=== PATIENT | female | born 1955 | race Caucasian/White ===

== ENCOUNTER 2017-11-17 06:43 | Inpatient (IN) | payer MEDICARE, MEDICAID, SELFPAY ==
[2017-11-02 09:45] VITALS: BMI 26.5
[2017-11-17] VITALS (16 sets, daily range): BP systolic 123–180; BP diastolic 74–101; PULSE 95–110; RESP 12–98; TEMP 36.1–37; O2SAT 91–98; BMI 26.5
[2017-11-17] MEDS: LACTATED RINGERS 1,000 ML 42 ML IV (07:30)
--- NOTE | 2017-11-17 08:00 | DI.RAD.S_ITS ---
PROCEDURE: XR LUMBAR SPINE 2-3V INDICATIONS: L3-4,L4-5 TLIF TECHNIQUE: 2 views of the lumbar spine were acquired. COMPARISON: [facility] Outside Film, CR, XR LUMBAR SPINE 2 OR 3 VIEWS, 06/20/2017, 15:49. FINDINGS: Bones: AP and lateral intraoperative images were obtained showing placement of disc spacers at L3-4 and L4-5, posterior fusion with transpedicular screws and vertical connecting rods bilaterally L3, L4 and L5. Anterolisthesis at L3-4 has been corrected. Soft tissues: Overlying bowel gas pattern is normal. No suspicious soft tissue calcifications. IMPRESSION: Intraoperative images of lumbar discectomy and fusion L3-4 and L4-5. Dictated by: Baldo Hernandez M.D. on 11/17/2017 at 11:58 Approved by: Baldo Hernandez M.D. on 11/17/2017 at 11:59
[2017-11-17] MEDS: CEFAZOLIN 2 GM/100 ML FROZ.PIGGY IV ×3 (08:07→23:44)
--- NOTE | 2017-11-17 09:00 | SUR.OPER ---
Prone on spine table, head in foam head support, padded chest and pelvic supports, gel pad at knees, lower legs supported by pillows; nipples, genitalia and toes free of pressure, arms secured on foam padded arm boards at <90 degrees abduction. Tape over blanket at thigh secured to table.
[2017-11-17] MEDS: BUPIVACAINE 0.25% W/ EPI 50 ML VIAL INJ (09:09)
[2017-11-17] MEDS: BUPIVACAINE LIPOSOME 266 MG/20 ML VIAL INJ (09:10)
--- NOTE | 2017-11-17 11:30 | PM.PREOP ---
Pre-operative Note Interval Note Pre-op Check: History & Physical Reviewed by Physician, Exam Performed and History & Physical exam performed today
--- NOTE | 2017-11-17 11:35 | P.OP_ITS ---
Operative Date/Time/Diagnoses - Date of procedure: 11/17/17 Time of procedure: 08:31 Pre-op diagnosis: 1. L3-4, L4-5 spondylolisthesis 2. L3-4, L4-5 spinal stenosis 3. L3-4, L4-5 spondylosis with radiculopathy Post-op diagnosis: same Procedure & Clinicians Procedure: 1. L3-4, L4-5 Postero-lateral and posterior interbody fusion 2. L3-4, L4-5 interbody cage placement. 3. L3-4, L4-5 decompressive laminectomy with bilateral facetecomies 4. L3-4, L4-5 Posterior segmental instrumentation 5. [place] of bone marrow from iliac crest 6. Utilization of microsurgical technique and operating microscope Same procedure as scheduled: Yes Indications: Patient has been having chronic back pain and worsening lumbar radiculopathy. Patient failed multiple conservative management with worsening pain weakness and numbness in her lower extremity. Patient has been having difficulty performing activity of daily living. After discussing risks benefits of treatment options, patient elected proceed with surgery. Surgeon: Almas Muller Scientific Research Manager: Tawana Riley Click Yes if Unassisted: No Anesthesia Type: General Operative Notes Closure Type: primary Specimen(s): none sent Implants & Drains: Globus revolve screws and Caliber cages Applied: catheter Estimated Blood Loss (mL): 150 Blood products transfused: none Procedure in detail: Patient was seen in the preoperative area. Risks and benefits of the surgery was discussed with the patient. Informed consent was obtained from the patient and placed in the chart. Surgical site was marked. Patient was taken to the operative room. General anesthesia was administered. Prophylactic antibiotic was given to the patient less than 30 min before the incision was made. Patient was placed into a prone position on the Govind table. Patient's back was then prepped and draped in the sterile fashion. Time- out was performed at this time. Using AP and lateral C-arm imaging the interval between L3-4, L4-5 was identified and marked on patient's back. A 2 inch incision 2 in from midline was made on the left side first. The fascia was incised in line with skin incision. Globus MARS retractors was placed inside the incision and docked onto the L4 and L5 lamina. Using microsurgical technique and operating microscope, a L3, L4 laminectomy and L3-4, L4-5 facetectomy was performed using a Kerrison rongeur. The disc space at L3-4, L4-5 was identified. And a total diskectomy was performed at L3-4, L4-5 level. The endplates were decorticated using a rasp and shaver. The total diskectomy and decortication was performed at L3-4, L4-5 level in order to to accomplish a L3-4, L4-5 fusion. The local bone from the laminectomy and facetectomy was saved for local bone grafting. After the total diskectomy and decortication was completed, Globus viacell bone graft material was combined with local bone that was harvested earlier. At this time, a separate skin is incision was made over the iliac crest. A Jamshidi needle was inserted into the iliac crest through a separate skin incision. 5 cc of bone marrow aspiration was obtained through the separate skin incision using a Jamshidi needle from the iliac crest. The bone marrow aspiration was combined with local bone and the via cell bone grafting material. The bone grafting material was placed into the L3-4, L4-5 interbody space along with two cages, one expandable cage at each level. The cages were expanded to their maximum height using the torque limiting screwdriver. At this time a mirror image incision was made on the right side. The fascia was incised in line with the skin incision. Globus MARS retractor was inserted and docked onto the L3-4, L4-5 posterolateral gutter. Using the power drill, posterior-lateral decortication was performed at L3-4, L4-5 level until bleeding cortical bone was identified. The remaining bone grafting material was placed into the L3-4, L4-5 posterior lateral gutter he order to accomplish posterolateral fusion at the L3-4, L4-5 levels. Using the double C-arm technique, pedicle screws were placed into the L3, L4, L5 pedicles bilaterally. This was done by placing the Jamshidi needle into the pedicles, then placing the guidewires over the Jamshidi needle, and finally placing the cannulated screws over the guidewires bilaterally. After the pedicle screws were placed, 2 titanium rods was locked into the heads of the pedicle screws using locking caps and torque limiting screwdriver. Total 6 pedicles screws were placed. After all the hardware was placed, and confirmed with AP and lateral C-arm imaging, the wound was then irrigated with sterile normal saline and packed with Ray-Magalis gauze for 3 min to accomplish hemostasis. After the gauze was removed the deep fascia was closed with #1 Vicryl suture. The subcutaneous layer was closed with 2-0 Vicryl. The skin was closed with skin lenora. Patient tolerated the procedure well. There were no complications. Complications: none Condition: stable Disposition: PACU Plan for aftercare: Admit to inpatient hospital
[2017-11-17] MEDS: fentaNYL 100 MCG/2 ML INJ 50 MCG IV ×2 (12:20→12:25)
[2017-11-17] MEDS: SODIUM CHLORIDE 0.9% 1,000 ML 100 ML IV (13:55)
[2017-11-17] MEDS: diphenhydrAMINE 50 MG/ML VIAL 25 MG IV (14:02)
--- NOTE | 2017-11-17 14:15 | PC.NURSE ---
Pt to room from PACU via bed. Pt awake alert and oriented but forgetful at times. Pt oriented to room, call light, phone use, tv/call light controls, and reminded not to bend, lift, or twist and to logroll in/out of bed. Pt also advised to call for assistance as needed and to not get out of bed without assistance.
--- NOTE | 2017-11-17 14:22 | PM.CHAP ---
Pre-op referral. Shared prayer and encouragement. Pt's support people are in [facility] and expects a SNF stop in her recovery. Will continue to follow. Hima Madden, [facility] [phone]
[2017-11-17] MEDS: HYDROMORPHONE 1 MG INJ 0.5 MG IV ×2 (15:31→17:37)
--- NOTE | 2017-11-17 16:00 | PT.IIE ---
Current Diagnoses Spondylolisthesis, lumbar region (11/17/17) Other spondylosis with radiculopathy, lumbar region (11/17/17) Spinal stenosis, lumbar region without neurogenic claudication (11/17/17) Surgery Performed Operation Date: 11/17/17 07:45 Actual Procedures p L3-4, L4-5 Translaminar Laminectomy Interbody Fusion w/post instru - Almas Muller MD Surgical History (Last Updated 11/02/17 @ 10:25 by Kymberly Webber RN) H/O cosmetic surgery (Acute) History of cataract extraction with lens replacement (Acute) History of mandibular surgery (Acute) History of surgery (Acute) Hx of appendectomy (Acute) Hx of removal of cyst (Acute) Hx of tonsillectomy (Acute) Status post surgical manipulation of ankle joint (Acute) Medical History (Last Updated 11/02/17 @ 10:52 by Kymberly Webber RN) Anxiety (Acute) Arthritis (Acute) Asthma (Acute) COPD (chronic obstructive pulmonary disease) (Acute) Chronic low back pain (Acute) Dental abscess (Acute) Depression (Acute) Diabetes (Acute) ETOH abuse (Acute) Easy bruisability (Acute) Emphysema lung (Acute) Frequent UTI (Acute) HTN (hypertension) (Acute) Hepatitis C (Acute) Hyperlipidemia (Acute) Hyponatremia (Acute) Hypoxia (Acute) Marijuana smoker (Acute) Pneumonia (Acute) Substance abuse (Acute) TBI (traumatic brain injury) (Acute) Urinary retention (Acute) Physical Therapy Inpatient Evaluation/Re-Eval M1 PT/OT-IP Prior Functional Status Start: 11/17/17 17:00 Freq: NEEDED Status: Active Protocol: Document 11/17/17 16:00 AB (Rec: 11/17/17 17:15 AB [id number]) Medical Review Prior Functional Status Medical History Reviewed Yes Mobility and Gait pt staed that she is independent with all mobilities and ambulation without AD Social History Household Members significant other family other Living Arrangements House Number of Floors (Floors) Two Floors Number of Stairs To Enter/Railing? has 13 steps with bilateral wide rails and can only hold on to one rail at a time. pt lives on the main level of the house Home Environment Standard Height Toilet Walk in Shower Home Equipment Front Wheel Walker Four Wheel Walker Straight Cane Employment Status Retired Additional Social History Comment stated that her mom lives with her but will not be able to assist her; spouse works and will not be able to assist her . M2 PT-IP Current Condition Start: 11/17/17 17:00 Freq: NEEDED Status: Active Protocol: Document 11/17/17 16:00 AB (Rec: 11/17/17 17:15 AB [id number]) Physical Therapy Current Condition Current Condition Evaluation Date 11/17/17 Treatment Diagnosis s/p lumbar fusion and laminectomy Onset Date 11/17/17 Precautions Lumbar Precautions Log Roll No Twisting Limit Bending Lifting Restriction of 10 lbs Gait Belt above Incisional Area M3 PT-IP Subjective Start: 11/17/17 17:00 Freq: NEEDED Status: Active Protocol: Document 11/17/17 16:00 AB (Rec: 11/17/17 17:15 AB [id number]) Subjective Physical Therapy Visit Type Type Initial Evaluation Visit Start Time 14:00 Visit Stop Time 14:45 Total Visit Minutes 45 Notes NAC and nurse stated that pt wants to get up. checked on pt and pt refused and stated that she needs to get her pain meds/tablet first that they ordered from the pharmacy. talked to pt's nurse and stated that she just gave her IV pain meds. after a few minutes, nurse informed PT that pt wants to get up now afte pain meds was given. Number of DIVISIONAL MERCHANDISING MANAGER Visits 0 Physical Therapy Visit Comments Patient Comments stated that she cannot go home due to her house is under construction Therapy Pain Assessment Pain When Pain Assessed At Rest Pain Present Pain Present Pain Reported Location Lower Back Intensity 9 Scale Used Numeric (1 - 10) Pain Behaviors Restlessness M4 PT-IP Mobility and Gait Start: 11/17/17 17:00 Freq: NEEDED Status: Active Protocol: Document 11/17/17 16:00 AB (Rec: 11/17/17 17:15 AB [id number]) PT-Bed Mobility Assessment Rolling Level of Assist Maximal Assistance Supine to Sit Supine to Sit Minimal Assistance PT-Transfer Assessment Sit to and From Stand Sit to and from Stand Maximum Assistance Equipment Transfer Assistive Device Gait Belt Front Wheeled Walker Transfers Transfer Destination Chair Transfer Technique Stand Step Pivot Transfer Ability Level of Assist Maximum Assistance Comments Mobility Comments pt seems drowsy and can be impulsive affecting safety and direction following. needed max cues for all tasks. pt sat on EOB and wanted PT to leave her sitting on EOB. educated pt regarding safety and that PT cannot leave her by herself as pt is also drowsy and not safe. Pt then agreed to transfer to the chair. attempted sit to stand but was not able to complete on first try. completed sit to stand again requiring max A and max cues. pt very unsteady with transfer requiring max A and max cues using FWW. positioned pt on chair. informed NAC that pt needs 2 person assist for safety. Gait Assessment Comments Gait Comments able to take steps during transfer but unable to ambulate much. PT-Balance Assessment Sitting Balance and Reactions Static Sitting Balance Ability Good Dynamic Sitting Balance Ability Good Standing Balance and Reactions Static Standing Balance Ability Fair Dynamic Standing Balance Ability Fair Device Used FWW M5 PT-IP Objective Assessments Start: 11/17/17 17:00 Freq: NEEDED Status: Active Protocol: Document 11/17/17 16:00 AB (Rec: 11/17/17 17:15 AB [id number]) Orientation Orientation/Cognition Level of Alertness Confusional State Orientation Name Age Birthday Place Situation Safety Awareness Decreased Safety Awareness Memory Description Short Term Impaired Senior Paralegal Impaired Gross Range of Motion Lower Extremity ROM Assessment Within Functional Limits Strength Lower Extremity Strength Assessment Bilaterally Impaired M6 PT-IP Treatment Start: 11/17/17 17:00 Freq: NEEDED Status: Active Protocol: Document 11/17/17 16:00 AB (Rec: 11/17/17 17:15 AB [id number]) Physical Therapy Treatment Education Education Provided Precautions Weight Bearing Status Post-Op Packet Safety M7 PT-IP Assessment and Plan Start: 11/17/17 17:00 Freq: NEEDED Status: Active Protocol: Document 11/17/17 16:00 AB (Rec: 11/17/17 17:15 AB [id number]) PT Summary Assessment and Plan Potential Rehabilitation Potential Fair Status of Condition at Evaluation Evolving Summary Impairments Pain ROM Strength Balance Coordination Sensation Cognition Bed Mobility Transfers Gait Activity Tolerance Assessment Summary pt requires mod to max A with max cues for all tasks. pt is impulsive and gets agitated easily when given instructions for safety. pt will require SNF rehab to improve strenght and mobility. Goals Bed Mobility Goal Standby Assistance Transfer Goal Contact Guard Assistance Gait Goal Contact Guard Assistance Gait Distance 100 Other Goals up/down 13 steps with 1 rail CGA Days to Meet Goals 3 Frequency of Treatment Frequency Of Treatment Twice a Day Treatment Plan Physical Therapy Treatment Plan Bed Mobility Training Transfer Training Gait Training Therapeutic Exercise Balance Retraining Post Op Education Discharge Planning Hot or Cold Pack Neuromuscular Re-ed Coordination Retraining Manual Therapy Other Recommendations and Next Treatment ambulation Focus Recommendations To Nursing Amount of Assist Needed 2 Person Assist Discharge Recommendations PT Discharge Recommendations SNF Rehab Provider Visit Care Team Role Provider Type Almas Muller MD Admit Provider Physician Attending Provider Specialty: Orthopedic Surgery
[2017-11-17] MEDS: OXYCODONE IR 5 MG TABLET 10 MG PO (16:04)
[2017-11-17] MEDS: GABAPENTIN 300 MG CAPSULE PO ×2 (16:08→22:36)
[2017-11-17] MEDS: ONDANSETRON 4 MG/2 ML INJ IV ×2 (17:28→22:38)
[2017-11-17] MEDS: hydrOXYzine pamoate 25 MG CAPSULE PO ×2 (18:58→22:35)
[2017-11-17] MEDS: ALBUTEROL HFA 60 PUFF/8 GM INH INH (20:29)
[2017-11-17] MEDS: HYDROMORPHONE 0.5 MG INJ IV ×2 (20:38→22:15)
[2017-11-17] MEDS: FLUTICASONE/SALMETEROL 500/50 14 PUFF DISKUS INH (22:35)
[2017-11-17] MEDS: BUSPIRONE 15 MG TABLET PO (22:35)
[2017-11-17] MEDS: DOCUSATE 100 MG CAPSULE PO (22:35)
[2017-11-17] MEDS: TRAZODONE 50 MG TABLET 100 MG PO (22:36)
[2017-11-17] MEDS: SENNOSIDES 8.6 MG TABLET 17.2 MG PO (22:36)
--- NOTE | 2017-11-17 22:39 | PC.NURSE ---
Evenign Shift Note Pt A&Ox3, VSS, HTN d/t pain, 95% on 2L NC. Pain managed w/ PO Dilaudid and IV for breakthrough. Pt experiencing severe nausea after oxycodone administration x2. Zofran given x2, nausea resolved after vomiting and tolerating PO intake. paged and orders to stop PO oxycodone and initiate PO Dilaudid. Nausea resolved and intaking fluids and bedtime meds w/o emesis. Up w/ 1p SBA, using call light appropriately. Will continue to monitor. CMS intact. Snowden patent. NS at 100ml/hr via R hand PIV.
[2017-11-17] MEDS: HYDROMORPHONE 2 MG TABLET PO (23:43)
[2017-11-18] VITALS (10 sets, daily range): BP systolic 112–154; BP diastolic 64–98; PULSE 93–119; RESP 16–20; TEMP 36.1–37.2; O2SAT 90–96
[2017-11-18] MEDS: SODIUM CHLORIDE 0.9% 1,000 ML 100 ML IV (00:48)
[2017-11-18] MEDS: HYDROMORPHONE 0.5 MG INJ IV ×3 (01:01→08:19)
[2017-11-18] MEDS: diazePAM 5 MG TABLET PO ×2 (01:59→19:23)
[2017-11-18] MEDS: ALBUTEROL HFA 60 PUFF/8 GM INH INH ×3 (03:03→14:47)
[2017-11-18] MEDS: hydrOXYzine pamoate 25 MG CAPSULE PO ×2 (04:28→15:55)
--- NOTE | 2017-11-18 05:11 | PC.NURSE ---
patient was c/o pain 8/10 even after medicating her with dilaudid IV and Dilaudid PO. notified Dr. Coronado, VTO : valium and additional dilaudid if valium is ineffective. Pt reported pain relief after Valium and dilaudid, her pain has gone down to 6/10.
[2017-11-18] MEDS: MAGNESIUM HYDROXIDE 30 ML UDC PO (05:28)
[2017-11-18 06:21] LABS: Hematocrit 37.7 % (36-46); Hemoglobin 12.3 g/dL (12.0-16.0)
[2017-11-18] MEDS: HYDROMORPHONE 2 MG TABLET PO (06:28)
--- NOTE | 2017-11-18 08:54 | P.PN_ITS ---
Subjective Date Patient Seen: 11/18/17 Time Patient Seen: 08:49 Interval history: Patient is postop day 1 status post lami/fusion by Dr. Muller. Patient having lot of pain. Currently on Dilaudid 2 mg dose not controlling her pain. She has had to have additional IV Dilaudid. Patient states that she is high pain tolerance. Has not been up with physical therapy yet. She also like to have a nicotine patch. Exam Vital Signs (past 8 hours): Vital Signs - 8 hr 3 11/18/17 04:00 Temperature 98.8 F Pulse Rate 115 H Respiratory Rate 18 Blood Pressure 112/88 H Pulse Oximetry 94 Pulse Oximetry 94 Oxygen Delivery Method Nasal Cannula Oxygen Flow Rate 3 Narrative Exam Narrative: Patient in bed. Alert and orient x3. Back dressing is clean dry intact. 5/5 BLE. NV status intact. Floey in. O2 nasal. Objective Labs Result Diagrams: 11/18/17 05:56 Labs: Laboratory Results - last 24 hr 11/18/17 05:56 Hgb 12.3 Hct 37.7 Assessment & Plan Post-op Postoperative Procedures Operation Date: 11/17/17 07:45 Actual Procedures Side Surgeon p L3-4, L4-5 Translaminar Laminectomy Interbody Fusion w/post instru Almas Muller MD status post L3-L4, L5 4-5 Lami/fusion by Dr. Muller. PD1. Will increase on Dilaudid 2-4 mg every 4 hr as needed for pain. Also start her on a steroid burst. Order nicotine patch. Patient will ambulate with physical therapy. HERBER Snowden when more mobile. Probably home in next couple of days. Time Spent With Patient less than 15 minutes
[2017-11-18] MEDS: ALBUTEROL/IPRATROPIUM MDI 1 PUFF INH ×2 (09:02→20:17)
[2017-11-18] MEDS: FLUTICASONE/SALMETEROL 500/50 14 PUFF DISKUS INH ×2 (09:05→20:17)
[2017-11-18] MEDS: DEXAMETHASONE 4 MG TABLET 10 MG PO (09:17)
[2017-11-18] MEDS: BUSPIRONE 15 MG TABLET PO ×2 (09:18→22:26)
[2017-11-18] MEDS: DOCUSATE 100 MG CAPSULE PO ×2 (09:19→22:27)
[2017-11-18] MEDS: CITALOPRAM 20 MG TABLET 40 MG PO (09:19)
[2017-11-18] MEDS: MEMANTINE HCL 5 MG TABLET 15 MG PO (09:20)
[2017-11-18] MEDS: LISINOPRIL 5 MG TABLET PO (09:20)
[2017-11-18] MEDS: METFORMIN HCL 500 MG TABLET 1000 MG PO ×2 (09:21→22:27)
[2017-11-18] MEDS: MONTELUKAST 10 MG TABLET PO (09:21)
[2017-11-18] MEDS: NICOTINE 21 MG PATCH TOP (09:21)
[2017-11-18] MEDS: PRAVASTATIN 20 MG TABLET 40 MG PO (09:22)
[2017-11-18] MEDS: GABAPENTIN 300 MG CAPSULE PO ×3 (09:32→22:26)
[2017-11-18] MEDS: LORazepam 1 MG TABLET PO (10:31)
[2017-11-18] MEDS: HYDROMORPHONE 2 MG TABLET 4 MG PO ×4 (10:48→22:25)
--- NOTE | 2017-11-18 11:00 | PT.IPTN ---
Current Diagnoses Spondylolisthesis, lumbar region (11/17/17) Other spondylosis with radiculopathy, lumbar region (11/17/17) Spinal stenosis, lumbar region without neurogenic claudication (11/17/17) Surgery Performed Operation Date: 11/17/17 07:45 Actual Procedures p L3-4, L4-5 Translaminar Laminectomy Interbody Fusion w/post jensen Muller MD Physical Therapy Treatment Note M2 PT-IP Current Condition Start: 11/17/17 17:00 Freq: NEEDED Status: Active Protocol: Document 11/17/17 16:00 AB (Rec: 11/17/17 17:15 AB [id number]) Physical Therapy Current Condition Current Condition Evaluation Date 11/17/17 Treatment Diagnosis s/p lumbar fusion and laminectomy Onset Date 11/17/17 Precautions Lumbar Precautions Log Roll No Twisting Limit Bending Lifting Restriction of 10 lbs Gait Belt above Incisional Area M3 PT-IP Subjective Start: 11/17/17 17:00 Freq: NEEDED Status: Active Protocol: Document 11/18/17 11:00 AB (Rec: 11/18/17 12:40 AB [email or web address]) Subjective Physical Therapy Visit Type Type Treatment Note Visit Start Time 11:00 Visit Stop Time 11:33 Total Visit Minutes 33 Number of AEROSPACE CONTROL AND WARNING SYSTEMS Visits 0 Physical Therapy Visit Comments Patient Comments initially refusing stating that she is waiting for her oral meds. nurse stated that she just gave her IV dilaudid. Therapy Pain Assessment Pain When Pain Assessed During Mobility Pain Present Pain Present Pain Reported Location Lower Back Intensity 9 Scale Used Numeric (1 - 10) Pain Management Techniques Apply Cold Re-positioning Timing of Activity with Medications M4 PT-IP Mobility and Gait Start: 11/17/17 17:00 Freq: NEEDED Status: Active Protocol: Document 11/18/17 12:31 AB (Rec: 11/18/17 12:40 AB [id number]) PT-Bed Mobility Assessment Supine to Sit Supine to Sit Maximum Assistance 1 Person Assistance Scooting Scooting to Edge of Bed Maximum Assistance PT-Transfer Assessment Sit to and From Stand Sit to and from Stand Maximum Assistance 2 Person Assistance Use of Upper Extremities Equipment Transfer Assistive Device Gait Belt Front Wheeled Walker Orthotic/Prosthetic Devices or Brace: No Transfers Transfer Destination Chair Transfer Technique Stand Pivot Transfer Ability Level of Assist Maximum Assistance 2 Person Assistance Use of Upper Extremities Comments Mobility Comments pt very anxious and required max cues for all tasks but also gets agitated when instructed. pt also is impulsive but also gets agitated when instructed for safety. Gait Assessment Comments Gait Comments unable to ambulate at this time M5 PT-IP Objective Assessments Start: 11/17/17 17:00 Freq: NEEDED Status: Active Protocol: Document 11/17/17 16:00 AB (Rec: 11/17/17 17:15 AB [id number]) Orientation Orientation/Cognition Level of Alertness Confusional State Orientation Name Age Birthday Place Situation Safety Awareness Decreased Safety Awareness Memory Description Short Term Impaired Fdc Impaired Gross Range of Motion Lower Extremity ROM Assessment Within Functional Limits Strength Lower Extremity Strength Assessment Bilaterally Impaired M6 PT-IP Treatment Start: 11/17/17 17:00 Freq: NEEDED Status: Active Protocol: Document 11/18/17 12:40 AB (Rec: 11/18/17 12:40 AB [id number]) Physical Therapy Treatment Education Education Provided Precautions Safety M7 PT-IP Assessment and Plan Start: 11/17/17 17:00 Freq: NEEDED Status: Active Protocol: Document 11/18/17 12:31 AB (Rec: 11/18/17 12:40 AB [id number]) PT Summary Assessment and Plan Potential Rehabilitation Potential Fair Summary Impairments Pain ROM Strength Balance Coordination Cognition Bed Mobility Transfers Gait Activity Tolerance Progress Towards Goals Slow Progress due to Pain Slow Progress due to Medical Issues Slow Progress due to Activity Tolerance Assessment Summary pt continues to require 2 -3 person assist with mobility. pt is impulsive but also gets agitated easily when instructed. pt will require SNF rehab to improve mobility. Goals Bed Mobility Goal Standby Assistance Transfer Goal Contact Guard Assistance Front Wheeled Walker Gait Goal Contact Guard Assistance Front Wheel Walker Gait Distance 100 Other Goals up/down 13 steps with 1 rail CGA Days to Meet Goals 3 Frequency of Treatment Frequency Of Treatment Twice a Day Treatment Plan Physical Therapy Treatment Plan Bed Mobility Training Transfer Training Gait Training Therapeutic Exercise Balance Retraining Post Op Education Discharge Planning Hot or Cold Pack Neuromuscular Re-ed Coordination Retraining Manual Therapy Other Recommendations and Next Treatment ambulation Focus Recommendations To Nursing Amount of Assist Needed 3 or More Person Assist Discharge Recommendations PT Discharge Recommendations SNF Rehab
[2017-11-18] MEDS: MULTIVIT,CALC,MINS/IRON/FOLIC 1 TABLET 1 TAB PO (12:05)
--- NOTE | 2017-11-18 12:22 | CM.DANOTE ---
Addendum entered by VESTA Moreno 11/18/17 12:33: In addition; Susan requests information on pt's DCP from SNF when will her house construction be completed? Original Note: DCP Assessment: Pt is a 62 yo female, resident of [place]. Pt admitted for scheduled spinal surgery w/Dr Muller. Pt's PCP is [facility]. Reviewed chart and met w/pt, explained SW role. Pt very appreciative of the visit and explains she has been and currently is in a lot of pain. This TECHNICAL OPERATOR reviewed [facility] contracted facilities; pt requests [facility] Contacted Susan at [facility] she researched pt's coverage and started authorization process w/[facility]. Susan appreciates any updated PT notes when they become available. PASSR still needs to be completed. VESTA Moreno
--- NOTE | 2017-11-18 13:15 | PT.IPTN ---
Current Diagnoses Spondylolisthesis, lumbar region (11/17/17) Other spondylosis with radiculopathy, lumbar region (11/17/17) Spinal stenosis, lumbar region without neurogenic claudication (11/17/17) Surgery Performed Operation Date: 11/17/17 07:45 Actual Procedures p L3-4, L4-5 Translaminar Laminectomy Interbody Fusion w/post jensen Muller MD Physical Therapy Treatment Note M3 PT-IP Subjective Start: 11/17/17 17:00 Freq: NEEDED Status: Active Protocol: Document 11/18/17 13:30 AB (Rec: 11/18/17 14:51 AB [email or web address]) Subjective Physical Therapy Visit Type Type Treatment Note Visit Start Time 13:15 Visit Stop Time 13:30 Total Visit Minutes 15 Number of FIRE BOSS Visits 0 Physical Therapy Visit Comments Patient Comments pt requesting to go back to bed Therapy Pain Assessment Pain When Pain Assessed At Rest Pain Present Pain Present Pain Reported Location Lower Back Intensity 8 Scale Used Numeric (1 - 10) Pain Behaviors Guarding Restlessness Pain Management Techniques Re-positioning M4 PT-IP Mobility and Gait Start: 11/17/17 17:00 Freq: NEEDED Status: Active Protocol: Document 11/18/17 13:30 AB (Rec: 11/18/17 14:51 AB [email or web address]) PT-Bed Mobility Assessment Sit to Supine Sit to Supine Maximum Assistance PT-Transfer Assessment Sit to and From Stand Sit to and from Stand Maximum Assistance 2 Person Assistance Use of Upper Extremities Equipment Transfer Assistive Device Gait Belt Front Wheeled Walker Transfers Transfer Destination Bed Transfer Technique Stand Step Pivot Transfer Ability Level of Assist Maximum Assistance 2 Person Assistance Use of Upper Extremities Comments Mobility Comments pt required max cues with all tasks and required 2 attempts to complete sit to stand. pt continues to have confusion and impulsiveness. M5 PT-IP Objective Assessments Start: 11/17/17 17:00 Freq: NEEDED Status: Active Protocol: Document 11/17/17 16:00 AB (Rec: 11/17/17 17:15 AB [id number]) Orientation Orientation/Cognition Level of Alertness Confusional State Orientation Name Age Birthday Place Situation Safety Awareness Decreased Safety Awareness Memory Description Short Term Impaired Nursing Home Impaired Gross Range of Motion Lower Extremity ROM Assessment Within Functional Limits Strength Lower Extremity Strength Assessment Bilaterally Impaired M6 PT-IP Treatment Start: 11/17/17 17:00 Freq: NEEDED Status: Active Protocol: Document 11/18/17 13:30 AB (Rec: 11/18/17 14:51 AB [email or web address]) Physical Therapy Treatment Education Education Provided Precautions Weight Bearing Status Post-Op Packet Safety M7 PT-IP Assessment and Plan Start: 11/17/17 17:00 Freq: NEEDED Status: Active Protocol: Document 11/18/17 13:30 AB (Rec: 11/18/17 14:51 AB [email or web address]) PT Summary Assessment and Plan Potential Rehabilitation Potential Fair Summary Impairments Pain ROM Strength Balance Coordination Sensation Tone Cognition Bed Mobility Transfers Gait Activity Tolerance Progress Towards Goals Slow Progress due to Pain Slow Progress due to Medical Issues Assessment Summary pt continues to require 2 person assist with mobility and will require SNF rehab to improve strength and mobility. Goals Bed Mobility Goal Standby Assistance Transfer Goal Contact Guard Assistance Front Wheeled Walker Gait Goal Contact Guard Assistance Front Wheel Walker Gait Distance 100 Other Goals up/down 13 steps with 1 rail CGA Days to Meet Goals 3 Frequency of Treatment Frequency Of Treatment Twice a Day Treatment Plan Physical Therapy Treatment Plan Bed Mobility Training Transfer Training Gait Training Therapeutic Exercise Balance Retraining Post Op Education Discharge Planning Hot or Cold Pack Neuromuscular Re-ed Coordination Retraining Manual Therapy Other Recommendations and Next Treatment ambulation Focus Recommendations To Nursing Amount of Assist Needed 3 or More Person Assist Discharge Recommendations PT Discharge Recommendations SNF Rehab
[2017-11-18] MEDS: DEXAMETHASONE 4 MG TABLET PO ×2 (14:45→22:27)
--- NOTE | 2017-11-18 16:18 | OT.IP.EVAL ---
Current Diagnoses Spondylolisthesis, lumbar region (11/17/17) Other spondylosis with radiculopathy, lumbar region (11/17/17) Spinal stenosis, lumbar region without neurogenic claudication (11/17/17) Surgery Performed Operation Date: 11/17/17 07:45 Actual Procedures p L3-4, L4-5 Translaminar Laminectomy Interbody Fusion w/post instru - Almas Muller MD Past Medical History (Last Updated 11/02/17 @ 10:52 by Kymberly Webber RN) Anxiety (Acute) Arthritis (Acute) Asthma (Acute) COPD (chronic obstructive pulmonary disease) (Acute) Chronic low back pain (Acute) Dental abscess (Acute) Depression (Acute) Diabetes (Acute) ETOH abuse (Acute) Easy bruisability (Acute) Emphysema lung (Acute) Frequent UTI (Acute) HTN (hypertension) (Acute) Hepatitis C (Acute) Hyperlipidemia (Acute) Hyponatremia (Acute) Hypoxia (Acute) Marijuana smoker (Acute) Pneumonia (Acute) Substance abuse (Acute) TBI (traumatic brain injury) (Acute) Urinary retention (Acute) Surgical History (Last Updated 11/02/17 @ 10:25 by Kymberly Webber RN) H/O cosmetic surgery (Acute) History of cataract extraction with lens replacement (Acute) History of mandibular surgery (Acute) History of surgery (Acute) Hx of appendectomy (Acute) Hx of removal of cyst (Acute) Hx of tonsillectomy (Acute) Status post surgical manipulation of ankle joint (Acute) Occupational Therapy Inpatient Evaluation/Re-Eval M1 PT/OT-IP Prior Functional Status Start: 11/17/17 17:00 Freq: NEEDED Status: Active Protocol: Document 11/18/17 15:58 ALONDRA (Rec: 11/18/17 16:18 ALONDRA [email or web address]) Medical Review Prior Functional Status Medical History Reviewed Yes Diet/Fluid Consistency Regular Communication WFL, pt hyperverbal and distracts self with conversation Mobility and Gait pt stated that she is independent with all mobilities and ambulation without AD Activities of Daily Living and IADL's Pt states she was indep with all self care and provides some assist to her elderly mother. Prior Functional Level (Other details) Pt lives in mother's home. Her mother has paid caregiver 3x week. works long hours and cannot provide much assist. 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 M2 OT-IP Current Condition Start: 11/18/17 15:57 Freq: Status: Active Protocol: Document 11/18/17 15:58 PJM (Rec: 11/18/17 16:18 PJM [email or web address]) Occupational Therapy Current Condition Current Condition Evaluation Date 11/18/17 Treatment Diagnosis decreased self care/function mobility s/p lumbar fusion Post Operative Precautions Lumbar Precautions Log Roll No Twisting Limit Bending Lifting Restriction of 10 lbs Gait Belt above Incisional Area M3 OT- IP Subjective and Pain Start: 11/18/17 15:57 Freq: Status: Active Protocol: Document 11/18/17 15:58 PJM (Rec: 11/18/17 16:18 PJM [email or web address]) OT- Subjective Occupational Therapy Visit Type Type Initial Evaluation Visit Start Time 13:10 Visit Stop Time 13:40 Total Visit Minutes 30 Occupational Therapy Visit Comments Patient Comments I need to get back to bed now . I have had plenty of therapy today. Patient/Caregiver Goals to have less pain OT Pain Assessment Pain When Pain Assessed During Mobility Pain Present Pain Present Pain Reported Location Lower Back Scale Used pt does not rate on scale Description Aching Cramping Pain Behaviors Facial Grimacing Guarding Management Techniques Re-positioning Timing of Activity with Medications M4 OT- IP ADL's Start: 11/18/17 15:57 Freq: Status: Active Protocol: Document 11/18/17 15:58 PJM (Rec: 11/18/17 16:18 PJM [email or web address]) OT ADL-Grooming General Evaluation Grooming Ability Standby Assistance Areas Needing Assistance Retrieving/Set-up of Grooming Items Face Washing Comments OT Grooming Comments in bed or chair OT ADL-Oral Care Comments Oral Care Comments pt declined this session OT ADL-Dressing General Eval Upper Body Dressing Ability Minimal Assistance Lower Body Dressing Ability Total Assistance Areas Needing Assistance Socks Assistive Devices Dressing Assistive Devices Long Handled Shoe Horn Manufacturing Quality Engineer Sock Aid Comments OT Dressing Comments provided warehouse delivery driver, sock aid and long shoe horn at pr request, began education re: use of equipt with emphasis on lumbar spine precautions OT ADL-Toileting General Evaluation Toileting Ability Total Assistance Comments OT Toileting Comments marroquin still in place OT ADL-Bathing Bathing Type Bathing Type Sponge Bath General Evaluation Bathing Ability Maximal Assistance M5 OT- IP IADL's Start: 11/18/17 15:57 Freq: Status: Active Protocol: Document 11/18/17 15:58 PJM (Rec: 11/18/17 16:18 PJM [email or web address]) OT-Instrumental Activities of Daily Living Deficits IADL Deficits Identified Deficits Home Safety Awareness Home Safety Comments pt states her house is under construction at present Money Management Money Management No Deficits Identified Molder Feeder Molder Feeder Comments Pt will need assist during recovery period Driving Driving Comments Pt will need assist during recovery period M6 OT- IP Functional Cognition Start: 11/18/17 15:57 Freq: Status: Active Protocol: Document 11/18/17 15:58 PJM (Rec: 11/18/17 16:18 PJ [email or web address]) Cognitive Factors Limiting Selfcare Function Cognitive Ability Level of Alertness Alert Attention Span Ability Unable to Focus Unable to Sustain Attention Ability to Follow Commands Able to Follow One Step Commands with Repetition Memory Description Short Term Impaired Safety Awareness Decreased Ability to Apply Precautions Problem Solving Ability Unable to Identify Errors Needs Assist to Identify Solutions Executive Function Ability Unable to Hold Focus Unable to Filter Distractions Unable to Curb Inappropriate Speech Cognitive Comments Cognitive Assessment Comments Pt hyperverbal this session and distracts self with constant conversation; significantly decreased attention /concentration with low frustration tolerance and decreased coping skills noted. Note pt has hx of TBI. OT- Vision and Hearing OT- Hearing Assessment OT- Hearing Assessment WFL OT- Vision Assessment Visual Acuity WFL Vision Assessment Comments s/p B cataract surgery; pt denies any recent changes M7 OT- IP Mobility and Balance Start: 11/18/17 15:57 Freq: Status: Active Protocol: Document 11/18/17 15:58 PJM (Rec: 11/18/17 16:18 PJ [email or web address]) OT- Bed Mobility Assessment Sit to Supine Sit to Supine Assist Maximum Assistance 2 Person Assistance Scooting Scooting to Edge of Bed Total Assistance 2 Person Assistance Scooting Up and Down in Bed Total Assistance 2 Person Assistance OT-Transfer Assessment Sit to and From Stand Sit to and from Stand Maximum Assistance 2 Person Assistance Transfers Transfer Ability Maximum Assistance 2 Person Assistance Technique Transfer Destination Bed Transfer Technique Stand Step Pivot Devices Transfer Assistive Devices Gait Belt Front Wheeled Walker Comments Mobility Comments decreased attention to task due to anxiety, constant conversation OT- Gait Assessment Comments Gait Ability Comments did not occur OT- Balance Assessment Sitting Balance and Reactions Static Sitting Balance Ability Fair Dynamic Sitting Balance Ability Poor Standing Balance and Reactions Static Standing Balance Ability Fair Dynamic Standing Balance Ability Poor M8 OT- IP Objective Assessments Start: 11/18/17 15:57 Freq: Status: Active Protocol: Document 11/18/17 15:58 PJM (Rec: 11/18/17 16:18 PJM [email or web address]) OT Gross Range of Motion Upper Extremity Range of Motion Assessment Within Functional Limits OT Strength Upper Extremity Strength Assessment Within Functional Limits OT- Coordination Assessment Comments Coordination Comments WFL BUE OT-Muscle Tone Assessment Muscle Tone WNL Yes OT Sensation Assessment Comments Summary Comments Pt denies deficits in BUE's Edema Edema Absent M9 OT- IP Assessment and Plan Start: 11/18/17 15:57 Freq: Status: Active Protocol: Document 11/18/17 15:58 PJM (Rec: 11/18/17 16:18 PJM [id number]) OT Summary Assessment and Plan Potential Rehabilitation Potential Good Analytic Complexity at Evaluation Moderate Summary OT Impairments Pain Balance Functional Cognition Functional Mobility Grooming Dressing Toileting Bathing Toilet Transfers Shower Transfers Progress Towards Goals Slow Progress due to Activity Tolerance Assessment Summary Moderate complexity OT assessment due to pt's high anxiety level and decreased functional cognition requiring strategies to calm pt and focus her attention on task. Pt is far below her baseline level of function and currently has significant performance deficits in all functional mobility/transfers; requiring 2 person assist. Pt has not yet been able to ambulate with P.T. Pt also has performance deficits in standing grooming, dressing, bathing and toileting. Pt is not safe to return home with her elderly mother who requires caregiver assist. Recommend SNF for further rehab when pt medically stable . Goals Grooming Goal Standby Assistance Dressing Goal Minimal Assistance Toileting Goal Moderate Assistance Bathing Goal Minimal Assistance Toilet Transfer Goal Minimal Assistance Shower Transfer Goal Minimal Assistance Patient/Caregiver Education Goal Demonstrate Post-Op Precautions Days to Meet Goals 7 Frequency of Treatment Frequency Of Treatment Once a Day Treatment Plan OT Treatment Plan ADL Training Functional Mobility Patient/Family Education Discharge Planning Discharge Recommendations OT Discharge Recommendations SNF Rehab Home Equipment Needs provided warehouse delivery driver, sock aid, long shoe horn and bath sponge
[2017-11-18] MEDS: SENNOSIDES 8.6 MG TABLET 17.2 MG PO (22:27)
[2017-11-18] MEDS: TRAZODONE 50 MG TABLET 100 MG PO (22:28)
[2017-11-19] VITALS (8 sets, daily range): BP systolic 124–166; BP diastolic 77–84; PULSE 90–103; RESP 16–18; TEMP 36.6–36.8; O2SAT 93–98
[2017-11-19] MEDS: hydrOXYzine pamoate 25 MG CAPSULE PO ×2 (00:34→09:12)
[2017-11-19] MEDS: LORazepam 1 MG TABLET PO (02:07)
[2017-11-19] MEDS: DEXAMETHASONE 4 MG TABLET PO (02:32)
[2017-11-19] MEDS: HYDROMORPHONE 2 MG TABLET 4 MG PO ×5 (02:32→21:23)
[2017-11-19] MEDS: MAGNESIUM HYDROXIDE 30 ML UDC PO (03:26)
[2017-11-19] MEDS: diphenhydrAMINE 50 MG/ML VIAL 25 MG IV ×2 (03:40→12:54)
--- NOTE | 2017-11-19 07:56 | PM.PNPO.1 ---
Subjective Date Patient Seen: 11/19/17 Time Patient Seen: 07:56 Interval history: Patient's pain is moderate. Denies fever or chills. No nausea vomiting. Patient states she has no caregiver to her sister at home. Exam Vital Signs (past 8 hours): Vital Signs - 8 hr 11/19/17 03:18 Temperature 98.1 F Pulse Rate 96 H Respiratory Rate 16 Blood Pressure 124/79 H Pulse Oximetry 96 Pulse Oximetry 96 Oxygen Delivery Method Nasal Cannula Oxygen Flow Rate 2 Narrative Exam Narrative: Lumbar dressing is clean, dry and intact. Neurovascular status is intact to the distal bilateral lower extremities. Objective Labs Result Diagrams: 11/18/17 05:56 Assessment & Plan Post-op Postoperative Procedures Operation Date: 11/17/17 07:45 Actual Procedures Side Surgeon p L3-4, L4-5 Translaminar Laminectomy Interbody Fusion w/post instru Almas Muller MD Postop day 2 status post L3 L4, L4-L5 posterior lateral and posterior interbody fusion, L3-L4, L4-L5 interbody cage placement, L3-L4, L4-L5 decompressive laminectomy with bilateral facetectomies, L3-L4, L4-L5 posterior segmental instrumentation. Utilization of microsurgical technique and operating microscope. Patient progressing slower than expected. Mobilized with physical therapy. Patient is max assist in physical therapy has recommended [facility] facility placement. Likely discharge to [facility] facility tomorrow. Time Spent With Patient less than 15 minutes
--- NOTE | 2017-11-19 08:01 | P.PN_ITS ---
Subjective Date Patient Seen: 11/19/17 Time Patient Seen: 07:56 Interval history: Patient's pain is moderate. Denies fever or chills. No nausea vomiting. Patient states she has no caregiver to her sister at home. Exam Vital Signs (past 8 hours): Vital Signs - 8 hr 3 11/19/17 03:18 Temperature 98.1 F Pulse Rate 96 H Respiratory Rate 16 Blood Pressure 124/79 H Pulse Oximetry 96 Pulse Oximetry 96 Oxygen Delivery Method Nasal Cannula Oxygen Flow Rate 2 Narrative Exam Narrative: Lumbar dressing is clean, dry and intact. Neurovascular status is intact to the distal bilateral lower extremities. Objective Labs Result Diagrams: 11/18/17 05:56 Assessment & Plan Post-op Postoperative Procedures Operation Date: 11/17/17 07:45 Actual Procedures Side Surgeon p L3-4, L4-5 Translaminar Laminectomy Interbody Fusion w/post instru Almas Muller MD Postop day 2 status post L3 L4, L4-L5 posterior lateral and posterior interbody fusion, L3-L4, L4-L5 interbody cage placement, L3-L4, L4-L5 decompressive laminectomy with bilateral facetectomies, L3-L4, L4-L5 posterior segmental instrumentation. Utilization of microsurgical technique and operating microscope. Patient progressing slower than expected. Mobilized with physical therapy. Patient is max assist in physical therapy has recommended shelter facility placement. Likely discharge to shelter facility tomorrow. Time Spent With Patient less than 15 minutes
[2017-11-19] MEDS: FLUTICASONE/SALMETEROL 500/50 14 PUFF DISKUS INH ×2 (08:22→20:54)
[2017-11-19] MEDS: ALBUTEROL HFA 60 PUFF/8 GM INH INH (08:22)
[2017-11-19] MEDS: NICOTINE 21 MG PATCH TOP ×2 (09:00→09:12)
[2017-11-19] MEDS: GABAPENTIN 300 MG CAPSULE PO ×3 (09:12→21:24)
[2017-11-19] MEDS: MONTELUKAST 10 MG TABLET PO (09:13)
[2017-11-19] MEDS: MULTIVIT,CALC,MINS/IRON/FOLIC 1 TABLET 1 TAB PO (09:13)
[2017-11-19] MEDS: PRAVASTATIN 20 MG TABLET 40 MG PO (09:13)
[2017-11-19] MEDS: BUSPIRONE 15 MG TABLET PO ×2 (09:13→21:24)
[2017-11-19] MEDS: METFORMIN HCL 500 MG TABLET 1000 MG PO ×2 (09:13→16:54)
[2017-11-19] MEDS: CITALOPRAM 20 MG TABLET 40 MG PO (09:13)
[2017-11-19] MEDS: DOCUSATE 100 MG CAPSULE PO ×2 (09:14→21:23)
[2017-11-19] MEDS: LISINOPRIL 5 MG TABLET PO (09:14)
[2017-11-19] MEDS: MEMANTINE HCL 5 MG TABLET 15 MG PO (09:14)
--- NOTE | 2017-11-19 10:10 | PT.IPTN ---
Current Diagnoses Spondylolisthesis, lumbar region (11/17/17) Other spondylosis with radiculopathy, lumbar region (11/17/17) Spinal stenosis, lumbar region without neurogenic claudication (11/17/17) Surgery Performed Operation Date: 11/17/17 07:45 Actual Procedures p L3-4, L4-5 Translaminar Laminectomy Interbody Fusion w/post jensen Muller MD Physical Therapy Treatment Note M2 PT-IP Current Condition Start: 11/17/17 17:00 Freq: NEEDED Status: Active Protocol: Document 11/17/17 16:00 AB (Rec: 11/17/17 17:15 AB [id number]) Physical Therapy Current Condition Current Condition Evaluation Date 11/17/17 Treatment Diagnosis s/p lumbar fusion and laminectomy Onset Date 11/17/17 Precautions Lumbar Precautions Log Roll No Twisting Limit Bending Lifting Restriction of 10 lbs Gait Belt above Incisional Area M3 PT-IP Subjective Start: 11/17/17 17:00 Freq: NEEDED Status: Active Protocol: Document 11/19/17 10:10 AB (Rec: 11/19/17 11:41 AB [email or web address]) Subjective Physical Therapy Visit Type Type Treatment Note Visit Start Time 10:10 Visit Stop Time 10:45 Total Visit Minutes 35 Number of DONOR CENTER TECHNICIAN Visits 0 Therapy Pain Assessment Pain When Pain Assessed At Rest Pain Present Pain Present Pain Reported Location Lower Back Scale Used pain scale not stated M4 PT-IP Mobility and Gait Start: 11/17/17 17:00 Freq: NEEDED Status: Active Protocol: Document 11/19/17 10:10 AB (Rec: 11/19/17 11:41 AB [email or web address]) PT-Transfer Assessment Sit to and From Stand Sit to and from Stand Minimal Assistance Moderate Assistance Equipment Transfer Assistive Device Gait Belt Front Wheeled Walker Comments Mobility Comments pt ambulated from bed towards the sink using FWW min A to mod A ~ 10 ft. pt was able to maintain standing min A leaning against the counter while completing grooming. Gait Assessment Gait Gait Assistance Required: Minimum Assistance Distance (Feet) (feet) 200 Able to Maintain Weight Bearing Status Yes During Gait Assistive Devices Assistive Device Gait Belt Front Wheeled Walker Gait Deviations General Gait Pattern Decreased Stride Length Decreased Feet Clearance Factors Limiting Gait Function Factors Limiting Gait Function Decreased Activity Tolerance Decreased Sensation Decreased Strength Difficulty Following Directions Pain Poor Balance Poor Safety Awareness Comments Gait Comments pt completed 200 ft x 2 using FWW min A and cues. pt can be impulsive. M5 PT-IP Objective Assessments Start: 11/17/17 17:00 Freq: NEEDED Status: Active Protocol: Document 11/17/17 16:00 AB (Rec: 11/17/17 17:15 AB [id number]) Orientation Orientation/Cognition Level of Alertness Confusional State Orientation Name Age Birthday Place Situation Safety Awareness Decreased Safety Awareness Memory Description Short Term Impaired Custodial Impaired Gross Range of Motion Lower Extremity ROM Assessment Within Functional Limits Strength Lower Extremity Strength Assessment Bilaterally Impaired M6 PT-IP Treatment Start: 11/17/17 17:00 Freq: NEEDED Status: Active Protocol: Document 11/18/17 13:30 AB (Rec: 11/18/17 14:51 AB [email or web address]) Physical Therapy Treatment Education Education Provided Precautions Weight Bearing Status Post-Op Packet Safety M7 PT-IP Assessment and Plan Start: 11/17/17 17:00 Freq: NEEDED Status: Active Protocol: Document 11/19/17 10:10 AB (Rec: 11/19/17 11:41 AB [email or web address]) PT Summary Assessment and Plan Potential Rehabilitation Potential Fair Summary Impairments Pain ROM Strength Balance Tone Cognition Bed Mobility Transfers Gait Activity Tolerance Progress Towards Goals Slow Progress due to Pain Assessment Summary pt slowly progressing but continues to require assist with mobility. Pt will benefit from SNF rehab to improve function prior to d/c home. Goals Bed Mobility Goal Standby Assistance Transfer Goal Standby Assistance Gait Goal Standby Assistance Front Wheel Walker Gait Distance 250 Days to Meet Goals 3 Frequency of Treatment Frequency Of Treatment Twice a Day Treatment Plan Physical Therapy Treatment Plan Bed Mobility Training Transfer Training Gait Training Therapeutic Exercise Balance Retraining Post Op Education Discharge Planning Hot or Cold Pack Neuromuscular Re-ed Coordination Retraining Manual Therapy Other Recommendations and Next Treatment ambulation, transfers, bed Focus mobility Recommendations To Nursing Amount of Assist Needed 2 Person Assist Discharge Recommendations PT Discharge Recommendations SNF Rehab
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
[2017-11-19] MEDS: BISACODYL 10 MG SUPP PR (11:27)
--- NOTE | 2017-11-19 11:51 | CM.DPC ---
DCP Cont: MADDISON faxed updated PT/OT notes to [facility] from yesterday and today to review towards securing [facility] auth. MADDISON spoke to Susan, admissions at [facility], who stated that she spoke with the [facility] CM yesterday late afternoon and they were planning to review clinicals towards auth yesterday in anticipation of a weekend admit but Susan has not heard a determination from [facility] yet and [facility] is usually closed on the weekends. Susan to keep MADDISON updated on auth process. Plan: MADDISON to continue following for update from [facility] once Giovany reviews clinicals to determine if pt meets criteria for SNF auth, unsure if this can now happen on the weekend. VESTA Leonard
[2017-11-19] MEDS: CYCLOBENZAPRINE 10 MG TABLET PO ×2 (13:11→21:23)
--- NOTE | 2017-11-19 13:53 | PT.IPTN ---
Current Diagnoses Spondylolisthesis, lumbar region (11/17/17) Other spondylosis with radiculopathy, lumbar region (11/17/17) Spinal stenosis, lumbar region without neurogenic claudication (11/17/17) Surgery Performed Operation Date: 11/17/17 07:45 Actual Procedures p L3-4, L4-5 Translaminar Laminectomy Interbody Fusion w/post jensen Muller MD Physical Therapy Treatment Note M2 PT-IP Current Condition Start: 11/17/17 17:00 Freq: NEEDED Status: Active Protocol: Document 11/17/17 16:00 AB (Rec: 11/17/17 17:15 AB [id number]) Physical Therapy Current Condition Current Condition Evaluation Date 11/17/17 Treatment Diagnosis s/p lumbar fusion and laminectomy Onset Date 11/17/17 Precautions Lumbar Precautions Log Roll No Twisting Limit Bending Lifting Restriction of 10 lbs Gait Belt above Incisional Area M3 PT-IP Subjective Start: 11/17/17 17:00 Freq: NEEDED Status: Active Protocol: Document 11/19/17 13:40 AB (Rec: 11/19/17 13:52 AB [email or web address]) Subjective Physical Therapy Visit Type Type Treatment Note Visit Start Time 13:20 Visit Stop Time 13:39 Total Visit Minutes 19 Number of CANE FLUME WATCHMAN Visits 0 Therapy Pain Assessment Pain When Pain Assessed At Rest Pain Present Pain Present Pain Reported Location Lower Back Scale Used pain scale not stated Pain Management Techniques Timing of Activity with Medications M4 PT-IP Mobility and Gait Start: 11/17/17 17:00 Freq: NEEDED Status: Active Protocol: Document 11/19/17 13:40 AB (Rec: 11/19/17 13:52 AB [email or web address]) PT-Transfer Assessment Sit to and From Stand Sit to and from Stand Maximum Assistance 2 Person Assistance Use of Upper Extremities Equipment Transfer Assistive Device Gait Belt Front Wheeled Walker Gait Assessment Gait Gait Assistance Required: Minimum Assistance Moderate Assistance Distance (Feet) (feet) 400 Able to Maintain Weight Bearing Status Yes During Gait Assistive Devices Assistive Device Gait Belt Front Wheeled Walker Orthotic/Prosthetic Devices or Brace: No Factors Limiting Gait Function Factors Limiting Gait Function Decreased Activity Tolerance Decreased Strength Pain Poor Balance Poor Safety Awareness Comments Gait Comments pt completed sit to stand with 2 attempts needed to complete task. pt stated that she needs 2 people to do it. provided max A x 2 and max cues. pt is impulsive and have cognitive issues affecting instruction following. pt able to ambulate using FWW min A but with one incidence of knee buckling requiring mod A to recover. Pt ambulated with a 2nd person with w/c follow. pt requested to use the toilet after ambulation and ambulated towards the toilet using FWW min A and cues. required max A for controlled descent to the toilet. Pt wants to sit on toilet for awhile. call light provided and placed next to pt. informed nurse that pt is using the toilet. M5 PT-IP Objective Assessments Start: 11/17/17 17:00 Freq: NEEDED Status: Active Protocol: Document 11/17/17 16:00 AB (Rec: 11/17/17 17:15 AB [id number]) Orientation Orientation/Cognition Level of Alertness Confusional State Orientation Name Age Birthday Place Situation Safety Awareness Decreased Safety Awareness Memory Description Short Term Impaired Videogame Designer Impaired Gross Range of Motion Lower Extremity ROM Assessment Within Functional Limits Strength Lower Extremity Strength Assessment Bilaterally Impaired M6 PT-IP Treatment Start: 11/17/17 17:00 Freq: NEEDED Status: Active Protocol: Document 11/18/17 13:30 AB (Rec: 11/18/17 14:51 AB [email or web address]) Physical Therapy Treatment Education Education Provided Precautions Weight Bearing Status Post-Op Packet Safety M7 PT-IP Assessment and Plan Start: 11/17/17 17:00 Freq: NEEDED Status: Active Protocol: Document 11/19/17 13:40 AB (Rec: 11/19/17 13:52 AB [email or web address]) PT Summary Assessment and Plan Potential Rehabilitation Potential Fair Summary Impairments Pain Strength Balance Cognition Bed Mobility Transfers Gait Activity Tolerance Progress Towards Goals Slow Progress - Other Assessment Summary pt requires one person assist with mobility. pt impulsive and with incidence of knee buckling. pt is not safe to go home and will need SNF rehab to improve mobility and independence. Goals Bed Mobility Goal Standby Assistance Transfer Goal Standby Assistance Gait Goal Standby Assistance Front Wheel Walker Gait Distance 250 Days to Meet Goals 3 Frequency of Treatment Frequency Of Treatment Twice a Day Treatment Plan Physical Therapy Treatment Plan Bed Mobility Training Transfer Training Gait Training Therapeutic Exercise Balance Retraining Post Op Education Discharge Planning Hot or Cold Pack Neuromuscular Re-ed Coordination Retraining Manual Therapy Other Recommendations and Next Treatment ambulation, transfers, bed Focus mobility Recommendations To Nursing Amount of Assist Needed 2 Person Assist Discharge Recommendations PT Discharge Recommendations SNF Rehab
--- NOTE | 2017-11-19 16:15 | PC.NURSE ---
Ortho: Pt labile - tears to smiles. SIts the tbi which makes me do this. I get so over whelmed so quickly, then I start crying. Pt reassured, extra time given when explaining pain med routine and procedures. Pt reports she is constipated, requesting supp and ducolox tabs tonight if needed. Supp given and did have sm results. Pt reports the ducolox tabs should help when she gets them tonight and she may need to have supp given again tomorrow. Will do as pt requests. Had shower and dressing changed to back. Bilat incisions are stapled, intact, no drainage seen. Pt feels much better after shower. Pt was able to get up and walk today twice with PT, PT reports pt is moving much better today. She has also been up in the room with staff. Has a hx of falls and pt is very nervous about falling again. Reports the lt leg is weak and will give out from under her and she does have a sl limp on this side and it is more painful when she gets up. Is following her lami precautions, does need some ques for log rolling. Pt reported concerns about her medications and there timing. Times were changed per her request. Given information on her surgery which helped her to feel better. Hopefully will feel over all improved tomorrow. Cont w/poc.
[2017-11-19] MEDS: ALBUTEROL/IPRATROPIUM MDI 1 PUFF INH (20:54)
[2017-11-19] MEDS: SENNOSIDES 8.6 MG TABLET 17.2 MG PO (21:23)
[2017-11-19] MEDS: TRAZODONE 100 MG TABLET PO (21:24)
[2017-11-19] MEDS: BISACODYL 5 MG TABLET 10 MG PO (21:24)
[2017-11-20] VITALS (12 sets, daily range): BP systolic 119–158; BP diastolic 57–92; PULSE 81–100; RESP 10–22; TEMP 36.3–37.3; O2SAT 91–97
[2017-11-20] MEDS: HYDROMORPHONE 2 MG TABLET 4 MG PO ×3 (03:31→14:49)
[2017-11-20] MEDS: FLUTICASONE/SALMETEROL 500/50 14 PUFF DISKUS INH ×2 (08:32→22:44)
[2017-11-20] MEDS: ALBUTEROL/IPRATROPIUM MDI 1 PUFF INH ×3 (08:33→22:44)
--- NOTE | 2017-11-20 08:48 | PM.PNPO.1 ---
Subjective Date Patient Seen: 11/20/17 Time Patient Seen: 08:48 Interval history: Postop day 3 status post L3 L4, L4-L5 posterior lateral and posterior interbody fusion, L3-L4, L4-L5 interbody cage placement, L3-L4, L4-L5 decompressive laminectomy with bilateral facetectomies, L3-L4, L4-L5 posterior segmental instrumentation. Utilization of microsurgical technique and operating microscope. Patient progressing slower than expected. Mobilized with physical therapy. Patient is max assist in physical therapy has recommended intermediate facility placement. No bowel movement for days. Complains of constipation. Complains of pain and difficulty moving/Rolling. Denies fevers or chills. Snowden still in place. Exam Vital Signs (past 8 hours): - 11/20/17 03:56 11/20/17 06:26 11/20/17 07:15 Temperature 98.4 F Pulse Rate 89 Respiratory Rate 20 Blood Pressure 157/88 H Pulse Oximetry 91 95 95 11/20/17 07:16 Temperature Pulse Rate Respiratory Rate Blood Pressure Pulse Oximetry 94 Oxygen Delivery Method Nasal Cannula Oxygen Flow Rate 2 Narrative Exam Narrative: Alert and oriented no acute distress. ncat. Breathing nonlabored on room air. During the visit Respiratory therapy comes in to work with patient. Patient complains of abdominal pain and constipation. Abdomen obese, soft. Wiggles fingers and toes bilaterally. Dressing on lumbar spine clean dry and intact. Objective Labs Result Diagrams: 11/18/17 05:56 Assessment & Plan Post-op Postoperative Procedures Operation Date: 11/17/17 07:45 Actual Procedures Side Surgeon p L3-4, L4-5 Translaminar Laminectomy Interbody Fusion w/post instru Almas Muller MD Postop day 3 status post L3 L4, L4-L5 posterior lateral and posterior interbody fusion, L3-L4, L4-L5 interbody cage placement, L3-L4, L4-L5 decompressive laminectomy with bilateral facetectomies, L3-L4, L4-L5 posterior segmental instrumentation. Utilization of microsurgical technique and operating microscope. Patient progressing slower than expected. Mobilized with physical therapy. Patient is max assist in physical therapy has recommended intermediate facility placement. Likely discharge to intermediate facility when approved. Will write for [facility] today-maintain bowel regimen. Remove Snowden when able. Time Spent With Patient less than 15 minutes Quality VTE Deep Vein Thrombosis/Pulmonary Embolism Present on Admission: No
[2017-11-20] MEDS: CYCLOBENZAPRINE 10 MG TABLET PO ×3 (09:22→20:19)
[2017-11-20] MEDS: MULTIVIT,CALC,MINS/IRON/FOLIC 1 TABLET 1 TAB PO (09:22)
[2017-11-20] MEDS: POLYETHYLENE GLYCOL 3350 17 GM POWD.PACK PO (09:22)
[2017-11-20] MEDS: DOCUSATE 100 MG CAPSULE PO ×2 (09:22→20:19)
[2017-11-20] MEDS: NICOTINE 21 MG PATCH TOP (09:22)
[2017-11-20] MEDS: METFORMIN HCL 500 MG TABLET 1000 MG PO ×2 (09:22→17:04)
[2017-11-20] MEDS: BUSPIRONE 15 MG TABLET PO ×2 (09:22→20:19)
[2017-11-20] MEDS: LISINOPRIL 5 MG TABLET PO (09:23)
[2017-11-20] MEDS: CITALOPRAM 20 MG TABLET 40 MG PO (09:23)
[2017-11-20] MEDS: MEMANTINE HCL 5 MG TABLET 15 MG PO (09:23)
[2017-11-20] MEDS: MONTELUKAST 10 MG TABLET PO (09:24)
[2017-11-20] MEDS: hydrOXYzine pamoate 25 MG CAPSULE PO ×2 (09:24→20:20)
[2017-11-20] MEDS: GABAPENTIN 300 MG CAPSULE PO ×3 (09:24→20:19)
[2017-11-20] MEDS: ALBUTEROL HFA 60 PUFF/8 GM INH INH (09:32)
--- NOTE | 2017-11-20 10:15 | CM.DPC ---
DCP/continued: Reviewed chart. Spoke briefly with Ortho/ and she reports that patient is not medically stable for discharge today. PASRR signed by MD for hospital exempt. In addition, placed call to Zak at [facility] with admit. He reports that they have not yet received authorization from [employer]. [facility] hopes to have it by tomorrow 11-21-17. P: Anticipate d/c to [facility] when medically stable and authorization obtained from [employer]. VESTA Ortiz
--- NOTE | 2017-11-20 11:57 | PT.IPTN ---
Current Diagnoses Spondylolisthesis, lumbar region (11/17/17) Other spondylosis with radiculopathy, lumbar region (11/17/17) Spinal stenosis, lumbar region without neurogenic claudication (11/17/17) Surgery Performed Operation Date: 11/17/17 07:45 Actual Procedures p L3-4, L4-5 Translaminar Laminectomy Interbody Fusion w/post jensen Muller MD Physical Therapy Treatment Note M2 PT-IP Current Condition Start: 11/17/17 17:00 Freq: NEEDED Status: Active Protocol: Document 11/17/17 16:00 AB (Rec: 11/17/17 17:15 AB [id number]) Physical Therapy Current Condition Current Condition Evaluation Date 11/17/17 Treatment Diagnosis s/p lumbar fusion and laminectomy Onset Date 11/17/17 Precautions Lumbar Precautions Log Roll No Twisting Limit Bending Lifting Restriction of 10 lbs Gait Belt above Incisional Area M3 PT-IP Subjective Start: 11/17/17 17:00 Freq: NEEDED Status: Active Protocol: Document 11/20/17 10:25 CLB (Rec: 11/20/17 11:56 CLB [id number]) Subjective Physical Therapy Visit Type Type Treatment Note Visit Start Time 10:25 Visit Stop Time 11:03 Total Visit Minutes 28 Number of DITCHER Visits 1 Physical Therapy Visit Comments Patient Comments Pt wanting to ambulate so she can have a BM. Pt stated she was going to [facility] because her house was under construction and she needs someone to take care of her. Therapy Pain Assessment Pain When Pain Assessed At Rest Pain Present Pain Present Pain Reported Location Lower Back Intensity 7 Scale Used Numeric (1 - 10) Pain Behaviors Guarding Restlessness Pain Management Techniques Timing of Activity with Medications M4 PT-IP Mobility and Gait Start: 11/17/17 17:00 Freq: NEEDED Status: Active Protocol: Document 11/20/17 10:25 CLB (Rec: 11/20/17 11:56 CLB [id number]) PT-Bed Mobility Assessment Rolling Type of Rolling Roll to Left Level of Assist Minimal Assistance Supine to Sit Supine to Sit Minimal Assistance 1 Person Assistance Bedrails Scooting Scooting to Edge of Bed Standby Assistance PT-Transfer Assessment Sit to and From Stand Sit to and from Stand Contact Guard Assistance Equipment Transfer Assistive Device Gait Belt Front Wheeled Walker Transfers Transfer Destination Toilet Transfer Technique walked to toilet after gait Transfer Ability Level of Assist Contact Guard Assistance Minimal Assistance Comments Mobility Comments Pt improving with bed mobility but needs cues for safety with log roll and supine-sit. Pt also needed cues for toilet approach and stand-sit for controlled descent and cues to use wall rail. Gait Assessment Gait Gait Assistance Required: Contact Guard Assist Distance (Feet) (feet) 400 Able to Maintain Weight Bearing Status Yes During Gait Assistive Devices Assistive Device Gait Belt Front Wheeled Walker Orthotic/Prosthetic Devices or Brace: No Gait Deviations General Gait Pattern Decreased Stride Length Factors Limiting Gait Function Factors Limiting Gait Function Pain Poor Safety Awareness Comments Gait Comments Pt improving with gait, pt uses step-through gait pattern and upright posture. Pt able to ambulate w/o need of rest break or c/o fatigue. M5 PT-IP Objective Assessments Start: 11/17/17 17:00 Freq: NEEDED Status: Active Protocol: Document 11/17/17 16:00 AB (Rec: 11/17/17 17:15 AB [id number]) Orientation Orientation/Cognition Level of Alertness Confusional State Orientation Name Age Birthday Place Situation Safety Awareness Decreased Safety Awareness Memory Description Short Term Impaired Guest Relations Coordinator Impaired Gross Range of Motion Lower Extremity ROM Assessment Within Functional Limits Strength Lower Extremity Strength Assessment Bilaterally Impaired M6 PT-IP Treatment Start: 11/17/17 17:00 Freq: NEEDED Status: Active Protocol: Document 11/18/17 13:30 AB (Rec: 11/18/17 14:51 AB [id number]) Physical Therapy Treatment Education Education Provided Precautions Weight Bearing Status Post-Op Packet Safety M7 PT-IP Assessment and Plan Start: 11/17/17 17:00 Freq: NEEDED Status: Active Protocol: Document 11/20/17 10:25 CLB (Rec: 11/20/17 11:56 CLB [id number]) PT Summary Assessment and Plan Potential Rehabilitation Potential Fair Summary Impairments Pain Strength Balance Cognition Bed Mobility Transfers Gait Activity Tolerance Progress Towards Goals Slow Progress due to Pain Assessment Summary Pt improving with bed mobility and gait. Pt is impulsive and needs cues for safety during ambulation. Pt had no incidence of knee buckling today with gait. Pt will benefit from SNF rehab to improve mobility and safety. Goals Bed Mobility Goal Standby Assistance Transfer Goal Standby Assistance Gait Goal Standby Assistance Front Wheel Walker Days to Meet Goals 3 Frequency of Treatment Frequency Of Treatment Twice a Day Treatment Plan Physical Therapy Treatment Plan Bed Mobility Training Transfer Training Gait Training Therapeutic Exercise Balance Retraining Post Op Education Discharge Planning Hot or Cold Pack Neuromuscular Re-ed Coordination Retraining Manual Therapy Recommendations To Nursing Amount of Assist Needed 1 Person Assist Discharge Recommendations PT Discharge Recommendations SNF Rehab
[2017-11-20] MEDS: FLEETS ENEMA 1 EACH PR (12:15)
--- NOTE | 2017-11-20 14:30 | PC.NURSE ---
day shift pt anxious and fixated today on the fact that she has not had a BM in 4 days. She had a BM yesterday that was charted and confirmed by QUARTER BACKER. Pt took multiple bowel meds last night and again this AM. She was insistent that she needed to have BM. Refused to eat anything even though explained that would not make a difference for her. She was drinking large amounts of fluids. She keeps saying im so uncomfortable, i need to poop. Im having a poop baby. Pt was working with PT and stated staff never answers call light. Call light was answered in a timely fashion, within a few minutes all day by myself and QUARTER BACKER. Pt requested enema as well to help with constipation. Enema was provided and pt in bed holding for abt 10 min. Per QUARTER BACKER, stool was mucoid/loose and brown. Second BM was just loose. Order to remove marroquin on POD#2, she refused yesterday, she is 1 person assist to get out of bed and SBA while up walking. She agreed with marroquin removal today. Removed without issue. medicated with PO dilaudid for 10/10 pain, down to 8/10 with medication. hourly rounding provided, call light within reach.
--- NOTE | 2017-11-20 14:45 | PT.IPTN ---
Current Diagnoses Spondylolisthesis, lumbar region (11/17/17) Other spondylosis with radiculopathy, lumbar region (11/17/17) Spinal stenosis, lumbar region without neurogenic claudication (11/17/17) Surgery Performed Operation Date: 11/17/17 07:45 Actual Procedures p L3-4, L4-5 Translaminar Laminectomy Interbody Fusion w/post jensen Muller MD Physical Therapy Treatment Note M2 PT-IP Current Condition Start: 11/17/17 17:00 Freq: NEEDED Status: Active Protocol: Document 11/17/17 16:00 AB (Rec: 11/17/17 17:15 AB [id number]) Physical Therapy Current Condition Current Condition Evaluation Date 11/17/17 Treatment Diagnosis s/p lumbar fusion and laminectomy Onset Date 11/17/17 Precautions Lumbar Precautions Log Roll No Twisting Limit Bending Lifting Restriction of 10 lbs Gait Belt above Incisional Area M3 PT-IP Subjective Start: 11/17/17 17:00 Freq: NEEDED Status: Active Protocol: Document 11/20/17 13:38 CLB (Rec: 11/20/17 14:44 CLB [id number]) Subjective Physical Therapy Visit Type Type Treatment Note Visit Start Time 13:38 Visit Stop Time 13:53 Total Visit Minutes 15 Number of DATA ANALYSIS ASSISTANT Visits 2 Physical Therapy Visit Comments Patient Comments Pt stating she needs to walk so she can poop more. Therapy Pain Assessment Pain When Pain Assessed At Rest Pain Present Pain Present Pain Reported Location Lower Back Intensity 8 Scale Used Numeric (1 - 10) Pain Behaviors Guarding Restlessness Pain Management Techniques Timing of Activity with Medications M4 PT-IP Mobility and Gait Start: 11/17/17 17:00 Freq: NEEDED Status: Active Protocol: Document 11/20/17 13:38 CLB (Rec: 11/20/17 14:44 CLB [id number]) PT-Transfer Assessment Sit to and From Stand Sit to and from Stand Minimal Assistance 1 Person Assistance Use of Upper Extremities Equipment Transfer Assistive Device Gait Belt Front Wheeled Walker Transfers Transfer Destination Chair Toilet Transfer Technique walked to toilet after gait Transfer Ability Level of Assist Contact Guard Assistance Minimal Assistance Comments Mobility Comments Pt needed increased assist to full stand from chair. Gait Assessment Gait Gait Assistance Required: Contact Guard Assist Distance (Feet) (feet) 250 Able to Maintain Weight Bearing Status Yes During Gait Assistive Devices Assistive Device Gait Belt Front Wheeled Walker Orthotic/Prosthetic Devices or Brace: No Factors Limiting Gait Function Factors Limiting Gait Function Pain Poor Safety Awareness Comments Gait Comments Pt ambulating with good step- through gait pattern and kamari. Pt unable to ambulate as far due to urge to have BM . M5 PT-IP Objective Assessments Start: 11/17/17 17:00 Freq: NEEDED Status: Active Protocol: Document 11/17/17 16:00 AB (Rec: 11/17/17 17:15 AB [id number]) Orientation Orientation/Cognition Level of Alertness Confusional State Orientation Name Age Birthday Place Situation Safety Awareness Decreased Safety Awareness Memory Description Short Term Impaired Custodial Impaired Gross Range of Motion Lower Extremity ROM Assessment Within Functional Limits Strength Lower Extremity Strength Assessment Bilaterally Impaired M6 PT-IP Treatment Start: 11/17/17 17:00 Freq: NEEDED Status: Active Protocol: Document 11/18/17 13:30 AB (Rec: 11/18/17 14:51 AB [id number]) Physical Therapy Treatment Education Education Provided Precautions Weight Bearing Status Post-Op Packet Safety M7 PT-IP Assessment and Plan Start: 11/17/17 17:00 Freq: NEEDED Status: Active Protocol: Document 11/20/17 13:38 CLB (Rec: 11/20/17 14:44 CLB [id number]) PT Summary Assessment and Plan Potential Rehabilitation Potential Fair Summary Impairments Pain Strength Balance Cognition Bed Mobility Transfers Gait Activity Tolerance Progress Towards Goals Slow Progress due to Pain Assessment Summary Pt cries easily stating she has never felt pain like this before. Pt is impulsive and continues to need cues for safety with chair approach, keeping walker near and positioning self properly in front of toilet/chair before sitting. Pt needs cues for hand placement. Pt is unsafe to go home at this time and would benefit from SNF rehab before returning home. Goals Bed Mobility Goal Standby Assistance Transfer Goal Standby Assistance Gait Goal Standby Assistance Front Wheel Walker Gait Distance 250 Days to Meet Goals 3 Frequency of Treatment Frequency Of Treatment Twice a Day Treatment Plan Physical Therapy Treatment Plan Bed Mobility Training Transfer Training Gait Training Therapeutic Exercise Balance Retraining Post Op Education Discharge Planning Hot or Cold Pack Neuromuscular Re-ed Coordination Retraining Manual Therapy Recommendations To Nursing Amount of Assist Needed 1 Person Assist Discharge Recommendations PT Discharge Recommendations SNF Rehab
--- NOTE | 2017-11-20 18:00 | PM.CHAP ---
Staff referral. Pt confused about d/c plans and concerned about care. Was able to share prayer and encouragement. Pt requested that discharge plans be written so that she does not forget. Hima Madden [phone]
[2017-11-20] MEDS: HYDROMORPHONE 2 MG TABLET PO (18:57)
[2017-11-20] MEDS: PRAVASTATIN 20 MG TABLET 40 MG PO (20:20)
[2017-11-20] MEDS: TRAZODONE 100 MG TABLET PO (20:20)
[2017-11-20] MEDS: HYDROMORPHONE 0.5 MG INJ IV (20:20)
[2017-11-20] MEDS: SENNOSIDES 8.6 MG TABLET 17.2 MG PO (20:20)
[2017-11-21] MEDS: LORazepam 1 MG TABLET PO (00:08)
[2017-11-21] MEDS: HYDROMORPHONE 2 MG TABLET PO ×3 (00:08→10:47)
--- NOTE | 2017-11-21 01:30 | PC.NURSE ---
Addendum entered by Eri Cueva R.N. 11/21/17 07:01: Once back to bed sat rechecked and was 87% so O2 started at 2L/min per NC. Patient states she is a smoker (no smoking x 7days) as well as having COPD and emphysema. States she normally uses 3L O2 at home. Original Note: Addendum entered by Eri Cueva R.N. 11/21/17 06:44: Slept almost entire night. Incontinent of urine this morning. Assisted to bathroom, skin cleansed and pad/linens changed. Upon first waking, O2 sat at 76% but while waking up increased to 89% and now at 96% with activity of being up to bathroom. Complains of 6/10 back pain so medicated with Dilaudid and ice pack provided for back once back to bed. Original Note: Patient very tearful at shift change wanting to have catheter replaced because she states she can't urinate (although has had voids of 600 and 300cc) and has to get up to bathroom frequently. Did PVR with result of 181cc in bladder so had lengthy discussion with patient about risks of catheter and currently no need for catheter. Did state she is having pain when asked so medicated with Dilaudid and given Ativan for anxiety. Is alert and oriented but emotionally labile. Breath sounds were CTA with RA sat of 92% at rest and 96% with activity. HRR but tachy at 115 bpm and BP elevated at 158/80. Denies nausea. BT present and abdomen is soft. Dressing to back is CDI. Able to turn self in bed and walks to bathroom with walker and SBA. Fall risk score is high and bed alarm is activated.
[2017-11-21 04:21] VITALS: BMI 26.5
[2017-11-21 06:55] VITALS: BP 145/82; PULSE 105; RESP 18; TEMP 37.1; O2SAT 86
[2017-11-21 07:50] VITALS: O2SAT 91
[2017-11-21 07:53] VITALS: BP 138/68; PULSE 100; RESP 16; TEMP 37.1; O2SAT 91
[2017-11-21] MEDS: ALBUTEROL HFA 60 PUFF/8 GM INH INH ×2 (08:43→15:39)
[2017-11-21] MEDS: FLUTICASONE/SALMETEROL 500/50 14 PUFF DISKUS INH (08:43)
[2017-11-21 08:46] VITALS: PULSE 72; RESP 14; O2SAT 97
[2017-11-21] MEDS: CITALOPRAM 20 MG TABLET 40 MG PO (08:57)
[2017-11-21] MEDS: BUSPIRONE 15 MG TABLET PO (08:57)
[2017-11-21] MEDS: LISINOPRIL 5 MG TABLET PO (08:57)
[2017-11-21] MEDS: GABAPENTIN 300 MG CAPSULE PO ×2 (08:57→15:33)
[2017-11-21] MEDS: DOCUSATE 100 MG CAPSULE PO (08:57)
[2017-11-21] MEDS: MEMANTINE HCL 5 MG TABLET 15 MG PO (08:58)
[2017-11-21] MEDS: NICOTINE 21 MG PATCH TOP ×2 (08:58→10:47)
[2017-11-21] MEDS: hydrOXYzine pamoate 25 MG CAPSULE PO (08:58)
[2017-11-21] MEDS: POLYETHYLENE GLYCOL 3350 17 GM POWD.PACK PO (08:58)
[2017-11-21] MEDS: METFORMIN HCL 500 MG TABLET 1000 MG PO (08:58)
[2017-11-21] MEDS: MONTELUKAST 10 MG TABLET PO (08:58)
[2017-11-21] MEDS: CYCLOBENZAPRINE 10 MG TABLET PO ×2 (08:58→15:33)
[2017-11-21] MEDS: SODIUM CHLORIDE 0.9% FLUSH 10 ML IV (08:59)
[2017-11-21 09:20] VITALS: O2SAT 96
--- NOTE | 2017-11-21 09:51 | PM.DS.1 ---
History of Present Illness Date Patient Seen: 11/21/17 Time Patient Seen: 09:51 Chief complaint: [id number] Narrative: Patient's pain is moderate. Denies fever chills. No nausea vomiting. Patient states she does not want to go home she has no a care to assist her. She is very concerned about going home so early after surgery. Discharge Providers Date of admission: 11/17/17 06:43 Consults: 11/17/17 13:21 Consult to Occupational Therapy Evaluate & Treat Comment: Physician Instructions: Evaluate and treat Consult to Physical Therapy Evaluate & Treat Comment: Physician Instructions: Evaluate and Treat Consult to Respiratory Therapy Evaluate & Treat Comment: Physician Instructions: Evaluate and treat 11/17/17 13:46 Consult to Pastoral Services Routine Comment: Pt would like a visit 11/20/17 08:48 Consult to Discharge Planning Routine Comment: snf Discharge provider: Hong Hoang PA-C Summary Discharge Diagnosis: Procedure: 1. L3-4, L4-5 Postero-lateral and posterior interbody fusion 2. L3-4, L4-5 interbody cage placement. 3. L3-4, L4-5 decompressive laminectomy with bilateral facetecomies 4. L3-4, L4-5 Posterior segmental instrumentation 5. [place] of bone marrow from iliac crest 6. Utilization of microsurgical technique and operating microscope Hospital Course: Patient has been having chronic back pain and worsening lumbar radiculopathy. Patient failed multiple conservative management with worsening pain weakness and numbness in her lower extremity. Patient has been having difficulty performing activity of daily living. After discussing risks benefits of treatment options, patient elected proceed with surgery. Surgeon: Almas Muller Brush Trimming Machine Setter: Tawana Riley Click Yes if Unassisted: No Anesthesia Type: General Patient has been slow to mobilize with physical therapy. Physical therapy has recommended longterm facility for further rehab. Status at Discharge Overall status at discharge: patient is progressing back to baseline Time Spent with Patient Less than 30 minutes Exam Vital Signs (past 8 hours): - 11/21/17 06:55 11/21/17 07:50 11/21/17 07:53 Temperature 98.8 F 98.8 F Pulse Rate 105 H 100 H Respiratory Rate 18 16 Blood Pressure 145/82 H 138/68 H Pulse Oximetry 86 L 91 91 11/21/17 08:46 06/25/18 09:20 Temperature Pulse Rate 72 Respiratory Rate 14 Blood Pressure Pulse Oximetry 97 96 Oxygen Delivery Method Nasal Cannula Oxygen Flow Rate 2 Narrative Exam Narrative: 62-year-old female resting comfortably in bed. Patient is in no apparent distress. Lumbar dressing is clean, dry and intact. Neurovascular status is intact to the bilateral lower extremities. Objective Labs Result Diagrams: 11/18/17 05:56 Discharge Plan Discharge Plan Patient Disposition: SNF Transfer to: [facility] Under care of provider: Dr. Muller Transportation: Cabulance Consult as needed: Dental, Hearing, Mental health, Podiatry and Vision I certify the postop hospital longterm care is medically necessary on a continuing basis for any conditions for which he/ she received care during this hospitalization.: Yes The receiving facility has agreed to accept transfer and provide medical treatment.: Yes Discharge Med Rec/Prescriptions Prescriptions: New acetaminophen 325 mg Tablet 650 mg PO Q6HR PRN (Reason: Pain, Mild) Qty: 60 RF: 0 hydromorphone 2 mg Tablet 2 mg PO Q4HR PRN (Reason: Pain, Moderate) Qty: 60 RF: 0 hydroxyzine pamoate 25 mg Capsule 25 mg PO Q4HR PRN (Reason: Nausea And Vomiting) Qty: 30 RF: 0 bisacodyl 10 mg Suppository 10 mg SD PRN PRN (Reason: Constipation) Qty: 10 RF: 0 Continue cyclobenzaprine 10 mg Tablet 10 mg PO TID PRN (Reason: Muscle Spasm) RF: 0 trazodone 50 mg Tablet 100 mg PO BEDTIME RF: 0 pravastatin 40 mg Tablet 40 mg PO QAM RF: 0 metformin 1,000 mg Tablet 1,000 mg PO BID RF: 0 fluticasone-salmeterol [Advair Diskus] 500-50 mcg/dose Blister With Device 1 inh INHALATION BID RF: 0 gabapentin 300 mg Capsule 300 mg PO TID RF: 0 montelukast 10 mg Tablet 10 mg PO QAM RF: 0 lisinopril 5 mg Tablet 5 mg PO QAM RF: 0 albuterol sulfate 90 mcg/actuation Hfa Aerosol Inhaler 2 puff INHALATION Q4-6H PRN (Reason: Asthma) RF: 0 buspirone 15 mg Tablet 15 mg PO BID RF: 0 memantine 10 mg Tablet 15 mg PO QAM RF: 0 ipratropium-albuterol [Combivent Respimat] 20-100 mcg/actuation Mist 1 puff INHALATION Q6H PRN (Reason: asthma) RF: 0 nicotine 21 mg/24 hr Patch 24 Hour 1 patch TRANSDERMAL DAILY RF: 0 citalopram 40 mg tablet 40 mg PO DAILY RF: 0 metformin 1,000 mg tablet 1,000 mg PO BID RF: 0 Discharge Health Status Brief summary of current health status: Stable status post lumbar fusion. Patient has been slow to mobilize after surgery. Physical therapy is recommended longterm facility secondary to mobility issues no care or assistance at home pain and bilateral lower extremity weakness. Multidrug resistant organism: No MDRO MDRO Verified by culture: No Provider Discharge Instructions Diet: Carb-consistent/Diabetic Liquid consistency: Normal/Thin Food texture: Regular Activity: Weightbearing as tolerated. Limit bending, lifting, twisting Cold/Heat Therapy: Apply ice as needed Oxygen: As needed Wound Care Report to your healthcare provider any signs of infection, such as:: chills, fever, increased pain and unusual drainage Dressing: Keep dressing clean and dry Special Rehabilitation Services Reason for rehabilitation: Post-operative therapy Rehab type: Physical therapy and Occupational therapy Restrictions to mobility: Limit bending, lifting, twisting Visit Report/Discharge Packet Instructions: DI for Transforaminal Lumbar Interbody Fusion Discharge Data Attending Provider: Almas Muller Admit Date/Time: 11/17/17 06:43 Quality VTE Deep Vein Thrombosis/Pulmonary Embolism Present on Admission: No
--- NOTE | 2017-11-21 09:55 | P.DS_ITS ---
History of Present Illness Date Patient Seen: 11/21/17 Time Patient Seen: 09:51 Chief complaint: [id number] Narrative: Patient's pain is moderate. Denies fever chills. No nausea vomiting. Patient states she does not want to go home she has no a care to assist her. She is very concerned about going home so early after surgery. Discharge Providers Date of admission: 11/17/17 06:43 Consults: 11/17/17 13:21 Consult to Occupational Therapy Evaluate & Treat Comment: Physician Instructions: Evaluate and treat Consult to Physical Therapy Evaluate & Treat Comment: Physician Instructions: Evaluate and Treat Consult to Respiratory Therapy Evaluate & Treat Comment: Physician Instructions: Evaluate and treat 11/17/17 13:46 Consult to Pastoral Services Routine Comment: Pt would like a visit 11/20/17 08:48 Consult to Discharge Planning Routine Comment: snf Discharge provider: Hong Hoang PA-C Summary Discharge Diagnosis: Procedure: 1. L3-4, L4-5 Postero-lateral and posterior interbody fusion 2. L3-4, L4-5 interbody cage placement. 3. L3-4, L4-5 decompressive laminectomy with bilateral facetecomies 4. L3-4, L4-5 Posterior segmental instrumentation 5. [place] of bone marrow from iliac crest 6. Utilization of microsurgical technique and operating microscope Hospital Course: Patient has been having chronic back pain and worsening lumbar radiculopathy. Patient failed multiple conservative management with worsening pain weakness and numbness in her lower extremity. Patient has been having difficulty performing activity of daily living. After discussing risks benefits of treatment options, patient elected proceed with surgery. Surgeon: Almas Muller Cherry Picker Operator: Tawana Riley Click Yes if Unassisted: No Anesthesia Type: General Patient has been slow to mobilize with physical therapy. Physical therapy has recommended shelter facility for further rehab. Status at Discharge Overall status at discharge: patient is progressing back to baseline Time Spent with Patient Less than 30 minutes Exam Vital Signs (past 8 hours): - 11/21/17 06:55 11/21/17 07:50 11/21/17 07:53 Temperature 98.8 F 98.8 F Pulse Rate 105 H 100 H Respiratory Rate 18 16 Blood Pressure 145/82 H 138/68 H Pulse Oximetry 86 L 91 91 11/21/17 08:46 06/25/18 09:20 Temperature Pulse Rate 72 Respiratory Rate 14 Blood Pressure Pulse Oximetry 97 96 Oxygen Delivery Method Nasal Cannula Oxygen Flow Rate 2 Narrative Exam Narrative: 62-year-old female resting comfortably in bed. Patient is in no apparent distress. Lumbar dressing is clean, dry and intact. Neurovascular status is intact to the bilateral lower extremities. Objective Labs Result Diagrams: 11/18/17 05:56 Discharge Plan Discharge Plan Patient Disposition: SNF Transfer to: [facility] Under care of provider: Dr. Muller Transportation: Cabulance Consult as needed: Dental, Hearing, Mental health, Podiatry and Vision I certify the postop hospital shelter care is medically necessary on a continuing basis for any conditions for which he/ she received care during this hospitalization.: Yes The receiving facility has agreed to accept transfer and provide medical treatment.: Yes Discharge Med Rec/Prescriptions Prescriptions: New acetaminophen 325 mg Tablet 650 mg PO Q6HR PRN (Reason: Pain, Mild) Qty: 60 RF: 0 hydromorphone 2 mg Tablet 2 mg PO Q4HR PRN (Reason: Pain, Moderate) Qty: 60 RF: 0 hydroxyzine pamoate 25 mg Capsule 25 mg PO Q4HR PRN (Reason: Nausea And Vomiting) Qty: 30 RF: 0 bisacodyl 10 mg Suppository 10 mg RI PRN PRN (Reason: Constipation) Qty: 10 RF: 0 Continue cyclobenzaprine 10 mg Tablet 10 mg PO TID PRN (Reason: Muscle Spasm) RF: 0 trazodone 50 mg Tablet 100 mg PO BEDTIME RF: 0 pravastatin 40 mg Tablet 40 mg PO QAM RF: 0 metformin 1,000 mg Tablet 1,000 mg PO BID RF: 0 fluticasone-salmeterol [Advair Diskus] 500-50 mcg/dose Blister With Device 1 inh INHALATION BID RF: 0 gabapentin 300 mg Capsule 300 mg PO TID RF: 0 montelukast 10 mg Tablet 10 mg PO QAM RF: 0 lisinopril 5 mg Tablet 5 mg PO QAM RF: 0 albuterol sulfate 90 mcg/actuation Hfa Aerosol Inhaler 2 puff INHALATION Q4-6H PRN (Reason: Asthma) RF: 0 buspirone 15 mg Tablet 15 mg PO BID RF: 0 memantine 10 mg Tablet 15 mg PO QAM RF: 0 ipratropium-albuterol [Combivent Respimat] 20-100 mcg/actuation Mist 1 puff INHALATION Q6H PRN (Reason: asthma) RF: 0 nicotine 21 mg/24 hr Patch 24 Hour 1 patch TRANSDERMAL DAILY RF: 0 citalopram 40 mg tablet 40 mg PO DAILY RF: 0 metformin 1,000 mg tablet 1,000 mg PO BID RF: 0 Discharge Health Status Brief summary of current health status: Stable status post lumbar fusion. Patient has been slow to mobilize after surgery. Physical therapy is recommended shelter facility secondary to mobility issues no care or assistance at home pain and bilateral lower extremity weakness. Multidrug resistant organism: No MDRO MDRO Verified by culture: No Provider Discharge Instructions Diet: Carb-consistent/Diabetic Liquid consistency: Normal/Thin Food texture: Regular Activity: Weightbearing as tolerated. Limit bending, lifting, twisting Cold/Heat Therapy: Apply ice as needed Oxygen: As needed Wound Care Report to your healthcare provider any signs of infection, such as:: chills, fever, increased pain and unusual drainage Dressing: Keep dressing clean and dry Special Rehabilitation Services Reason for rehabilitation: Post-operative therapy Rehab type: Physical therapy and Occupational therapy Restrictions to mobility: Limit bending, lifting, twisting Visit Report/Discharge Packet Instructions: DI for Transforaminal Lumbar Interbody Fusion Discharge Data Attending Provider: Almas Muller Admit Date/Time: 11/17/17 06:43 Quality VTE Deep Vein Thrombosis/Pulmonary Embolism Present on Admission: No
--- NOTE | 2017-11-21 10:15 | PT.IPTN ---
Current Diagnoses Spondylolisthesis, lumbar region (11/17/17) Other spondylosis with radiculopathy, lumbar region (11/17/17) Spinal stenosis, lumbar region without neurogenic claudication (11/17/17) Surgery Performed Operation Date: 11/17/17 07:45 Actual Procedures p L3-4, L4-5 Translaminar Laminectomy Interbody Fusion w/post jensen Muller MD Physical Therapy Treatment Note M2 PT-IP Current Condition Start: 11/17/17 17:00 Freq: NEEDED Status: Active Protocol: Document 11/17/17 16:00 AB (Rec: 11/17/17 17:15 AB [id number]) Physical Therapy Current Condition Current Condition Evaluation Date 11/17/17 Treatment Diagnosis s/p lumbar fusion and laminectomy Onset Date 11/17/17 Precautions Lumbar Precautions Log Roll No Twisting Limit Bending Lifting Restriction of 10 lbs Gait Belt above Incisional Area M3 PT-IP Subjective Start: 11/17/17 17:00 Freq: NEEDED Status: Active Protocol: Document 11/21/17 15:26 DLM (Rec: 11/21/17 15:31 DL [id number]) Subjective Physical Therapy Visit Type Type Treatment Note Visit Start Time 10:00 Visit Stop Time 10:15 Total Visit Minutes 15 Notes pt just got done with shower with nursing Physical Therapy Visit Comments Patient Comments she is really sore, worrried about discharge plan, can not walk now due to her pain Therapy Pain Assessment Pain When Pain Assessed At Rest Pain Present Pain Present Pain Reported Location Lower Back Intensity 8 Scale Used Numeric (1 - 10) Description Aching Pain Behaviors Crying Pain Management Techniques Re-positioning M4 PT-IP Mobility and Gait Start: 11/17/17 17:00 Freq: NEEDED Status: Active Protocol: Document 11/21/17 15:26 DLM (Rec: 11/21/17 15:31 DLM [id number]) PT-Bed Mobility Assessment Rolling Type of Rolling Log Rolling Level of Assist Contact Guard Assistance Minimal Assistance Sit to Supine Sit to Supine Standby Assistance PT-Transfer Assessment Comments Mobility Comments pt sitting edge of bed, needs verbal cuing to avoid twisting to get to personal items, back precaution education provided, pt declined transfers and gait due to pain , she becomes anxious and tearful when talking about discharge plan PT-Balance Assessment Sitting Balance and Reactions Static Sitting Balance Ability Normal Dynamic Sitting Balance Ability Normal M5 PT-IP Objective Assessments Start: 11/17/17 17:00 Freq: NEEDED Status: Active Protocol: Document 11/17/17 16:00 AB (Rec: 11/17/17 17:15 AB [id number]) Orientation Orientation/Cognition Level of Alertness Confusional State Orientation Name Age Birthday Place Situation Safety Awareness Decreased Safety Awareness Memory Description Short Term Impaired Correction Impaired Gross Range of Motion Lower Extremity ROM Assessment Within Functional Limits Strength Lower Extremity Strength Assessment Bilaterally Impaired M6 PT-IP Treatment Start: 11/17/17 17:00 Freq: NEEDED Status: Active Protocol: Document 11/21/17 15:26 DLM (Rec: 11/21/17 15:31 DLM [id number]) Physical Therapy Treatment Education Education Provided Precautions Safety M7 PT-IP Assessment and Plan Start: 11/17/17 17:00 Freq: NEEDED Status: Active Protocol: Document 11/21/17 15:26 DLM (Rec: 11/21/17 15:31 DLM [id number]) PT Summary Assessment and Plan Summary Impairments Pain ROM Strength Balance Transfers Gait Activity Tolerance Progress Towards Goals Slow Progress due to Pain Slow Progress due to Activity Tolerance Assessment Summary Pt very emotional this visit with concerns about discharge plan. She declined gait due to her pain. Spine precaution education needs to be continued. Frequency of Treatment Frequency Of Treatment Twice a Day Treatment Plan Physical Therapy Treatment Plan Bed Mobility Training Transfer Training Gait Training Therapeutic Exercise Balance Retraining Post Op Education Discharge Planning Hot or Cold Pack Other Recommendations and Next Treatment gait as tolerated Focus Recommendations To Nursing Amount of Assist Needed 1 Person Assist Discharge Recommendations PT Discharge Recommendations SNF Rehab
--- NOTE | 2017-11-21 10:34 | CM.DPC ---
DCP/continued: Reviewed chart. Received message from Yohannes/YOLANDA Calzada re: discharge. Orders obtained today for d/c to SNF. PUSH CONNECTOR ASSEMBLER left vm with admit at [facility] requesting update. As of yesterday no authorization had been obtained from [employer]. Met briefly with patient explained role. Patient very emotional at time of visit and reports I can't go home. Updated patient on current status and that [facility] is currently attempting authorization. Patient made aware if [employer] denies that she will need Plan B. Patient becomes very anxious at the mention of another plan. P: Pending. PUSH CONNECTOR ASSEMBLER following closely. VESTA Ortiz
[2017-11-21] MEDS: MULTIVIT,CALC,MINS/IRON/FOLIC 1 TABLET 1 TAB PO (10:47)
[2017-11-21 11:10] VITALS: BP 124/67; PULSE 104; RESP 17; TEMP 36.9; O2SAT 94
--- NOTE | 2017-11-21 12:46 | OT.IP.TRT ---
Current Diagnoses Spondylolisthesis, lumbar region (11/17/17) Other spondylosis with radiculopathy, lumbar region (11/17/17) Spinal stenosis, lumbar region without neurogenic claudication (11/17/17) Surgery Performed Operation Date: 11/17/17 07:45 Actual Procedures p L3-4, L4-5 Translaminar Laminectomy Interbody Fusion w/post jensen - Almas Muller MD Occupational Therapy Treatment Note M2 OT-IP Current Condition Start: 11/18/17 15:57 Freq: Status: Active Protocol: Document 11/19/17 11:00 [facility] (Rec: 11/19/17 11:24 [facility] [id number]) Occupational Therapy Current Condition Current Condition Evaluation Date 11/18/17 Treatment Diagnosis decreased self care/function mobility s/p lumbar fusion Post Operative Precautions Lumbar Precautions Log Roll No Twisting Limit Bending Lifting Restriction of 10 lbs Gait Belt above Incisional Area M3 OT- IP Subjective and Pain Start: 11/18/17 15:57 Freq: Status: Active Protocol: Document 11/21/17 11:45 [facility] (Rec: 11/21/17 12:46 [facility] [id number]) OT- Subjective Occupational Therapy Visit Type Type Treatment Note Visit Start Time 11:45 Visit Stop Time 12:15 Total Visit Minutes 30 Notes Pt very labile, tearful, and agreeable after encouragement from nursing to get up to use the bathroom. Occupational Therapy Visit Comments Patient Comments I just can not go home, I have to go to rehab. Patient/Caregiver Goals Discharge to SNF. OT Pain Assessment Pain When Pain Assessed During Mobility Pain Present Pain Present Pain Reported M4 OT- IP ADL's Start: 11/18/17 15:57 Freq: Status: Active Protocol: Document 11/21/17 11:45 [facility] (Rec: 11/21/17 12:46 [facility] [id number]) OT ADL-Dressing General Eval Upper Body Dressing Ability Standby Assistance Lower Body Dressing Ability Minimal Assistance Assistive Devices Dressing Assistive Devices Fleecer Sock Aid Comments OT Dressing Comments Pt able to use sock aid with MIN vc to leyla socks and able to use tax map technician to doff socks with increased time. Educated pt to use tax map technician to leyla brief,pants etc... and helpful to have tax map technician attached to her FWW. Pt stated good understanding. OT ADL-Toileting General Evaluation Toileting Ability Standby Assistance Devices Toileting Assistive Devices Commode Grab Bars Comments OT Toileting Comments Pt needing heavy use of grab bars to stand and vc to stand for pericare needs. M5 OT- IP IADL's Start: 11/18/17 15:57 Freq: Status: Active Protocol: Document 11/18/17 15:58 [facility] (Rec: 11/18/17 16:18 [facility] [id number]) OT-Instrumental Activities of Daily Living Deficits IADL Deficits Identified Deficits Home Safety Awareness Home Safety Comments pt states her house is under construction at present Money Management Money Management No Deficits Identified Box Gluer Box Gluer Comments Pt will need assist during recovery period Driving Driving Comments Pt will need assist during recovery period M6 OT- IP Functional Cognition Start: 11/18/17 15:57 Freq: Status: Active Protocol: Document 11/21/17 11:45 [facility] (Rec: 11/21/17 12:46 [facility] [id number]) Cognitive Factors Limiting Selfcare Function Cognitive Ability Level of Alertness Alert Attention Span Ability Unable to Sustain Attention Ability to Follow Commands Able to Follow One Step Commands Safety Awareness Decreased Ability to Apply Precautions Problem Solving Ability Needs Assist to Identify Solutions Executive Function Ability Unable to Hold Focus Unable to Filter Distractions Abstract Thinking Ability Unable to Be Adaptable in Thinking Cognitive Comments Cognitive Assessment Comments Pt very labile and interferes with her safety and independence. Therefore pt wouold benefit from someone to assist pt at home for completeness and safety of ADl and functional mobility needs . M7 OT- IP Mobility and Balance Start: 11/18/17 15:57 Freq: Status: Active Protocol: Document 11/21/17 11:45 [facility] (Rec: 11/21/17 12:46 [facility] [id number]) OT- Bed Mobility Assessment Sit to Supine Sit to Supine Assist Standby Assistance Scooting Scooting to Edge of Bed Standby Assistance Scooting Up and Down in Bed Standby Assistance OT-Transfer Assessment Sit to and From Stand Sit to and from Stand Standby Assistance Contact Guard Assistance Transfers Transfer Ability Standby Assistance Technique Transfer Destination Bed Bedside Commode Chair Devices Transfer Assistive Devices Gait Belt Front Wheeled Walker Comments Mobility Comments Pt needing vc for safety to push up from the bed instead of grabbibg the FWW to come to stand. OT- Gait Assessment Gait Gait Assistance Required: Contact Guard Assist Assistive Devices Assistive Device Gait Belt Front Wheeled Walker OT- Balance Assessment Sitting Balance and Reactions Static Sitting Balance Ability Good Dynamic Sitting Balance Ability Fair Standing Balance and Reactions Static Standing Balance Ability Fair M8 OT- IP Objective Assessments Start: 11/18/17 15:57 Freq: Status: Active Protocol: Document 11/18/17 15:58 [facility] (Rec: 11/18/17 16:18 [facility] [id number]) OT Gross Range of Motion Upper Extremity Range of Motion Assessment Within Functional Limits OT Strength Upper Extremity Strength Assessment Within Functional Limits OT- Coordination Assessment Comments Coordination Comments WFL BUE OT-Muscle Tone Assessment Muscle Tone WNL Yes OT Sensation Assessment Comments Summary Comments Pt denies deficits in BUE's Edema Edema Absent M9 OT- IP Assessment and Plan Start: 11/18/17 15:57 Freq: Status: Active Protocol: Document 11/21/17 11:45 [facility] (Rec: 11/21/17 12:46 [facility] [id number]) OT Summary Assessment and Plan Potential Rehabilitation Potential Good Analytic Complexity at Evaluation Low Summary OT Impairments Pain Strength Functional Cognition Functional Mobility Progress Towards Goals Slow Progress due to Cognition Assessment Summary Pt with slow progression of functional mobility, but continues to be limited by socio/emotional or cognitive factors. Pt would benefit from assist at home for safety and completeness of tasks as pt is forgetful of back pracautions. Goals Grooming Goal Independent Dressing Goal Standby Assistance Toileting Goal Standby Assistance Bathing Goal Minimal Assistance Toilet Transfer Goal Standby Assistance Shower Transfer Goal Standby Assistance Patient/Caregiver Education Goal Demonstrate Post-Op Precautions Caregiver Independent Assisting Patient Frequency of Treatment Frequency Of Treatment Once a Day Treatment Plan OT Treatment Plan ADL Training Functional Mobility Patient/Family Education Discharge Planning Other Treatment Recommendations and Next Caregiver training with family Treatment Focus . Discharge Recommendations OT Discharge Recommendations Home with Assistance Home Health SNF Rehab Other Discharge Recommendations Pt would benefit from skilled rehab to continue to work on incorporating back precautions for needs for ADL' and functional mobility.
--- NOTE | 2017-11-21 14:38 | CM.DPC ---
DCP/continued: Received call from Esther at [facility] and authorization has been received from Giovany. Met with patient and she is aware and agreeable to plan. Notified [facility] that patient will need w/c and 02 for transfer. Per Zak patient scheduled to be picked up at approximately 4:00pm. RN and field cane scaler helper updated. Patient requesting that her Mother be notified. RN in agreement to call her. Orders and PASRR faxed to [facility] by JEAN MARIE/Rosa Isela. P: [facility] today. VESTA Ortiz
--- NOTE | 2017-11-21 15:28 | PC.NURSE ---
day shift pt to d/c to [facility] today around 1615. Report called to Lazara at [phone]. She requested orders be faxed to her, will ask personal secretary to fax orders.
[2017-11-21] MEDS: HYDROMORPHONE 2 MG TABLET 4 MG PO (15:33)
[2017-11-21] MEDS: ALBUTEROL/IPRATROPIUM MDI 1 PUFF INH (15:39)
--- NOTE | 2017-11-21 17:26 | PC.NURSE ---
Discarge Note A&O, VSS, 94% on 2L NC. Discharged to SNF via transporter w/o questions or concerns. All belongings and discharge packet sent with pt.
--- NOTE | 2017-11-21 17:29 | PC.NURSE ---
Patient DC'd, attendant from [facility] here, pt assisted into wheelchair and sent with all belongings & DC instructions.
== END 2017-11-21 16:15 | DRG 304 ==
PROVIDERS: Admitting Provider Orthopaedic Surgery Orthopaedic Surgery of the Spine; Visit Provider Orthopaedic Surgery Orthopaedic Surgery of the Spine
PROC: 0SG10AJ Fusion of 2 or more Lumbar Vertebral Joints with Interbody Fusion Device, Posterior Approach, Anterior Column, Open Approach (ICD-10-PCS; principal; 2017-11-17 07:45)
DX: M48.061 Spinal stenosis, lumbar region without neurogenic claudication (principal); M43.16 Spondylolisthesis, lumbar region; M47.26 Other spondylosis with radiculopathy, lumbar region; I10 Essential (primary) hypertension; E78.5 Hyperlipidemia, unspecified; E11.9 Type 2 diabetes mellitus without complications; F32.9 Major depressive disorder, single episode, unspecified; J44.9 Chronic obstructive pulmonary disease, unspecified; Z79.84 Long term (current) use of oral hypoglycemic drugs
CPT/HCPCS: 36415; 36592; 72100; 76001; 82962; 85014; 85018; 94640; 94760; 97116; 97162; 97166; 97530; 97535; 99406; C1776; C9290; J0131; J0330; J0690; J1170; J1200; J2250; J2405; J2704; J3010

== ENCOUNTER 2019-02-14 10:22 | Inpatient (IN) | payer MEDICARE, MEDICAID, SELFPAY ==
[2019-02-13 08:08] VITALS: BMI 27.2
[2019-02-14] VITALS (14 sets, daily range): BP systolic 117–157; BP diastolic 60–91; PULSE 74–95; RESP 14–20; TEMP 36.3–36.7; O2SAT 89–98; BMI 27.2
--- NOTE | 2019-02-14 | DI.RAD.S_ITS ---
PROCEDURE: XR CERVICAL SPINE 2V OR 3V INDICATIONS: ACDF TECHNIQUE: 3 operative view(s) of the cervical spine were acquired. COMPARISON: None. FINDINGS: AP and lateral operative films demonstrate ACDF at C5-C7 with anterior plate and screw fixation and placement of interbody bone graft material. No radiographic evidence of complications. IMPRESSION: Operative imaging utilized for ACDF C5-C7. Dictated by: Shyam Kohli M.D. on 02/14/2019 at 15:56 Approved by: Shyam Kohli M.D. on 02/14/2019 at 15:57
[2019-02-14] MEDS: ALBUTEROL 2.5 MG/3 ML NEB (ADULT) INH ×2 (11:52→16:22)
--- NOTE | 2019-02-14 12:43 | PM.PREOP ---
Pre-operative Note Interval Note History & Physical reviewed/Exam performed by Physician: Yes Changes to H&P: No
[2019-02-14] MEDS: CEFAZOLIN 2 GM/100 ML FROZ.PIGGY IV ×2 (13:29→22:38)
--- NOTE | 2019-02-14 14:02 | SUR.OPER ---
Supine, head on gel donut. Arms padded with gel pads, tucked at sides, towel roll under shoulders. Safety belt at thigh. Legs uncrossed.
--- NOTE | 2019-02-14 15:59 | PM.OP.1 ---
Operative Date/Time/Diagnoses Date of procedure: 02/14/19 Time of procedure: 12:59 Pre-op diagnosis: 1. C5-6, C6-7 spinal stenosis 2. C5-6, C6-7 spondylosis with radiculopathy Post-op diagnosis: same Procedure & Clinicians Procedure: 1. C5-6 C6-7 anterior cervical diskectomy and fusion 2. C5-6 C6-7 anterior interbody cage placement 3. C5-6 C6-7 anterior instrumentation with plate and screw placement in C5-C6 and C7 vertebrae 4. Utilization of microsurgical technique and operating microscope Same procedure as scheduled: Yes Indications: Patient has been having chronic neck pain and worsening cervical radiculopathy. Patient failed multiple conservative management with worsening pain weakness and numbness in her upper extremity. Patient has been having difficulty performing activity of daily living. After discussing risks benefits of treatment options, patient elected proceed with surgery. Surgeon: Almas Muller Brineyard Supervisor: Tawana Riley Click Yes if Unassisted: No Anesthesia Type: General Operative Notes Closure Type: primary Specimen(s): none sent Prosthetic devices, grafts, tissues, transplants, or devices: Globus extend plate, PEEK cages Applied: catheter Estimated Blood Loss (mL): 20 Blood products transfused: none Procedure in detail: Patient was seen in the preoperative area. Risks and benefits of the surgery was discussed with the patient. Operative consent was obtained and placed in the chart. Patient was then taken to the operative room. Prophylactic antibiotic was given less than 0.5 hr prior to skin incision. General anesthesia was administered. Patient was placed into a supine position on her radiolucent table. Bilateral shoulders were taped down to allow proper C-arm imaging. Anterior cervical area was prepped and draped in a sterile fashion. Time-out was performed at this time. Using lateral C-arm imaging, the level between C5 and C7 was identified and marked on patient's neck. A oblique incision from midline towards medial border of sternocleidomastoid muscle was made. The platysma muscle was incised in line with skin incision. Metzenbaum scissor was used to develop the plane between the medial border of sternocleidomastoid d and the strap muscles medially. The carotid sheath and its contents were identified and protected behind the hand-held retractor during the entire case. The plane between the carotid sheath and strap muscles was developed with Metzenbaum scissors. Dissection was made down to the level of the anterior cervical fascia. Longus colli muscle was incised on the anterior aspect of vertebral bodies bilaterally from C5-C7. Spinal needle was placed into the C5-6 disc space and confirmed with lateral C-arm imaging. Using microsurgical technique and operative microscope, anterior cervical diskectomy was performed at C5-6 and C6-7 level. This was done by removing the disc material, removing the anterior and posterior osteophytes posterior longitudinal ligaments along with performing bilateral foraminotomies at both levels. Patient was found to have severe central and foraminal stenosis at both levels. Patient's stenosis was fully decompressed after decompression was completed. After the diskectomy was completed, 2 anterior interbody cages were obtained. The cages were packed with DBM bone grafting material. One cage each along with the bone grafting material was then packed into the interbody spaces from C5-C7 with one cage into each interbody level. After the cages were placed, the anterior cervical plate was stabilized to the C5-C7 vertebrae using 2 screws at each each level. Total 6 screws were placed. After confirming placement of the hardware with AP and lateral C-arm imaging, the screws were locked into the plate using the locking mechanism and torque limiting screwdriver. After the hardware was placed and confirmed with AP and lateral C-arm imaging, the wound was irrigated with sterile normal saline. The platysma muscle and the subcutaneous tissue was closed with 2-0 Vicryl. The skin was closed with 4-0Monocryl and Steri-Strips. Patient tolerated the procedure well. Patient was transferred recovery room in stable condition. There were no complications. Complications: none Post-operative Condition: stable Disposition: PACU Plan for aftercare: Admit to inpatient hospital
[2019-02-14] MEDS: fentaNYL 100 MCG/2 ML INJ 50 MCG IV ×2 (16:19→16:38)
[2019-02-14] MEDS: LORazepam 2 MG/ML INJ 0.25 MG IV (16:23)
[2019-02-14] MEDS: hydrOXYzine 50 MG/ML INJ IM (16:27)
[2019-02-14] MEDS: SODIUM CHLORIDE 0.9% 1,000 ML 100 ML IV (17:26)
[2019-02-14] MEDS: HYDROMORPHONE 1 MG INJ 0.5 MG IV (17:39)
--- NOTE | 2019-02-14 17:48 | PC.NURSE ---
Sammi shift note: Received patient from PACU by Ann RN, awake, alert, and tearful. Received on O2 at 4L via NC, O2 sat 91-93%. RT aware of patient and to do IS teaching. While this RN stepped out of the room, Marleen MEJIA noted patient to take pills out of purse. Patient took Metformin 1GM and Gabapentin. I took the pills from her and put them away, including her purse, boyfriend to visit this sammi and take belongings home. Discussed with patient hospital policy regarding medication administration only by RNs provided by in house pharmacy for patient safety. Patient verbalized understanding. Will continue to monitor closely and check BG. Medications taken by her are scheduled night meds from home and will not be administered this shift. Dressing to left anterior neck with 2 x 2 gauze dressing secured with Tegaderm, CDI, SOft collar in place. [place]. UE strenght equal to hand cylinder press operator, sensation and movement. Oriented to room environment, and plan of care. Call light within reach.
--- NOTE | 2019-02-14 18:14 | SUR.PHASEI ---
Late entry: PACU phase 1 post op note--Patient arrived to PACU from OR via patient bed, oral airway in place. BS with bilateral upper expiratory wheezing, RT called and neb given with good effect. O2 WATERSHED COORDINATOR 6L/WATERSHED COORDINATOR. Patient non compliant intermittently removing nasal canula. Educated patient on the importance of keeping O2 on and not removing soft neck collar. Respirations regular and unlabored. Prior to transfer to IP room 219, patient sitting up tolerating PO liquids and snacks without any nausea. Medicated for pain with good effect. Pain level 6-7/10 at time of transfer. Telephone report called to Jossue Mcbride RN. Nora Garcia RN
[2019-02-14] MEDS: hydrOXYzine pamoate 25 MG CAPSULE PO (18:43)
[2019-02-14] MEDS: OXYCODONE IR 5 MG TABLET 10 MG PO (18:44)
[2019-02-14] MEDS: NICOTINE 21 MG PATCH TOP (19:14)
[2019-02-14] MEDS: ATORVASTATIN 20 MG TABLET 40 MG PO (22:35)
[2019-02-14] MEDS: DOCUSATE 100 MG CAPSULE PO (22:36)
[2019-02-14] MEDS: TRAZODONE 50 MG TABLET 100 MG PO (22:37)
[2019-02-14] MEDS: METOPROLOL IR 50 MG TABLET PO (22:37)
[2019-02-14] MEDS: SENNOSIDES 8.6 MG TABLET 17.2 MG PO (22:38)
[2019-02-14] MEDS: HYDROCORTISONE 10 MG TABLET PO (22:39)
[2019-02-14] MEDS: BUSPIRONE 15 MG TABLET 30 MG PO (22:39)
[2019-02-14] MEDS: FLUTICASONE/SALMETEROL 500/50 60 PUFF DISKUS INH (23:01)
[2019-02-15] MEDS: OXYCODONE IR 5 MG TABLET 10 MG PO ×6 (00:35→23:08)
[2019-02-15] MEDS: hydrOXYzine pamoate 25 MG CAPSULE PO ×3 (00:36→23:11)
--- NOTE | 2019-02-15 00:59 | PC.NURSE ---
Edger Tailer Note: 0015: Awake, resting in bed. Assisted up to bathroom with sba. Steady on her feet. Soft collar on. IV in place in rt hand with NS infusing at 100cc/hr. 0035: Medicated for pain with Oxycodone 10mg.
[2019-02-15] MEDS: SODIUM CHLORIDE 0.9% 1,000 ML 100 ML IV (04:10)
[2019-02-15] MEDS: CEFAZOLIN 2 GM/100 ML FROZ.PIGGY IV (05:09)
[2019-02-15 08:00] VITALS: BP 147/79; PULSE 102; RESP 20; O2SAT 90
[2019-02-15] MEDS: HYDROCORTISONE 10 MG TABLET PO ×2 (08:20→20:15)
[2019-02-15] MEDS: METFORMIN HCL 500 MG TABLET 1000 MG PO ×2 (08:20→18:36)
[2019-02-15] MEDS: ACETAMINOPHEN 325 MG TABLET 650 MG PO ×2 (08:20→18:41)
[2019-02-15] MEDS: BUSPIRONE 15 MG TABLET 30 MG PO ×2 (08:20→23:09)
[2019-02-15] MEDS: GABAPENTIN 300 MG CAPSULE PO ×3 (08:20→20:16)
[2019-02-15] MEDS: DOCUSATE 100 MG CAPSULE PO ×2 (08:21→20:15)
[2019-02-15] MEDS: METOPROLOL IR 50 MG TABLET PO ×2 (08:21→18:36)
[2019-02-15] MEDS: LOSARTAN 50 MG TABLET 100 MG PO (08:21)
[2019-02-15] MEDS: MONTELUKAST 10 MG TABLET PO (08:21)
--- NOTE | 2019-02-15 08:26 | RT ---
PT HAS BEEN ADVISED THAT SHE CANNOT USE HOME MED WITHOUT US PROVIDING IT. SHE STATES THAT SHE WILL WAIT FOR RT TO ADMINISTER MED TOMORROW. PT STATES SHE TOOK HOME ADVAIR AND HOME COMBIVENT THIS AM. O2 SAT ON RA NOTED AT 94%.
[2019-02-15 09:12] LABS: Hematocrit 43.4 % (36-46); Hemoglobin 14.4 g/dL (12.0-16.0)
--- NOTE | 2019-02-15 10:57 | PT.IIE ---
Current Diagnoses Other spondylosis with radiculopathy, cervical region (02/14/19) Spinal stenosis, cervical region (02/14/19) Surgery Performed Operation Date: 02/14/19 08:45 Actual Procedures p C5-6,C6-7 ACDF with Anterior instrumentation - Almas Muller MD Surgical History (Last Updated 08/24/18 @ 11:43 by Kymberly Webber RN) H/O cosmetic surgery (Acute ~2013) History of cataract extraction with lens replacement (Acute) History of mandibular surgery (Acute) History of surgery (Acute) Hx of appendectomy (Acute) Hx of removal of cyst (Acute) Hx of tonsillectomy (Acute) Status post surgical manipulation of ankle joint (Acute) Medical History (Last Updated 08/24/18 @ 11:43 by Kymberly Webber RN) Anxiety (Acute) Arthritis (Acute) Asthma (Acute) Chronic low back pain (Acute) COPD (chronic obstructive pulmonary disease) (Acute) Dental abscess (Acute) Depression (Acute) Diabetes (Acute) Easy bruisability (Acute) Emphysema lung (Acute) ETOH abuse (Acute) Frequent UTI (Acute) Hepatitis C (Acute) HTN (hypertension) (Acute) Hyperlipidemia (Acute) Hyponatremia (Acute) Hypoxia (Acute) Marijuana smoker (Acute) Pneumonia (Acute ~07/2017) Substance abuse (Acute) TBI (traumatic brain injury) (Acute ~2004) Urinary retention (Acute) Physical Therapy Inpatient Evaluation/Re-Eval M1 PT/OT-IP Prior Functional Status Start: 02/15/19 08:31 Freq: NEEDED Status: Active Protocol: Document 02/15/19 10:30 AW (Rec: 02/15/19 10:57 AW [id number]) Medical Review Prior Functional Status Medical History Reviewed Yes Diet/Fluid Consistency Regular Communication Able to make needs known Mobility and Gait Pt reports independence with all functional mobility, no need for assistive device Activities of Daily Living and IADL's Independent with all ADL/IADL' s, including driving. Prior Functional Level (Other details) Pt reports frequent use of dial a ride service. Social History Household Members significant other,family,other Living Arrangements House Number of Floors (Floors) 3 or More Floors Number of Stairs To Enter/Railing? 5+6 steps with wide bilateral railings. Stairs are unstable and varying heights. Pt lives on main level Home Environment Standard Height Toilet,Walk in Shower Home Equipment Front Wheel Walker,Raised Toilet Seat Without Armrests, Shower Seat without Backrest Employment Status Unemployed Additional Social History Comment Pt on disability. Her boyfriend works long hours as a assembly line driver. Pt's mother lives in the home and has a history of alcohol dependence. Mother has a caregiver who lives on the property and provides 3 hours/day of assistance. M2 PT-IP Current Condition Start: 02/15/19 08:31 Freq: NEEDED Status: Active Protocol: Document 02/15/19 10:30 AW (Rec: 02/15/19 10:57 AW [id number]) Physical Therapy Current Condition Current Condition Evaluation Date 02/15/19 Treatment Diagnosis s/p ACDF, difficulty in walking Precautions Cervical Spine Precautions Soft Collar for Comfort,No Heavy Lifting,Log Roll Brace soft collar Weight Bearing Status Weight Bearing Status Full Weight Bearing M3 PT-IP Subjective Start: 02/15/19 08:31 Freq: NEEDED Status: Active Protocol: Document 02/15/19 10:30 AW (Rec: 02/15/19 10:57 AW [id number]) Subjective Physical Therapy Visit Type Type Initial Evaluation Visit Start Time 09:10 Visit Stop Time 09:43 Total Visit Minutes 33 Number of POURED WALL FOREMAN Visits 0 Physical Therapy Visit Comments Patient Comments Pt is a smoker who has decided to quit at this time. Patient Goals Pt hopes to discharge to [facility]. Therapy Pain Assessment Pain When Pain Assessed During Mobility Pain Present Pain Present Pain Reported Location neck Intensity 8 Scale Used Numeric (1 - 10) Pain Behaviors Facial Grimacing,Wincing Pain Management Techniques Timing of Activity with Medications M4 PT-IP Mobility and Gait Start: 02/15/19 08:31 Freq: NEEDED Status: Active Protocol: Document 02/15/19 10:30 AW (Rec: 02/15/19 10:57 AW [id number]) PT-Bed Mobility Assessment Rolling Type of Rolling Log Rolling Level of Assist Standby Assistance Supine to Sit Supine to Sit Standby Assistance Sit to Supine Sit to Supine Standby Assistance Scooting Scooting to Edge of Bed Independent PT-Transfer Assessment Sit to and From Stand Sit to and from Stand Standby Assistance Equipment Transfer Assistive Device Gait Belt Orthotic/Prosthetic Devices or Brace: Yes Transfers Transfer Destination Bed,Chair Transfer Technique pt ambulated to bed and to chair Transfer Ability Level of Assist Standby Assistance Comments Mobility Comments Pt required SBA at most for transfers due to slight unsteadiness. Pt denied dizziness, nausea Gait Assessment Gait Gait Assistance Required: Standby Assistance Distance (Feet) 250 Able to Maintain Weight Bearing Status Yes During Gait Assistive Devices Assistive Device Gait Belt Orthotic/Prosthetic Devices or Brace: Yes Gait Deviations General Gait Pattern Decreased Stride Length Factors Limiting Gait Function Factors Limiting Gait Function Pain Comments Gait Comments Pt reported 8/10 pain during ambulation, requiring SBA without assistive device due to slight unsteadiness and limited vision due to soft collar. PT-Balance Assessment Sitting Balance and Reactions Static Sitting Balance Ability Good Dynamic Sitting Balance Ability Good Standing Balance and Reactions Static Standing Balance Ability Good Dynamic Standing Balance Ability Good Device Used none M5 PT-IP Objective Assessments Start: 02/15/19 08:31 Freq: NEEDED Status: Active Protocol: Document 02/15/19 10:30 AW (Rec: 02/15/19 10:57 AW [id number]) Orientation Orientation/Cognition Level of Alertness Alert Orientation Name,Date,Place,Situation Language Function Ability No Deficits Noted Safety Awareness Decreased Safety Awareness Memory Description No Deficits Noted Gross Range of Motion Upper Extremity ROM Assessment Within Functional Limits Lower Extremity ROM Assessment Within Functional Limits Strength Upper Extremity Strength Assessment Within Functional Limits Lower Extremity Strength Assessment Within Functional Limits Comments Strength Comments No overhead movements tested due to precautions Coordination Assessment Gross Coordination Gross Coordination WNL Sensation Assessment Sensation Gross Sensation Right LE Impaired,Left LE Impaired Light Touch Impaired Sensation Description Tingling Comments Sensation Comments Pt reports tingling in bilateral feet, but nothing was apparent on clinical exam Muscle Tone Muscle Tone WNL Yes M6 PT-IP Treatment Start: 02/15/19 08:31 Freq: NEEDED Status: Active Protocol: Document 02/15/19 10:30 AW (Rec: 02/15/19 10:57 AW [id number]) Physical Therapy Treatment Education Education Provided Precautions,Weight Bearing Status,Post-Op Packet,Safety Brace Education Donning,Floyd,Patient Other Treatments Other Treatment Performed Educated pt on donning/doffing soft cervical brace with use of mirror for visual feedback M7 PT-IP Assessment and Plan Start: 02/15/19 08:31 Freq: NEEDED Status: Active Protocol: Document 02/15/19 10:30 AW (Rec: 02/15/19 10:57 AW [id number]) PT Summary Assessment and Plan Potential Rehabilitation Potential Good Status of Condition at Evaluation Stable Summary Impairments Pain,Sensation,Gait,Activity Tolerance Assessment Summary Pt is a 63 yo woman seen on POD1 following ACDF. PLOF: Pt was independent with all functional mobility and ADL/ IADL's. She lives with her boyfriend and mother. Boyfriend works long hours and mother requires assisted care. There is a caregiver for the mother who works 3 hours per day. CLOF: Pt found sitting up in chair, and was observed transferring without assist. On exam, pt required SBA at most for transfers and gait due to slight unsteadiness. PT reviewed post -op precautions, provided education on use and donning/ doffing soft cervical collar, and PT plan of care. Pt would like to discharge to SNF as she did after a previous spine surgery. She seems concerned about caring for herself at home in what she describes as a chaotic home environment with very little assistance. At this time, PT recommends discharge to home with assistance as needed vs SNF for increased level of assist. Goals Bed Mobility Goal Independent Transfer Goal Independent Gait Goal Independent Gait Distance 300 with pain of 5/10 or less Other Goals up/down 11 steps SBA unilateral railing (either R or L) Days to Meet Goals 3 Frequency of Treatment Frequency Of Treatment Twice a Day Treatment Plan Physical Therapy Treatment Plan Bed Mobility Training,Transfer Training,Gait Training, Therapeutic Exercise,Balance Retraining,Post Op Education, Discharge Planning,Hot or Cold Pack,Neuromuscular Re-ed, Coordination Retraining,Manual Therapy Other Recommendations and Next Treatment assess pain with activity Focus stairs Recommendations To Nursing Amount of Assist Needed Standby Assistance Discharge Recommendations PT Discharge Recommendations Home with Assistance,SNF Rehab Other Discharge Recommendations Pt prefers SNF. PT recommends likely safe discharge to home with increased assistance.
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
--- NOTE | 2019-02-15 11:06 | PC.NURSE ---
Addendum entered by Main Bobo R.N. 02/15/19 15:07: Refuses tylenol. Becoming hostile in her statements. Offered vistaril, since patient states she is still having pain after oxycodone given this afternoon. States FINE, YOU WANT ME TO GO TO SLEEP! when asked what her pain level is, patient states I'M NOT TELLING YOU Retracted offer for vistaril, if she didn't want it. She replied angrily, no, i will take it. Original Note: DAY SHIFT NOTE: PATIENT'S DRSG HAS BEEN CHANGED TWICE THIS SHIFT FOR 100% SATURATION. ORTHO PA AWARE. FRESH ICE PACK APPLIED TO CLEAN DRSG SITE. PATIENT REMAINS UP IN RECLINER. CHAIR ALARM ON.
--- NOTE | 2019-02-15 12:01 | PM.PNPO.1 ---
Subjective Subjective Date Patient Seen: 02/15/19 Time Patient Seen: 12:01 Interval history: Hospital day 2, postop day 1 following C5-6, C6-7 ACDF with anterior plate by Dr. Muller. She has been stable postoperatively. Able to swallow with mild discomfort. She has had have her neck dressing changed since surgery because of drainage. Preop arm symptoms have improved. Patient is anticipating going to [facility] [place], [place] for rehab before going home. She does not have help at home. Exam Vital Signs (past 8 hours): - 02/15/19 08:00 Pulse Rate 102 H Respiratory Rate 20 Blood Pressure 147/79 H Pulse Oximetry 90 L Oxygen Delivery Method Room Air Oxygen Flow Rate 0 Narrative Exam Narrative: Alert, oriented no acute distress sitting in chair. Neck. Dressing to left anterior neck as moderate amount of serosanguineous drainage. No signs of infection or inflammation. Arms. Supervisor Sterile Processing strong and equal. Pulses and sensation and symmetrical. Good strength on elbow flexion extension and shoulder AB duction symmetrical. Objective Labs Result Diagrams: 02/15/19 08:45 Labs: Laboratory Results - last 24 hr 02/15/19 08:45 Hgb 14.4 Hct 43.4 Assessment & Plan Post-op Postoperative Procedures: Procedures Operation Date: 02/14/19 08:45 Actual Procedures Side Surgeon p C5-6,C6-7 ACDF with Anterior instrumentation Almas Muller MD Plan: Patient will work with PT/OT today. Change dressing as needed. Will talk with the operations planner regarding possible discharged to [facility] [place] [place]. Quality VTE Deep Vein Thrombosis/Pulmonary Embolism Present on Admission: No
--- NOTE | 2019-02-15 12:55 | ST.IPSCREEN ---
Pt seen following ACDF surgery to screen swallowing and voice. Pt c/o hoarse voice and pain with swallow. assured pt this was to be expected following the surgical procedure. Provided pt with information re: swallow and voice following surgery. Instructed pt to contanct physician if her current s/sx so not resolve within a few weeks.
[2019-02-15 14:00] VITALS: BP 154/78; PULSE 84; RESP 20; TEMP 36.9; O2SAT 91
--- NOTE | 2019-02-15 16:24 | PT.IPTN ---
Current Diagnoses Other spondylosis with radiculopathy, cervical region (02/14/19) Spinal stenosis, cervical region (02/14/19) Surgery Performed Operation Date: 02/14/19 08:45 Actual Procedures p C5-6,C6-7 ACDF with Anterior instrumentation - Almas Muller MD Physical Therapy Treatment Note M2 PT-IP Current Condition Start: 02/15/19 08:31 Freq: NEEDED Status: Active Protocol: Document 02/15/19 10:30 AW (Rec: 02/15/19 10:57 AW [id number]) Physical Therapy Current Condition Current Condition Evaluation Date 02/15/19 Treatment Diagnosis s/p ACDF, difficulty in walking Precautions Cervical Spine Precautions Soft Collar for Comfort,No Heavy Lifting,Log Roll Brace soft collar Weight Bearing Status Weight Bearing Status Full Weight Bearing M3 PT-IP Subjective Start: 02/15/19 08:31 Freq: NEEDED Status: Active Protocol: Document 02/15/19 16:12 AW (Rec: 02/15/19 16:24 AW [email or web address]) Subjective Physical Therapy Visit Type Type Treatment Note Visit Start Time 15:58 Visit Stop Time 16:12 Total Visit Minutes 14 Number of AFTER SCHOOL PROGRAM TEACHER Visits 0 Physical Therapy Visit Comments Patient Comments Pt would like to walk so she can try to have a bowel movement Therapy Pain Assessment Pain When Pain Assessed During Mobility Pain Present Pain Present Pain Reported Location neck Scale Used pt unwilling to rate pain because nobody cares anyway Pain Behaviors Facial Grimacing,Wincing M4 PT-IP Mobility and Gait Start: 02/15/19 08:31 Freq: NEEDED Status: Active Protocol: Document 02/15/19 16:12 AW (Rec: 02/15/19 16:24 AW [email or web address]) PT-Transfer Assessment Sit to and From Stand Sit to and from Stand Independent Equipment Transfer Assistive Device Gait Belt Transfers Transfer Destination Chair Transfer Technique pt ambulated to chair Transfer Ability Level of Assist Standby Assistance,Use of Upper Extremities Comments Mobility Comments Pt required SBA at most to stand from chair using UE pushoff only. Gait Assessment Gait Gait Assistance Required: Standby Assistance Distance (Feet) 300 Able to Maintain Weight Bearing Status Yes During Gait Assistive Devices Assistive Device Gait Belt Orthotic/Prosthetic Devices or Brace: Yes Gait Deviations General Gait Pattern Decreased Stride Length Factors Limiting Gait Function Factors Limiting Gait Function Pain Comments Gait Comments Pt would not rate pain because nobody cares anyway. Stair Climbing Assessment Evaluation Level of Assist On Stairs Standby Assistance Devices Stair Climbing Assistive Devices Left Railing,Right Railing Technique/Endurance Stair Climbing Direction Ascend and Descend Stair Climbing Technique Step Over Step Number of Steps Climbed 3 Stair Climbing Set # Repetitions (reps) 4 Comments Stair Climbing Comments Pt found it easier to ascend, noting that her lower visual field was limited by the soft collar on descent. She required SBA to navigate the stairs using bilateral rails. She declined to attempt stairs with unilateral rail as she will have to do at home. M5 PT-IP Objective Assessments Start: 02/15/19 08:31 Freq: NEEDED Status: Active Protocol: Document 02/15/19 10:30 AW (Rec: 02/15/19 10:57 AW [id number]) Orientation Orientation/Cognition Level of Alertness Alert Orientation Name,Date,Place,Situation Language Function Ability No Deficits Noted Safety Awareness Decreased Safety Awareness Memory Description No Deficits Noted Gross Range of Motion Upper Extremity ROM Assessment Within Functional Limits Lower Extremity ROM Assessment Within Functional Limits Strength Upper Extremity Strength Assessment Within Functional Limits Lower Extremity Strength Assessment Within Functional Limits Comments Strength Comments No overhead movements tested due to precautions Coordination Assessment Gross Coordination Gross Coordination WNL Sensation Assessment Sensation Gross Sensation Right LE Impaired,Left LE Impaired Light Touch Impaired Sensation Description Tingling Comments Sensation Comments Pt reports tingling in bilateral feet, but nothing was apparent on clinical exam Muscle Tone Muscle Tone WNL Yes M6 PT-IP Treatment Start: 02/15/19 08:31 Freq: NEEDED Status: Active Protocol: Document 02/15/19 10:30 AW (Rec: 02/15/19 10:57 AW [id number]) Physical Therapy Treatment Education Education Provided Precautions,Weight Bearing Status,Post-Op Packet,Safety Brace Education [place],Patient Other Treatments Other Treatment Performed Educated pt on donning/doffing soft cervical brace with use of mirror for visual feedback M7 PT-IP Assessment and Plan Start: 02/15/19 08:31 Freq: NEEDED Status: Active Protocol: Document 02/15/19 16:12 AW (Rec: 02/15/19 16:24 AW [email or web address]) PT Summary Assessment and Plan Summary Assessment Summary Pt presents with need for decreased level of assist this session. SBA required for all transfers, gait, and stairs using no assistive device. Stair climbing was completed using bilateral rails. Per pt, she felt too unsteady to attempt with single railing. Goals Bed Mobility Goal Independent Transfer Goal Independent Gait Goal Independent Gait Distance 300 with pain of 5/10 or less Other Goals up/down 11 steps SBA unilateral railing (either R or L) Days to Meet Goals 1 Frequency of Treatment Frequency Of Treatment Twice a Day Treatment Plan Other Recommendations and Next Treatment assess pain with activity Focus stairs with unilateral railing Recommendations To Nursing Amount of Assist Needed Standby Assistance Discharge Recommendations PT Discharge Recommendations Home with Assistance,SNF Rehab Other Discharge Recommendations Pt prefers SNF. PT continues to recommend discharge to home with increased assistance.
[2019-02-15 17:00] VITALS: BP 146/84; PULSE 82; RESP 17; TEMP 37; O2SAT 93
[2019-02-15] MEDS: NICOTINE 21 MG PATCH TOP (19:39)
[2019-02-15] MEDS: MAGNESIUM HYDROXIDE 30 ML UDC PO (20:15)
[2019-02-15] MEDS: ATORVASTATIN 20 MG TABLET 40 MG PO (20:16)
[2019-02-15] MEDS: SENNOSIDES 8.6 MG TABLET 17.2 MG PO (20:16)
[2019-02-15 21:00] VITALS: BP 129/79; PULSE 79; RESP 16; TEMP 36.9; O2SAT 93
[2019-02-15 23:10] VITALS: BP 136/74; PULSE 84; RESP 18; TEMP 36.4; O2SAT 91
[2019-02-15] MEDS: TRAZODONE 50 MG TABLET 100 MG PO (23:10)
--- NOTE | 2019-02-16 05:24 | PC.NURSE ---
Addendum entered by Kandace Bansal R.N. 02/16/19 05:33: Pt allowed this RN to assess site and found the catheter was completely pulled out, intact. Pt refusing new IV site at this time. Original Note: HEATER OPERATOR HELPER responded to pt and found blood on the bed and on pt, attempted to assist pt as it appeared she was bleeding from IV site. Pt repeatedly yelling I need to pee!, y'all need to let me pee!, would not let anyone assist her and when attempted to have her use BSC to address bleeding IV site pt pushed it out of the way and went into the toilet without assistance from staff or FWW. Pt demanded that we turn off the bed alarm but it was not alarming and when attempted to check on pt in the bathroom, she slammed the door and told me to leave me alone!. Notified pt's RN to situation and that IV site had not been addressed d/t pt's behavior.
[2019-02-16] MEDS: OXYCODONE IR 5 MG TABLET 10 MG PO ×3 (05:37→11:00)
[2019-02-16 08:00] VITALS: BP 164/91; PULSE 81; RESP 18; TEMP 36.8; O2SAT 93
[2019-02-16] MEDS: BUSPIRONE 15 MG TABLET 30 MG PO (08:35)
[2019-02-16] MEDS: NICOTINE 21 MG PATCH TOP (08:35)
[2019-02-16] MEDS: HYDROCORTISONE 10 MG TABLET PO (08:35)
[2019-02-16] MEDS: METFORMIN HCL 500 MG TABLET 1000 MG PO (08:36)
[2019-02-16] MEDS: LOSARTAN 50 MG TABLET 100 MG PO (08:36)
[2019-02-16] MEDS: MONTELUKAST 10 MG TABLET PO (08:36)
[2019-02-16] MEDS: GABAPENTIN 300 MG CAPSULE PO (08:36)
[2019-02-16] MEDS: METOPROLOL IR 50 MG TABLET PO (08:36)
[2019-02-16] MEDS: DOCUSATE 100 MG CAPSULE PO (08:36)
[2019-02-16 08:45] VITALS: RESP 12; O2SAT 95
--- NOTE | 2019-02-16 08:50 | PT-IP ANOTE ---
Pt refused states she needs to eat and get ready to D/C
--- NOTE | 2019-02-16 09:09 | P.DS_ITS ---
History of Present Illness History of Present Illness Date Patient Seen: 02/16/19 Time Patient Seen: 09:09 Chief complaint: Cervical Fusion Anterior Narrative: Patient has been having chronic neck pain and worsening cervical radiculopathy. Patient failed multiple conservative management with worsening pain weakness and numbness in her upper extremity. Patient has been having difficulty performing activity of daily living. After discussing risks benefits of treatment options, patient elected proceed with surgery. Discharge Providers Provider Date of admission: 02/14/19 10:22 Discharge Date: 02/16/19 Consults: 02/14/19 11:22 Consult to Respiratory Therapy Evaluate & Treat Comment: Physician Instructions: Evaluate and treat 02/14/19 17:06 Consult to Occupational Therapy Evaluate & Treat Comment: Physician Instructions: Evaluate and treat Consult to Physical Therapy Evaluate & Treat Comment: Physician Instructions: Evaluate and Treat Discharge provider: Drea Oliveira PA-C Summary Hospital Course Discharge Diagnosis: s/p C5-7 ACDF Lumbar spinal stenosis Hyponatremia Hypertension Hyperlipidemia Hepatitis-C History of alcoholism History of methamphetamine use Diabetes mellitus type 2 and depression COPD Cervical spinal stenosis Asthma Anxiety Depression Adrenal adenoma Hospital Course: Santa was admitted for a C5-7 Artificial cervical discectomy and fusion with Dr. Muller. Postop day 2 patient was ready to discharge home with home health services. She has people at home she lives with but they will not be able to help her much. She has been mobilizing safely but will need continued help with ADLs. She has been eating and voiding without difficulty or assistance. No difficulty swallowing. She has been mobilizing with physical therapy throughout her stay. Oxycodone, and Vistaril for pain control. No excessive bending, lifting, twisting. Soft collar for comfort. Status at Discharge Functional status at discharge: uses cane/walker Exam Vital Signs (past 8 hours): - 02/16/19 08:00 02/16/19 08:45 Temperature 98.2 F Pulse Rate 81 Respiratory Rate 18 12 Blood Pressure 164/91 H Pulse Oximetry 93 95 Oxygen Delivery Method Room Air Oxygen Flow Rate 0 Narrative Exam Narrative: Patient lying in bed in no acute distress. She is alert and orient x3. Calves are soft, compressible, nontender bilaterally. Radial pulses are symmetrical. Data Support Specialist strength strong and equal. No radicular pain. Biggest complaint of muscle spasms behind her shoulders. Anterior cervical dressing at [facility]. She was very tearful when explaining that her family will not be able to take care of her at times. She made clear that she will need help with bathing and ADLs. She notes that she has a young dog that she will not be able to care for. Objective Labs Result Diagrams: 02/15/19 08:45 Labs: Laboratory Results - last 24 hr 02/15/19 08:45 Hgb 14.4 Hct 43.4 Discharge Plan Discharge Plan Patient Disposition: Home Health Service Transfer to: [facility] Discharge Med Rec/Prescriptions Prescriptions: New acetaminophen 325 mg Tablet 650 mg PO Q6HR PRN (Reason: Pain, Mild (1-3)) Qty: 60 RF: 0 docusate sodium [DOK] 100 mg Capsule 100 mg PO BID Qty: 60 RF: 0 hydroxyzine pamoate 25 mg Capsule 25 mg PO Q6-8H PRN (Reason: muscle spasm) Qty: 40 RF: 1 oxycodone 5 mg capsule 5 mg PO Q4-6H PRN (Reason: pain) Qty: 60 RF: 0 Continued cyclobenzaprine 10 mg Tablet 10 mg PO TID PRN (Reason: Muscle Spasm) RF: 0 trazodone 50 mg Tablet 100 mg PO BEDTIME RF: 0 metformin 1,000 mg Tablet 1,000 mg PO BID RF: 0 fluticasone propion-salmeterol [Advair Diskus] 500-50 mcg/dose Blister With De vice 1 inh INHALATION BID RF: 0 gabapentin 300 mg Capsule 300 mg PO TID RF: 0 montelukast 10 mg Tablet 10 mg PO QAM RF: 0 albuterol sulfate 90 mcg/actuation Hfa Aerosol Inhaler 2 puff INHALATION Q4-6H PRN (Reason: Asthma) RF: 0 buspirone 15 mg Tablet 30 mg PO BID RF: 0 Combivent Respimat 20-100 mcg/actuation Mist 1 puff INHALATION Q6H PRN (Reason: asthma) RF: 0 nicotine 21 mg/24 hr Patch 24 Hour 1 patch TRANSDERMAL DAILY RF: 0 atorvastatin 40 mg Tablet 40 mg PO BEDTIME RF: 0 albuterol sulfate 2.5 mg /3 mL (0.083 %) Solution For Nebulization 2.5 mg INHALATION QID PRN (Reason: Shortness Of Breath) RF: 0 benzonatate 200 mg Capsule 200 mg PO TID PRN (Reason: Cough) RF: 0 metoprolol tartrate 50 mg Tablet 50 mg PO BID RF: 0 hydrocortisone 10 mg Tablet 10 mg PO BID RF: 0 losartan 100 mg tablet 100 mg PO DAILY RF: 0 Follow up/Referrals: Almas Muller MD [Physician] - As previously scheduled (10-14 days) Provider Discharge Instructions Diet: Diet as Tolerated Activity: No excessive bending, lifting, or twisting. Soft collar for comfort. Cold/Heat Therapy: as needed Skin/Wound/Dressing Care Report to your healthcare provider any signs of infection, such as:: chills, fever and increased pain Dressing: Leave in place until appointment Visit Report/Discharge Packet Instructions: DI for Anterior Cervical Discectomy and Fusion Stand Alone Forms: Surgery Discharge Visit Report Forms: Stroke Signs & Symptoms Quality VTE Deep Vein Thrombosis/Pulmonary Embolism Present on Admission: No
--- NOTE | 2019-02-16 12:26 | PC.NURSE ---
Pt very anxious this am, stating that house keeping had not cleaned her room the whole three days she had been here. This is not true as housekeeping was in room yesterday to clean. They also offered to clean this morning and she refused and stated that she wanted to eat her breakfast. Medicated with percolone 10mg x2. Helpful. Pt ambulatory and steady on her feet when ambulating in the halls. She left and discharged earlier around 1130. Wallet counted and every thing fine. Out with her boyfriend. Stated that this hopsital went down hill since her last visit. Pt complained about everything being wrong with the place and staff. Encouraged her that this is a good hospital to work in and we are here to help care for her.
--- NOTE | 2019-02-16 14:51 | CM.IDA ---
Initial DCP Assessment Note: Pt is a 63 yo female, resident of [place]. Pt POD#2 from cervical fusion anterior w/Dr Muller. PCP: David Larios Payer: Giovany MODI Met w/pt this morning before she was DC. Pt is functionally indp at baseline. Pt's household includes SO, mother and roommates. Pt states there will be no one to help her at home. Pt has been hopeful since her surgery that she could DC to SNF. In review of documentation and then confirmed in seeing pt in room: pt walking indp w/ neck brace on today. This LAWN MOWER OPERATOR and Ortho PA Malathi explained to pt that she will not meet Giovany criteria for SNF. Pt upset but agreeable to [facility]. Requested that [facility] specialist, fax referral to [facility]. P: DC home w/friends via pov w/ [facility] to follow for PT/OT/RN Kori Good, LAWN MOWER OPERATOR
== END 2019-02-16 11:46 | disposition home health service (06) | DRG 473 ==
PROVIDERS: Admitting Provider Orthopaedic Surgery Orthopaedic Surgery of the Spine; Visit Provider Orthopaedic Surgery Orthopaedic Surgery of the Spine
PROC: 0RG20A0 Fusion of 2 or more Cervical Vertebral Joints with Interbody Fusion Device, Anterior Approach, Anterior Column, Open Approach (ICD-10-PCS; principal; 2019-02-14 08:45)
DX: M48.02 Spinal stenosis, cervical region (principal); M47.22 Other spondylosis with radiculopathy, cervical region; J44.9 Chronic obstructive pulmonary disease, unspecified; E11.9 Type 2 diabetes mellitus without complications; I10 Essential (primary) hypertension; E78.5 Hyperlipidemia, unspecified; B19.20 Unspecified viral hepatitis C without hepatic coma; F32.9 Major depressive disorder, single episode, unspecified; J45.909 Unspecified asthma, uncomplicated; F41.9 Anxiety disorder, unspecified; F17.210 Nicotine dependence, cigarettes, uncomplicated; Z79.84 Long term (current) use of oral hypoglycemic drugs; M54.2 Cervicalgia; S13.4XXD Sprain of ligaments of cervical spine, subsequent encounter; V49.9XXD Car occupant (driver) (passenger) injured in unspecified traffic accident, subsequent encounter
CPT/HCPCS: 36415; 72040; 76000; 82962; 85014; 85018; 94640; 97161; 97166; 97530; 97535; 99406; C1776; J0690; J1100; J1170; J2060; J2405; J2704; J3010; J3410; J7613

== ENCOUNTER 2021-07-17 06:19 | Inpatient (IN) | payer MEDICARE, MEDICAID, SELFPAY ==
[2019-02-14 18:50] VITALS: BMI 27.2
[2021-07-17] VITALS (18 sets, daily range): BP systolic 119–151; BP diastolic 61–86; PULSE 11–96; RESP 12–96; TEMP 36.2–36.9; O2SAT 4–98; BMI 28.7
[2021-07-17 07:13] LABS: COVID19 -Nasal RAPID Negative (Negative)
[2021-07-17] MEDS: LACTATED RINGERS 1,000 ML 42 ML IV ×3 (08:01→11:06)
--- NOTE | 2021-07-17 08:37 | SUR.PREOP ---
Crystal GUERRERO for Dr Muller updated on patient admit, o2 dependent, redness to bilat shins, hydrocortisone daily use & not taken today, did not take Gabapentin dose this am and uses oxygen at home at night.
--- NOTE | 2021-07-17 08:57 | PM.PREOP ---
Pre-operative Note COVID-19 COVID-19 status: Negative Result date/Date tested (Pos, Neg/Pending): 07/16/21 Criteria for continued procedure: Expected advancement of disease process, Possibility delay results in more complex future surgery or treatment, Increased loss of function, Continuing or worsening of significant or severe pain, Deterioration of the patient's condition or overall health, Delay expected to result in less-positive ultimate med/surg outcome and Non-surgical alternatives not available or appropriate per current SOC Interval Note History & Physical reviewed/Exam performed by Physician: Yes Changes to H&P: No
[2021-07-17] MEDS: CEFAZOLIN 2 GM/20 ML SYRINGE IV ×2 (09:25→18:45)
[2021-07-17] MEDS: BUPIVACAINE 0.25% W/ EPI 30 ML VIAL INJ (09:46)
--- NOTE | 2021-07-17 12:46 | DI.RAD.S_ITS ---
PROCEDURE: XR LUMBAR SPINE 2-3V INDICATIONS: L2-3 TLIF/ ADD TO THE OTHERS TECHNIQUE: 2 views of the lumbar spine were acquired. COMPARISON: [facility], , XR LUMBAR SPINE 2-3V, 11/17/2017, 8:35. FINDINGS: Bones: Intraoperative views demonstrate changes of TLIF. Prior fluoroscopic views demonstrated L3 through L5 TLIF which was revised to L2 through L5. Soft tissues: No abnormal soft tissue changes. IMPRESSION: Intraoperative fluoroscopic views during TLIF were performed Dictated by: Brandon Burns M.D. on 07/17/2021 at 13:13 Approved by: Brandon Burns M.D. on 07/17/2021 at 13:14
--- NOTE | 2021-07-17 12:46 | PM.OP.1 ---
Operative Date/Time/Diagnoses Date of procedure: 07/17/21 Time of procedure: 08:45 Pre-op diagnosis: 1. L2-3 spinal stenosis 2. Cauda equina syndrome 3. Hx of L3-5 fusion 4. lumbar spondylosis with radiculopathy Post-op diagnosis: same Procedure & Clinicians Procedure: 1. L2-3 posterolateral and posterior interbody fusion 2. L2-3 posterior interbody cage placement 3. L3-4, L4-5 posterior segmental instrumentation removal 4. L3-4, L4-5 revision laminectomy with exploration of fusion 5. L3-4, L4-5, L5-S1 posterior segmental instrumentation with pedicle screw placement 6. L4-5 posterolatearl fusion 7. Matteson of bone marrow from iliac crest through a separate incision 8. Utilization of microsurgical technique and operating microscope Same procedure as scheduled: Yes Indications: Patient has been having chronic back pain and worsening lumbar radiculopathy. Recently patient had episodes of overflow incontinence for her bladder. MRI shows severe spinal stenosis L2-3 level correlating with her symptoms. After discussing risks and benefits of treatment options patient was urgently scheduled for L2-3 T lift with revision instrumentation. Patient failed multiple conservative management with worsening pain weakness and numbness in her lower extremity. Patient has been having difficulty performing activity of daily living. After discussing risks benefits of treatment options, patient elected proceed with surgery. Surgeon: Almas Muller Medical Assistant Supervisor: Crystal Rivas Click Yes if Unassisted: No Anesthesia Type: General Operative Notes Closure Type: primary Specimen(s): none sent Prosthetic devices, grafts, tissues, transplants, or devices: Globus revolve screws, Rise cage Applied: catheter Estimated Blood Loss (mL): 100 Blood products transfused: none Procedure in detail: Patient was seen in the preoperative area. Risks and benefits of the surgery was discussed with the patient. Informed consent was obtained from the patient and placed in the chart. Surgical site was marked. Patient was taken to the operative room. General anesthesia was administered. Prophylactic antibiotic was given to the patient less than 30 min before the incision was made. Patient was placed into a prone position on the Govind table. Patient's back was then prepped and draped in the sterile fashion. Time-out was performed at this time. Using patient's previous scar incision was made over the L2-5 interval on the left side. Fascia was incised in line with skin incision. Patient's previously placed hardware over the L3-4, L4-5 level was identified by dissecting down to the level the hardware using a Bovie and a Camp. The locking caps which was removed using globus screwdriver. The locking juan was then removed from the tulips of the pedicle screws using a Ruth Ann. The pedicle screws were then removed using the screwdriver. The screws were found to have good purchase except in the L5 pedicles the screws were found to be lose on the left side. The Globus and MARS retractors was then placed into the wound and docked onto the L2 lamina using C-arm guidance. Using microsurgical technique and operating microscope a laminectomy facetectomy was performed by removing the L2 lamina and the L2-3 facet. The disc space at L2-3 level was identified next. And a total diskectomy was performed at L2-3 level. The endplates were decorticated using a rasp and shaver. The total diskectomy and decortication was performed at L2-3 level in order to to accomplish a L2-3 fusion. The local bone from the laminectomy and facetectomy was saved for local bone grafting. Patient was found have severe central and foraminal stenosis L2-3 level, which was fully decompressed after the laminectomy and facetectomy was completed. After the total diskectomy and decortication was completed, Globus Trifecta bone graft material was combined with local bone that was harvested earlier. At this time, a separate skin is incision was made over the iliac crest. A Jamshidi needle was inserted into the iliac crest through a separate skin incision. 5 cc of bone marrow aspiration was obtained through the separate skin incision using a Jamshidi needle from the iliac crest. The bone marrow aspiration was combined with local bone and the Trifecta bone grafting material. The bone grafting material was placed into the L2-3 interbody space along with a expandable cage. The cage was expanded to its maximum height using the torque limiting screwdriver. At this time a mirror image incision was made on the right side. The fascia was incised in line with the skin incision. Patient's previously placed hardware on the right side was then removed in the same fashion as it was on the left side. The hardware was found to have good purchase. The fusion mass on the right side was exposed by performing a right-sided hemilaminectomy at L3-4 L4-5 level. The hemilaminectomy was performed using the Kerrison rongeur to undercut the lamina as well removing additional epidural scar tissue for purpose of decompressing the epidural space. The fusion mass was explored and was found have visible motion indicating pseudoarthrosis at L4-5 level and was found to have solid fusion L3-4 level. Globus MARS retractor was inserted and docked onto the L2-3 L4-5 posterolateral gutter. Using the power drill, posterior-lateral decortication was performed at L2-3 L4-5 level until bleeding cortical bone was identified. The remaining bone grafting material was placed into the L2-3 L4-5 posterior lateral gutter he order to accomplish posterolateral fusion at the L2-3 L4-5 level. Using the double C-arm technique, pedicle screws were placed into the L2, L3, L4, L5 pedicles bilaterally. This was done by placing the Jamshidi needle into the pedicles, then placing the guidewires over the Jamshidi needle, and finally placing the cannulated screws over the guidewires bilaterally. After the pedicle screws were placed, 2 titanium rods was locked into the heads of the pedicle screws using locking caps and torque limiting screwdriver. After all the hardware was placed, and confirmed with AP and lateral C-arm imaging, the wound was then irrigated with sterile normal saline and packed with Ray-Magalis gauze for 3 min to accomplish hemostasis. After the gauze was removed the deep fascia was closed with #1 Vicryl suture. The subcutaneous layer was closed with 2-0 Vicryl. The skin was closed with skin lenora. Patient tolerated the procedure well. There were no complications. Complications: none Post-operative Condition: stable Disposition: PACU Plan for aftercare: Admit to inpatient hospital
[2021-07-17] MEDS: HYDROMORPHONE 2 MG INJ IV ×4 (13:08→13:40)
[2021-07-17] MEDS: ONDANSETRON 4 MG/2 ML INJ IV ×2 (13:10→20:32)
[2021-07-17] MEDS: fentaNYL 100 MCG/2 ML INJ IV ×4 (13:11→13:56)
[2021-07-17] MEDS: ACETAMINOPHEN IV 1,000 MG/100 ML VIAL 400 MG IV (13:21)
[2021-07-17] MEDS: LORazepam 2 MG/ML INJ 0.5 MG IV (13:24)
[2021-07-17] MEDS: METOCLOPRAMIDE 10 MG/2 ML INJ IV (13:42)
[2021-07-17] MEDS: ALBUTEROL 2.5 MG/3 ML NEB (ADULT) INH (13:54)
--- NOTE | 2021-07-17 13:58 | SUR.PHASEI ---
Pt to PACu at 1303 with Anesth, SBAR report at bedside. Pt awake, alert, crying in pain, moving in bed, stating it hurts and I need to get up! See orders from Dr Hooper for pain medication, anxiety and nausea, he was to bedside to see patient and again at 1350. Pt now resting more comfortable, still trying to move in. Albuterol Neb at this time.
--- NOTE | 2021-07-17 16:08 | P.CONS_ITS ---
History of Present Illness Consult details Chief complaint: INPT Narrative: 66yo female with a hx of hypertension, non-insulin dependent DM II, peripheral neuropathy due to DM II, anxiety disorder, likely COPD from extensive tobacco smoking hx, and urinary incontinence due to recently diagnosed cauda equina synd nas due to L2-L3 spinal stenosis that we are consulted for medical management. The patient has recently undergone spinal surgery to correct for cauda equina syndrome. She is aware of all the medicines she's taking, and knows them by doses, too. She endorses taking albuterol PRN, Combivent bid daily, amlodipine, HCTZ, Lopressor, atorvastatin, metformin, Buspirone, duloxetine, trazodone, oxybutynin, donepezil (for memory issue), hydrocortisone (she does not know why she was placed on this recently), and Celecoxib occasionally for arthritis pain. She denies taking the other listed meds. She denies feeling unwell currently. She states she's feeling sleepy. She does also complain of some positional pain. She reports living alone in a nearby town, and is retired. She endorses smoking tobacco since she was 18 years-old, approximately 1 ppd, although now she's cut back to 3 cigarettes per day. She uses Combivent daily bid, although albuterol is PRN. She wears oxygen at baseline, 3-4 liters, typically at night. She does not have a maintenance steroid inhaler, and she does not know why. PSH is positive for appendectomy, tonsillectomy, previous lumbar spine fusion, and some dental work. Meds Home Medications and Allergies Home Medications Medication Instructions Recorded Confirmed Type albuterol sulfate 90 mcg/actuation 2 puff INHALATION Q4-6H PRN 11/02/17 07/17/21 History aerosol inhaler buspirone 15 mg tablet 30 mg PO DAILY 11/02/17 07/17/21 History cyclobenzaprine 10 mg tablet 10 mg PO TID PRN 11/02/17 07/17/21 History ipratropium 20 mcg-albuterol 100 1 puff INHALATION Q6H PRN 11/02/17 07/17/21 History mcg/actuation mist for inhalation (Combivent Respimat) montelukast 10 mg tablet 10 mg PO QAM 11/02/17 07/17/21 History nicotine 21 mg/24 hr daily 1 patch TRANSDERMAL DAILY 11/02/17 07/17/21 History transdermal patch trazodone 50 mg tablet 100 mg PO BEDTIME 11/02/17 07/17/21 History albuterol sulfate 2.5 mg INHALATION QID PRN 02/14/19 07/17/21 History atorvastatin 40 mg tablet 40 mg PO BEDTIME 02/14/19 07/17/21 History benzonatate 200 mg capsule 200 mg PO TID PRN 02/14/19 07/17/21 History hydrocortisone 10 mg tablet 10 mg PO DAILY 02/14/19 07/17/21 History metoprolol tartrate 50 mg tablet 75 mg PO BID 02/14/19 07/17/21 History acetaminophen 325 mg tablet 650 mg PO Q6HR PRN #60 tab 02/16/19 07/17/21 Rx docusate sodium 100 mg capsule 100 mg PO BID #60 cap 02/16/19 07/17/21 Rx ([facility]) oxycodone 5 mg capsule 5 mg PO Q4-6H PRN #60 cap 02/16/19 07/17/21 Rx amlodipine 10 mg tablet 10 mg PO DAILY 07/17/21 07/17/21 History celecoxib 200 mg capsule 200 mg PO DAILY 07/17/21 07/17/21 History donepezil 5 mg tablet 5 mg PO BEDTIME 07/17/21 07/17/21 History duloxetine 30 mg capsule,delayed 30 mg PO BEDTIME 07/17/21 07/17/21 History release duloxetine 60 mg capsule,delayed 60 mg PO DAILY 07/17/21 07/17/21 History release gabapentin 600 mg tablet 600 mg PO TID 07/17/21 07/17/21 History hydrochlorothiazide 12.5 mg tablet 12.5 mg PO DAILY 07/17/21 07/17/21 History hydrocodone 5 mg-acetaminophen 325 1 tab PO Q4H 07/17/21 07/17/21 History mg tablet hydroxyzine HCl 10 mg tablet 10 mg PO BEDTIME PRN 07/17/21 07/17/21 History ketoconazole 2 % topical cream 1 applic TOPICAL DAILY PRN 07/17/21 07/17/21 History metformin 500 mg tablet 500 mg PO BID 07/17/21 07/17/21 History nystatin 100,000 unit/gram topical 1 applic TOPICAL DAILY PRN 07/17/21 07/17/21 History powder ([facility]) oxybutynin chloride 5 mg tablet 5 mg PO BID 07/17/21 07/17/21 History Allergies Allergy/AdvReac Type Severity Reaction Status Date / Time No Known Drug Allergies Allergy Unverified 10/31/17 08:34 Review of Systems Constitutional Comments: Denies fever/chills, appetite loss Eyes Comments: Denies vision changes Cardiovascular Comments: Denies CP, palpitations, peripheral edema Respiratory Comments: Denies cough, SOB, URI symptoms Gastrointestinal Comments: Denies abd pain, n/v/d, flank pain Musculoskeletal Comments: Endorses lower back pain Integumentary/Breasts Comments: Denies skin changes Exam Vital Signs (past 8 hours): - 07/17/21 13:03 07/17/21 13:09 07/17/21 13:13 Temperature 98.5 F Pulse Rate 86 92 H 80 Respiratory Rate 14 14 13 Blood Pressure 150/82 H 123/61 119/65 Pulse Oximetry 98 95 94 07/17/21 13:18 07/17/21 13:22 07/17/21 13:27 Temperature 97.1 F L Pulse Rate 73 73 74 Respiratory Rate 14 13 13 Blood Pressure 130/62 129/65 130/86 Pulse Oximetry 96 94 95 07/17/21 13:32 07/17/21 13:47 07/17/21 14:06 Temperature 97.4 F L Pulse Rate 73 11 L 78 Respiratory Rate 16 96 H 92 H Blood Pressure 144/62 H 137/74 137/74 Pulse Oximetry 94 94 4 L 07/17/21 14:21 07/17/21 14:36 07/17/21 14:53 Temperature 97.7 F 97.9 F Pulse Rate 78 79 84 Respiratory Rate 12 12 16 Blood Pressure 139/66 143/73 H Pulse Oximetry 94 95 94 07/17/21 15:37 Temperature 97.8 F Pulse Rate 81 Respiratory Rate 16 Blood Pressure 145/74 H Pulse Oximetry 93 Oxygen Delivery Method Nasal Cannula Oxygen Flow Rate 2 Const Other: Laying in bed upon my entering the room, sleeping comfortably, and in no apparent, acute distress HENMT Other: Nasal cannulae in place at 2 liters Eyes Other: No scleral icterus appreciated Neck Other: No carotid bruits appreciated Resp Other: Lungs clear to auscultation bilaterally, with poor air exchange, but without inspiratory/expiratory wheezing, or adventitious sounds Cardio Other: Regular rate and rhythm, with normal S1 and S2 heart sounds, no extra heart sounds auscultated, and a grade III/ crescendo/decrescendo murmur heard best over the RUSB with carotid radiation GI Other: Soft, non-distended, non-tender, bowel sounds present Back/Spine/Pelvis Other: Bandage cover appreciated over the lower back, clean, dry and intact Skin Other: No grossly abnormal skin lesions noted Neuro Other: Alert and oriented to person, place, time and situation Extrem Other: Palpable and equally steady radial and dorsalis pedis pulses bilaterally Objective Labs Labs: Laboratory Results - last 24 hr 07/17/21 06:43 SARS-CoV-2 (PCR) Negative [facility] Medical History (Updated 08/24/18 @ 11:43 by Kymberly Webber RN) Anxiety Arthritis Asthma Chronic low back pain COPD (chronic obstructive pulmonary disease) Dental abscess Depression Diabetes Easy bruisability Emphysema lung ETOH abuse Frequent UTI Hepatitis C HTN (hypertension) Hyperlipidemia Hyponatremia Hypoxia Marijuana smoker Pneumonia (~07/2017) Substance abuse TBI (traumatic brain injury) (~2004) Urinary retention Surgical History (Updated 08/24/18 @ 11:43 by Kymberly Webber RN) H/O cosmetic surgery (~2013) History of cataract extraction with lens replacement History of mandibular surgery History of surgery Hx of appendectomy Hx of removal of cyst Hx of tonsillectomy Status post surgical manipulation of ankle joint Social History household members: none Tobacco & Substance Use Smoking Status: Current some day smoker alcohol intake: current Assessment & Plan Assessment & Plan narrative: Assessment: 1. Likely aortic stenosis (), based on exam 2. Hypertension 3. Cauda equina syndrome due to L2-L3 spinal stenosis, status post corrective surgery 4. COPD, likely emphysema 5. Hyperlipidemia 6. Anxiety 7. Insomnia 8. Non-insulin dependent DM II 9. Peripheral neuropathy, likely due to DM II 10. Overactive bladder, likely due to cauda equina syndrome 11. Polypharmacy 12. Likely ALEX Plan: 1. No echocardiogram on-file. However, no need for one as of now. Will have to maintain normotension, so as to not introduce prohibitive afterload, in the setting of this likely . This also makes her preload-dependent, and she's euv olemic currently. 2. Continue home amlodipine 10 mg daily, HCTZ 12.5 mg daily, Lopressor 75 mg bid. Will give today, given problem 1. If BP continues to be an issue, can start lisinopril 20 mg daily (if patient does not have allergy). 3. Orthopedic surgery managing post-op course. Patient does not know why she's taking home hydrocortisone, but it is likely due to this. Will continue for now so as to not precipitate an adrenal crisis, especially post-op. Can taper outpatient with PCP. 4. Does not appear to be in exacerbation currently. Has extensive tobacco smoking history. Wears 3-4 liters of oxygen at home, mostly at night. Only inpatient steroid inhaler available is budesonide, and this is ordered. Should be on maintenance steroid inhaler as outpatient. 5. Continue home atorvastatin 40 mg daily. 6. Continue home buspirone 30 mg daily, and duloxetine 30 mg morning and 60 mg evening. Would normally be concerned for serotonin syndrome with this combination, but she's been on these meds chronically without incident. 7. Continue home trazodone 100 mg nightly, and donepezil that she takes for memory issues. 8. Continue home metformin 500 mg bid. If there is concern for hypoglycemia risk, consider switching to insulin sliding scale inpatient. 9. Continue home gabapentin 600 mg tid. 10. Continue home oxybutynin 5 mg bid. 11. Donepezil can prolong the QT interval, and will have to be cautious with other QT-prolonging agents, i.e. Zofran. 12. Patient likely has ALEX. STOP-BANG score is high. We discussed the need for sleep study outpatient, as untreated ALEX can lead to strain on her lungs and heart, especially in the setting of likely . VTE prophylaxis: Per primary team Thank you for this consult. Hospital medicine will sign-off at this time. Please let us know if you have any questions. Time Spent With Patient Critical Care time: I spent a total of [] minutes of critical care time on this patient's care today; this time is exclusive of procedural time.
[2021-07-17] MEDS: AMLODIPINE 5 MG TABLET 10 MG PO (16:25)
[2021-07-17] MEDS: GABAPENTIN 600 MG TABLET PO ×2 (16:25→21:22)
[2021-07-17] MEDS: HYDROMORPHONE 0.5 MG INJ IV ×3 (16:43→22:15)
[2021-07-17] MEDS: ACETAMINOPHEN 325 MG TABLET 650 MG PO (16:49)
--- NOTE | 2021-07-17 19:02 | PC.NURSE ---
Pt arrived from PACU this afternoon. She initially was yelling out in pain then falling back to sleep. Assisted her to change position and provided ice packs to her back. Dressing is dry with shadow drainage. She has a Snowden in place, draining clear yellow urine. She denies nausea but without appetite this evening. After 0.5 mg hydromorphone given for 10/10 pain, pt requests to sleep. She is easily awakened but requests to go back to sleep. She is saline locked in her right forearm PIV.She remains on home 02 level at 2L NC. She has redness/yeast to her groin area on both sides. Received order for nystatin powder. Continuous monitoring.
[2021-07-17] MEDS: DOCUSATE 100 MG CAPSULE PO (21:05)
[2021-07-17] MEDS: METFORMIN HCL 500 MG TABLET PO (21:22)
[2021-07-17] MEDS: DONEPEZIL 5 MG TABLET PO (21:22)
[2021-07-17] MEDS: DULOXETINE 30 MG CAPSULE PO (21:22)
[2021-07-17] MEDS: TRAZODONE 50 MG TABLET 100 MG PO (21:22)
[2021-07-17] MEDS: METOPROLOL IR 50 MG TABLET 75 MG PO (21:22)
[2021-07-17] MEDS: OXYBUTYNIN 5 MG TABLET PO (21:22)
[2021-07-17] MEDS: ATORVASTATIN 20 MG TABLET 40 MG PO (21:23)
[2021-07-17] MEDS: ALBUTEROL/IPRATROPIUM 3 ML AMPUL INH (21:45)
--- NOTE | 2021-07-17 23:11 | PC.NURSE ---
Addendum entered by Nain Underwood R.N. 07/18/21 02:44: Patient not agreeable to any physical activity including dangling at bedside. Education provided on importance of moving after surgery. Patient is able to reposition self in bed. Original Note: Patient reported severe pain and nausea. Provider contacted and orders for Zofran given which was promptly administered, patient reported decreased nausea afterwards. Pain continues to be difficult to manage. Scheduled PO medications given and maxed out on IV PRN pain medications. Patient is rather anxious and will quickly change moods from calm to crying and back again.
[2021-07-18] VITALS (12 sets, daily range): BP systolic 108–143; BP diastolic 50–68; PULSE 76–96; RESP 16–24; TEMP 36.4–37.6; O2SAT 92–97
[2021-07-18] MEDS: OXYCODONE IR 5 MG TABLET 10 MG PO ×5 (00:51→23:28)
[2021-07-18] MEDS: CEFAZOLIN 2 GM/20 ML SYRINGE IV (02:16)
[2021-07-18] MEDS: NICOTINE 21 MG PATCH TOP (04:18)
[2021-07-18] MEDS: ALBUTEROL/IPRATROPIUM 3 ML AMPUL INH ×5 (04:59→23:16)
[2021-07-18] MEDS: HYDROMORPHONE 0.5 MG INJ IV ×4 (05:26→14:09)
[2021-07-18 06:32] LABS: Hematocrit 39.9 % (36-46); Hemoglobin 13.4 g/dL (12.0-16.0)
[2021-07-18] MEDS: METOPROLOL IR 50 MG TABLET 75 MG PO ×2 (08:02→21:41)
[2021-07-18] MEDS: GABAPENTIN 600 MG TABLET PO ×3 (08:02→21:41)
[2021-07-18] MEDS: METFORMIN HCL 500 MG TABLET PO ×2 (08:02→21:40)
[2021-07-18] MEDS: AMLODIPINE 5 MG TABLET 10 MG PO (08:03)
[2021-07-18] MEDS: DOCUSATE 100 MG CAPSULE PO ×2 (08:04→21:41)
[2021-07-18] MEDS: OXYBUTYNIN 5 MG TABLET PO ×2 (08:04→21:40)
[2021-07-18] MEDS: hydroCHLOROthiazide 25 MG TABLET 12.5 MG PO (08:11)
[2021-07-18] MEDS: HYDROCORTISONE 10 MG TABLET PO (08:11)
[2021-07-18] MEDS: MONTELUKAST 10 MG TABLET PO (08:11)
[2021-07-18] MEDS: DULOXETINE 30 MG CAPSULE 60 MG PO (08:12)
[2021-07-18] MEDS: BUDESONIDE 0.5 MG/2 ML NEB INH ×2 (09:03→18:58)
--- NOTE | 2021-07-18 09:50 | PT.IIE ---
Current Diagnoses Cauda equina syndrome (07/17/21) Spinal stenosis, lumbar region with neurogenic claudication (07/17/21) Arthrodesis status (07/17/21) Surgery Performed Operation Date: 07/17/21 09:00 Actual Procedures p L2-3 TLIF, L3-5 lumbar HWR, exploration of fusion, repeat laminectomy, reinsertion of hardware, L2-5 PSF - Almas Muller MD Medical History (Last Updated 08/24/18 @ 11:43 by Kymberly Webber RN) Anxiety Arthritis Asthma Chronic low back pain COPD (chronic obstructive pulmonary disease) Dental abscess Depression Diabetes Easy bruisability Emphysema lung ETOH abuse Frequent UTI Hepatitis C HTN (hypertension) Hyperlipidemia Hyponatremia Hypoxia Marijuana smoker Pneumonia (~07/2017) Substance abuse TBI (traumatic brain injury) (~2004) Urinary retention Physical Therapy Inpatient Evaluation/Re-Eval M1 PT/OT-IP Prior Functional Status Start: 07/18/21 11:55 Freq: NEEDED Status: Active Protocol: Document 07/18/21 09:50 AB (Rec: 07/18/21 12:12 AB [id number]) Medical Review Prior Functional Status Medical History Reviewed Yes Communication with confusion and easily distracted; requires constant re directions Social History Household Members spouse,none Living Arrangements House Number of Floors (Floors) Two Floors Number of Stairs To Enter/Railing? pt stays on main level of the house 13 steps wide rails to enter and can only hold on to 1 rail at a time Home Environment Standard Height Toilet,Tub/ Shower Home Equipment Manual Wheelchair,Shower Seat with Backrest,Hand Held Shower Additional Social History Comment spouse works and usually not at home M2 PT-IP Current Condition Start: 07/18/21 11:55 Freq: NEEDED Status: Active Protocol: Document 07/18/21 09:50 AB (Rec: 07/18/21 12:12 AB [email or web address]) Physical Therapy Current Condition Current Condition Evaluation Date 07/18/21 Treatment Diagnosis s/p L2-S1 fusion; difficulty in walking Onset Date 07/17/21 M3 PT-IP Subjective Start: 07/18/21 11:55 Freq: NEEDED Status: Active Protocol: Document 07/18/21 09:50 AB (Rec: 07/18/21 12:12 AB [email or web address]) Subjective Physical Therapy Visit Type Type Initial Evaluation Visit Start Time 09:50 Visit Stop Time 10:40 Total Visit Minutes 50 Number of BARREL AND RECEIVER ALIGNER Visits 0 Physical Therapy Visit Comments Patient Comments I cannot walk, that is why i am going to a rehab place from here Therapy Pain Assessment Pain When Pain Assessed At Rest Pain Present Pain Present Pain Reported Location back Scale Used pain scale not stated Pain Management Techniques Distraction,Modification of Treatment,Re-positioning, Timing of Activity with Medications M4 PT-IP Mobility and Gait Start: 07/18/21 11:55 Freq: NEEDED Status: Active Protocol: Document 07/18/21 09:50 AB (Rec: 07/18/21 12:12 AB [email or web address]) PT-Bed Mobility Assessment Rolling Type of Rolling Log Rolling Level of Assist Maximal Assistance,2 Person Assistance Supine to Sit Supine to Sit Maximum Assistance,2 Person Assistance,Head of Bed Elevated,Bedrails Scooting Scooting to Edge of Bed Maximum Assistance PT-Transfer Assessment Sit to and From Stand Sit to and from Stand Moderate Assistance,2 Person Assistance,Use of Upper Extremities Equipment Transfer Assistive Device Gait Belt,Front Wheeled Walker Orthotic/Prosthetic Devices or Brace: No Transfers Transfer Destination Chair Transfer Technique Stand Step Pivot Transfer Ability Level of Assist Minimal Assistance,Moderate Assistance,2 Person Assistance ,Use of Upper Extremities Comments Mobility Comments educated pt on back precautions. pt with confusion and easily distracted and requires constant reinforcement and cues with all tasks. completed supine to sit log roll max A and max cues. increase posterior trunk lean during sitting with cues for positioning initial max A for sitting balance but CGA after cues. pt also can easily get agitated. requires increase rest breaks in between tasks. completed sit to stand mod A x 2 from EOB and completed step transfer to chair min to mod A x 2 and max cues. Refused ambulation. call light and table placed within reach. Gait Assessment Comments Gait Comments refused PT-Balance Assessment Sitting Balance and Reactions Static Sitting Balance Ability Fair Dynamic Sitting Balance Ability Poor Standing Balance and Reactions Static Standing Balance Ability Poor Dynamic Standing Balance Ability Poor Device Used FWW M5 PT-IP Objective Assessments Start: 07/18/21 11:55 Freq: NEEDED Status: Active Protocol: Document 07/18/21 09:50 AB (Rec: 07/18/21 12:12 AB [email or web address]) Orientation Orientation/Cognition Level of Alertness Confusional State Orientation Name,Place,Situation Safety Awareness Decreased Safety Awareness Memory Description Short Term Impaired Gross Range of Motion Lower Extremity ROM Assessment Within Functional Limits Strength Lower Extremity Strength Assessment Bilaterally Impaired Hip 3-/5 Knee 3+/5 Sensation Assessment Sensation Gross Sensation WNL Muscle Tone Muscle Tone WNL Yes M6 PT-IP Treatment Start: 07/18/21 11:55 Freq: NEEDED Status: Active Protocol: Document 07/18/21 09:50 AB (Rec: 07/18/21 12:12 AB [email or web address]) Physical Therapy Treatment Education Education Provided Precautions,Weight Bearing Status,Post-Op Packet,Safety M7 PT-IP Assessment and Plan Start: 07/18/21 11:55 Freq: NEEDED Status: Active Protocol: Document 07/18/21 09:50 AB (Rec: 07/18/21 12:12 AB [email or web address]) PT Summary Assessment and Plan Potential Rehabilitation Potential Fair Status of Condition at Evaluation Evolving Summary Impairments Pain,ROM,Strength,Balance, Coordination,Sensation,Tone, Cognition,Bed Mobility, Transfers,Gait,Activity Tolerance Assessment Summary pt requiring max A x 2 for bed mobility and max cues, mod A x 2 for sit to stand max cues. pt does not have any assistance at home and will require 24/ assist at this time. Pt will need SNF rehab to improve strength and mobility. Goals Bed Mobility Goal Minimal Assistance Transfer Goal Minimal Assistance,Front Wheeled Walker Gait Goal Minimal Assistance,Front Wheel Walker Gait Distance 50 Other Goals improve bed mobility, transfers SBA, ambulation using FWW SBA 150 ft up/down 13 steps 1 rail CGA Days to Meet Goals 10 Frequency of Treatment Frequency Of Treatment Twice a Day Treatment Plan Physical Therapy Treatment Plan Bed Mobility Training,Transfer Training,Gait Training, Therapeutic Exercise,Balance Retraining,Post Op Education, Discharge Planning,Hot or Cold Pack,Neuromuscular Re-ed, Coordination Retraining,Manual Therapy Other Recommendations and Next Treatment ambulation Focus Precautions Lumbar Precautions Log Roll,No Twisting,Limit Bending,Lifting Restriction of 10 lbs,Gait Belt above Incisional Area Recommendations To Nursing Amount of Assist Needed 2 Person Assist Discharge Recommendations PT Discharge Recommendations SNF Rehab Transportation Needs at Discharge Wheelchair/Cabulance
--- NOTE | 2021-07-18 09:53 | P.PN_ITS ---
Subjective Subjective Date Patient Seen: 07/18/21 Time Patient Seen: 09:54 Interval history: The patient is complaining of moderate to severe low back pain this morning. She denies any new numbness or tingling. The patient is adamant that she does not have help at home and will likely need to go to a residential facility, however there has already been home health set up once she does get home. She is on 3-4 L of O2 nightly at home, currently on 3L via nasal cannula. Exam Vital Signs (past 8 hours): - 07/18/21 04:00 07/18/21 04:59 07/18/21 08:00 Temperature 97.6 F 99.6 F Pulse Rate 84 84 92 H Respiratory Rate 18 16 16 Blood Pressure 143/68 H 134/64 Pulse Oximetry 94 94 92 07/18/21 09:03 Temperature Pulse Rate 90 Respiratory Rate 22 Blood Pressure Pulse Oximetry 95 Oxygen Delivery Method Nasal Cannula Oxygen Flow Rate 3 Narrative Exam Narrative: 66-year-old female, resting comfortably in bed, no acute distress. Dressing demonstrates serosanguineous drainage, no surrounding erythema or induration or ecchymosis. Bilateral lower extremity: Motor function is grossly intact, sensation is decreased left compared to right. Calves are soft and nontender to palpation. Objective Labs Result Diagrams: 07/18/21 06:27 Labs: Laboratory Results - last 24 hr 07/18/21 06:27 Hgb 13.4 Hct 39.9 PFSH Medical History (Updated 08/24/18 @ 11:43 by Kymberly Webber RN) Anxiety Arthritis Asthma Chronic low back pain COPD (chronic obstructive pulmonary disease) Dental abscess Depression Diabetes Easy bruisability Emphysema lung ETOH abuse Frequent UTI Hepatitis C HTN (hypertension) Hyperlipidemia Hyponatremia Hypoxia Marijuana smoker Pneumonia (~07/2017) Substance abuse TBI (traumatic brain injury) (~2004) Urinary retention Surgical History (Updated 08/24/18 @ 11:43 by Kymberly Webber RN) H/O cosmetic surgery (~2013) History of cataract extraction with lens replacement History of mandibular surgery History of surgery Hx of appendectomy Hx of removal of cyst Hx of tonsillectomy Status post surgical manipulation of ankle joint Social History household members: none Smoking Status: Current some day smoker alcohol intake: current Assessment & Plan Post-op Postoperative Procedures: Procedures Operation Date: 07/17/21 09:00 Actual Procedure Side Surgeon p L2-3 TLIF, L3-5 lumbar HWR, exploration of fusion, repeat laminectomy, reinsertion of hardware, L2-5 PSF Almas Muller MD Postoperative day: 1 Postoperative status: marginal pain control Postoperative status narrative: Status post L3-5 lumbar hardware removal, L2-3 L3-4 L4-5 TLIF/reinsertion of hardware Postoperative plan narrative: -mobilize with PT. Weightbearing as tolerated front wheel walker. Limit bending, lifting, twisting -multimodal pain management -dressing change today -disposition: Message from our office states [facility] has already accepted her into their home health program. [facility] is doing her medication management. The patient states she has minimal help at home and is concerned about going to SNF. Discharge in 1-2 days likely, depending on physical therapy and patient safety. Quality VTE Deep Vein Thrombosis/Pulmonary Embolism Present on Admission: No
[2021-07-18] MEDS: LORATADINE 10 MG TABLET PO (11:54)
--- NOTE | 2021-07-18 13:35 | PT.IPTN ---
Current Diagnoses Cauda equina syndrome (07/17/21) Spinal stenosis, lumbar region with neurogenic claudication (07/17/21) Arthrodesis status (07/17/21) Surgery Performed Operation Date: 07/17/21 09:00 Actual Procedures p L2-3 TLIF, L3-5 lumbar HWR, exploration of fusion, repeat laminectomy, reinsertion of hardware, L2-5 PSF - Almas Muller MD Physical Therapy Treatment Note M2 PT-IP Current Condition Start: 07/18/21 11:55 Freq: NEEDED Status: Active Protocol: Document 07/18/21 09:50 AB (Rec: 07/18/21 12:12 AB [email or web address]) Physical Therapy Current Condition Current Condition Evaluation Date 07/18/21 Treatment Diagnosis s/p L2-S1 fusion; difficulty in walking Onset Date 07/17/21 M3 PT-IP Subjective Start: 07/18/21 11:55 Freq: NEEDED Status: Active Protocol: Document 07/18/21 13:35 AB (Rec: 07/18/21 14:27 AB [email or web address]) Subjective Physical Therapy Visit Type Type Treatment Note Visit Start Time 13:35 Visit Stop Time 13:56 Total Visit Minutes 21 Number of RESIDENCY COORDINATOR Visits 0 Physical Therapy Visit Comments Patient Comments stated that she cannot walk. stated that she needs her nicotine patch, coffee reheated and that she was not ablel to eat her lunch due to her dentures. M4 PT-IP Mobility and Gait Start: 07/18/21 11:55 Freq: NEEDED Status: Active Protocol: Document 07/18/21 13:35 AB (Rec: 07/18/21 14:27 AB [email or web address]) PT-Transfer Assessment Sit to and From Stand Sit to and from Stand Maximum Assistance,1 Person Assistance,Use of Upper Extremities Equipment Transfer Assistive Device Gait Belt,Front Wheeled Walker Orthotic/Prosthetic Devices or Brace: No Transfers Transfer Destination Bed Transfer Technique ambulated Transfer Ability Level of Assist Minimal Assistance,1 Person Assistance,Use of Upper Extremities Gait Assessment Gait Gait Assistance Required: Minimum Assistance Distance (Feet) 45 Able to Maintain Weight Bearing Status Yes During Gait Assistive Devices Assistive Device Gait Belt,Front Wheeled Walker Orthotic/Prosthetic Devices or Brace: No Gait Deviations General Gait Pattern Decreased Stride Length, Decreased Feet Clearance Factors Limiting Gait Function Factors Limiting Gait Function Decreased Activity Tolerance, Decreased Strength,Difficulty Following Directions,Limited Range of Motion,Pain,Poor Balance,Poor Safety Awareness Comments Gait Comments pt sitting on chair. stated that she cannot walk. stated that she needs her nicotine patch, coffee reheated and that she was not ablel to eat her lunch due to her dentures. encouraged pt to ambulate and informed pt importance of mobility and rehab placement plan and pt just began to scream and stated why does PT makes her all the time. Asked NAC to come in to also assist . pt then calmed down and said What do you want me to do?. PT apolegetic afterwards and stated that it is because she does not have her nicotine patch. Pt agreed to walk. completed sit to stand from chair max A and max cues. walked in room using FWW min A and cues ~45 ft. sat on EOB. Pt wants to wash up and clean her detures before she lay back in bed. Left pt with NAC. call light within reach. M5 PT-IP Objective Assessments Start: 07/18/21 11:55 Freq: NEEDED Status: Active Protocol: Document 07/18/21 09:50 AB ([facility]: [facility]21 [facility] Orientation Orientation/Cognition Level of Alertness Confusional State Orientation Name,Place,Situation Safety Awareness Decreased Safety Awareness Memory Description Short Term Impaired Gross Range of Motion Lower Extremity ROM Assessment Within Functional Limits Strength Lower Extremity Strength Assessment Bilaterally Impaired Hip 3-/5 Knee 3+/5 Sensation Assessment Sensation Gross Sensation WNL Muscle Tone Muscle Tone WNL Yes M6 PT-IP Treatment Start: 07/18/21 11:55 Freq: NEEDED Status: Active Protocol: Document 07/18/21 13:35 AB (Rec: 07/18/21 14:27 [facility] Physical Therapy Treatment Education Education Provided Precautions,Safety M7 PT-IP Assessment and Plan Start: 07/18/21 11:55 Freq: NEEDED Status: Active Protocol: Document 07/18/21 13:35 AB (Rec: 07/18/21 14:27 AB [email or web address]) PT Summary Assessment and Plan Potential Rehabilitation Potential Fair Summary Impairments Pain,ROM,Strength,Balance, Coordination,Sensation,Tone, Cognition,Bed Mobility, Transfers,Gait,Activity Tolerance Progress Towards Goals Slow Progress due to Pain,Slow Progress due to Medical Issues,Slow Progress due to Activity Tolerance,Slow Progress - Other Assessment Summary pt requiring max A for sit to stand, min A with ambulation using FWW with slow kamari and decrease LE elevation. Pt easily gets agitated and distracted requires cues for safety. pt will require SNF rehab to improve strength and mobilty Goals Bed Mobility Goal Minimal Assistance Transfer Goal Minimal Assistance,Front Wheeled Walker Gait Goal Minimal Assistance,Front Wheel Walker Gait Distance 50 Other Goals improve bed mobility, transfers SBA, ambulation using FWW SBA 150 ft up/down 13 steps 1 rail CGA Days to Meet Goals 10 Frequency of Treatment Frequency Of Treatment Twice a Day Treatment Plan Physical Therapy Treatment Plan Bed Mobility Training,Transfer Training,Gait Training, Therapeutic Exercise,Balance Retraining,Post Op Education, Discharge Planning,Hot or Cold Pack,Neuromuscular Re-ed, Coordination Retraining,Manual Therapy Other Recommendations and Next Treatment ambulation Focus Precautions Lumbar Precautions Log Roll,No Twisting,Limit Bending,Lifting Restriction of 10 lbs,Gait Belt above Incisional Area Recommendations To Nursing Amount of Assist Needed 2 Person Assist Discharge Recommendations PT Discharge Recommendations SNF Rehab Transportation Needs at Discharge Wheelchair/Cabulance
[2021-07-18] MEDS: BUSPIRONE 5 MG TABLET 30 MG PO (14:10)
--- NOTE | 2021-07-18 15:09 | OT.IPNOTE ---
Attempted to see pt for OT eval and pt very uncomfortable in the bed and assisting nurse to try to reposition the pt. Pt not wanting to get up at this time and just wanting to be left alone, however RT came and pt then agreed to work with RT.
--- NOTE | 2021-07-18 15:33 | CM.IDA ---
Initial DCP Assessment Note Pt is a 66 yo female, resident of [place], now POD#1 from spinal surgery w/ Dr Muller PCP: Katerine Draper (Current?) Payer: [employer] Reviewed chart, Yohannes Rojas anticipates patient will require SNF stay before return home. If SNF not secured, Stephanie at [facility] has this referral from [facility] team (who made the referral prior to this procedure) for RN/PT/OT Met w/patient, introduced role. Patient lives alone, partner Don visits on the weekends. Patient has 122hrs of BRIDGER care giving, states there are not enough care givers available to fill all her hours. Patient's BRIDGER CM is Kady Geronimo P# [phone]. BRIDGER margarita Servin is P# [phone]. Patient has hx of TBI and it appears emotional regulation can be difficult, patient becomes tearful multiple times this visit but easily redirected back to topic. Patient wants to DC to [facility] upon DC, understands that 1. [facility] will need to accept clinically and have bed availability and 2. [employer] will need to auth. Patient aware, states she does not have enough care arranged at home. Patient has been to [facility] in the past after prior back surgery, chooses not to return. faxed referral to [facility] this afternoon; PASRR needed CM team will need to follow closely for coordination of the safest DCP that is available to patient. Likely here through Tuesday according to VESTA Garcia Discharge Planning/Care Management CM Discharge Assessment Start: 07/18/21 15:17 Freq: Status: Active Protocol: Document 07/18/21 15:19 DELLA (Rec: 07/18/21 15:33 DELLA [id number]) Discharge Planning Assessment Assigned Business Law Teacher VESTA Rowland DPOA/Assigned Designee Name Ciro Duncan, partner Contact Information [phone] Advance Directives? Yes: I have to have it finalized Advance Directives on File No History Provided By Patient,Medical Record Prior Living Arrangements House Household Members spouse,none Type of transporation used prior to Relies on Others admit Independent with ADL's No Is patient alert and oriented? Yes Needs Assistance With Meal Prep,Home Chores / Shopping Comment BRIDGER Patient/Family Preference Group Home Facility Comment [facility] per patient's request Barriers to Discharge Yes Comment Not enough assist at home currently; patient requests SNF before return home w/BRIDGER cg and partner Don (visits on the weekends only) Discharge Plan Group Home Facility Transportation Arrangement Cabulance Additional Comment pending SNF acceptance and SNF auth is secured through [employer] SNF/HH Preference [facility]. Will not go to [facility] or [facility] Has Agency SNF been contacted Yes Comment Faxed initial referral today.
[2021-07-18] MEDS: DONEPEZIL 5 MG TABLET PO (21:40)
[2021-07-18] MEDS: ATORVASTATIN 20 MG TABLET 40 MG PO (21:41)
[2021-07-18] MEDS: DULOXETINE 30 MG CAPSULE PO (21:41)
[2021-07-18] MEDS: TRAZODONE 50 MG TABLET 100 MG PO (21:41)
[2021-07-19] VITALS (8 sets, daily range): BP systolic 120–150; BP diastolic 64–70; PULSE 82–108; RESP 16–24; TEMP 36.2–36.8; O2SAT 91–97
[2021-07-19] MEDS: OXYCODONE IR 5 MG TABLET 10 MG PO ×4 (06:40→23:37)
[2021-07-19] MEDS: BUDESONIDE 0.5 MG/2 ML NEB INH ×2 (09:18→18:01)
[2021-07-19] MEDS: ALBUTEROL/IPRATROPIUM 3 ML AMPUL INH ×3 (09:18→18:01)
[2021-07-19] MEDS: METFORMIN HCL 500 MG TABLET PO ×2 (09:39→21:23)
[2021-07-19] MEDS: METOPROLOL IR 50 MG TABLET 75 MG PO ×2 (09:39→21:23)
[2021-07-19] MEDS: MONTELUKAST 10 MG TABLET PO (09:39)
[2021-07-19] MEDS: DOCUSATE 100 MG CAPSULE PO ×2 (09:39→21:22)
[2021-07-19] MEDS: AMLODIPINE 5 MG TABLET 10 MG PO (09:39)
[2021-07-19] MEDS: hydroCHLOROthiazide 25 MG TABLET 12.5 MG PO (09:40)
[2021-07-19] MEDS: LORATADINE 10 MG TABLET PO (09:40)
[2021-07-19] MEDS: GABAPENTIN 600 MG TABLET PO ×3 (09:40→21:22)
[2021-07-19] MEDS: DULOXETINE 30 MG CAPSULE 60 MG PO (09:41)
[2021-07-19] MEDS: HYDROCORTISONE 10 MG TABLET PO (09:43)
[2021-07-19] MEDS: BUSPIRONE 5 MG TABLET 30 MG PO (09:47)
[2021-07-19] MEDS: OXYBUTYNIN 5 MG TABLET PO ×2 (09:48→21:23)
[2021-07-19] MEDS: NICOTINE 21 MG PATCH TOP (09:48)
--- NOTE | 2021-07-19 10:07 | PT.IPTN ---
Current Diagnoses Cauda equina syndrome (07/17/21) Spinal stenosis, lumbar region with neurogenic claudication (07/17/21) Arthrodesis status (07/17/21) Surgery Performed Operation Date: 07/17/21 09:00 Actual Procedures p L2-3 TLIF, L3-5 lumbar HWR, exploration of fusion, repeat laminectomy, reinsertion of hardware, L2-5 PSF - Almas Muller MD Physical Therapy Treatment Note M2 PT-IP Current Condition Start: 07/18/21 11:55 Freq: NEEDED Status: Active Protocol: Document 07/18/21 09:50 AB (Rec: 07/18/21 12:12 AB [id number]) Physical Therapy Current Condition Current Condition Evaluation Date 07/18/21 Treatment Diagnosis s/p L2-S1 fusion; difficulty in walking Onset Date 07/17/21 M3 PT-IP Subjective Start: 07/18/21 11:55 Freq: NEEDED Status: Active Protocol: Document 07/19/21 10:07 AW (Rec: 07/19/21 10:23 AW [id number]) Subjective Physical Therapy Visit Type Type Treatment Note Visit Start Time 09:33 Visit Stop Time 10:07 Total Visit Minutes 34 Number of BONBON CREAM WARMER Visits 0 Physical Therapy Visit Comments Patient Comments Pt is having abdominal pain, has not had a bowel movement, would like to use the commode. Therapy Pain Assessment Pain When Pain Assessed At Rest Pain Present Pain Present Pain Reported M4 PT-IP Mobility and Gait Start: 07/18/21 11:55 Freq: NEEDED Status: Active Protocol: Document 07/19/21 10:07 AW (Rec: 07/19/21 10:23 AW [id number]) PT-Bed Mobility Assessment Rolling Type of Rolling Log Rolling Level of Assist Minimal Assistance Supine to Sit Supine to Sit Minimal Assistance,1 Person Assistance,Bedrails Scooting Scooting to Edge of Bed Contact Guard Assistance PT-Transfer Assessment Sit to and From Stand Sit to and from Stand Minimal Assistance,1 Person Assistance,Use of Upper Extremities Equipment Transfer Assistive Device Gait Belt,Front Wheeled Walker Orthotic/Prosthetic Devices or Brace: No Transfers Transfer Destination Chair,Toilet Transfer Technique Pt ambulated with FWW Transfer Ability Level of Assist Minimal Assistance,1 Person Assistance,Use of Upper Extremities Comments Mobility Comments Max cues for bed mobility log roll which pt completed min A x 1 to sit up EOB. Don't sidhu me. Pt sat EOB with UE support and then stood from bed in lowest position min A x 1. She ambulated toward the sink. PT cued pt to keep FWW squared up to the sink to avoid twisting and to keep support within arm's reach. She stood and performed grooming ~8 minutes while PT provided occasional CGA and cues for back precautions. Pt then agreed to ambulate, using FWW CGA to walk 40 feet in the room. Pt complained of abdominal pain and stated she would like to try to have a bowel movement. She sat on the toilet min A x 1 and cues to use R side grab bars with RUE only. Pt tends to use BUE on the grab bar and needs cues to limit twisting. Pt unable to have a BM and required min A x 1 and max cues again to avoid twisting while using grab bars to stand from toilet. Pt ambulated to the chair CGA and sat CGA with cues to control descent with BUE on chair arms . Pt was left with RN attending. Gait Assessment Gait Gait Assistance Required: Contact Guard Assist,Minimum Assistance,1 Person Assist Distance (Feet) 40 Able to Maintain Weight Bearing Status Yes During Gait Assistive Devices Assistive Device Gait Belt,Front Wheeled Walker Orthotic/Prosthetic Devices or Brace: No Gait Deviations General Gait Pattern Antalgic,Decreased Stride Length,Decreased Feet Clearance Factors Limiting Gait Function Factors Limiting Gait Function Decreased Activity Tolerance, Decreased Strength,Difficulty Following Directions,Limited Range of Motion,Pain,Poor Balance,Poor Safety Awareness Comments Gait Comments See mobility comments for details. M5 PT-IP Objective Assessments Start: 07/18/21 11:55 Freq: NEEDED Status: Active Protocol: Document 07/18/21 09:50 AB (Rec: 07/18/21 12:12 AB [id number]) Orientation Orientation/Cognition Level of Alertness Confusional State Orientation Name,Place,Situation Safety Awareness Decreased Safety Awareness Memory Description Short Term Impaired Gross Range of Motion Lower Extremity ROM Assessment Within Functional Limits Strength Lower Extremity Strength Assessment Bilaterally Impaired Hip 3-/5 Knee 3+/5 Sensation Assessment Sensation Gross Sensation WNL Muscle Tone Muscle Tone WNL Yes M6 PT-IP Treatment Start: 07/18/21 11:55 Freq: NEEDED Status: Active Protocol: Document 07/19/21 10:07 AW (Rec: 07/19/21 10:23 AW [id number]) Physical Therapy Treatment Education Education Provided Precautions,Safety M7 PT-IP Assessment and Plan Start: 07/18/21 11:55 Freq: NEEDED Status: Active Protocol: Document 07/19/21 10:07 AW (Rec: 07/19/21 10:23 AW [id number]) PT Summary Assessment and Plan Potential Rehabilitation Potential Fair Summary Impairments Pain,ROM,Strength,Balance, Coordination,Sensation,Tone, Cognition,Bed Mobility, Transfers,Gait,Activity Tolerance Progress Towards Goals Progressing Toward Goals,Slow Progress due to Pain,Slow Progress due to Activity Tolerance,Slow Progress - Other Assessment Summary Pt requiring min A x 1 for sit to stand and transfers using FWW with slow kamari and poor LE elevation. She requires constant cues to maintain post -op precautions. Pt would benefit from 24/7 assist with mobility and subacute rehab to improve her strength and mobility independence. Stairs remain a barrier to home access and pt may require SNF rehab. Goals Bed Mobility Goal Minimal Assistance Transfer Goal Minimal Assistance,Front Wheeled Walker Gait Goal Minimal Assistance,Front Wheel Walker Gait Distance 50 Other Goals improve bed mobility, transfers SBA, ambulation using FWW SBA 150 ft up/down 13 steps 1 rail CGA Days to Meet Goals 10 Frequency of Treatment Frequency Of Treatment Twice a Day Treatment Plan Physical Therapy Treatment Plan Bed Mobility Training,Transfer Training,Gait Training, Therapeutic Exercise,Balance Retraining,Post Op Education, Discharge Planning,Hot or Cold Pack,Neuromuscular Re-ed, Coordination Retraining,Manual Therapy Other Recommendations and Next Treatment ambulation; assess stairs Focus Precautions Lumbar Precautions Log Roll,No Twisting,Limit Bending,Lifting Restriction of 10 lbs,Gait Belt above Incisional Area Recommendations To Nursing Amount of Assist Needed 1 Person Assist,2 Person Assist Discharge Recommendations PT Discharge Recommendations Home with 24/7 Assist Available,Home Health,SNF Rehab,Home vs SNF Transportation Needs at Discharge Wheelchair/Cabulance
--- NOTE | 2021-07-19 10:57 | PM.PNPO.1 ---
Subjective Subjective Date Patient Seen: 07/19/21 Time Patient Seen: 10:30 Interval history: Patient is status post revision lumbar fusion. Patient is still complaining of pain but it is better it was yesterday. Was able to get up and move around a little bit with physical therapy today. Still has not had bowel movement. Exam Vital Signs (past 8 hours): - 07/19/21 06:47 07/19/21 08:00 07/19/21 09:19 Temperature 98.1 F 98.2 F Pulse Rate 88 100 H 108 H Respiratory Rate 18 16 24 Blood Pressure 142/67 H 150/66 H Pulse Oximetry 93 91 93 07/19/21 09:28 Temperature Pulse Rate 102 H Respiratory Rate 20 Blood Pressure Pulse Oximetry 97 Oxygen Delivery Method Nasal Cannula Oxygen Flow Rate 2 Narrative Exam Narrative: Patient is dressing is clean and dry. Patient has positive dorsiflexion and plantar flexion. Nontender to palpation to the posterior aspect of the calf. Objective Labs Result Diagrams: 07/18/21 06:27 [facility] Medical History Anxiety Arthritis Asthma Chronic low back pain COPD (chronic obstructive pulmonary disease) Dental abscess Depression Diabetes Easy bruisability Emphysema lung ETOH abuse Frequent UTI Hepatitis C HTN (hypertension) Hyperlipidemia Hyponatremia Hypoxia Marijuana smoker Pneumonia (~07/2017) Substance abuse TBI (traumatic brain injury) (~2004) Urinary retention Surgical History (Updated 08/24/18 @ 11:43 by Kymberly Webber RN) H/O cosmetic surgery (~2013) History of cataract extraction with lens replacement History of mandibular surgery History of surgery Hx of appendectomy Hx of removal of cyst Hx of tonsillectomy Status post surgical manipulation of ankle joint Social History household members: spouse and none Smoking Status: Current some day smoker alcohol intake: current Assessment & Plan Post-op Postoperative Procedures: Procedures Operation Date: 07/17/21 09:00 Actual Procedure Side Surgeon p L2-3 TLIF, L3-5 lumbar HWR, exploration of fusion, repeat laminectomy, reinsertion of hardware, L2-5 PSF Almas Muller MD Postoperative day: 2 Postoperative plan narrative: Patient postoperative day 2. Repeat surgery to the lumbar spine. Patient might possibly require significant placement at discharge. Patient will need to have a bowel movement before being discharged. Quality VTE Deep Vein Thrombosis/Pulmonary Embolism Present on Admission: No
--- NOTE | 2021-07-19 11:45 | PC.NURSE ---
Addendum entered by Marlena Varghese R.N. 07/19/21 15:49: Patients nupur came to visit, and patient is happy. She ambulated in the halls with TWISTER OPERATOR and PT earlier today. Resting comfortably now. Original Note: Patient just given her oxycodone 10mg po, she has not complained of pain sincee being here at 0700. The first thing that she sais is, am I still getting my iv medication. Explained to patient that she will not being going home on iv pain medication so we are going to slow down on that, and stick with po pain medication. She has a dressing to her lower back that is cdi, patient is going to each lunch now.
--- NOTE | 2021-07-19 12:41 | CM.DPC ---
DCP SNF Planning: Per Ortho MD, transitioning pt to oral pain meds and pt still has not had bm but improving and getting closer to medically stable to d/c. Per PT, still recommending SNF at this time prior to safe return home. [facility] on referral faxed yesterday and left msg requesting call back. SW also faxed following [facility] contracted SNFs: [facility] (although pt has hx of [facility] and does not want to go there if possible), faxed referral and left msg. Kathi am: faxed referral and left msg for admissions [facility]: faxed referral and left msg for admissions PASRR completed in anticipation of SNF at d/c. Plan: SW to follow closely for SNF reviews as pt has [employer] for insurance and will need auth vs return home with HH if SNF doesn't accept. Pt is COVID vaccinated and PASRR completed. Ana Palencia, RADIO RECORDER
--- NOTE | 2021-07-19 14:09 | PT-IP ANOTE ---
Contacted pt for afternoon PT treatment. Pt stated she had just walked around the nurses station with nursing. COTTON GROWER confirmed. Pt is looking forward to a shower later this PM and prefers to conserve her energy at this time. Pt agreed for PT to check on her later.
[2021-07-19] MEDS: ATORVASTATIN 20 MG TABLET 40 MG PO (21:22)
[2021-07-19] MEDS: DULOXETINE 30 MG CAPSULE PO (21:22)
[2021-07-19] MEDS: DONEPEZIL 5 MG TABLET PO (21:22)
[2021-07-19] MEDS: TRAZODONE 50 MG TABLET 100 MG PO (21:23)
[2021-07-19] MEDS: MAGNESIUM HYDROXIDE 30 ML UDC PO (21:23)
[2021-07-19] MEDS: ACETAMINOPHEN 325 MG TABLET 650 MG PO (21:52)
[2021-07-20] VITALS (13 sets, daily range): BP systolic 106–164; BP diastolic 53–76; PULSE 50–96; RESP 16–20; TEMP 36.3–36.7; O2SAT 91–98
[2021-07-20] MEDS: OXYCODONE IR 5 MG TABLET 10 MG PO ×4 (05:39→23:23)
[2021-07-20] MEDS: BISACODYL 10 MG SUPP PR (05:40)
[2021-07-20] MEDS: ALBUTEROL/IPRATROPIUM 3 ML AMPUL INH ×4 (06:01→23:26)
--- NOTE | 2021-07-20 06:49 | PC.NURSE ---
MICA MINER BLASTING note: earlier in shift gave patient prune juice with hudson everton and butter. Patient at 0615 was getting a breathing treatment and told RT Chi I think I have to poop. I/MICA MINER BLASTING was sitting right across from patient's room at nurse's station and overheard conversation. RT told patient well you're in the middle of a breathing treatment, when you're ready Melody can get you up to the bathroom. Patient agreed. Patient finished breathing treatment, and I said to patient whenever she wants to get up just call me and I will get her up. Patient said she didn't need to use the bathroom now. Patient has call light next to her within reach and understood to call when she needed to.
[2021-07-20] MEDS: GABAPENTIN 600 MG TABLET PO ×3 (09:09→21:03)
[2021-07-20] MEDS: LORATADINE 10 MG TABLET PO (09:09)
[2021-07-20] MEDS: polyethylene glycoL 3350 17 GM POWD.PACK PO (09:09)
[2021-07-20] MEDS: OXYBUTYNIN 5 MG TABLET PO ×2 (09:09→21:04)
[2021-07-20] MEDS: MONTELUKAST 10 MG TABLET PO (09:10)
[2021-07-20] MEDS: DOCUSATE 100 MG CAPSULE PO ×2 (09:10→21:05)
[2021-07-20] MEDS: hydroCHLOROthiazide 25 MG TABLET 12.5 MG PO (09:10)
[2021-07-20] MEDS: METFORMIN HCL 500 MG TABLET PO ×2 (09:10→21:05)
[2021-07-20] MEDS: HYDROCORTISONE 10 MG TABLET PO (09:10)
[2021-07-20] MEDS: DULOXETINE 30 MG CAPSULE 60 MG PO (09:10)
[2021-07-20] MEDS: METOPROLOL IR 50 MG TABLET 75 MG PO ×2 (09:11→21:03)
[2021-07-20] MEDS: AMLODIPINE 5 MG TABLET 10 MG PO (09:11)
[2021-07-20] MEDS: NICOTINE 21 MG PATCH TOP (09:11)
[2021-07-20] MEDS: BUSPIRONE 5 MG TABLET 30 MG PO (09:12)
[2021-07-20] MEDS: MULTIVITAMIN 1 TABLET 1 TAB PO (09:35)
[2021-07-20] MEDS: BUDESONIDE 0.5 MG/2 ML NEB INH ×2 (10:04→19:58)
--- NOTE | 2021-07-20 10:16 | DIET.CONS2 ---
Dietary Inpatient Consultation Note Admission Date: 07/17/2021 06:19 RD screened pt r/t high BG this am (255), pt diet controlled DM2 on general diet. Pt got hudson everton and prune juice last evening from floor nourishment supply, BG at [address] changing pt to CCD and pt prefers low sodium so added that to qualifier. Please limit liquid carbs to 4oz with meals and snacks. Diet: 07/17/21 Lunch General (Regular) Diet Diet Modifications: 07/20/21 Lunch Carbohydrate Consistent Diet Diet Modifications: low sodium per pt request Safety Tray needed?: No Carbohydrate level: Medium (3 CHO) Nutrition Percent Meal Consumed 75% 07/19/21 13:00 Percent Meal Consumed 25% 07/19/21 08:30 Percent Meal Consumed 100% 07/18/21 15:00 Electronically Signed by: Sofiya Zavala 07/20/21 10:16 Clinical Dietitian [address] [id number]
--- NOTE | 2021-07-20 11:06 | CM.DPC ---
DCP Note EXPLORATION ENGINEER and DCP Cheryle enter room to meet with patient, patient presents as labile, tearful and anxious. Patient endorses that she overdid it yesterday in regards to PT. Patient endorses that she needs support when ambulating and uses a walker. DCPs explain to patient that due to availability of SNFs and limitations with patient's insurance as well as patient's ability to ambulate that patient may not qualify for SNF. DCPs discuss patient's supports at home and patient endorses she has a new caregiver and has appt with this week. Patient endorses she has a [facility] appt with Elizabeth santos RN on 07/23/21, patient provides phone number (Ph. # [phone]) Patient's BRIDGER CM is Kady Geronimo ( ), BRIDGER caregiver Malathi is ( ). EXPLORATION ENGINEER attempts to call BRIDGER CM but today is a federal holiday and CM is not working today. Patient states that she does not know when caregiver Malathi is able to start working with patient. ELECTRIC MULE DRIVER evaluated patient today and patient was able to ambulate with walker but needed assistance getting back in bed. Patient will need someone to be present at home to assist upon entry to home. PT to f/u to see if patient has stairs and to ensure patient has walker at home. ELECTRIC MULE DRIVER reports that patient was tearful when asked about walker at home. ELECTRIC MULE DRIVER reports that patient's sister was on the phone with patient and it was an upsetting phone call. Cheryle DCP coordinates with intake at [facility] and it is reported that they can review patient but insurance pre-authorization could take 5 days, Intake coming to screen patient in person today or tomorrow. EXPLORATION ENGINEER calls Stephanie at [facility] who confirms the current referral for patient for PT, OT and RN. Stephanie request d/c paper work and H&P upon patient's d/c to home. EXPLORATION ENGINEER calls caregiver Malathi and leaves with caregiver requesting return call. Plan: Plan for d/c to home with [facility] and BRIDGER caregiver when clear for d/c. Patient will need transportation set up. F/u with faxing [facility] d/c summary and H&P upon d/c VESTA Echeverria
--- NOTE | 2021-07-20 11:14 | PT.IPTN ---
Current Diagnoses Cauda equina syndrome (07/17/21) Spinal stenosis, lumbar region with neurogenic claudication (07/17/21) Arthrodesis status (07/17/21) Surgery Performed Operation Date: 07/17/21 09:00 Actual Procedures p L2-3 TLIF, L3-5 lumbar HWR, exploration of fusion, repeat laminectomy, reinsertion of hardware, L2-5 PSF - Almas Muller MD Physical Therapy Treatment Note M2 PT-IP Current Condition Start: 07/18/21 11:55 Freq: NEEDED Status: Active Protocol: Document 07/18/21 09:50 AB (Rec: 07/18/21 12:12 AB [id number]) Physical Therapy Current Condition Current Condition Evaluation Date 07/18/21 Treatment Diagnosis s/p L2-S1 fusion; difficulty in walking Onset Date 07/17/21 M3 PT-IP Subjective Start: 07/18/21 11:55 Freq: NEEDED Status: Active Protocol: Document 07/20/21 10:45 KS (Rec: 07/20/21 12:38 KS [id number]) Subjective Physical Therapy Visit Type Type Treatment Note Visit Start Time 10:45 Visit Stop Time 11:14 Total Visit Minutes 29 Number of EGG WORKER Visits 1 Physical Therapy Visit Comments Patient Comments Pt is having abdominal pain, has not had a bowel movement. Agreeable to ambulation. Therapy Pain Assessment Pain When Pain Assessed At Rest Pain Present Pain Present Pain Reported Location Abdomen Scale Used not quantified back Scale Used not quantified Description Aching,Throbbing Pain Behaviors Facial Grimacing,Holding Area, Wincing Pain Management Techniques Apply Cold,Re-positioning, Timing of Activity with Medications M4 PT-IP Mobility and Gait Start: 07/18/21 11:55 Freq: NEEDED Status: Active Protocol: Document 07/20/21 10:45 KS (Rec: 07/20/21 12:38 KS [id number]) PT-Bed Mobility Assessment Rolling Type of Rolling Log Rolling Level of Assist Minimal Assistance Supine to Sit Supine to Sit Minimal Assistance,1 Person Assistance,Bedrails Scooting Scooting to Edge of Bed Contact Guard Assistance PT-Transfer Assessment Sit to and From Stand Sit to and from Stand Minimal Assistance,1 Person Assistance,Use of Upper Extremities Equipment Transfer Assistive Device Gait Belt,Front Wheeled Walker Orthotic/Prosthetic Devices or Brace: No Transfers Transfer Technique Pt ambulated with FWW Transfer Ability Level of Assist Minimal Assistance,1 Person Assistance,Use of Upper Extremities Comments Mobility Comments Pt in bed upon arrival and agreeable to ambulation. Pt unable to recall spinal precautions. Min A and cues for logroll to R and Min A for sidelying<>sit. Pt c/o increased pain when sitting upright and states she has nothing to pull on to assist w / logroll at home as she used bedrail in addition to Min A. Pt CGA for scooting EOB. Min A for sit<>stand w/ FWW and cues for hand placement. Pt then ambulated ~240 ft w/ FWW and CGA. Pt w/ increased weight through BUE when ambulating w/ FWW due to pain and weakness. Pt needed frequent reminders throughout treatment to adhere to spinal precautions, however continually twists and looks over her shoulder. OT in room upon return, pt left w/ OT. Gait Assessment Gait Gait Assistance Required: Contact Guard Assist,Minimum Assistance,1 Person Assist Distance (Feet) 240 Able to Maintain Weight Bearing Status Yes During Gait Assistive Devices Assistive Device Gait Belt,Front Wheeled Walker Orthotic/Prosthetic Devices or Brace: No Gait Deviations General Gait Pattern Antalgic,Decreased Stride Length,Decreased Feet Clearance Factors Limiting Gait Function Factors Limiting Gait Function Decreased Activity Tolerance, Decreased Strength,Difficulty Following Directions,Limited Range of Motion,Pain,Poor Balance,Poor Safety Awareness Comments Gait Comments See mobility comments for details. Stair Climbing Assessment Comments Stair Climbing Comments up/down 13 steps 1 rail CGA prior to d/c if going home. M5 PT-IP Objective Assessments Start: 07/18/21 11:55 Freq: NEEDED Status: Active Protocol: Document 07/18/21 09:50 AB (Rec: 07/18/21 12:12 AB [id number]) Orientation Orientation/Cognition Level of Alertness Confusional State Orientation Name,Place,Situation Safety Awareness Decreased Safety Awareness Memory Description Short Term Impaired Gross Range of Motion Lower Extremity ROM Assessment Within Functional Limits Strength Lower Extremity Strength Assessment Bilaterally Impaired Hip 3-/5 Knee 3+/5 Sensation Assessment Sensation Gross Sensation WNL Muscle Tone Muscle Tone WNL Yes M6 PT-IP Treatment Start: 07/18/21 11:55 Freq: NEEDED Status: Active Protocol: Document 07/20/21 10:45 KS (Rec: 07/20/21 12:38 KS [id number]) Physical Therapy Treatment Education Education Provided Precautions,Safety Other Treatments Other Treatment Performed Discussed FWW for home use, pt w/ increased anxiety about acquiring FWW due to cost. M7 PT-IP Assessment and Plan Start: 07/18/21 11:55 Freq: NEEDED Status: Active Protocol: Document 07/20/21 10:45 KS (Rec: 07/20/21 12:38 KS [id number]) PT Summary Assessment and Plan Potential Rehabilitation Potential Fair Summary Impairments Pain,ROM,Strength,Balance, Coordination,Sensation,Tone, Cognition,Bed Mobility, Transfers,Gait,Activity Tolerance Progress Towards Goals Progressing Toward Goals,Slow Progress due to Pain,Slow Progress due to Activity Tolerance,Slow Progress - Other Assessment Summary Pt requiring Min A max cues for bed mobility, Min A for sit<>Stand w/ FWW and CGA to Min A for ambulation w/ FWW. Increased tolerance for ambulation today, however heavy support from BUE through FWW and increased trunk flexion and frequent cues to avoid twisting and looking over shoulder. At this time, pt would benefit from SNF to improve functional mobility while adhering to precautions, but if going home will need assistance and will need to complete stair training. Goals Bed Mobility Goal Minimal Assistance Transfer Goal Minimal Assistance,Front Wheeled Walker Gait Goal Minimal Assistance,Front Wheel Walker Gait Distance 50 Other Goals improve bed mobility, transfers SBA, ambulation using FWW SBA 150 ft up/down 13 steps 1 rail CGA Days to Meet Goals 10 Frequency of Treatment Frequency Of Treatment Twice a Day Treatment Plan Physical Therapy Treatment Plan Bed Mobility Training,Transfer Training,Gait Training, Therapeutic Exercise,Balance Retraining,Post Op Education, Discharge Planning,Hot or Cold Pack,Neuromuscular Re-ed, Coordination Retraining,Manual Therapy Other Recommendations and Next Treatment ambulation; assess stairs Focus Precautions Lumbar Precautions Log Roll,No Twisting,Limit Bending,Lifting Restriction of 10 lbs,Gait Belt above Incisional Area Recommendations To Nursing Amount of Assist Needed 1 Person Assist,2 Person Assist Discharge Recommendations PT Discharge Recommendations Home with 20/12 Assist Available,Home Health,SNF Rehab,Home vs SNF Transportation Needs at Discharge Wheelchair/Cabulance
--- NOTE | 2021-07-20 11:37 | OT.IP.EVAL ---
Current Diagnoses Cauda equina syndrome (07/17/21) Spinal stenosis, lumbar region with neurogenic claudication (07/17/21) Arthrodesis status (07/17/21) Surgery Performed Operation Date: 07/17/21 09:00 Actual Procedures p L2-3 TLIF, L3-5 lumbar HWR, exploration of fusion, repeat laminectomy, reinsertion of hardware, L2-5 PSF - Almas Muller MD Past Medical History (Last Reviewed 07/19/21 @ 10:58 by Gianni Duran MD) Anxiety Arthritis Asthma Chronic low back pain COPD (chronic obstructive pulmonary disease) Dental abscess Depression Diabetes Easy bruisability Emphysema lung ETOH abuse Frequent UTI H/O cosmetic surgery (~2013) Hepatitis C History of cataract extraction with lens replacement History of mandibular surgery History of surgery HTN (hypertension) Hx of appendectomy Hx of removal of cyst Hx of tonsillectomy Hyperlipidemia Hyponatremia Hypoxia Marijuana smoker Pneumonia (~07/2017) Status post surgical manipulation of ankle joint Substance abuse TBI (traumatic brain injury) (~2004) Urinary retention Surgical History (Last Updated 08/24/18 @ 11:43 by Kymberly Webber RN) H/O cosmetic surgery (~2013) History of cataract extraction with lens replacement History of mandibular surgery History of surgery Hx of appendectomy Hx of removal of cyst Hx of tonsillectomy Status post surgical manipulation of ankle joint Occupational Therapy Inpatient Evaluation/Re-Eval M1 PT/OT-IP Prior Functional Status Start: 07/18/21 11:55 Freq: NEEDED Status: Active Protocol: Document 07/20/21 13:28 CGR (Rec: 07/20/21 13:46 CGR [id number]) Medical Review Prior Functional Status Medical History Reviewed Yes Communication with confusion and easily distracted; requires constant re directions Activities of Daily Living and IADL's Pt states that she was mostly IND but that her back pain made some things difficulty. Prior Functional Level (Other details) Per pt and chart, pt's significant other is a yard truck driver and is gone during the week. Pt has a [facility] that assists. Pt's sister was helping but pt recieved texts from her sister during OT session that clearly stated she could no longer assist pt. Case managment made aware. Social History Household Members spouse,none Living Arrangements House Number of Floors (Floors) Two Floors Number of Stairs To Enter/Railing? pt stays on main level of the house 13 steps wide rails to enter and can only hold on to 1 rail at a time Home Environment Standard Height Toilet,Tub/ Shower Home Equipment Manual Wheelchair,Shower Seat with Backrest,Hand Held Shower Additional Social History Comment Pt is disabled after a TBI M1 PT/OT-IP Prior Functional Status Start: 07/20/21 13:28 Freq: NEEDED Status: Active Protocol: Document 07/20/21 13:28 CGR (Rec: 07/20/21 13:46 CGR [id number]) Medical Review Prior Functional Status Medical History Reviewed Yes Communication with confusion and easily distracted; requires constant re directions Activities of Daily Living and IADL's Pt states that she was mostly IND but that her back pain made some things difficulty. Prior Functional Level (Other details) Per pt and chart, pt's significant other is a yard truck driver and is gone during the week. Pt has a [facility] physician loc[facility] urgent care that assists. Pt's sister was helping but pt recieved texts from her sister during OT session that clearly stated she could no longer assist pt. Case managment made aware. Social History Household Members spouse,none Living Arrangements House Number of Floors (Floors) Two Floors Number of Stairs To Enter/Railing? pt stays on main level of the house 13 steps wide rails to enter and can only hold on to 1 rail at a time Home Environment Standard Height Toilet,Tub/ Shower Home Equipment Manual Wheelchair,Shower Seat with Backrest,Hand Held Shower Additional Social History Comment Pt is disabled after a TBI M2 OT-IP Current Condition Start: 07/20/21 13:28 Freq: Status: Active Protocol: Document 07/20/21 13:28 CGR (Rec: 07/20/21 13:46 CGR [id number]) Occupational Therapy Current Condition Current Condition Evaluation Date 07/20/21 Treatment Diagnosis TlIF L2-5 Diagnosis Onset Date 07/17/21 Post Operative Precautions Lumbar Precautions Log Roll,No Twisting,Limit Bending,Lifting Restriction of 10 lbs,Gait Belt above Incisional Area M3 OT- IP Subjective and Pain Start: 07/20/21 13:28 Freq: Status: Active Protocol: Document 07/20/21 13:28 CGR (Rec: 07/20/21 13:46 CGR [id number]) OT- Subjective Occupational Therapy Visit Type Type Initial Evaluation Visit Start Time 10:54 Visit Stop Time 11:37 Total Visit Minutes 43 Notes Partial co-treat with P.T. Occupational Therapy Visit Comments Patient Comments I can't handle this right now , said in response to most questions. OT Pain Assessment Pain When Pain Assessed During Mobility Pain Present Pain Present Pain Reported Location back Scale Used did not rate Pain Behaviors Calling Out,Facial Grimacing Management Techniques Distraction,Modification of Treatment,Re-positioning M4 OT- IP ADL's Start: 07/20/21 13:28 Freq: Status: Active Protocol: Document 07/20/21 13:28 CGR (Rec: 07/20/21 13:46 CGR [id number]) OT [id number] General Evaluation Self-Feeding Ability Independent Comments OT Self-Feeding Comments breakfast OT ADL-Grooming General Evaluation Grooming Ability Standby Assistance Areas Needing Assistance Face Washing Comments OT Grooming Comments standing at sink OT ADL-Oral Care General Eval Oral Care Ability Standby Assistance Areas of Assistance Brushing Teeth Comments Oral Care Comments standing at sink OT ADL-Dressing General Eval Lower Body Dressing Ability Standby Assistance Areas Needing Assistance Socks,Shoes Comments OT Dressing Comments pt initally said she couldn't do LB dressing and this chart writer assisted with donning socks. Pt then requested that she be given her shoes and brought her foot up to her opposing knee to don shoes. It is likely that pt could also don socks. OT ADL-Toileting Comments OT Toileting Comments not performed OT ADL-Bathing Comments OT Bathing Comments not performed M5 OT- IP IADL's Start: 07/20/21 13:28 Freq: Status: Active Protocol: Document 07/20/21 13:28 CGR (Rec: 07/20/21 13:46 CGR [id number]) OT-Instrumental Activities of Daily Living Deficits IADL Deficits Identified Deficits Home Safety Awareness Awareness of Need for Assistance at Home Decreased Awareness Ability to Problem Solve Emergency Unable to Problem Solve Situations Medication Management Medication Management Comments concerns regarding her ability to perform Money Management Money Management Comments concerns regarding her ability to perform Meal Preparation Meal Preparation Comments concerns regarding her ability to perform Coke Crusher Operator Coke Crusher Operator Comments concerns regarding her ability to perform Driving Driving Comments Pt does not drive. M6 OT- IP Functional Cognition Start: 07/20/21 13:28 Freq: Status: Active Protocol: Document 07/20/21 13:28 CGR (Rec: 07/20/21 13:46 CGR [id number]) Cognitive Factors Limiting Selfcare Function Cognitive Ability Level of Alertness Alert Ability to Follow Commands Able to Follow One Step Commands with Increased Time, Able to Follow One Step Commands with Repetition Cognitive Comments Cognitive Assessment Comments Pt with hx of TBI and is emotionally labile throughout session. Pt shows decreased ability to think through problems and handle different situations. OT- Vision and Hearing OT- Vision Assessment Visual Attentiveness WFL Occular Pursuits WFL Visual Convergence WFL Vision Assessment Comments PT indicates annoyance over performing testing and answwering questions. M7 OT- IP Mobility and Balance Start: 07/20/21 13:28 Freq: Status: Active Protocol: Document 07/20/21 13:28 CGR (Rec: 07/20/21 13:46 CGR [id number]) OT- Bed Mobility Assessment Rolling Type of Rolling Roll to Right Level of Assistance Minimal Assistance Supine to Sit Supine to Sit Assist Minimal Assistance Scooting Scooting to Edge of Bed Standby Assistance OT-Transfer Assessment Sit to and From Stand Sit to and from Stand Standby Assistance,Contact Guard Assistance Transfers Transfer Ability Standby Assistance,Contact Guard Assistance Technique Transfer Destination Bed,Chair Transfer Technique Stand Step Pivot Devices Transfer Assistive Devices Gait Belt,Front Wheeled Walker Comments Mobility Comments Pt ambulated out of the room with P.T. then returned to sink for ADLs. OT- Balance Assessment Sitting Balance and Reactions Static Sitting Balance Ability Normal M8 OT- IP Objective Assessments Start: 07/20/21 13:28 Freq: Status: Active Protocol: Document 07/20/21 13:28 CGR (Rec: 07/20/21 13:46 CGR [id number]) OT Gross Range of Motion Upper Extremity Range of Motion Assessment Within Functional Limits OT Strength Comments Strength Comments grossly 4/5 OT- Coordination Assessment Upper Extremity Finger to Nose Test Within Functional Limits Finger Tapping Test Within Functional Limits OT-Muscle Tone Assessment Muscle Tone WNL Yes OT Sensation Assessment Edema Edema Absent M9 OT- IP Assessment and Plan Start: 07/20/21 13:28 Freq: Status: Active Protocol: Document 07/20/21 13:28 CGR (Rec: 07/20/21 13:46 CGR [id number]) OT Summary Assessment and Plan Potential Rehabilitation Potential Good Analytic Complexity at Evaluation Moderate Summary OT Impairments Pain,Balance,Functional Cognition,Functional Mobility, Grooming,Dressing,Toileting, Bathing,Toilet Transfers, Shower Transfers,Activity Tolerance Progress Towards Goals Slow Progress due to Pain,Slow Progress due to Cognition Assessment Summary PT presents as a moderate complexity evaluation s/p admit for TLIF L2-5. Pt has a hx of TBi and presents with emotional expressions inconsistent with typical reactions. Pt's home situation is complicated with a significant other who is gone typically Tuesday through Tuesday and caregivers through [facility]. Pt would benefit from SNF but may do better in her own environment. Pt has 13 stairs to enter the home and a physician locums urgent care that can be present in the home for a portion of the day over the next 3 days. Goals Grooming Goal Independent Dressing Goal Independent Toileting Goal Independent Bathing Goal Independent Toilet Transfer Goal Independent Shower Transfer Goal Independent Days to Meet Goals 10 Frequency of Treatment Frequency Of Treatment Once a Day Treatment Plan OT Treatment Plan ADL Training,Functional Cognition Training,Functional Mobility,Patient/Family Education,Discharge Planning Other Treatment Recommendations and Next ADLs standing, LB dressing, Treatment Focus shower Discharge Recommendations OT Discharge Recommendations Home with Assistance,Home vs SNF Home Equipment Needs Pt will need a walker for home use. Transportation Needs at Discharge Private Vehicle
--- NOTE | 2021-07-20 13:24 | CM.DPC ---
Addendum entered by Jessica Danielson R.N. 07/20/21 14:10: Faxed over Medicaid form for transportation tomorrow, requested 0930 warehouse picker if possible. Mentioned on form that she will need oxygen, and has stairs to get into the home. They will call back to confirm if she has the benefits, and how they would transport. Original Note: DCP Cont: Met again with patient and [employer] Tina, regarding home plan. Was able to get more information from patient regarding her caregivers. She gave her [facility] case managers phone number, Sejal Geronimo. [phone]. This production control planner left her a message regarding [facility] caregiving hours, and patient discharging home. She also gave Mahogany, who is with [facility] Backend Tester. Her phone number is: [phone]. Left her a message as well regarding home caregivers. She gave her other caregiver phone number, Malathi. Her phone number is: [phone]. Left her a message as far as when she would be able to see patient. Patient also gave another caregiver named Roselyn. Her phone number is: [phone]. Was able to get in touch with her. She stated, she normally works with patient Tue, Tue, and , but can't come today, since she is taking care of someone else, patient thought she was going to [facility]. Let her know that patient is going home, and asked her when she can go to patient's home to assist her. She indicated, she can go tomorrow, and be there at 10:30, until about 1400. She can also go Tue, and , since she did not go Tuesday. Let her know that patient should be going home tomorrow, and will call and update her on time. Left Hong Sampson, PAC with ortho, a message, as he was reluctant to send her home today without a caregiver. Let him know that caregiver can be there tomorrow. Called Stephanie at [facility] and confirmed that they are expected to be at her home on the , this was already set up. Asked her if she can be seen sooner, but stated, they can put her down for a cancellation if something sooner happens. P: DCP to continue to follow. The plan is home with [facility] tomorrow. Will need to contact caregiver, Roselyn, and set up Medicaid transport, as she has 13 stairs to get into her home. Jessica Danielson RN/Project Technician
--- NOTE | 2021-07-20 14:00 | PT.IPTN ---
Current Diagnoses Cauda equina syndrome (07/17/21) Spinal stenosis, lumbar region with neurogenic claudication (07/17/21) Arthrodesis status (07/17/21) Surgery Performed Operation Date: 07/17/21 09:00 Actual Procedures p L2-3 TLIF, L3-5 lumbar HWR, exploration of fusion, repeat laminectomy, reinsertion of hardware, L2-5 PSF - Almas Muller MD Physical Therapy Treatment Note M2 PT-IP Current Condition Start: 07/18/21 11:55 Freq: NEEDED Status: Active Protocol: Document 07/18/21 09:50 AB (Rec: 07/18/21 12:12 AB [id number]) Physical Therapy Current Condition Current Condition Evaluation Date 07/18/21 Treatment Diagnosis s/p L2-S1 fusion; difficulty in walking Onset Date 07/17/21 M3 PT-IP Subjective Start: 07/18/21 11:55 Freq: NEEDED Status: Active Protocol: Document 07/20/21 13:25 KS (Rec: 07/20/21 14:21 KS [id number]) Subjective Physical Therapy Visit Type Type Treatment Note Visit Start Time 13:25 Visit Stop Time 14:00 Total Visit Minutes 35 Number of PSYCHOLOGICAL ASSISTANT Visits 2 Physical Therapy Visit Comments Patient Comments Pt is having abdominal pain, has not had a bowel movement. Agreeable to ambulation and stairs. Therapy Pain Assessment Pain When Pain Assessed At Rest Pain Present Pain Present Pain Reported M4 PT-IP Mobility and Gait Start: 07/18/21 11:55 Freq: NEEDED Status: Active Protocol: Document 07/20/21 13:25 KS (Rec: 07/20/21 14:21 [place] [id number]) PT-Transfer Assessment Sit to and From Stand Sit to and from Stand Minimal Assistance,1 Person Assistance,Use of Upper Extremities Equipment Transfer Assistive Device Gait Belt,Front Wheeled Walker Orthotic/Prosthetic Devices or Brace: No Transfers Transfer Destination Toilet Transfer Technique Pt ambulated with FWW Transfer Ability Level of Assist Minimal Assistance,1 Person Assistance,Use of Upper Extremities Comments Mobility Comments Pt in chair upon arrival. Min A and cues for sit<>stand w/ FWW. Pt able to recall 2/3 precautions (no lifting). On 3L O2 satting low 90s during treatment. Pt ambulated ~120 ft from room to practice stairs w/ FWW CGA and then ascended/descended 3 steps x4 w/ BHR step over step SBA. Pt not agreeable to complete steps using unilateral hand rail and became anxious and fearful. Pts O2 93% on 3L. Pt ambulated additional 120 ft back to room w/ FWW CGA. Continues to have difficulty adhering to precautions and using FWW correctly w/ increased anterior lean. Pt reutrned to room and requested to use toilet abd be left alone w/ alarm and refused O2. RN notified. Gait Assessment Gait Gait Assistance Required: Contact Guard Assist,Minimum Assistance,1 Person Assist Distance (Feet) 240 Able to Maintain Weight Bearing Status Yes During Gait Assistive Devices Assistive Device Gait Belt,Front Wheeled Walker Orthotic/Prosthetic Devices or Brace: No Gait Deviations General Gait Pattern Antalgic,Decreased Stride Length,Decreased Feet Clearance Factors Limiting Gait Function Factors Limiting Gait Function Decreased Activity Tolerance, Decreased Strength,Difficulty Following Directions,Limited Range of Motion,Pain,Poor Balance,Poor Safety Awareness Comments Gait Comments See mobility comments for details. Stair Climbing Assessment Evaluation Level of Assist On Stairs Standby Assistance,1 Person Assistance Devices Stair Climbing Assistive Devices Left Railing,Right Railing Technique/Endurance Stair Climbing Direction Ascend and Descend Stair Climbing Technique Step Over Step Number of Steps Climbed 3 Stair Climbing Set # Repetitions (reps) 4 Comments Stair Climbing Comments Pt ascended/descended 12 steps total w/ BHR despite cues for unilateral hand rail use w/ step over step pattern and SBA . Should complete 13 steps 1 rail CGA prior to d/c if going home. M5 PT-IP Objective Assessments Start: 07/18/21 11:55 Freq: NEEDED Status: Active Protocol: Document 07/18/21 09:50 AB (Rec: 07/18/21 12:12 AB [id number]) Orientation Orientation/Cognition Level of Alertness Confusional State Orientation Name,Place,Situation Safety Awareness Decreased Safety Awareness Memory Description Short Term Impaired Gross Range of Motion Lower Extremity ROM Assessment Within Functional Limits Strength Lower Extremity Strength Assessment Bilaterally Impaired Hip 3-/5 Knee 3+/5 Sensation Assessment Sensation Gross Sensation WNL Muscle Tone Muscle Tone WNL Yes M6 PT-IP Treatment Start: 07/18/21 11:55 Freq: NEEDED Status: Active Protocol: Document 07/20/21 13:25 KS (Rec: 07/20/21 14:21 KS [id number]) Physical Therapy Treatment Education Education Provided Precautions,Safety M7 PT-IP Assessment and Plan Start: 07/18/21 11:55 Freq: NEEDED Status: Active Protocol: Document 07/20/21 13:25 KS (Rec: 07/20/21 14:21 [place] [id number]) PT Summary Assessment and Plan Potential Rehabilitation Potential Fair Summary Impairments Pain,ROM,Strength,Balance, Coordination,Sensation,Tone, Cognition,Bed Mobility, Transfers,Gait,Activity Tolerance Progress Towards Goals Progressing Toward Goals,Slow Progress due to Pain,Slow Progress due to Activity Tolerance,Slow Progress - Other Assessment Summary Pt continues to require frequent cues to adhere to precautions when mobilizing and Min A for sit<>stand w/ FWW. She required 3L O2 during treatment and O2 >90% throughout. Pt limited in mobility due to weakness, pain , and fear/anxiety. She completed 12 total steps however refused to attempt w/ unilateral handrail as she has as home and used bilateral hand rails. She has poor safety awareness, poor adherence to spinal precautions, and low tolerance for activity all increasing fall risk. Pt not currently safe to return home alone and will require assistance and HHPT. Goals Bed Mobility Goal Minimal Assistance Transfer Goal Minimal Assistance,Front Wheeled Walker Gait Goal Minimal Assistance,Front Wheel Walker Gait Distance 50 Other Goals improve bed mobility, transfers SBA, ambulation using FWW SBA 150 ft up/down 13 steps 1 rail CGA Days to Meet Goals 10 Frequency of Treatment Frequency Of Treatment Twice a Day Treatment Plan Physical Therapy Treatment Plan Bed Mobility Training,Transfer Training,Gait Training, Therapeutic Exercise,Balance Retraining,Post Op Education, Discharge Planning,Hot or Cold Pack,Neuromuscular Re-ed, Coordination Retraining,Manual Therapy Other Recommendations and Next Treatment ambulation; assess stairs Focus Precautions Lumbar Precautions Log Roll,No Twisting,Limit Bending,Lifting Restriction of 10 lbs,Gait Belt above Incisional Area Recommendations To Nursing Amount of Assist Needed 1 Person Assist,2 Person Assist Discharge Recommendations PT Discharge Recommendations Home with 24/ Assist Available,Home Health,SNF Rehab,Home vs SNF Transportation Needs at Discharge Wheelchair/Cabulance
[2021-07-20] MEDS: FLEETS ENEMA 1 EACH PR (14:23)
--- NOTE | 2021-07-20 14:59 | PM.PNPO.1 ---
Subjective Subjective Date Patient Seen: 07/20/21 Time Patient Seen: 15:00 Interval history: Patient's pain is moderate to severe. Denies nausea or vomiting. No fever or chills. Patient states she has a caregiver on Wednesdays and Fridays. She is unsure whether her sister will be available to assist her. Exam Vital Signs (past 8 hours): - 07/20/21 07:59 07/20/21 08:00 07/20/21 12:00 Temperature 97.4 F L 98.1 F Pulse Rate 80 70 Respiratory Rate 16 16 Blood Pressure 158/75 H 106/69 Pulse Oximetry 95 94 91 Oxygen Delivery Method Nasal Cannula Oxygen Flow Rate 0 Narrative Exam Narrative: 66-year-old female resting comfortably in bed in no apparent distress. Motor functions intact bilateral lower extremities. Sensation grossly intact to light touch bilateral lower extremities. Const General: cooperative Objective Labs Result Diagrams: 07/18/21 06:27 PFS Medical History Anxiety Arthritis Asthma Chronic low back pain COPD (chronic obstructive pulmonary disease) Dental abscess Depression Diabetes Easy bruisability Emphysema lung ETOH abuse Frequent UTI Hepatitis C HTN (hypertension) Hyperlipidemia Hyponatremia Hypoxia Marijuana smoker Pneumonia (~07/2017) Substance abuse TBI (traumatic brain injury) (~2004) Urinary retention Surgical History H/O cosmetic surgery (~2013) History of cataract extraction with lens replacement History of mandibular surgery History of surgery Hx of appendectomy Hx of removal of cyst Hx of tonsillectomy Status post surgical manipulation of ankle joint Social History household members: spouse and none Smoking Status: Current some day smoker alcohol intake: current Assessment & Plan Post-op Postoperative Procedures: Procedures Operation Date: 07/17/21 09:00 Actual Procedure Side Surgeon p L2-3 TLIF, L3-5 lumbar HWR, exploration of fusion, repeat laminectomy, reinsertion of hardware, L2-5 PSF Almas Muller MD Postoperative day: 3 Postoperative status: marginal pain control Postoperative status narrative: Patient status post lumbar fusion, still is 1-2 person assist Postoperative plan narrative: Mobilize with physical therapy, limit bending, twisting, lifting Multimodal pain management Likely discharge home tomorrow with home health services Quality VTE Deep Vein Thrombosis/Pulmonary Embolism Present on Admission: No
--- NOTE | 2021-07-20 15:06 | P.PN_ITS ---
Subjective Subjective Date Patient Seen: 07/20/21 Time Patient Seen: 15:06 Interval history: Patient is status post revision lumbar surgery. Patient is having much better pain control and previous days. Patient has finally had a bowel movement today as well. Exam Vital Signs (past 8 hours): - 07/20/21 07:59 07/20/21 08:00 07/20/21 12:00 Temperature 97.4 F L 98.1 F Pulse Rate 80 70 Respiratory Rate 16 16 Blood Pressure 158/75 H 106/69 Pulse Oximetry 95 94 91 Oxygen Delivery Method Nasal Cannula Oxygen Flow Rate 0 Narrative Exam Narrative: Dressing is clean and dry. Positive dorsiflexion and plantar flexion of the toes and ankles. Brisk cap refill. Positive pedal pulses. Objective Labs Result Diagrams: 07/18/21 06:27 [facility] Medical History Anxiety Arthritis Asthma Chronic low back pain COPD (chronic obstructive pulmonary disease) Dental abscess Depression Diabetes Easy bruisability Emphysema lung ETOH abuse Frequent UTI Hepatitis C HTN (hypertension) Hyperlipidemia Hyponatremia Hypoxia Marijuana smoker Pneumonia (~07/2017) Substance abuse TBI (traumatic brain injury) (~2004) Urinary retention Surgical History H/O cosmetic surgery (~2013) History of cataract extraction with lens replacement History of mandibular surgery History of surgery Hx of appendectomy Hx of removal of cyst Hx of tonsillectomy Status post surgical manipulation of ankle joint Social History household members: spouse and none Smoking Status: Current some day smoker alcohol intake: current Assessment & Plan Post-op Postoperative Procedures: Procedures Operation Date: 07/17/21 09:00 Actual Procedure Side Surgeon p L2-3 TLIF, L3-5 lumbar HWR, exploration of fusion, repeat laminectomy, reinsertion of hardware, L2-5 PSF Almas Muller MD Postoperative day: 3 Postoperative status: doing well Postoperative plan: routine post-op care Postoperative plan narrative: Patient slowly making improvements. Patient's setup for home health care but might require intermediate placement. Quality VTE Deep Vein Thrombosis/Pulmonary Embolism Present on Admission: No
[2021-07-20] MEDS: ACETAMINOPHEN 325 MG TABLET 650 MG PO (21:03)
[2021-07-20] MEDS: TRAZODONE 50 MG TABLET 100 MG PO (21:03)
[2021-07-20] MEDS: ATORVASTATIN 20 MG TABLET 40 MG PO (21:03)
[2021-07-20] MEDS: DULOXETINE 30 MG CAPSULE PO (21:03)
[2021-07-20] MEDS: DONEPEZIL 5 MG TABLET PO (21:03)
[2021-07-20] MEDS: MAGNESIUM HYDROXIDE 30 ML UDC PO (21:05)
[2021-07-20] MEDS: HYDROMORPHONE 0.5 MG INJ IV (21:40)
[2021-07-21 05:30] VITALS: BP 131/62; PULSE 75; RESP 18; TEMP 36.6; O2SAT 95
[2021-07-21] MEDS: OXYCODONE IR 5 MG TABLET 10 MG PO ×2 (05:36→12:00)
[2021-07-21 08:00] VITALS: BP 112/88; PULSE 90; RESP 18; TEMP 36.6; O2SAT 93
[2021-07-21] MEDS: ACETAMINOPHEN 325 MG TABLET 650 MG PO ×2 (08:37→12:01)
[2021-07-21] MEDS: DOCUSATE 100 MG CAPSULE PO (08:43)
[2021-07-21] MEDS: DULOXETINE 30 MG CAPSULE 60 MG PO (08:44)
[2021-07-21] MEDS: AMLODIPINE 5 MG TABLET 10 MG PO (08:44)
[2021-07-21] MEDS: polyethylene glycoL 3350 17 GM POWD.PACK PO (08:45)
[2021-07-21] MEDS: HYDROCORTISONE 10 MG TABLET PO (08:45)
[2021-07-21] MEDS: METFORMIN HCL 500 MG TABLET PO (08:46)
[2021-07-21] MEDS: MULTIVITAMIN 1 TABLET 1 TAB PO (08:46)
[2021-07-21] MEDS: OXYBUTYNIN 5 MG TABLET PO (08:49)
[2021-07-21] MEDS: MONTELUKAST 10 MG TABLET PO (08:49)
[2021-07-21] MEDS: NICOTINE 21 MG PATCH TOP (08:49)
[2021-07-21] MEDS: GABAPENTIN 600 MG TABLET PO (08:50)
[2021-07-21] MEDS: LORATADINE 10 MG TABLET PO (08:50)
[2021-07-21] MEDS: METOPROLOL IR 50 MG TABLET 75 MG PO (08:50)
[2021-07-21] MEDS: hydroCHLOROthiazide 25 MG TABLET 12.5 MG PO (08:50)
[2021-07-21] MEDS: BUSPIRONE 5 MG TABLET 30 MG PO (09:03)
--- NOTE | 2021-07-21 10:44 | P.DS_ITS ---
History of Present Illness History of Present Illness Date Patient Seen: 07/21/21 Time Patient Seen: 07:45 Chief complaint: Low back pain s/p TLIF Narrative: Patient is complaining of moderate pain today. She denies any new numbness or tingling. She has been on a nasal cannula oxygen her entire stay at the hospital. She does use nightly oxygen at home and has a history of COPD. She is somewhat tearful today and would like to get back to her routine at home. Discharge Providers Provider Date of admission: 07/17/21 06:19 Discharge Date: 07/21/21 Consults: 07/17/21 14:53 Consult to Hospitalist Service Routine Comment: Consulting Provider: [facility] Reason for consultation: Medical management, COPD Has provider been notified: Yes Consult to Occupational Therapy Evaluate & Treat Comment: Physician Instructions: Evaluate and treat Consult to Physical Therapy Evaluate & Treat Comment: Physician Instructions: Evaluate and Treat 07/19/21 11:00 Consult to Discharge Planning Routine Comment: Possible SNF placement 07/21/21 10:22 Consult to Home Health Routine Comment: DX: spine surgery Reason For Exam: FWW for Home use Discharge provider: Crystal Rivas PA-C Summary Hospital Course Discharge Diagnosis: 1. L2-3 spinal stenosis 2. Cauda equina syndrome 3. Hx of L3-5 fusion 4. lumbar spondylosis with radiculopathy 5. Chronic respiratory failure Hospital Course: Operative Date/Time/Diagnoses Date of procedure: 07/17/21 Time of procedure: 08:45 Procedure & Clinicians Procedure: 1. L2-3 posterolateral and posterior interbody fusion 2. L2-3 posterior interbody cage placement 3. L3-4, L4-5 posterior segmental instrumentation removal 4. L3-4, L4-5 revision laminectomy with exploration of fusion 5. L3-4, L4-5, L5-S1 posterior segmental instrumentation with pedicle screw placement 6. L4-5 posterolatearl fusion 7. Hilliards of bone marrow from iliac crest through a separate incision 8. Utilization of microsurgical technique and operating microscope Same procedure as scheduled: Yes Indications: Patient has been having chronic back pain and worsening lumbar radiculopathy. Recently patient had episodes of overflow incontinence for her bladder.? MRI shows severe spinal stenosis L2-3 level correlating with her symptoms. After discussing risks and benefits of treatment options patient was urgently scheduled for L2-3 T lift with revision instrumentation. Patient failed multiple conservative management with worsening pain weakness and numbness in her lower extremity.? Patient has been having difficulty performing activity of daily living.? After discussing risks benefits of treatment options, patient elected proceed with surgery. Surgeon: Almas Muller Pencil Maker: Crystal Rivas Click Yes if Unassisted: No Anesthesia Type: General Operative Notes Closure Type: primary Specimen(s): none sent Prosthetic devices, grafts, tissues, transplants, or devices: Globus revolve screws, Rise cage Applied: catheter Estimated Blood Loss (mL): 100 Blood products transfused: none Status at Discharge Cognitive/behavioral status at discharge: oriented Functional status at discharge: uses cane/walker Overall status at discharge: patient is progressing back to baseline Exam Vital Signs (past 8 hours): - 07/21/21 05:30 07/21/21 08:00 Temperature 97.9 F 97.9 F Pulse Rate 75 90 Respiratory Rate 18 18 Blood Pressure 131/62 112/88 Pulse Oximetry 95 93 Oxygen Delivery Method Room Air Oxygen Flow Rate 3 Narrative Exam Narrative: Pleasant 66-year-old female, resting comfortably in her chair, no acute distress, although occasionally tearful. Dressing is clean, dry, intact. Bilateral lower extremities: Motor function is grossly intact, sensation is grossly intact to light touch, calves are soft and nontender to palpation Objective Labs Result Diagrams: 07/18/21 06:27 [facility] Medical History Anxiety Arthritis Asthma Chronic low back pain COPD (chronic obstructive pulmonary disease) Dental abscess Depression Diabetes Easy bruisability Emphysema lung ETOH abuse Frequent UTI Hepatitis C HTN (hypertension) Hyperlipidemia Hyponatremia Hypoxia Marijuana smoker Pneumonia (~07/2017) Substance abuse TBI (traumatic brain injury) (~2004) Urinary retention Surgical History H/O cosmetic surgery (~2013) History of cataract extraction with lens replacement History of mandibular surgery History of surgery Hx of appendectomy Hx of removal of cyst Hx of tonsillectomy Status post surgical manipulation of ankle joint Social History household members: spouse and none Smoking Status: Current some day smoker alcohol intake: current Discharge Assessment & Plan Assessment and Plan Assessment: -stable status post lumbar revision/10 TLIF at -chronic respiratory failure: History of COPD and the patient uses approximately 3-4 L of oxygen nightly at home, patient has been on continuous oxygen while in the hospital Plan of Treatment: -mobilize with PT. Weightbearing as tolerated front wheel walker. Limit bending, lifting, twisting Working on better pain control: Tylenol scheduled, oxy 5-10 mg as needed. Unable to prescribe Vistaril due to potential side effects. -patient lead to follow-up with primary care or bilingual teacher assistant in regards of weaning off oxygen -DC home today when cleared by PT, with home health Discharge Plan Discharge Plan Patient Disposition: Home Discharge orders & Medications Prescriptions: New acetaminophen 500 mg capsule 500 mg PO Q4H MDD Max 3000 mg per day PRN (Reason: fever or pain) Qty: 90 0RF oxycodone 5 mg Tablet 10 mg PO Q4-6H PRN (Reason: Moderate to severe postop pain) Qty: 42 0RF docusate sodium [Colace] 100 mg capsule 100 mg PO BID PRN (Reason: Constipation from narcotic pain med) Qty: 30 0RF Continued cyclobenzaprine 10 mg Tablet 10 mg PO TID PRN (Reason: Muscle Spasm) 0RF trazodone 50 mg Tablet 100 mg PO BEDTIME 0RF montelukast 10 mg Tablet 10 mg PO QAM 0RF albuterol sulfate 90 mcg/actuation Hfa Aerosol Inhaler 2 puff INHALATION Q4-6H PRN (Reason: Asthma) 0RF buspirone 15 mg Tablet 30 mg PO DAILY 0RF Combivent Respimat 20-100 mcg/actuation Mist 1 puff INHALATION Q6H PRN (Reason: asthma) 0RF nicotine 21 mg/24 hr Patch 24 Hour 1 patch TRANSDERMAL DAILY 0RF Rx Instructions: right shoulder atorvastatin 40 mg Tablet 40 mg PO BEDTIME 0RF albuterol sulfate 2.5 mg /3 mL (0.083 %) Solution For Nebulization 2.5 mg INHALATION QID PRN (Reason: Shortness Of Breath) 0RF benzonatate 200 mg Capsule 200 mg PO TID PRN (Reason: Cough) 0RF metoprolol tartrate 50 mg Tablet 75 mg PO BID 0RF hydrocortisone 10 mg Tablet 10 mg PO DAILY 0RF docusate sodium [DOK] 100 mg Capsule 100 mg PO BID Qty: 60 0RF oxycodone 5 mg capsule 5 mg PO Q4-6H PRN (Reason: pain) Qty: 60 0RF Rx Instructions: 1-2 tabs po every 4-6 hours as needed for severe pain. exempt. post op pain. amlodipine 10 mg tablet 10 mg PO DAILY 0RF Label Comments: take 1 tablet by mouth once daily celecoxib 200 mg capsule 200 mg PO DAILY 0RF Label Comments: take 1 capsule by mouth daily metformin 500 mg tablet 500 mg PO BID 0RF Label Comments: Take 1 tablet (500 mg total) by mouth 2 (two) times daily with meals *due for lab* gabapentin 600 mg tablet 600 mg PO TID 0RF Label Comments: take 1 tablet by mouth three times a day donepezil 5 mg tablet 5 mg PO BEDTIME 0RF Label Comments: take 1 tablet by mouth nightly nystatin [Nyamyc] 100,000 unit/gram powder 1 applic TOPICAL DAILY PRN (Reason: Rash) 0RF Label Comments: apply topically to affected area three times a day if needed for rash Rx Instructions: after each shower. ketoconazole 2 % cream 1 applic TOPICAL DAILY PRN (Reason: Rash) 0RF Label Comments: Apply topically daily apply topically to affected area twice a day for 2 weeks to GROIN RASH Rx Instructions: uses after each shower. oxybutynin chloride 5 mg tablet 5 mg PO BID 0RF Label Comments: take 1 tablet by mouth twice a day hydroxyzine HCl 10 mg tablet 10 mg PO BEDTIME PRN (Reason: Anxiety) 0RF Label Comments: Take 1 tablet (10 mg total) by mouth nightly as needed for Anxiety duloxetine 30 mg capsule,delayed release(DR/EC) 30 mg PO BEDTIME 0RF Label Comments: take 1 capsule by mouth every evening duloxetine 60 mg capsule,delayed release(DR/EC) 60 mg PO DAILY 0RF Label Comments: take 1 capsule by mouth every morning hydrochlorothiazide 12.5 mg tablet 12.5 mg PO DAILY 0RF Label Comments: take 1 tablet by mouth once daily Discontinued acetaminophen 325 mg Tablet 650 mg PO Q6HR PRN (Reason: Pain, Mild (1-3)) Qty: 60 0RF hydrocodone-acetaminophen 5-325 mg tablet 1 tab PO Q4H 0RF Label Comments: take 0.5 tablets by mouth twice a day NEEDED FOR PAIN Follow up/Referrals: Almas Muller MD [Physician] - (10-14 days for postop visit) Diet/Activity/Treatments Diet: Carb-consistent/Diabetic Other treatments: Medications: -OTC Tylenol 500 mg 1 tablet every 4 hours as needed for pain/fever. Max 6 tablets per day. -Oxycodone 5 mg take 1-2 tablets every 4 hours as needed for moderate-severe pain (narcotic pain medication). -As needed medications: -Ducolax and /or MiraLax as needed for constipation from narcotic pain medications. -Pepcid AC as needed for stomach upset. Dressing/Wound care: -Keep dressing in place until postoperative follow-up office visit. -Okay to shower. Keep wound out of direct water stream. Can use PressNSeal plastic wrap to protect from shower stream. No soaking or submerging until all the scabs fall off (approximately 6 weeks). -Please call the office if dressing becomes wet, soiled, or saturated. Activities: -Limit bending, lifting, twisting. -Weight-bearing as tolerated. Use front wheeled walker, and progress to cane when safe. -Continue with home exercises as directed by your physical therapist. -Ice your incision as needed for pain/inflammation/swelling. Protect your skin with a folded pillowcase. Follow-up: -Follow-up with your surgeon or PA in the office in 10-14 days after surgery. -Follow-up with your surgeon 6 weeks postoperatively. Call the office if you have chest pain, shortness of breath, significant swelling that will not resolve with elevating, fever over 101?, significantly worsening pain. [facility]: [phone] Skin/Wound/Dressing Care Report to your healthcare provider any signs of infection, such as:: chills, fever, night sweats, unusual drainage and unusual redness Visit Report/Discharge Packet Instructions: DI for Prescription Opioid Use, DI for Transforaminal Lumbar Interbody Fusion Stand Alone Forms: Surgery Discharge Quality VTE Deep Vein Thrombosis/Pulmonary Embolism Present on Admission: No
--- NOTE | 2021-07-21 11:40 | PT.IPTN ---
Current Diagnoses Cauda equina syndrome (07/17/21) Spinal stenosis, lumbar region with neurogenic claudication (07/17/21) Arthrodesis status (07/17/21) Surgery Performed Operation Date: 07/17/21 09:00 Actual Procedures p L2-3 TLIF, L3-5 lumbar HWR, exploration of fusion, repeat laminectomy, reinsertion of hardware, L2-5 PSF - Almas Muller MD Physical Therapy Treatment Note M2 PT-IP Current Condition Start: 07/18/21 11:55 Freq: NEEDED Status: Active Protocol: Document 07/18/21 09:50 AB (Rec: 07/18/21 12:12 AB [id number]) Physical Therapy Current Condition Current Condition Evaluation Date 07/18/21 Treatment Diagnosis s/p L2-S1 fusion; difficulty in walking Onset Date 07/17/21 M3 PT-IP Subjective Start: 07/18/21 11:55 Freq: NEEDED Status: Active Protocol: Document 07/21/21 11:16 KS (Rec: 07/21/21 13:06 KS [id number]) Subjective Physical Therapy Visit Type Type Treatment Note Visit Start Time 11:16 Visit Stop Time 11:40 Total Visit Minutes 24 Number of LITERACY TEACHER Visits 3 Physical Therapy Visit Comments Patient Comments Pt agreeable to work w/ therapy. Therapy Pain Assessment Pain When Pain Assessed During Mobility Pain Present Pain Present Pain Reported Location back Scale Used not quantified Description Aching,Throbbing Pain Behaviors Facial Grimacing,Holding Area, Wincing Pain Management Techniques Re-positioning,Timing of Activity with Medications M4 PT-IP Mobility and Gait Start: 07/18/21 11:55 Freq: NEEDED Status: Active Protocol: Document 07/21/21 11:16 KS (Rec: 07/21/21 13:06 KS [id number]) PT-Bed Mobility Assessment Rolling Type of Rolling Log Rolling,Roll to Left Level of Assist Contact Guard Assistance Supine to Sit Supine to Sit Contact Guard Assistance,1 Person Assistance Sit to Supine Sit to Supine Contact Guard Assistance, Minimal Assistance Scooting Scooting to Edge of Bed Contact Guard Assistance PT-Transfer Assessment Sit to and From Stand Sit to and from Stand Contact Guard Assistance,1 Person Assistance,Use of Upper Extremities Equipment Transfer Assistive Device Gait Belt,Front Wheeled Walker Orthotic/Prosthetic Devices or Brace: No Transfers Transfer Destination Bed Transfer Technique Pt ambulated with FWW Transfer Ability Level of Assist Contact Guard Assistance, Minimal Assistance,1 Person Assistance,Use of Upper Extremities Comments Mobility Comments Pt in chair upon arrival. Dispensed FWW for home use. Pt CGA for sit<>stand w/ FWW and ambulated to other side of bed SBA. Pt unable to recall precautions. Min A for sit<> sidelying for LE elevation into bed, CGA for logroll onto ack and onto side, CGA for sidelying<>sit. Instructed pt to perform again which she was able to do w/ SBA but did not fully adhere to spinal precautions when laying down but stated well thats how I have to do it! when cued. Pt sitting EOB and TOP SCREW arrived to perform vitals and pt requesting to use bathroom for bowel movement. Offered to come back for further treatment following pts bowel movement, but she became agitated and refused. Pt left EOB w/ TOP SCREW in room. Gait Assessment Gait Gait Assistance Required: Standby Assistance,1 Person Assist Distance (Feet) 15 Able to Maintain Weight Bearing Status Yes During Gait Assistive Devices Assistive Device Gait Belt,Front Wheeled Walker Orthotic/Prosthetic Devices or Brace: No Gait Deviations General Gait Pattern Antalgic,Decreased Stride Length,Decreased Feet Clearance Factors Limiting Gait Function Factors Limiting Gait Function Decreased Activity Tolerance, Decreased Strength,Difficulty Following Directions,Limited Range of Motion,Pain,Poor Balance,Poor Safety Awareness Comments Gait Comments See mobility comments for details. Stair Climbing Assessment Comments Stair Climbing Comments Did not assess today, but pt completed 12 steps yesterday SBA step over step pattern and states she will have a caregiver. M5 PT-IP Objective Assessments Start: 07/18/21 11:55 Freq: NEEDED Status: Active Protocol: Document 07/18/21 09:50 AB (Rec: 07/18/21 12:12 AB [id number]) Orientation Orientation/Cognition Level of Alertness Confusional State Orientation Name,Place,Situation Safety Awareness Decreased Safety Awareness Memory Description Short Term Impaired Gross Range of Motion Lower Extremity ROM Assessment Within Functional Limits Strength Lower Extremity Strength Assessment Bilaterally Impaired Hip 3-/5 Knee 3+/5 Sensation Assessment Sensation Gross Sensation WNL Muscle Tone Muscle Tone WNL Yes M6 PT-IP Treatment Start: 07/18/21 11:55 Freq: NEEDED Status: Active Protocol: Document 07/21/21 11:16 KS (Rec: 07/21/21 13:06 KS [id number]) Physical Therapy Treatment Education Education Provided Precautions,Safety Other Treatments Other Treatment Performed Dispensed FWW, wrote down spinal precautions to aid pt in remembering. M7 PT-IP Assessment and Plan Start: 07/18/21 11:55 Freq: NEEDED Status: Active Protocol: Document 07/21/21 11:16 KS (Rec: 07/21/21 13:06 AL [id number]) PT Summary Assessment and Plan Potential Rehabilitation Potential Fair Summary Impairments Pain,ROM,Strength,Balance, Coordination,Sensation,Tone, Cognition,Bed Mobility, Transfers,Gait,Activity Tolerance Progress Towards Goals Progressing Toward Goals,Slow Progress due to Pain,Slow Progress due to Activity Tolerance,Slow Progress - Other Assessment Summary Pt continues to have difficulty adhering to spinal precautions however is SBA for ambulation w/ FWW, CGA for sit<>stand, and CGA to Min A for bed mobilty. Pt able to get in and out of bed on her own, but needs CGA to Min A to fully adhere to precautions. She refused further treatment today seemingly due to frustration, however yesterday ambulated ~240 ft and completed 12 steps step over step SBA. She would benefit from 24/7 assist to ensure she is maintaing spinal precautions and provide increased safety and light assistance w/ bed mobility. Goals Bed Mobility Goal Minimal Assistance Transfer Goal Minimal Assistance,Front Wheeled Walker Gait Goal Minimal Assistance,Front Wheel Walker Gait Distance 50 Other Goals improve bed mobility, transfers SBA, ambulation using FWW SBA 150 ft up/down 13 steps 1 rail CGA Days to Meet Goals 10 Frequency of Treatment Frequency Of Treatment Twice a Day Treatment Plan Physical Therapy Treatment Plan Bed Mobility Training,Transfer Training,Gait Training, Therapeutic Exercise,Balance Retraining,Post Op Education, Discharge Planning,Hot or Cold Pack,Neuromuscular Re-ed, Coordination Retraining,Manual Therapy Other Recommendations and Next Treatment ambulation; assess stairs w/ Focus unilateral hand rail. Precautions Lumbar Precautions Log Roll,No Twisting,Limit Bending,Lifting Restriction of 10 lbs,Gait Belt above Incisional Area Recommendations To Nursing Amount of Assist Needed 1 Person Assist Discharge Recommendations PT Discharge Recommendations Home with 24/7 Assist Available,Home Health,SNF Rehab,Home vs SNF Equipment Needed for Home Before Dispensed FWW for home use Discharge Transportation Needs at Discharge Wheelchair/Cabulance
--- NOTE | 2021-07-21 11:49 | CM.DPNOTE ---
Spoke to Yamel Elder at Ambulance to transport pt. to her [address] Suzie Francis, STUART Assist.
[2021-07-21 11:53] VITALS: BP 136/61; PULSE 71; RESP 17; TEMP 36.6; O2SAT 93
--- NOTE | 2021-07-21 13:12 | CM.DANOTE ---
DCP/Note continued: Reviewed chart. Patient is a 66yr old female whom underwent spine surgery on 07-17-21. Initially, it was thought that patient may benefit from SNF however, during search no SNF's found. Currently patient ambulating over 200ft and has managed stair training. Therefore, current recommendation is home with caregiver assistance and home health. SNF no longer first recommendation. Home Health has been set up through [facility] via Orthopedic office. AIRPORT DUTY MANAGER spoke with Sejal, patient's ph# [phone] she confirms that caregiver/Kurt can meet with patient in the residence today when she gets home. Patient currently on (baseline) with spine precautions in place. Therefore, non-urgent BLS transport most appropriate. AIRPORT DUTY MANAGER asked JEAN MARIE/Suzie to coordinate transport via [facility]. Transport scheduled for today at 2:30pm. RN and patient updated. Met with patient this AM. Patient appears very anxious throughout conversation. Patient reports that she cannot do anything for herself? However, therapy reports differently. Patient very anxious about being home without help. Patient did very well today with therapy and is capable of going to/from bathroom. Patient believes that she is incapable which she is not. Encouraged nursing and therapy to continue to discuss patient's accomplishments rather than what she cannot do. AIRPORT DUTY MANAGER also spoke with caregiver/Kurt whom reports that she will be at the home when patient arrives at home today. Amount of caregiver hours unknown at this time. However, patient does have caregivers, and home health which has been finalized and confirmed to begin on 07-23. P: Home today with home health through [facility] and care givers. MARIANA
--- NOTE | 2021-07-21 13:15 | OT.IP.TRT ---
Current Diagnoses Cauda equina syndrome (07/17/21) Spinal stenosis, lumbar region with neurogenic claudication (07/17/21) Arthrodesis status (07/17/21) Surgery Performed Operation Date: 07/17/21 09:00 Actual Procedures p L2-3 TLIF, L3-5 lumbar HWR, exploration of fusion, repeat laminectomy, reinsertion of hardware, L2-5 PSF - Almas Muller MD Occupational Therapy Treatment Note M2 OT-IP Current Condition Start: 07/20/21 13:28 Freq: Status: Active Protocol: Document 07/20/21 13:28 CGR (Rec: 07/20/21 13:46 CGR [id number]) Occupational Therapy Current Condition Current Condition Evaluation Date 07/20/21 Treatment Diagnosis TlIF L2-5 Diagnosis Onset Date 07/17/21 Post Operative Precautions Lumbar Precautions Log Roll,No Twisting,Limit Bending,Lifting Restriction of 10 lbs,Gait Belt above Incisional Area M3 OT- IP Subjective and Pain Start: 07/20/21 13:28 Freq: Status: Active Protocol: Document 07/21/21 13:25 CCC (Rec: 07/21/21 13:37 [facility] [id number]) OT- Subjective Occupational Therapy Visit Type Type Treatment Note Visit Start Time 09:40 Visit Stop Time 13:15 Total Visit Minutes 112 Occupational Therapy Visit Comments Patient Comments Pt seen for split treatment. [id number] and [id number]. Patient/Caregiver Goals TO go home. OT Pain Assessment Pain When Pain Assessed At Rest Pain Present Pain Present Pain Reported Location back Intensity 8 Scale Used Numeric (0 - 10) M4 OT- IP ADL's Start: 07/20/21 13:28 Freq: Status: Active Protocol: Document 07/21/21 13:25 [facility] (Rec: 07/21/21 13:37 [facility] [id number]) OT [id number] Comments OT Self-Feeding Comments Not at meal time. OT ADL-Grooming General Evaluation Grooming Ability Independent Areas Needing Assistance Face Washing Comments OT Grooming Comments standing at sink with FWW OT ADL-Oral Care General Eval Oral Care Ability Independent Areas of Assistance Brushing Teeth Comments Oral Care Comments standing at sink OT ADL-Dressing General Eval Upper Body Dressing Ability Independent Lower Body Dressing Ability Standby Assistance Areas Needing Assistance Socks,Shoes Comments OT Dressing Comments Pt able to do dressing needs by crossing her foot on the opposing knee with increased time. Pt also has a tool coordinator at home to assist with needs. OT ADL-Toileting General Evaluation Toileting Ability Independent Comments OT Toileting Comments Pt able to lean to the left and follow her back precautions to be able to wipe appropriately with her right hand. Also suggested use of wet-wipes for increased ease for hygiene needs. OT ADL-Bathing Bathing Type Bathing Type Shower General Evaluation Bathing Ability Minimal Assistance Areas Needing Assistance Retrieving/Setting Up Items, Wash/Dry Back Comments OT Bathing Comments Pt needing assist for set-up and assist to wash her back. Pt having to use shower chair. Pt tends to hinge at her hips to lean forwards to reach her legs, but able to keep her back straight. Pt would benefit from assist with showers for safety reminders and for set-up. M5 OT- IP IADL's Start: 07/20/21 13:28 Freq: Status: Active Protocol: Document 07/20/21 13:28 CGR (Rec: 07/20/21 13:46 CGR [id number]) OT-Instrumental Activities of Daily Living Deficits IADL Deficits Identified Deficits Home Safety Awareness Awareness of Need for Assistance at Home Decreased Awareness Ability to Problem Solve Emergency Unable to Problem Solve Situations Medication Management Medication Management Comments concerns regarding her ability to perform Money Management Money Management Comments concerns regarding her ability to perform Meal Preparation Meal Preparation Comments concerns regarding her ability to perform Manager Multimedia Manager Multimedia Comments concerns regarding her ability to perform Driving Driving Comments Pt does not drive. M6 OT- IP Functional Cognition Start: 07/20/21 13:28 Freq: Status: Active Protocol: Document 07/21/21 13:25 [facility] (Rec: 07/21/21 13:37 [facility] [id number]) Cognitive Factors Limiting Selfcare Function Cognitive Comments Cognitive Assessment Comments Pt is insistent on her care and ways to do things. Pt needing constant reminders to incorporate her back precautions for ADL and mobility needs. Pt has history of TBI which may also be affecting her overall safety awareness and problem solving skills. Pt at times needing vc to remind her to sit down and sequence through ADl needs, pt forgot that she already washed her chest and was doing it again. M7 OT- IP Mobility and Balance Start: 07/20/21 13:28 Freq: Status: Active Protocol: Document 07/21/21 13:25 [facility] (Rec: 07/21/21 13:37 [facility] [id number]) OT-Transfer Assessment Sit to and From Stand Sit to and from Stand Standby Assistance Transfers Transfer Ability Standby Assistance Technique Transfer Destination Bed,Chair,Shower Stall,Toilet Transfer Technique Stand Step Pivot Devices Transfer Assistive Devices Gait Belt,Front Wheeled Walker Comments Mobility Comments SBA mainly for safety cues and VASU with FWW. OT- Balance Assessment Sitting Balance and Reactions Static Sitting Balance Ability Normal Dynamic Sitting Balance Ability Normal Standing Balance and Reactions Static Standing Balance Ability Good Dynamic Standing Balance Ability Fair M8 OT- IP Objective Assessments Start: 07/20/21 13:28 Freq: Status: Active Protocol: Document 07/20/21 13:28 CGR (Rec: 07/20/21 13:46 CGR [id number]) OT Gross Range of Motion Upper Extremity Range of Motion Assessment Within Functional Limits OT Strength Comments Strength Comments grossly 4/5 OT- Coordination Assessment Upper Extremity Finger to Nose Test Within Functional Limits Finger Tapping Test Within Functional Limits OT-Muscle Tone Assessment Muscle Tone WNL Yes OT Sensation Assessment Edema Edema Absent M9 OT- IP Assessment and Plan Start: 07/20/21 13:28 Freq: Status: Active Protocol: Document 07/21/21 13:25 [facility] (Rec: 07/21/21 13:37 [facility] [id number]) OT Summary Assessment and Plan Potential Rehabilitation Potential Good Analytic Complexity at Evaluation Moderate Summary OT Impairments Pain,Balance,Functional Cognition,Functional Mobility, Dressing,Toileting,Bathing, Shower Transfers,Activity Tolerance Progress Towards Goals Progressing Toward Goals Assessment Summary Pt able to tolerate a shower, toileting , and dressing needs today and with cues able to follow her back precaution for needs. Due to pt is insistent on her care and ways to do things for safety awareness and back precautions , pt would benefit from 24/ available assist. Pt at times does not remember to use the FWW and walks without it. Pt is a fall risk and would benefit from assist at home. Pt also hsa a small dog at home which may also be a fall risk in addition to use of her o2. Goals Grooming Goal Independent Dressing Goal Independent Toileting Goal Independent Bathing Goal Independent Toilet Transfer Goal Independent Shower Transfer Goal Independent Days to Meet Goals 8 Frequency of Treatment Frequency Of Treatment Once a Day Treatment Plan OT Treatment Plan ADL Training,Functional Cognition Training,Functional Mobility,Patient/Family Education,Discharge Planning Discharge Recommendations OT Discharge Recommendations Home with 20/12 Assist Available,Home Health,SNF Rehab,Home vs SNF Transportation Needs at Discharge Private Vehicle
--- NOTE | 2021-07-21 15:11 | PC.NURSE ---
Pt is dressed and ready for discharge home. Belongings are packed up. Ambulance is here to take her home. D/C instructions reviewed with Pt. Pt denied further questions and was taken out via stretcher by ambulance personnel with all belongings.
== END 2021-07-21 15:13 | disposition home health service (06) | DRG 454 ==
PROVIDERS: Admitting Provider Orthopaedic Surgery Orthopaedic Surgery of the Spine; Referring Provider Orthopaedic Surgery Orthopaedic Surgery of the Spine; Visit Provider Orthopaedic Surgery Orthopaedic Surgery of the Spine
PROC: 0SG00AJ Fusion of Lumbar Vertebral Joint with Interbody Fusion Device, Posterior Approach, Anterior Column, Open Approach (ICD-10-PCS; principal; 2021-07-17 09:00)
DX: M48.062 Spinal stenosis, lumbar region with neurogenic claudication (principal); G83.4 Cauda equina syndrome; M96.0 Pseudarthrosis after fusion or arthrodesis; J96.10 Chronic respiratory failure, unspecified whether with hypoxia or hypercapnia; M47.26 Other spondylosis with radiculopathy, lumbar region; M96.1 Postlaminectomy syndrome, not elsewhere classified; F17.210 Nicotine dependence, cigarettes, uncomplicated; I10 Essential (primary) hypertension; J44.9 Chronic obstructive pulmonary disease, unspecified; E78.5 Hyperlipidemia, unspecified; F41.9 Anxiety disorder, unspecified; G47.00 Insomnia, unspecified; E11.42 Type 2 diabetes mellitus with diabetic polyneuropathy; F32.A Depression, unspecified; Z79.84 Long term (current) use of oral hypoglycemic drugs; Z98.1 Arthrodesis status; Z20.822 Contact with and (suspected) exposure to COVID-19
CPT/HCPCS: 36415; 72100; 76000; 82962; 85014; 85018; 87635; 93005; 93010; 94640; 94760; 97116; 97162; 97166; 97530; 97535; 99406; C9803; C1713; C1831; J0131; J0330; J0690; J1100; J1170; J2060; J2250; J2405; J2704; J2765; J3010; J7613

== ENCOUNTER 2023-07-13 11:09 | Inpatient (IN) | payer MEDICARE, MEDICAID, SELFPAY ==
[2021-07-17 14:57] VITALS: BMI 28.7
[2023-05-03 12:28] VITALS: BMI 57.9
--- NOTE | 2023-05-07 10:29 | CM.DPNOTE ---
MADDISON received a msg from Pre-Op yesterday 05/06/23 around 1300 stating pt had questions regarding discharge planning after her upcoming TLIF with Dr. Muller on 05/09/23 and pt was under the impression she would go to SNF at d/c but was wanting confirmation and discharge information. SW reviewed pt's EMR for insurance information and what her TLIF was auth'd as (Inpt vs OBS vs SDC) to determine if SNF would be an option for her post surg and per Collection Notes pt's surgery was cancelled yesterday 05/06 in the late afternoon due to [facility] denying the auth for TLIF. SW willing to be involved for d/c planning in the future if pt's planned surgery is approved by insurance. Pt's insurance is typically challenging for finding contracted SNF that is willing to attempt SNF auth and also depends on how pt tolerates PT/OT post surg. VESTA Leonard
[2023-07-13] VITALS (8 sets, daily range): BP systolic 143–150; BP diastolic 74–78; PULSE 76–98; RESP 17–24; TEMP 35.9–36.8; O2SAT 89–96; BMI 57.9; BMI 57.6; BMI 26.1
[2023-07-13] MEDS: LACTATED RINGERS 1,000 ML 100 ML IV (09:01)
[2023-07-13] MEDS: ALBUTEROL/IPRATROPIUM 3 ML AMPUL INH ×4 (09:35→23:16)
--- NOTE | 2023-07-13 10:18 | DI.RAD.S_ITS ---
PROCEDURE: XR CHEST 1V INDICATIONS: wheezing, low sats TECHNIQUE: One view of the chest was acquired. COMPARISON: [facility], CR, XR CHEST 2 VIEWS, 12/21/2022, 12:59. FINDINGS: Surgical changes and devices: Cervical fusion hardware. Lungs and pleura: Moderate basilar predominant reticulonodular pulmonary opacity bilaterally. No pleural effusions or pneumothorax. Mediastinum: Mediastinal contours appear normal. Heart size is normal. Bones and chest wall: No suspicious bony lesions. Overlying soft tissues appear unremarkable. IMPRESSION: Atypical pneumonia. Dictated by: Bassam Nicholson M.D. on 07/13/2023 at 10:59 Approved by: Bassam Nicholson M.D. on 07/13/2023 at 11:00
--- NOTE | 2023-07-13 10:41 | SUR.PREOP ---
1020 - up to bathroom per w/c. Anesthesia wants room air 02 sat. 77%- 88% on room air. labs and xray ordered per anesthesia. placed again on 2L/nc. 02 sat 90% on 2L. Surgery cancelled per Dr Corbett. Hospitalist national expansion recruiter called for consult and possible admission. Awaiting labs. breath sounds decreased and course anteriorly and posteriorly.
--- NOTE | 2023-07-13 10:52 | PM.PN.1 ---
Subjective Subjective Interval history: received call from preop pt satting 81% on RA. expiratory wheeze noted by RN. orders given for duoneb. pt taken by wheelchair to bathroom with oxygen. anesthesia at bedside. after moving from wheelchair to preop bed pt placed on monitor spo2 77%. with 2L spo2 oxygen saturation improved to 90%. pt denies recent cold, cough, flu, and fever. lung sounds coarse throughout left lobe. expiratory wheezing noted bilaterally. temp 98.4. pt admits current smoker, COPD, asthma, seasonal allergies, home o2 at night (1l), HTN. orders placed for portable CXR, respiratory viral panel, CBC. contacted hospitalist for further optimization due to hypoxia. Yohana aware. Exam Vital Signs (past 8 hours): spo2 77% on room air, 90% on 2L PFSH Medical History Marijuana smoker Easy bruisability Arthritis Emphysema lung TBI (traumatic brain injury) (~2004) Hepatitis C Chronic low back pain Hypoxia Anxiety Pneumonia (~07/2017) Dental abscess Hyperlipidemia HTN (hypertension) Substance abuse ETOH abuse Hyponatremia Depression Frequent UTI Urinary retention COPD (chronic obstructive pulmonary disease) Asthma Diabetes Surgical History History of lumbar spinal fusion (07/17/21) History of lumbar spinal fusion (11/17/17) Hx of fusion of cervical spine (02/14/19) History of mandibular surgery History of surgery Hx of tonsillectomy History of cataract extraction with lens replacement H/O cosmetic surgery (~2013) Hx of removal of cyst Hx of appendectomy Status post surgical manipulation of ankle joint Social History household members: significant other and none Smoking Status: Current some day smoker alcohol intake: current
[2023-07-13 11:16] LABS: Add Manual Diff / Slide Review NO; Basophils Absolute Auto 100 /uL (0-100); Basophils Percent Auto 0.4 % (0-2); Eosinophils Absolute Auto 300 /uL (0-450); Eosinophils Percent Auto 2.5 % (2-4); Hematocrit 38.5 % (36-46); Hemoglobin 12.5 g/dL (12.0-16.0); Lymphocytes Absolute Auto 700 /uL (1100-4500); Lymphocytes Percent Auto 6.1 % (25-40); Mean Corpuscular HGB Conc 32.4 % (30-36); Mean Corpuscular Volume 89.6 fL (80-100); Monocytes Absolute Auto 1200 /uL (0-900); Monocytes Percent Auto 10.3 % (3-14); Neutrophils Absolute Auto 9200 /uL (1500-7000); Neutrophils Percent Auto 80.7 % (50-75); Platelet Count 285 X10^3/uL (150-400); Red Cell Distribution Width 14.4 % (11.6-14.8); White Blood Cell Count 11.4 X10^3/uL (4.5-11.0)
--- NOTE | 2023-07-13 11:27 | SUR.PREOP ---
1127 - Pt awaiting admission. Vitals unchanged. NSR on monitor car operator, 02 sats 90% on 2L. Pt eating breakfast, drinking coffeeand reading magazines.
--- NOTE | 2023-07-13 11:40 | SUR.PREOP ---
Transported to room 203 per w/c with 02 At 2L.
[2023-07-13 11:49] LABS: Influenza A - CEPHEID Flu A NEGATIVE (NEGATIVE); Influenza B - CEPHEID Flu B NEGATIVE (NEGATIVE); Respiratory Syncytial Virus Negative (Negative)
[2023-07-13 11:53] LABS: COVID-19 CEPHEID 4-PLEX PCR Negative (Negative)
--- NOTE | 2023-07-13 14:31 | P.HP_ITS ---
History of Present Illness History of Present Illness Chief complaint: TLIF Narrative: The patient is a 68-year-old female with history of COPD and tobacco dependence who presented to surgery for an outpatient lower back procedure today. In the preoperative area she was found to be hypoxemic on room air with saturations of 70%. She was then discussed with the hospitalist on-call and directly admitted to the 2nd floor for further evaluation. She notes being somewhat short of breath for 2-3 days. No clear-cut cold symptoms including rhinorrhea, or cough. She has had some dyspnea on exertion. No chest pain at rest or with exertion. She denies any orthopnea or pedal edema. She has had 1 exacerbation in the past which responded to steroids. A chest x-ray is obtained in the outpatient area which is consistent with possible atypical pneumonia. She denies any palpitations, nausea, vomiting, or abdominal pain. She continues to smoke about 4-5 cigarettes a day and is currently working on a nicotine patch regimen and she is taking 7 mg transderm daily. A mini 4 respiratory PCR is negative. [facility] Medical History Marijuana smoker Easy bruisability Arthritis Emphysema lung TBI (traumatic brain injury) (~2004) Hepatitis C Chronic low back pain Hypoxia Anxiety Pneumonia (~07/2017) Dental abscess Hyperlipidemia HTN (hypertension) Substance abuse ETOH abuse Hyponatremia Depression Frequent UTI Urinary retention COPD (chronic obstructive pulmonary disease) Asthma Diabetes Surgical History History of lumbar spinal fusion (07/17/21) History of lumbar spinal fusion (11/17/17) Hx of fusion of cervical spine (02/14/19) History of mandibular surgery History of surgery Hx of tonsillectomy History of cataract extraction with lens replacement H/O cosmetic surgery (~2013) Hx of removal of cyst Hx of appendectomy Status post surgical manipulation of ankle joint Social History household members: significant other Smoking Status: Current some day smoker alcohol intake: current Meds Home Medications and Allergies Home Medications Medication Instructions Recorded Confirmed Type albuterol sulfate 90 mcg/actuation 2 puff inhalation Q4-6H PRN Asthma 11/02/17 05/03/23 History aerosol inhaler buspirone 15 mg tablet 30 mg PO DAILY 11/02/17 07/13/23 History cyclobenzaprine 10 mg tablet 10 mg PO DAILY 11/02/17 07/13/23 History ipratropium 20 mcg-albuterol 100 1 puff inhalation Q6H PRN asthma 11/02/17 05/03/23 History mcg/actuation mist for inhalation (Combivent Respimat) montelukast 10 mg tablet 10 mg PO BEDTIME 11/02/17 05/03/23 History nicotine 21 mg/24 hr daily 1 patch transdermal DAILY 11/02/17 05/03/23 History transdermal patch trazodone 50 mg tablet 100 mg PO BEDTIME 11/02/17 05/03/23 History albuterol sulfate 2.5 mg/3 mL 2.5 mg inhalation QID PRN 02/14/19 07/13/23 History (0.083 %) solution for nebulization Shortness Of Breath atorvastatin 40 mg tablet 40 mg PO BEDTIME 02/14/19 07/13/23 History hydrocortisone 10 mg tablet 10 mg PO DAILY 02/14/19 07/13/23 History metoprolol tartrate 50 mg tablet 75 mg PO BID 02/14/19 07/13/23 History amlodipine 10 mg tablet 10 mg PO DAILY 07/17/21 07/13/23 History donepezil 5 mg tablet 10 mg PO BEDTIME 07/17/21 07/13/23 History duloxetine 60 mg capsule,delayed 60 mg PO DAILY 07/17/21 07/13/23 History release hydroxyzine HCl 10 mg tablet 10 mg PO BEDTIME PRN Anxiety 07/17/21 05/03/23 History ketoconazole 2 % topical cream 1 applic topical DAILY PRN Rash 07/17/21 05/03/23 History oxybutynin chloride 5 mg tablet 5 mg PO BID 07/17/21 05/03/23 History fluticasone 500 mcg-salmeterol 50 1 inh inhalation BID 05/03/23 07/13/23 History mcg/dose blistr powdr for inhalation (Advair Diskus) ipratropium 20 mcg-albuterol 100 1 puff inhalation QID 05/03/23 07/13/23 History mcg/actuation mist for inhalation (Combivent Respimat) losartan 50 mg tablet 50 mg PO DAILY 05/03/23 07/13/23 History omeprazole 20 mg tablet,delayed 20 mg PO DAILY 05/03/23 05/03/23 History release prazosin 1 mg capsule 1 mg PO BEDTIME 05/03/23 05/03/23 History torsemide 10 mg tablet 10 mg PO BID 05/03/23 05/03/23 History tramadol 50 mg tablet 50 mg PO DAILY 05/03/23 05/03/23 History umeclidinium 62.5 mcg/actuation 1 inh inhalation DAILY 05/03/23 05/03/23 History blister powder for inhalation (Incruse Ellipta) Allergies Allergy/AdvReac Type Severity Reaction Status Date / Time No Known Drug Allergies Allergy Verified 07/13/23 09:14 Review of Systems Review of Systems Narrative: All else reviewed and otherwise unremarkable. Exam Narrative Exam Narrative: NAD, fluent speech. She is comfortable on oxygen. Normocephalic skull, EOMI, anicteric sclera. Neck is supple, midline trachea, no adenopathy. Lungs are notable for 2/4 breath sounds, expiratory phase prolongation and wheezing. Heart is regular without murmur. Abdomen is soft, non-tender. Extremities are free of edema. Skin is free of rash or lesions. Joints are not swollen or deformed. Good pedal pulses. Objective Imaging Chest x-ray: My impression: Possible pulmonary edema with blunted CPA. Radiologist's impression: Atypical pneumonia. Labs 07/13/23 10:19 Labs: Laboratory Results - last 24 hr 07/13/23 07/13/23 10:19 10:37 WBC 11.4 H RBC 4.30 Hgb 12.5 Hct 38.5 MCV 89.6 MCH 29.0 MCHC 32.4 RDW 14.4 Plt Count 285 Neut % (Auto) 80.7 H Lymph % (Auto) 6.1 L Bertie % (Auto) 10.3 Eos % (Auto) 2.5 Baso % (Auto) 0.4 Neut # (Auto) 9200 H Lymph # (Auto) 700 L Bertie # (Auto) 1200 H Eos # (Auto) 300 Baso # (Auto) 100 SARS-CoV-2 (PCR) Negative Influenza A (RT-PCR) Flu a negative Influenza B (RT-PCR) Flu b negative RSV (PCR) Negative Assessment & Plan Assessment & Plan narrative: 1. COPD exacerbation, present on admission and active. 2. Acute hypoxemic respiratory failure, present on admission and active. 3. CPAP, present on admission and active. 4. Nicotine dependence, present on admission and active. 5. Possible diabetes, present on admission and active. Plan: -IV corticosteroids. Solu-Medrol 60 q.6. -bronchodilators, specifically DuoNebs Q 6 hours. -doxycycline 100 mg p.o. b.i.d.. -Nicoderm patch, 7 mg. -follow electrolytes and glucose. A1c. -one dose of Lasix 20 IV. She is full resuscitation, confirmed today. Her partner is her proxy decision maker. Time Spent With Patient Time with patient: 30 to 49 minutes with 50% spent counseling/coordinating care Quality VTE Deep Vein Thrombosis/Pulmonary Embolism Present on Admission: No MIPS - Admit The patient?s Advance Care plan is not present because I confirmed today that the patient does not wish or was not able to name a surrogate decision maker or provide an Advance Care Plan.: Yes MIPS - Meds 'Current medications' to include all prescriptions, [id number]-[id number] products, herbals, cannabis/cannabidiol products, and vitamin/mineral/dietary (nutritional) supplements. I have utilized all available resources to obtain, update, or review the patient?s current medications. [If Yes, STOP here]: Yes
[2023-07-13] MEDS: DOXYCYCLINE HYCLATE 100 MG TABLET PO ×2 (15:01→20:29)
[2023-07-13] MEDS: HEPARIN 5,000 UNIT/ML VIAL 5000 UNIT SUBCUT ×2 (15:01→20:31)
[2023-07-13] MEDS: FUROSEMIDE 20 MG/2 ML VIAL IV (17:51)
[2023-07-13] MEDS: ACETAMINOPHEN 325 MG TABLET 650 MG PO (17:51)
[2023-07-13] MEDS: methylPREDNISolone 125 MG/2 ML VIAL 60 MG IV ×2 (17:51→23:46)
[2023-07-13] MEDS: NICOTINE 7 MG PATCH TOP (17:52)
[2023-07-13] MEDS: BUDESONIDE 0.5 MG/2 ML NEB INH (19:43)
[2023-07-13] MEDS: OXYCODONE IR 5 MG TABLET PO ×2 (19:59→23:51)
[2023-07-13] MEDS: OXYBUTYNIN 5 MG TABLET PO (20:29)
[2023-07-13] MEDS: PRAZOSIN 1 MG CAPSULE PO (20:29)
[2023-07-13] MEDS: MONTELUKAST 10 MG TABLET PO (20:29)
[2023-07-13] MEDS: DONEPEZIL 5 MG TABLET 10 MG PO (20:30)
[2023-07-13] MEDS: TRAZODONE 50 MG TABLET 100 MG PO (20:30)
[2023-07-13] MEDS: ATORVASTATIN 20 MG TABLET 40 MG PO (20:30)
[2023-07-13] MEDS: METOPROLOL IR 50 MG TABLET 75 MG PO (20:30)
[2023-07-13] MEDS: ALBUTEROL 2.5 MG/3 ML NEB (ADULT) INH (20:40)
[2023-07-13 21:21] LABS: Alanine Aminotransferase 15 IU/L (<35); Albumin 3.5 g/dL (3.5-5.0); Albumin Globulin Ratio 1.1 (1.0-2.8); Alkaline Phosphatase 103 U/L (38-126); Aspartate Aminotransferase 21 IU/L (14-36); BUN Creatinine Ratio 29.6 (6-22); Bilirubin Total 0.6 mg/dL (0.2-1.3); Blood Urea Nitrogen 21 mg/dL (7-17); Calcium 9.1 mg/dL (8.4-10.2); Carbon Dioxide 31 mmol/L (22-32); Chloride 91 mmol/L (98-107); Estimated Glomerular Filt Rate > 60 mL/min (>60); Globulin 3.3 g/dL (1.7-4.1); Glucose 226 mg/dL (80-110); HEMOLYSIS 16 (0-50); Potassium 4.2 mmol/L (3.4-5.1); Sodium 128 mmol/L (137-145); Total Protein 6.8 g/dL (6.3-8.2)
[2023-07-13 21:33] LABS: Troponin I < 0.012 ng/mL (0.01-0.034)
[2023-07-13] MEDS: SODIUM CHLORIDE 0.9% FLUSH 10 ML IV (23:47)
[2023-07-14] VITALS (14 sets, daily range): BP systolic 117–153; BP diastolic 62–83; PULSE 71–95; RESP 16–18; TEMP 35.8–36.6; O2SAT 90–95
[2023-07-14 05:58] LABS: Add Manual Diff / Slide Review NO; Basophils Absolute Auto 0 /uL (0-100); Basophils Percent Auto 0.3 % (0-2); Eosinophils Absolute Auto 0 /uL (0-450); Eosinophils Percent Auto 0.1 % (2-4); Hematocrit 38.5 % (36-46); Hemoglobin 12.6 g/dL (12.0-16.0); Lymphocytes Absolute Auto 300 /uL (1100-4500); Lymphocytes Percent Auto 3.5 % (25-40); Mean Corpuscular HGB Conc 32.7 % (30-36); Mean Corpuscular Hemoglobin 29.4 PG (26-34); Mean Corpuscular Volume 89.8 fL (80-100); Monocytes Absolute Auto 100 /uL (0-900); Monocytes Percent Auto 1.1 % (3-14); Neutrophils Absolute Auto 8200 /uL (1500-7000); Platelet Count 267 X10^3/uL (150-400); Red Blood Cell Count 4.29 X10^6/uL (4.0-5.2); Red Cell Distribution Width 14.2 % (11.6-14.8); White Blood Cell Count 8.6 X10^3/uL (4.5-11.0)
[2023-07-14] MEDS: ALBUTEROL/IPRATROPIUM 3 ML AMPUL INH ×5 (05:59→22:38)
[2023-07-14] MEDS: methylPREDNISolone 125 MG/2 ML VIAL 60 MG IV ×3 (06:06→17:58)
[2023-07-14] MEDS: OXYCODONE IR 5 MG TABLET PO ×5 (06:07→23:37)
[2023-07-14] MEDS: SODIUM CHLORIDE 0.9% FLUSH 10 ML IV ×3 (06:08→20:29)
[2023-07-14 06:18] LABS: BUN Creatinine Ratio 31.4 (6-22); Blood Urea Nitrogen 22 mg/dL (7-17); Calcium 9.2 mg/dL (8.4-10.2); Carbon Dioxide 37 mmol/L (22-32); Chloride 91 mmol/L (98-107); Estimated Glomerular Filt Rate > 60 mL/min (>60); Glucose 237 mg/dL (80-110); HEMOLYSIS < 15 (0-50); Potassium 4.6 mmol/L (3.4-5.1); Sodium 128 mmol/L (137-145)
--- NOTE | 2023-07-14 07:35 | PM.PN.1 ---
Subjective Subjective Interval history: She is improving, she feels about 50% better with regard to her breathing. She has an intermittent dry cough. Exam Vital Signs (past 8 hours): - 07/14/23 01:01 07/14/23 05:59 07/14/23 06:00 Temperature 96.7 F L 96.6 F L Pulse Rate 84 85 82 Respiratory Rate 18 17 Blood Pressure 117/70 Pulse Oximetry 95 92 95 Oxygen Delivery Method Nasal Cannula Humidification Oxygen Flow Rate 3 3 3 Fraction of Inspired Oxygen 32 Fraction of Inspired Oxygen 32 SaO2/FiO2 Ratio 287 Oxygen Delivery Method Nasal Cannula,Humidification Oxygen Flow Rate 3 Narrative Exam Narrative: NAD, fluent speech. On oxygen at 3 L. SpO2 95% EOMI, anicteric sclera. Lungs with 2/4 breath sounds, decreased wheezing and prolongation of expiratory phase. Heart is regular and without murmur. Abdomen is soft, non distended. Extremities are free of edema, good radial pulse. Objective Labs 07/14/23 05:42 07/14/23 05:42 Labs: Laboratory Results - last 24 hr 07/13/23 07/13/23 07/13/23 10:19 10:37 20:59 WBC 11.4 H RBC 4.30 Hgb 12.5 Hct 38.5 MCV 89.6 MCH 29.0 MCHC 32.4 RDW 14.4 Plt Count 285 Neut % (Auto) 80.7 H Lymph % (Auto) 6.1 L Wayne % (Auto) 10.3 Eos % (Auto) 2.5 Baso % (Auto) 0.4 Neut # (Auto) 9200 H Lymph # (Auto) 700 L Wayne # (Auto) 1200 H Eos # (Auto) 300 Baso # (Auto) 100 Sodium 128 L Potassium 4.2 Chloride 91 L Carbon Dioxide 31 BUN 21 H Creatinine 0.71 Estimated GFR > 60 BUN/Creatinine Ratio 29.6 H Glucose 226 H Calcium 9.1 Total Bilirubin 0.6 AST 21 ALT 15 Alkaline Phosphatase 103 Troponin I < 0.012 Total Protein 6.8 Albumin 3.5 Globulin 3.3 Albumin/Globulin Ratio 1.1 SARS-CoV-2 (PCR) Negative Influenza A (RT-PCR) Flu a negative Influenza B (RT-PCR) Flu b negative RSV (PCR) Negative 07/14/23 05:42 WBC 8.6 RBC 4.29 Hgb 12.6 Hct 38.5 MCV 89.8 MCH 29.4 MCHC 32.7 RDW 14.2 Plt Count 267 Neut % (Auto) 95.0 H Lymph % (Auto) 3.5 L Wayne % (Auto) 1.1 L Eos % (Auto) 0.1 L Baso % (Auto) 0.3 Neut # (Auto) 8200 H Lymph # (Auto) 300 L Wayne # (Auto) 100 Eos # (Auto) 0 Baso # (Auto) 0 Sodium 128 L Potassium 4.6 Chloride 91 L Carbon Dioxide 37 H BUN 22 H Creatinine 0.70 Estimated GFR > 60 BUN/Creatinine Ratio 31.4 H Glucose 237 H Calcium 9.2 Total Bilirubin AST ALT Alkaline Phosphatase Troponin I Total Protein Albumin Globulin Albumin/Globulin Ratio SARS-CoV-2 (PCR) Influenza A (RT-PCR) Influenza B (RT-PCR) RSV (PCR) [facility] Medical History Marijuana smoker Easy bruisability Arthritis Emphysema lung TBI (traumatic brain injury) (~2004) Hepatitis C Chronic low back pain Hypoxia Anxiety Pneumonia (~07/2017) Dental abscess Hyperlipidemia HTN (hypertension) Substance abuse ETOH abuse Hyponatremia Depression Frequent UTI Urinary retention COPD (chronic obstructive pulmonary disease) Asthma Diabetes Surgical History History of lumbar spinal fusion (07/17/21) History of lumbar spinal fusion (11/17/17) Hx of fusion of cervical spine (02/14/19) History of mandibular surgery History of surgery Hx of tonsillectomy History of cataract extraction with lens replacement H/O cosmetic surgery (~2013) Hx of removal of cyst Hx of appendectomy Status post surgical manipulation of ankle joint Social History household members: significant other Smoking Status: Current some day smoker alcohol intake: current Assessment & Plan Assessment & Plan narrative: 1. COPD exacerbation, present on admission and active. This is improving, she is still requiring oxygen and has restricted airways. 2. Acute hypoxemic respiratory failure, present on admission and active. 3. CAP, present on admission and active. She is on antibiotics for community-acquired pneumonia. 4. Nicotine dependence, present on admission and active. 5. Possible diabetes, present on admission and active. 6. Euvolemic hyponatremia, present on admission and active. Plan: -IV corticosteroids. Solu-Medrol 60 q.6. -bronchodilators, specifically DuoNebs Q 6 hours. -doxycycline 100 mg p.o. b.i.d. we will continue. -Nicoderm patch, 7 mg. -follow electrolytes and glucose. A1c. -one dose of Lasix 20 IV. -we will add urine electrolytes given her hyponatremia. She is full resuscitation, at admission. Anticipate discharge on July 15 to home with no needs.. Time Spent With Patient Time with patient: 30 to 49 minutes with 50% spent counseling/coordinating care Quality VTE Deep Vein Thrombosis/Pulmonary Embolism Present on Admission: No
[2023-07-14] MEDS: NICOTINE 7 MG PATCH TOP (08:25)
[2023-07-14] MEDS: DULOXETINE 30 MG CAPSULE 60 MG PO (08:25)
[2023-07-14] MEDS: LOSARTAN 50 MG TABLET PO (08:25)
[2023-07-14] MEDS: DOXYCYCLINE HYCLATE 100 MG TABLET PO ×2 (08:26→20:26)
[2023-07-14] MEDS: OXYBUTYNIN 5 MG TABLET PO ×2 (08:26→20:26)
[2023-07-14] MEDS: AMLODIPINE 5 MG TABLET 10 MG PO (08:26)
[2023-07-14] MEDS: HEPARIN 5,000 UNIT/ML VIAL 5000 UNIT SUBCUT ×2 (08:26→20:24)
[2023-07-14] MEDS: METOPROLOL IR 50 MG TABLET 75 MG PO ×2 (08:26→20:24)
[2023-07-14] MEDS: TRAMADOL 50 MG TABLET PO (08:26)
[2023-07-14] MEDS: BUSPIRONE 5 MG TABLET 30 MG PO (08:31)
[2023-07-14] MEDS: BUDESONIDE 0.5 MG/2 ML NEB INH ×2 (09:04→19:24)
--- NOTE | 2023-07-14 13:21 | CM.DANOTE ---
Initial DCP Assessment Visit Reviewed EMR and team rounds for pt's medical status. Met with pt at bedside to introduce self and role. Pt found to be awake/oriented, expressing anger and frustration that her surgery was cancelled. She insists that she will not leave the hospital until she gets her surgery. It's unknown at this time when it will be rescheduled, and the focus of this admission will be IV corticosteroids, inhalers, oral doxycycline, and monitoring of her electrolytes and glucose levels. She lives in a travel trailer in [place] with her significant other. DCP will continue to follow and assist with evolving d/c needs and plan. Payor: [employer] Attending: Dr. Muller, Dr. Medellin (Hospitalist) Pt is a 68 year-old F who was brought to surgery yesterday for a planned TLIF, as mentioned above, was not able to proceed with surgery at this time. She has a hx of worsening lumbar pain for the last 3-months, which has significantly limited her function and mobility. Ortho has not yet updated the plan for rescheduling the surgery at this time. D/C is likely tomorrow, 07/15 back home. Discharge Planning/Care Management CM Discharge Assessment Start: 07/14/23 13:13 Freq: Status: Active Protocol: Document 07/14/23 13:14 DPL (Rec: 07/14/23 13:21 DPL [id number]) Discharge Planning Assessment Assigned Lawn Mower Operator VESTA Fabian Advance Directives? Yes: I have to have it finalized Advance Directives on File No History Provided By Patient,Medical Record Has Patient been admitted in last 30 No days? Prior Living Arrangements House Household Members significant other Type of transporation used prior to Drives own vehicle admit Independent with ADL's Yes Is patient alert and oriented? Yes Community Services used prior to Oxygen Therapy admission: Patient/Family Preference OP PT Therapy Comment Plan is for d/c home as of this time. Plan was cancelled for surgery due to pt being found to be hypoxemic on room sharifa with O2 sats at 70%. Chest x-ray done recently OP was consistent with pneumonia. It' s unknown at this time when her surgery will be rescheduled. Discharge Plan [facility] Facility Transportation Arrangement Pt did not want to discuss, she's insisting that she will not leave the hospital until she has her surgery. Referrals Initiated None needed Whiteboard Updated in Patient Room with Yes name and ext. # of Lawn Mower Operator Review Status In Process Please Provide Date Initial DC 07/14/23 Assessment Was Performed Pre-Anesthesia Assessment Start: 05/03/23 12:28 Freq: Status: Complete Protocol: Document 05/03/23 12:28 [facility] (Rec: 05/03/23 13:35 CAB [id number]) Pre-Anesthesia Assessment Preferred Name Santa Patient Information Reviewed Via Phone Assessment Assessment Completed With Patient Diagnostic Results BMP/CMP,CBC,EKG Comment Outside labs/EKG scanned Primary Care Provider Ivania Fall Seen Specialist in Last 12 Months Yes Specialist Seen Orthopedist,Other Comment Mental Health Primary Language [place] Islander Preferred Language [place] Islander Cd Mixer Required No Height 177.8 cm Weight 183 kg Body Mass Index (BMI) 57.9 Hearing Ability Normal Visual Assist Magnifying Glass Dentition Type Teeth, Natural Present,Teeth, Broken,Teeth, Missing Barriers to Learning None Hx Anesthesia Reactions No Hx Family Anesthesia Reaction No Hx Malignant Hyperthermia No Hx Blood Transfusions Yes Hx Blood Transfusion Reaction No Anesthesia Review Requested No Copper Tapper No alcohol intake current alcohol intake frequency a few times a month Smoking Status Current some day smoker Tobacco type cigarettes how long ago did patient quit smoking Attempting to quit, wearing nicotine patch. 40 pk-year history Substance Use Type former substance user, marijuana Comment Pt advised not to smoke marijuana 24 hours prior to surgery Pain Present Pain Reported Musculoskeletal Symptoms Back Pain History of Falling (Recent or History of Yes ) Patient is completely paralyzed or No completely immobile Mental Status Oriented to own ability Is patient on oxygen? Yes: 3-4L 02 @HS Does patient have JUNIOR/SOB No Hx Sleep Apnea No CPAP/BIPAP use not prescribed Currently Taking a Beta Josette No Can You Climb a Flight of Stairs Without Yes SOB Hx Chest Pain No Hx SOB Yes: r/t cold, asthma, copd Hx Syncope or Dizziness No Anti-Coagulant Therapy No Has a Sports Broadcasting Internship No Cardiac Testing No Hx Pacemaker/ICD No Pacemaker Rep Required? No Cardiac Clearance Received Not Applicable Diet Type At Home Regular Dysphagia No Urinary Catheter Present No Hx Urinary Self Catheterization No Diabetes Yes HgbA1C 5.4 Date 04/13/23 Patient No Lactating No Hx Drug Resistant Organism No Presence of External or Internal Medical Yes: titanium jaww, cervical/ Devices lumbar hardware Received a COVID vaccine? Yes: plus booster Marital Status Single Lives With significant other,none Current Living Arrangements RV Comment Lives in a travel trailer Support System Significant Other Comment S.O. works during the day Patient Discharge Plan Description Return Home Feels Safe in Current Environment Yes Been Physically Hurt or Threatened By a No Person in Current Environment Do you have thoughts of harming yourself None or others? Are you currently considering suicide? No Do You Have Any Spiritual Beliefs That No May Affect Your HC Choices? Do You Have Any Cultural Practices That No May Affect Your HC Choices? Comment Ashkan Who Can We Speak to About Patient's Care Family, friends Identifying Code for Release of Patient Declines to issue Information Health Care Proxy/Next of Kin Jayme Duncan (S.O) Health Care Proxy Phone Number Jayme: [phone] Emergency Contact Name Jayme Duncan (S.O) Emergency Contact Phone Number Jayme: [phone] Advance Directives? Yes: I have to have it finalized Advance Directives on File No Power of Report Checker No PAC Instructions Durable medical equipment, Medications to take/avoid, Nasal antibiotic,No ETOH/ petroleum product on skin DOS, NPO,Pre-surgical wash,Sensory aids,Sturdy shoes/comfortable clothes,Do not bring valuables and remove jewelry
[2023-07-14] MEDS: NICOTINE 14 PATCH 14 MG TOP (16:05)
[2023-07-14] MEDS: TRAZODONE 50 MG TABLET 100 MG PO (20:25)
[2023-07-14] MEDS: PRAZOSIN 1 MG CAPSULE PO (20:26)
[2023-07-14] MEDS: ACETAMINOPHEN 325 MG TABLET 650 MG PO (20:27)
[2023-07-14] MEDS: MONTELUKAST 10 MG TABLET PO (20:27)
[2023-07-14] MEDS: ATORVASTATIN 20 MG TABLET 40 MG PO (20:28)
[2023-07-14] MEDS: DONEPEZIL 5 MG TABLET 10 MG PO (20:28)
[2023-07-14] MEDS: ALBUTEROL 2.5 MG/3 ML NEB (ADULT) INH (21:48)
[2023-07-15] VITALS (11 sets, daily range): BP systolic 155–182; BP diastolic 69–129; PULSE 80–98; RESP 16–20; TEMP 36.1–36.6; O2SAT 92–98
[2023-07-15] MEDS: methylPREDNISolone 125 MG/2 ML VIAL 60 MG IV ×4 (00:34→18:25)
[2023-07-15] MEDS: ALBUTEROL 2.5 MG/3 ML NEB (ADULT) INH (03:33)
[2023-07-15] MEDS: ACETAMINOPHEN 325 MG TABLET 650 MG PO (05:52)
[2023-07-15] MEDS: OXYCODONE IR 5 MG TABLET PO (05:52)
[2023-07-15] MEDS: ALBUTEROL/IPRATROPIUM 3 ML AMPUL INH ×4 (05:57→18:41)
--- NOTE | 2023-07-15 07:12 | P.PN_ITS ---
Subjective Subjective Interval history: Exam Vital Signs (past 8 hours): - 07/14/23 23:30 07/15/23 03:33 07/15/23 03:41 Temperature 97.4 F L 97.3 F L Pulse Rate 86 88 96 H Respiratory Rate 17 18 19 Blood Pressure 153/78 H 162/69 H Pulse Oximetry 94 95 94 Oxygen Delivery Method Nasal Cannula Humidification Oxygen Flow Rate 2 2 2 Fraction of Inspired Oxygen 28 07/15/23 05:57 Temperature Pulse Rate 94 H Respiratory Rate 18 Blood Pressure Pulse Oximetry 92 Oxygen Delivery Method Nasal Cannula Humidification Oxygen Flow Rate 2 Fraction of Inspired Oxygen 28 Fraction of Inspired Oxygen 28 SaO2/FiO2 Ratio 328 Oxygen Delivery Method Nasal Cannula,Humidification Oxygen Flow Rate 2 Narrative Exam Narrative: Objective Labs 07/14/23 05:42 07/14/23 05:42 [facility] Medical History Marijuana smoker Easy bruisability Arthritis Emphysema lung TBI (traumatic brain injury) (~2004) Hepatitis C Chronic low back pain Hypoxia Anxiety Pneumonia (~07/2017) Dental abscess Hyperlipidemia HTN (hypertension) Substance abuse ETOH abuse Hyponatremia Depression Frequent UTI Urinary retention COPD (chronic obstructive pulmonary disease) Asthma Diabetes Surgical History History of lumbar spinal fusion (07/17/21) History of lumbar spinal fusion (11/17/17) Hx of fusion of cervical spine (02/14/19) History of mandibular surgery History of surgery Hx of tonsillectomy History of cataract extraction with lens replacement H/O cosmetic surgery (~2013) Hx of removal of cyst Hx of appendectomy Status post surgical manipulation of ankle joint Social History household members: significant other Smoking Status: Current some day smoker alcohol intake: current Quality VTE Deep Vein Thrombosis/Pulmonary Embolism Present on Admission: No
[2023-07-15 07:48] LABS: Add Manual Diff / Slide Review NO; Basophils Absolute Auto 0 /uL (0-100); Eosinophils Absolute Auto 0 /uL (0-450); Hematocrit 39.1 % (36-46); Hemoglobin 12.7 g/dL (12.0-16.0); Lymphocytes Absolute Auto 300 /uL (1100-4500); Lymphocytes Percent Auto 2.1 % (25-40); Mean Corpuscular HGB Conc 32.6 % (30-36); Mean Corpuscular Hemoglobin 28.9 PG (26-34); Mean Corpuscular Volume 88.8 fL (80-100); Monocytes Absolute Auto 600 /uL (0-900); Monocytes Percent Auto 3.6 % (3-14); Neutrophils Absolute Auto 15600 /uL (1500-7000); Neutrophils Percent Auto 94.3 % (50-75); Platelet Count 342 X10^3/uL (150-400); Red Cell Distribution Width 14.3 % (11.6-14.8); White Blood Cell Count 16.5 X10^3/uL (4.5-11.0)
[2023-07-15 08:00] LABS: BUN Creatinine Ratio 37.7 (6-22); Blood Urea Nitrogen 23 mg/dL (7-17); Calcium 9.5 mg/dL (8.4-10.2); Carbon Dioxide 31 mmol/L (22-32); Chloride 86 mmol/L (98-107); Estimated Glomerular Filt Rate > 60 mL/min (>60); Glucose 237 mg/dL (80-110); HEMOLYSIS < 15 (0-50); Potassium 4.6 mmol/L (3.4-5.1); Sodium 126 mmol/L (137-145)
[2023-07-15] MEDS: BUSPIRONE 5 MG TABLET 30 MG PO (09:28)
[2023-07-15] MEDS: METOPROLOL IR 50 MG TABLET 75 MG PO ×2 (09:29→20:43)
[2023-07-15] MEDS: AMLODIPINE 5 MG TABLET 10 MG PO (09:29)
[2023-07-15] MEDS: TRAMADOL 50 MG TABLET PO (09:31)
[2023-07-15] MEDS: DOXYCYCLINE HYCLATE 100 MG TABLET PO ×2 (09:31→20:44)
[2023-07-15] MEDS: OXYCODONE IR 10 MG TABLET PO ×4 (09:31→21:48)
[2023-07-15] MEDS: DULOXETINE 30 MG CAPSULE 60 MG PO (09:32)
[2023-07-15] MEDS: LOSARTAN 50 MG TABLET PO (09:32)
[2023-07-15] MEDS: OXYBUTYNIN 5 MG TABLET PO ×2 (09:32→20:43)
[2023-07-15] MEDS: SODIUM CHLORIDE 0.9% FLUSH 10 ML IV (09:32)
[2023-07-15] MEDS: HEPARIN 5,000 UNIT/ML VIAL 5000 UNIT SUBCUT ×2 (09:32→20:43)
[2023-07-15] MEDS: BUDESONIDE 0.5 MG/2 ML NEB INH ×2 (09:58→18:42)
--- NOTE | 2023-07-15 09:58 | P.PN_ITS ---
Subjective Subjective Interval history: Sanat is a 68 year old female who presented to hospital on 07/13 for spine surgery but was admitted to hospital instead due to a CAP. Patient reports she is feeling slightly more SOB than yesterday. Currently on 2L Oxygen and using a Nuoneb 8x a day. No significant change in her spine symptoms since being admitted to the hospital. She reports she would still like to move forward the spine surgery as soon as possible/once she is done being treated for the pneumonia. Denies chest pain, fever, chills, nausea, vomiting. + SOB. Exam Vital Signs (past 8 hours): - 07/15/23 03:33 07/15/23 03:41 07/15/23 05:57 Temperature 97.3 F L Pulse Rate 88 96 H 94 H Respiratory Rate 18 19 18 Blood Pressure 162/69 H Pulse Oximetry 95 94 92 Oxygen Delivery Method Nasal Cannula Humidification Nasal Cannula Humidification Oxygen Flow Rate 2 2 2 Fraction of Inspired Oxygen 28 28 07/15/23 08:00 07/15/23 09:32 Temperature 97.8 F Pulse Rate 96 H 94 H Respiratory Rate 16 Blood Pressure 159/129 H 156/88 H Pulse Oximetry 93 Oxygen Delivery Method Oxygen Flow Rate 2 Fraction of Inspired Oxygen Fraction of Inspired Oxygen 28 SaO2/FiO2 Ratio 328 Oxygen Delivery Method Nasal Cannula,Humidification Oxygen Flow Rate 2 Narrative Exam Narrative: lying in bed comfortably with nasal cannula in place Const General: cooperative and comfortable Resp Effort & Inspection: able to speak in complete sentences Cardio Rate: regular rate Skin General: no rashes or lesions noted Neuro General: patient alert, patient awake and patient oriented x3 Other: Sensation intact to bilateral lower extremities. 5/5 strength with DF, PF, EHL. Calves soft and non-tender bilaterally. Psych Mental Status: mental status grossly normal Objective Labs 07/15/23 07:25 07/15/23 07:25 Labs: Laboratory Results - last 24 hr 07/15/23 07:25 WBC 16.5 H D RBC 4.40 Hgb 12.7 Hct 39.1 MCV 88.8 MCH 28.9 MCHC 32.6 RDW 14.3 Plt Count 342 Neut % (Auto) 94.3 H Lymph % (Auto) 2.1 L Mckean % (Auto) 3.6 Eos % (Auto) 0.0 L Baso % (Auto) 0.0 Neut # (Auto) 49474 H Lymph # (Auto) 300 L Mckean # (Auto) 600 Eos # (Auto) 0 Baso # (Auto) 0 Sodium 126 L Potassium 4.6 Chloride 86 L Carbon Dioxide 31 BUN 23 H Creatinine 0.61 Estimated GFR > 60 BUN/Creatinine Ratio 37.7 H Glucose 237 H Calcium 9.5 PFSH Medical History Marijuana smoker Easy bruisability Arthritis Emphysema lung TBI (traumatic brain injury) (~2004) Hepatitis C Chronic low back pain Hypoxia Anxiety Pneumonia (~07/2017) Dental abscess Hyperlipidemia HTN (hypertension) Substance abuse ETOH abuse Hyponatremia Depression Frequent UTI Urinary retention COPD (chronic obstructive pulmonary disease) Asthma Diabetes Surgical History History of lumbar spinal fusion (07/17/21) History of lumbar spinal fusion (11/17/17) Hx of fusion of cervical spine (02/14/19) History of mandibular surgery History of surgery Hx of tonsillectomy History of cataract extraction with lens replacement H/O cosmetic surgery (~2013) Hx of removal of cyst Hx of appendectomy Status post surgical manipulation of ankle joint Social History household members: significant other Smoking Status: Current some day smoker alcohol intake: current Assessment & Plan Assessment and plan (1) H/O spinal fusion: Status: Acute (2) Lumbar spondylosis: Status: Acute (3) Spinal stenosis, lumbosacral region: Status: Acute Assessment & Plan narrative: 1. COPD exacerbation, present on admission and active. This is improving, she is still requiring oxygen and has restricted airways. 2. CAP, present on admission and active. She is on antibiotics for community- acquired pneumonia. 3. Lumbar spondylosis and spinal stenosis of lumosacral region Plan: CAP and COPD managed per medicine. (DuoNebs and doxycycline 100 mg p.o. b.i.d.) Will d/c at medicine discretion. Will consult with Dr. Muller/surgery to scheduling to discuss when spine surgery can be r/s to. Quality VTE Deep Vein Thrombosis/Pulmonary Embolism Present on Admission: No
[2023-07-15 10:14] LABS: Hemoglobin A1C% w Est Avg Glu 5.4 % (4.0-6.0)
[2023-07-15] MEDS: polyethylene glycoL 3350 17 GM POWD.PACK PO ×2 (11:31→20:42)
[2023-07-15 11:45] LABS: Appearance Urine UA CLEAR; Bilirubin Urine UA NEGATIVE (NEGATIVE); Color Urine UA YELLOW; Glucose Urine UA 1+ g/dL (Negative); Ketones Urine UA NEGATIVE (NEGATIVE); Leukocyte Esterase Urine UA NEGATIVE (NEGATIVE); Nitrite Urine UA NEGATIVE (Negative); Occult Blood Urine UA TRACE-INTACT (Negative); Protein Urine UA 3+ (Negative); Specific Gravity Urine UA 1.015 (1.000-1.035); Urine Volume 10mL (spun); Urobilinogen Urine UA 0.2 E.U./dL (0.2)
[2023-07-15 11:48] LABS: Bacteria Urine None Seen; Culture Indicated Urine Cult Not Indicated; RBC Urine 0-1/HPF (0-5/HPF); Squamous Epithelial Cell Urine None Seen (0-5/HPF); WBC Urine None Seen (0-5/HPF)
--- NOTE | 2023-07-15 12:46 | PM.PN.1 ---
Subjective Subjective Interval history: Exam Vital Signs (past 8 hours): - 07/15/23 05:57 07/15/23 08:00 07/15/23 08:25 Temperature 97.8 F Pulse Rate 94 H 96 H Respiratory Rate 18 16 Blood Pressure 159/129 H Pulse Oximetry 92 93 Oxygen Delivery Method Nasal Cannula Humidification Nasal Cannula Oxygen Flow Rate 2 2 Fraction of Inspired Oxygen 28 07/15/23 09:32 07/15/23 09:58 07/15/23 10:07 Temperature Pulse Rate 94 H 92 H 96 H Respiratory Rate 20 20 Blood Pressure 156/88 H Pulse Oximetry 93 Oxygen Delivery Method Nasal Cannula Nasal Cannula Oxygen Flow Rate 2 2 Fraction of Inspired Oxygen Fraction of Inspired Oxygen 28 SaO2/FiO2 Ratio 328 Oxygen Delivery Method Nasal Cannula Oxygen Flow Rate 2 Narrative Exam Narrative: Objective Labs 07/15/23 07:25 07/15/23 07:25 Labs: Laboratory Results - last 24 hr 07/15/23 07/15/23 07:25 11:39 WBC 16.5 H D RBC 4.40 Hgb 12.7 Hct 39.1 MCV 88.8 MCH 28.9 MCHC 32.6 RDW 14.3 Plt Count 342 Neut % (Auto) 94.3 H Lymph % (Auto) 2.1 L [place] % (Auto) 3.6 Eos % (Auto) 0.0 L Baso % (Auto) 0.0 Neut # (Auto) 70084 H Lymph # (Auto) 300 L [place] # (Auto) 600 Eos # (Auto) 0 Baso # (Auto) 0 Sodium 126 L Potassium 4.6 Chloride 86 L Carbon Dioxide 31 BUN 23 H Creatinine 0.61 Estimated GFR > 60 BUN/Creatinine Ratio 37.7 H Glucose 237 H Hemoglobin A1c 5.4 Calcium 9.5 Urine Color Yellow Urine Appearance Clear Urine pH 6.0 Ur Specific [place] 1.015 Urine Protein 3+ H Urine Glucose (UA) 1+ H Urine Ketones Negative Urine Occult Blood Trace-intact Urine Nitrate Negative Urine Bilirubin Negative Urine Urobilinogen 0.2 Ur Leukocyte Esterase Negative Urine RBC 0-1/hpf Urine WBC None seen Ur Squamous Epith Cells None seen Urine Bacteria None seen Ur Culture Indicated? Cult not indicated Vol Urine Centrifuged 10ml (spun) PFSH Medical History Marijuana smoker Easy bruisability Arthritis Emphysema lung TBI (traumatic brain injury) (~2004) Hepatitis C Chronic low back pain Hypoxia Anxiety Pneumonia (~07/2017) Dental abscess Hyperlipidemia HTN (hypertension) Substance abuse ETOH abuse Hyponatremia Depression Frequent UTI Urinary retention COPD (chronic obstructive pulmonary disease) Asthma Diabetes Surgical History History of lumbar spinal fusion (07/17/21) History of lumbar spinal fusion (11/17/17) Hx of fusion of cervical spine (02/14/19) History of mandibular surgery History of surgery Hx of tonsillectomy History of cataract extraction with lens replacement H/O cosmetic surgery (~2013) Hx of removal of cyst Hx of appendectomy Status post surgical manipulation of ankle joint Social History household members: significant other Smoking Status: Current some day smoker alcohol intake: current Assessment & Plan Assessment & Plan narrative: 1. COPD exacerbation, present on admission and active. This is improving, she is still requiring oxygen and has restricted airways. Desats to mid 80s AM 07/15. 2. Acute hypoxemic respiratory failure, present on admission and active. 3. CAP, present on admission and active. She is on antibiotics for community-acquired pneumonia. 4. Nicotine dependence, present on admission and active. 5. Possible diabetes, present on admission and active. 6. Euvolemic hyponatremia, present on admission and active. Plan: -Continue IV corticosteroids. Solu-Medrol 60 q.6. -Continue bronchodilators, specifically DuoNebs Q 6 hours. -doxycycline 100 mg p.o. b.i.d. we will continue. -Nicoderm patch, 7 mg. -follow electrolytes and glucose. A1c ordered. -one dose of Lasix 20 IV at admission. DISPO: -Likely home in 1-2 days pending her improvement of hypoxia. -We will continue antibiotics for 3-5 days. -We will remind her that rescheduled neurosurgery will get the judgment of her surgeon. Time Spent With Patient Time with patient: 30 to 49 minutes with 50% spent counseling/coordinating care Quality VTE Deep Vein Thrombosis/Pulmonary Embolism Present on Admission: No
[2023-07-15] MEDS: FUROSEMIDE 40 MG/4 ML VIAL IV (13:52)
--- NOTE | 2023-07-15 15:01 | CM.DPNOTE ---
Addendum entered by VESTA Valencia 07/15/23 17:01: Per Brenda at [facility], Unfortunately, we cannot accept this referral due to previous issues with the client due to patient smoking in the home while wearing oxygen; propane stove left on, and propane heater with loose connections, while smoking in the home and she was not willing to correct these concerns while care team was in the home; patient d/c from services for this reason Per SENIOR BIOSTATISTICIAN, pt walked around hospital floor with oxygen. Per RN/SENIOR BIOSTATISTICIAN/additional staff, patient has been agitated, rude, and aggressive throughout the day. ? SL Original Note: DCP Note MOTOR HOTEL MANAGER reviewed EMR. Per provider, likely dc tomorrow due to pt remaining SOB/on 2 ltrs of O2. MOTOR HOTEL MANAGER entered room and introduced self and role. Pt resting in bed. Pt reports memory issues due to a TBI. Pt reports being angry and irritable because her surgery was canceled. Pt stated repeatedly multiple different versions of I'm not leaving this hospital until I have my surgery. I'm not giving up. I have good insurance. I'm staying here until it's done....I don't mean to be a bitch but I'm not leaving you can't make me. Pt confirms living in [place] with significant other (Ciro Duncan p [phone]). Pt reports Hx of [facility]. Pt persevered with frustrations about the food/nursing care/not getting sleep. Pt reports she cannot walk at home and is unable to ambulate at all. Moments later, Pt requested this MOTOR HOTEL MANAGER get SENIOR BIOSTATISTICIAN to walk her around the halls because she needs exercise. When questioned about the discrepancy in not ambulating at home vs walking the halls here, pt became agitated and changed the subject and refused to elaborate further on her reported ambulation abilities with this MOTOR HOTEL MANAGER. Pt reports having two caregivers in the home 5days per week along with spouse support. Pt does not remember name of CG agency. Claims it is not [facility] but I've had [facility] before. Pt did not report on DME available at home. Pt asked this MOTOR HOTEL MANAGER not to call her Sig other for DCP needs, he knows nothing. MOTOR HOTEL MANAGER attempted to increase pt understanding of what her insurance will and will not cover, pt did not want to hear it. I don't want to hear it. I have good insurance they're going to cover my stay until I have my surgery. Pt frustrated due to it being postponed three times now for various reasons. MOTOR HOTEL MANAGER attempted to come up with a backup plan in event surgery cannot be done this admission due to pt not being medically stable, pt did not want to participate in that conversation. Agreeable to letting this MOTOR HOTEL MANAGER place a HH referral. Pt insistent she is getting her surgery and then going to a SNF. MOTOR HOTEL MANAGER attempted to review barriers to SNF placement with insurance ([employer] and Medicaid), pt uninterested in obtaining this information from this author at this time. Per chart review, MOTOR HOTEL MANAGER Ana reviewed the barriers of SNF placement with pt's insurance in Dec with ortho navigator. No PT/OT orders at this time. Unclear if pt would be considered home bound. MOTOR HOTEL MANAGER spoke with Brenda at [facility]. Agreed to review, no red flags why they couldn't accept back from last admission. MOTOR HOTEL MANAGER emailed facesheet, H&P, and PNs for review. r/o need for HH RN/PT/OT closer to dc. Acceptance pending. Plan: home when medically stable. R/o need for HH. CM team will confirm transport when dc timeline clearer. CM team will continue to follow closely. VESTA Valencia
[2023-07-15] MEDS: NICOTINE 14 PATCH 14 MG TOP (16:05)
[2023-07-15] MEDS: diazePAM 2 MG TABLET PO ×2 (16:34→20:47)
[2023-07-15] MEDS: ATORVASTATIN 20 MG TABLET 40 MG PO (20:43)
[2023-07-15] MEDS: PRAZOSIN 1 MG CAPSULE PO (20:44)
[2023-07-15] MEDS: MONTELUKAST 10 MG TABLET PO (20:44)
[2023-07-15] MEDS: DONEPEZIL 5 MG TABLET 10 MG PO (20:44)
[2023-07-15] MEDS: MELATONIN 3 MG TABLET 9 MG PO (20:51)
[2023-07-15] MEDS: TRAZODONE 50 MG TABLET 100 MG PO (20:51)
[2023-07-16] VITALS (7 sets, daily range): BP systolic 155–170; BP diastolic 84–95; PULSE 78–107; RESP 17–20; TEMP 36.2–36.7; O2SAT 92–97
[2023-07-16] MEDS: diazePAM 2 MG TABLET PO ×4 (05:52→19:39)
--- NOTE | 2023-07-16 05:58 | PC.NURSE ---
operations supervisor 2nd shift Patient woke up, confused from a nap, patient was disoriented, but was able to reorient very quickly AOx4. RN placed NC with 2 liters back on patient, and O2% went from 80% up to 93% within 2 minutes. Patient requested a Valium for anxiety and RN administered. Pt returned back to bed and requested to go to sleep.
[2023-07-16] MEDS: OXYCODONE IR 10 MG TABLET PO ×4 (06:35→19:39)
[2023-07-16] MEDS: ALBUTEROL/IPRATROPIUM 3 ML AMPUL INH ×3 (07:56→17:01)
[2023-07-16] MEDS: BUDESONIDE 0.5 MG/2 ML NEB INH ×2 (07:56→19:57)
[2023-07-16 08:28] LABS: Add Manual Diff / Slide Review NO; Basophils Absolute Auto 0 /uL (0-100); Eosinophils Absolute Auto 0 /uL (0-450); Hematocrit 38.1 % (36-46); Hemoglobin 12.7 g/dL (12.0-16.0); Lymphocytes Absolute Auto 500 /uL (1100-4500); Lymphocytes Percent Auto 3.5 % (25-40); Mean Corpuscular HGB Conc 33.3 % (30-36); Mean Corpuscular Hemoglobin 29.1 PG (26-34); Mean Corpuscular Volume 87.4 fL (80-100); Monocytes Absolute Auto 1200 /uL (0-900); Monocytes Percent Auto 8.6 % (3-14); Neutrophils Absolute Auto 12600 /uL (1500-7000); Neutrophils Percent Auto 87.9 % (50-75); Platelet Count 301 X10^3/uL (150-400); Red Blood Cell Count 4.36 X10^6/uL (4.0-5.2); White Blood Cell Count 14.3 X10^3/uL (4.5-11.0)
[2023-07-16 08:31] LABS: BUN Creatinine Ratio 33.8 (6-22); Blood Urea Nitrogen 22 mg/dL (7-17); Calcium 9.7 mg/dL (8.4-10.2); Carbon Dioxide 36 mmol/L (22-32); Chloride 85 mmol/L (98-107); Estimated Glomerular Filt Rate > 60 mL/min (>60); Glucose 168 mg/dL (80-110); HEMOLYSIS < 15 (0-50); Potassium 4.5 mmol/L (3.4-5.1); Sodium 126 mmol/L (137-145)
[2023-07-16] MEDS: LOSARTAN 50 MG TABLET PO (09:39)
[2023-07-16] MEDS: DULOXETINE 30 MG CAPSULE 60 MG PO (09:41)
[2023-07-16] MEDS: TRAMADOL 50 MG TABLET PO (09:41)
[2023-07-16] MEDS: OXYBUTYNIN 5 MG TABLET PO ×2 (09:41→20:10)
[2023-07-16] MEDS: DOXYCYCLINE HYCLATE 100 MG TABLET PO ×2 (09:41→20:11)
[2023-07-16] MEDS: METOPROLOL IR 50 MG TABLET 75 MG PO ×2 (09:41→20:10)
[2023-07-16] MEDS: AMLODIPINE 5 MG TABLET 10 MG PO (09:41)
[2023-07-16] MEDS: HEPARIN 5,000 UNIT/ML VIAL 5000 UNIT SUBCUT ×2 (09:42→20:10)
[2023-07-16] MEDS: BUSPIRONE 5 MG TABLET 30 MG PO (09:42)
[2023-07-16] MEDS: SODIUM CHLORIDE 0.9% FLUSH 10 ML IV ×2 (09:43→20:16)
[2023-07-16] MEDS: polyethylene glycoL 3350 17 GM POWD.PACK PO ×2 (09:43→20:10)
[2023-07-16] MEDS: LACTULOSE 20 GM/30 ML SOLUTION PO (09:44)
[2023-07-16] MEDS: SODIUM CHLORIDE 0.9% 500 ML IV (09:57)
[2023-07-16] MEDS: POLYVINYL ALCOHOL DROPS 1 DROPS EYE-BOTH (11:04)
--- NOTE | 2023-07-16 12:23 | PM.PN.1 ---
Subjective Subjective Interval history: Santa is a 68 year old female who presented to hospital on 07/13 for spine surgery but was admitted to hospital instead due to a CAP. Patient reports she is feeling better than yesterday overall but still having some shortness of breath. Currently on 2L Oxygen and using a Nuoneb 8x a day. No significant change in her spine symptoms since being admitted to the hospital. She reports she would still like to move forward the spine surgery as soon as possible/once she is done being treated for the pneumonia. She complains of being in pain and is upset that her spinal surgery has been delayed. Requesting pain medication, states she was on Tramadol prior to being admitted to hospital but feels it is not working for her. Admits to a history of illicit drug use when she was young. Denies chest pain, fever, chills, nausea, vomiting. + SOB. Exam Vital Signs (past 8 hours): - 07/16/23 06:32 07/16/23 07:56 07/16/23 08:00 Temperature 97.1 F L 97.9 F Pulse Rate 83 88 96 H Respiratory Rate 17 20 18 Blood Pressure 155/95 H 156/93 H Pulse Oximetry 97 95 93 Oxygen Delivery Method Nasal Cannula Oxygen Flow Rate 0 2 3 07/16/23 08:05 07/16/23 10:17 Temperature Pulse Rate Respiratory Rate Blood Pressure Pulse Oximetry Oxygen Delivery Method Room Air Oxygen Flow Rate 2 Fraction of Inspired Oxygen 28 SaO2/FiO2 Ratio 328 Oxygen Delivery Method Room Air Oxygen Flow Rate 2 Narrative Exam Narrative: lying in bed comfortably, eating. Const General: comfortable Resp Effort & Inspection: able to speak in complete sentences Cardio Rate: regular rate Skin General: no rashes or lesions noted Neuro General: patient alert, patient awake and patient oriented x3 Other: Sensation intact to bilateral lower extremities. 5/5 strength with DF, PF, EHL. Calves soft and non-tender bilaterally. Psych Mental Status: mental status grossly normal Objective Labs 07/16/23 07:15 07/16/23 07:15 Labs: Laboratory Results - last 24 hr 07/16/23 07:15 WBC 14.3 H RBC 4.36 Hgb 12.7 Hct 38.1 MCV 87.4 MCH 29.1 MCHC 33.3 RDW 14.0 Plt Count 301 Neut % (Auto) 87.9 H Lymph % (Auto) 3.5 L [place] % (Auto) 8.6 Eos % (Auto) 0.0 L Baso % (Auto) 0.0 Neut # (Auto) 33141 H Lymph # (Auto) 500 L [place] # (Auto) 1200 H Eos # (Auto) 0 Baso # (Auto) 0 Sodium 126 L Potassium 4.5 Chloride 85 L Carbon Dioxide 36 H BUN 22 H Creatinine 0.65 Estimated GFR > 60 BUN/Creatinine Ratio 33.8 H Glucose 168 H Calcium 9.7 PFSH Medical History Marijuana smoker Easy bruisability Arthritis Emphysema lung TBI (traumatic brain injury) (~2004) Hepatitis C Chronic low back pain Hypoxia Anxiety Pneumonia (~07/2017) Dental abscess Hyperlipidemia HTN (hypertension) Substance abuse ETOH abuse Hyponatremia Depression Frequent UTI Urinary retention COPD (chronic obstructive pulmonary disease) Asthma Diabetes Surgical History History of lumbar spinal fusion (07/17/21) History of lumbar spinal fusion (11/17/17) Hx of fusion of cervical spine (02/14/19) History of mandibular surgery History of surgery Hx of tonsillectomy History of cataract extraction with lens replacement H/O cosmetic surgery (~2013) Hx of removal of cyst Hx of appendectomy Status post surgical manipulation of ankle joint Social History household members: significant other Smoking Status: Current some day smoker alcohol intake: current Assessment & Plan Assessment and plan (1) H/O spinal fusion: Status: Acute (2) Lumbar spondylosis: Status: Acute (3) Spinal stenosis, lumbosacral region: Status: Acute Assessment & Plan narrative: 1. COPD exacerbation, present on admission and active. This is improving, she is still requiring oxygen and has restricted airways. 2. CAP, present on admission and active. She is on antibiotics for community-acquired pneumonia. 3. Lumbar spondylosis and spinal stenosis of lumosacral region Plan: CAP and COPD managed per medicine. (DuoNebs and doxycycline 100 mg p.o. b.i.d.) Will d/c at medicine discretion. Will consult with Dr. Muller/surgery to scheduling to discuss when spine surgery can be r/s to. I reminded patient that I will not Rx narcotic pain medication PRIOR to surgery. Quality VTE Deep Vein Thrombosis/Pulmonary Embolism Present on Admission: No
[2023-07-16 13:18] LABS: Sodium 126 mmol/L (137-145)
[2023-07-16] MEDS: SODIUM CHLORIDE 1,000 MG TABLET 1000 MG PO ×2 (15:23→17:22)
[2023-07-16] MEDS: NICOTINE 14 PATCH 14 MG TOP (15:31)
--- NOTE | 2023-07-16 16:52 | PM.PN.1 ---
Subjective Subjective Interval history: Patient still on 2L NC. Says her breathing improving some but still wheezing. Na down to 126. Exam Vital Signs (past 8 hours): - 07/14/23 01:01 07/14/23 05:59 07/14/23 06:00 Temperature 96.7 F L 96.6 F L Pulse Rate 84 85 82 Respiratory Rate 18 17 Blood Pressure 117/70 Pulse Oximetry 95 92 95 Oxygen Delivery Method Nasal Cannula Humidification Oxygen Flow Rate 3 3 3 Fraction of Inspired Oxygen 32 Fraction of Inspired Oxygen 32 SaO2/FiO2 Ratio 287 Oxygen Delivery Method Nasal Cannula,Humidification Oxygen Flow Rate 3 Narrative Exam Narrative: NAD, fluent speech. On oxygen at 2L. SpO2 95% EOMI, anicteric sclera. Lungs with 2/4 breath sounds, decreased wheezing and prolongation of expiratory phase. Accessory muscle use. Heart is regular and without murmur. Abdomen is soft, non distended. Extremities are free of edema, good radial pulse. Objective Labs 07/16/23 07:15 07/16/23 13:02 Labs: Laboratory Results - last 24 hr 07/16/23 07/16/23 07:15 13:02 WBC 14.3 H RBC 4.36 Hgb 12.7 Hct 38.1 MCV 87.4 MCH 29.1 MCHC 33.3 RDW 14.0 Plt Count 301 Neut % (Auto) 87.9 H Lymph % (Auto) 3.5 L [place] % (Auto) 8.6 Eos % (Auto) 0.0 L Baso % (Auto) 0.0 Neut # (Auto) 62686 H Lymph # (Auto) 500 L [place] # (Auto) 1200 H Eos # (Auto) 0 Baso # (Auto) 0 Sodium 126 L 126 L Potassium 4.5 Chloride 85 L Carbon Dioxide 36 H BUN 22 H Creatinine 0.65 Estimated GFR > 60 BUN/Creatinine Ratio 33.8 H Glucose 168 H Calcium 9.7 PFSH Medical History Marijuana smoker Easy bruisability Arthritis Emphysema lung TBI (traumatic brain injury) (~2004) Hepatitis C Chronic low back pain Hypoxia Anxiety Pneumonia (~07/2017) Dental abscess Hyperlipidemia HTN (hypertension) Substance abuse ETOH abuse Hyponatremia Depression Frequent UTI Urinary retention COPD (chronic obstructive pulmonary disease) Asthma Diabetes Surgical History History of lumbar spinal fusion (07/17/21) History of lumbar spinal fusion (11/17/17) Hx of fusion of cervical spine (02/14/19) History of mandibular surgery History of surgery Hx of tonsillectomy History of cataract extraction with lens replacement H/O cosmetic surgery (~2013) Hx of removal of cyst Hx of appendectomy Status post surgical manipulation of ankle joint Social History household members: significant other Smoking Status: Current some day smoker alcohol intake: current Assessment & Plan Assessment & Plan narrative: 1. COPD exacerbation, present on admission and active. This is improving, she is still requiring oxygen and has restricted airways. Desats to mid 80s AM 07/15. 2. Acute hypoxemic respiratory failure, present on admission and active. 3. CAP, present on admission and active. She is on antibiotics for community-acquired pneumonia. 4. Nicotine dependence, present on admission and active. 5. Possible diabetes, present on admission and active. 6. Euvolemic hyponatremia, present on admission and active. Plan: -Continue IV corticosteroids. Solu-Medrol 60 q.6. -Continue bronchodilators, specifically DuoNebs Q 6 hours. -doxycycline 100 mg p.o. b.i.d. we will continue. -Nicoderm patch, 7 mg. -follow electrolytes and glucose. A1c ordered. -start salt tabs TIDWM due to Na 126 DISPO: -Likely home in 1-2 days pending her improvement of hypoxia. -We will continue antibiotics for 3-5 days. -We will remind her that rescheduled neurosurgery will get the judgment of her surgeon. Time Spent With Patient Time with patient: 30 to 49 minutes with 50% spent counseling/coordinating care Quality VTE Deep Vein Thrombosis/Pulmonary Embolism Present on Admission: No
[2023-07-16] MEDS: ALBUTEROL 2.5 MG/3 ML NEB (ADULT) INH (19:58)
[2023-07-16] MEDS: DONEPEZIL 5 MG TABLET 10 MG PO (20:10)
[2023-07-16] MEDS: PRAZOSIN 1 MG CAPSULE PO (20:11)
[2023-07-16] MEDS: ATORVASTATIN 20 MG TABLET 40 MG PO (20:11)
[2023-07-16] MEDS: TRAZODONE 50 MG TABLET 100 MG PO (20:11)
[2023-07-16] MEDS: MONTELUKAST 10 MG TABLET PO (20:11)
[2023-07-16] MEDS: MELATONIN 3 MG TABLET 9 MG PO (20:12)
--- NOTE | 2023-07-16 22:33 | PC.NURSE ---
shift lab technician Respiratory therapy notified RN of patient having own medication ( rescue inhaler) at bedside. RN explained to patient that she would not be able to self medicate and still receive her breathing treatments. Pt verbalized understanding and did one last self treatment and then surrendered her personal medications. RN educated Patient that the next breathing PRN would be 0030. Patient verbalized understanding and stated, dont wake me if am asleep.
[2023-07-17] VITALS: BP 161/82; PULSE 66; RESP 17; TEMP 36.1; O2SAT 95
[2023-07-17] MEDS: OXYCODONE IR 10 MG TABLET PO ×2 (00:03→10:36)
[2023-07-17] MEDS: diazePAM 2 MG TABLET PO (00:04)
--- NOTE | 2023-07-17 05:49 | PC.NURSE ---
shift stacker Patient stated at start of shift. I only got 2 hours of sleep in last 48 hours, So don't wake me up for any medications, I will tell you when i wake up what i want.
[2023-07-17 08:00] VITALS: BP 152/94; PULSE 84; RESP 16; TEMP 36.2; O2SAT 91
[2023-07-17] MEDS: ALBUTEROL/IPRATROPIUM 3 ML AMPUL INH (10:01)
[2023-07-17] MEDS: BUDESONIDE 0.5 MG/2 ML NEB INH (10:01)
[2023-07-17 10:04] VITALS: O2SAT 94
[2023-07-17 10:07] LABS: Add Manual Diff / Slide Review NO; Basophils Absolute Auto 0 /uL (0-100); Basophils Percent Auto 0.3 % (0-2); Eosinophils Absolute Auto 0 /uL (0-450); Hematocrit 44.9 % (36-46); Hemoglobin 14.8 g/dL (12.0-16.0); Lymphocytes Absolute Auto 1100 /uL (1100-4500); Lymphocytes Percent Auto 8.7 % (25-40); Mean Corpuscular HGB Conc 32.9 % (30-36); Mean Corpuscular Hemoglobin 29.1 PG (26-34); Mean Corpuscular Volume 88.4 fL (80-100); Monocytes Absolute Auto 1700 /uL (0-900); Monocytes Percent Auto 13.6 % (3-14); Neutrophils Absolute Auto 9800 /uL (1500-7000); Neutrophils Percent Auto 77.4 % (50-75); Platelet Count 379 X10^3/uL (150-400); Red Blood Cell Count 5.08 X10^6/uL (4.0-5.2); Red Cell Distribution Width 14.2 % (11.6-14.8); White Blood Cell Count 12.7 X10^3/uL (4.5-11.0)
[2023-07-17 10:30] LABS: BUN Creatinine Ratio 36.4 (6-22); Blood Urea Nitrogen 24 mg/dL (7-17); Calcium 9.9 mg/dL (8.4-10.2); Carbon Dioxide 39 mmol/L (22-32); Chloride 86 mmol/L (98-107); Estimated Glomerular Filt Rate > 60 mL/min (>60); Glucose 147 mg/dL (80-110); HEMOLYSIS 25 (0-50); Potassium 4.4 mmol/L (3.4-5.1); Sodium 131 mmol/L (137-145)
[2023-07-17] MEDS: HEPARIN 5,000 UNIT/ML VIAL 5000 UNIT SUBCUT (10:33)
[2023-07-17] MEDS: polyethylene glycoL 3350 17 GM POWD.PACK PO (10:34)
[2023-07-17] MEDS: BUSPIRONE 5 MG TABLET 30 MG PO (10:35)
[2023-07-17] MEDS: AMLODIPINE 5 MG TABLET 10 MG PO (10:35)
[2023-07-17] MEDS: TRAMADOL 50 MG TABLET PO (10:35)
[2023-07-17 10:36] VITALS: BP 152/94; PULSE 84
[2023-07-17] MEDS: OXYBUTYNIN 5 MG TABLET PO (10:36)
[2023-07-17] MEDS: SODIUM CHLORIDE 1,000 MG TABLET 1000 MG PO (10:36)
[2023-07-17] MEDS: LOSARTAN 50 MG TABLET PO (10:36)
[2023-07-17] MEDS: DOXYCYCLINE HYCLATE 100 MG TABLET PO (10:36)
[2023-07-17] MEDS: DULOXETINE 30 MG CAPSULE 60 MG PO (10:36)
[2023-07-17] MEDS: METOPROLOL IR 50 MG TABLET 75 MG PO (10:37)
--- NOTE | 2023-07-17 10:39 | CM.DPC ---
DCP Cont. Reviewed EMR and team rounds for status updates. INSTALLATION DRAFTER provided pt with the IMM for d/c home today. Plan is to d/c after the Hospitalist reviews her labs later this morning. When asked about who will transport her home, she became agitated and simply said she was working on it. No further DCP needs identified at this time.
[2023-07-17] MEDS: SODIUM CHLORIDE 0.9% FLUSH 10 ML IV (10:40)
--- NOTE | 2023-07-17 11:41 | P.DS_ITS ---
History of Present Illness History of Present Illness Chief complaint: TLIF Narrative: The patient is a 68-year-old female with history of COPD and tobacco dependence who presented to surgery for an outpatient lower back procedure today. In the preoperative area she was found to be hypoxemic on room air with saturations of 70%. She was then discussed with the hospitalist on-call and directly admitted to the 2nd floor for further evaluation. She notes being somewhat short of breath for 2-3 days. No clear-cut cold symptoms including rhinorrhea, or cough. She has had some dyspnea on exertion. No chest pain at rest or with exertion. She denies any orthopnea or pedal edema. She has had 1 exacerbation in the past which responded to steroids. A chest x-ray is obtained in the outpatient area which is consistent with possible atypical pneumonia. She denies any palpitations, nausea, vomiting, or abdominal pain. She continues to smoke about 4-5 cigarettes a day and is currently working on a nicotine patch regimen and she is taking 7 mg transderm daily. A mini 4 respiratory PCR is negative. Discharge Providers Provider Date of admission: 07/13/23 11:09 Discharge Date: 07/17/23 Primary care physician: LISBET Barragan Consults: 07/13/23 14:30 Consult to Cardio/Pulmonary Rehabilitation Routine Comment: Physician Instructions: Evaluate and treat Discharge provider: Shen Irvin DO Summary Hospital Course Discharge Diagnosis: 1. COPD exacerbation, present on admission and active. This is improving, still on 2L NC and she has home O2 to continue. 2. Acute on chronic hypoxemic respiratory failure, present on admission and active. 3. CAP, present on admission and active. She is on antibiotics for community- acquired pneumonia. 4. Nicotine dependence, present on admission and active. 5. Possible diabetes, present on admission and active. 6. Euvolemic hyponatremia, present on admission and active. Hospital Course: Presented for her back surgery for spinal stenosis and found to be SOB, so admitted for acute on chronic hypoxic resp failure from COPD exacerbation. Given steroids, nebs, IV abx and she improved. She will continue 2L NC at home as she already has home O2. She is rescheduling her back surgery for a few weeks. Discharged on a few more days of po doxy and prednisone. Exam Vital Signs (past 8 hours): - 07/17/23 08:00 07/17/23 10:04 07/17/23 10:36 Temperature 97.1 F L Pulse Rate 84 84 Respiratory Rate 16 Blood Pressure 152/94 H 152/94 H Pulse Oximetry 91 94 Oxygen Delivery Method Nasal Cannula Oxygen Flow Rate 2 Fraction of Inspired Oxygen 28 SaO2/FiO2 Ratio 328 Oxygen Delivery Method Nasal Cannula Oxygen Flow Rate 2 Narrative Exam Narrative: NAD, fluent speech. On oxygen at 2L. SpO2 95% EOMI, anicteric sclera. Lungs with 2/4 breath sounds, decreased wheezing and prolongation of expiratory phase. Accessory muscle use. Heart is regular and without murmur. Abdomen is soft, non distended. Extremities are free of edema, good radial pulse. Objective Labs 07/17/23 09:55 07/17/23 09:55 Labs: Laboratory Results - last 24 hr 07/16/23 07/17/23 13:02 09:55 WBC 12.7 H RBC 5.08 Hgb 14.8 Hct 44.9 MCV 88.4 MCH 29.1 MCHC 32.9 RDW 14.2 Plt Count 379 Neut % (Auto) 77.4 H Lymph % (Auto) 8.7 L Atkinson % (Auto) 13.6 Eos % (Auto) 0.0 L Baso % (Auto) 0.3 Neut # (Auto) 9800 H Lymph # (Auto) 1100 Atkinson # (Auto) 1700 H Eos # (Auto) 0 Baso # (Auto) 0 Sodium 126 L 131 L Potassium 4.4 Chloride 86 L Carbon Dioxide 39 H BUN 24 H Creatinine 0.66 Estimated GFR > 60 BUN/Creatinine Ratio 36.4 H Glucose 147 H Calcium 9.9 PFSH Medical History Marijuana smoker Easy bruisability Arthritis Emphysema lung TBI (traumatic brain injury) (~2004) Hepatitis C Chronic low back pain Hypoxia Anxiety Pneumonia (~07/2017) Dental abscess Hyperlipidemia HTN (hypertension) Substance abuse ETOH abuse Hyponatremia Depression Frequent UTI Urinary retention COPD (chronic obstructive pulmonary disease) Asthma Diabetes Surgical History History of lumbar spinal fusion (07/17/21) History of lumbar spinal fusion (11/17/17) Hx of fusion of cervical spine (02/14/19) History of mandibular surgery History of surgery Hx of tonsillectomy History of cataract extraction with lens replacement H/O cosmetic surgery (~2013) Hx of removal of cyst Hx of appendectomy Status post surgical manipulation of ankle joint Social History household members: significant other Smoking Status: Current some day smoker alcohol intake: current Discharge Plan Discharge Plan Patient Disposition: Home Health Service Discharge orders & Medications Prescriptions: New doxycycline hyclate 100 mg Tablet 100 mg PO BID 1 Days Qty: 2 0RF Rx Instructions: start evening of 07/17. Take with a full glass of water and stay upright for 1hr after. prednisone 20 mg tablet 40 mg PO DAILY 2 Days Qty: 4 0RF Rx Instructions: start on 07/18 oxycodone 10 mg tablet 10 mg PO Q4H PRN (Reason: pain) Qty: 20 0RF diazepam [Valium] 2 mg tablet 2 mg PO TID PRN (Reason: anxiety) Qty: 20 0RF Continued cyclobenzaprine 10 mg Tablet 10 mg PO DAILY Patient Comments: Takes at 5:30pm trazodone 50 mg Tablet 100 mg PO BEDTIME montelukast 10 mg Tablet 10 mg PO BEDTIME buspirone 15 mg Tablet 30 mg PO DAILY Combivent Respimat 20-100 mcg/actuation Mist 1 puff INHALATION Q6H PRN (Reason: asthma) atorvastatin 40 mg Tablet 40 mg PO BEDTIME albuterol sulfate 2.5 mg /3 mL (0.083 %) Solution For Nebulization 2.5 mg INHALATION QID PRN (Reason: Shortness Of Breath) metoprolol tartrate 50 mg Tablet 75 mg PO BID hydrocortisone 10 mg Tablet 10 mg PO DAILY losartan 50 mg Tablet 50 mg PO DAILY prazosin 1 mg Capsule 1 mg PO BEDTIME torsemide 10 mg Tablet 10 mg PO BID fluticasone propion-salmeterol [Advair Diskus] 500-50 mcg/dose Blister With Device 1 inh INHALATION BID omeprazole 20 mg Tablet,Delayed Release (Dr/Ec) 20 mg PO DAILY Incruse Ellipta 62.5 mcg/actuation Blister With Device 1 inh INHALATION DAILY Combivent Respimat 20-100 mcg/actuation Mist 1 puff INHALATION QID Rx Instructions: space evenly during waking hours melatonin 10 mg Tablet 10 mg PO BEDTIME PRN (Reason: Insomnia) magnesium 500 mg Tablet 500 mg PO BEDTIME clotrimazole 1 % Cream 1 applic TOPICAL BID nicotine 7 mg/24 hr Patch 24 Hour 1 patch topical DAILY albuterol sulfate 90 mcg/actuation Hfa Aerosol Inhaler 2 puff INHALATION Q4-6H PRN (Reason: Asthma) Qty: 8.5 0RF amlodipine 10 mg tablet 10 mg PO DAILY Patient Comments: take 1 tablet by mouth once daily donepezil 5 mg tablet 10 mg PO BEDTIME Patient Comments: take 1 tablet by mouth nightly ketoconazole 2 % cream 1 applic TOPICAL DAILY PRN (Reason: Rash) Patient Comments: Apply topically daily apply topically to affected area twice a day for 2 weeks to GROIN RASH Rx Instructions: uses after each shower. oxybutynin chloride 5 mg tablet 5 mg PO BID Patient Comments: take 1 tablet by mouth twice a day hydroxyzine HCl 10 mg tablet 10 mg PO BEDTIME PRN (Reason: Anxiety) Patient Comments: Take 1 tablet (10 mg total) by mouth nightly as needed for Anxiety duloxetine 60 mg capsule,delayed release(DR/EC) 60 mg PO DAILY Patient Comments: take 1 capsule by mouth every morning Discontinued tramadol 50 mg Tablet 50 mg PO DAILY Follow up/Referrals: Ivania Flal FNP-C [Primary Care Provider] - 2 Weeks Visit Report/Discharge Packet Stand Alone Forms: Patient Portal/API, Stroke Signs & Symptoms Discharge Data Primary Care Provider: Ivania Fall Quality VTE Deep Vein Thrombosis/Pulmonary Embolism Present on Admission: No
--- NOTE | 2023-07-17 12:34 | PC.NURSE ---
Day shift: JOSE Ann went over discharge information with patient. Patient stated understanding. All questions answered. Pt's inhalers returned to her from pharmacy. All belongings with patient. JOSE Ann escorted patient downstairs via wheelchair where her caregiver is picking her up. PIV d/c'ed prior to discharge.
== END 2023-07-17 12:20 | disposition home or self-care (01) | DRG 189 ==
LOC: OR 15:26 → AC 15:29
PROVIDERS: Nurse Anesthetist, Certified Registered; Student in an Organized Health Care Education/Training Program; Admitting Provider Hospitalist; PCP Nurse Practitioner; Referring Provider Orthopaedic Surgery Orthopaedic Surgery of the Spine; Visit Provider Hospitalist
DX: J96.21 Acute and chronic respiratory failure with hypoxia (principal); J18.9 Pneumonia, unspecified organism; J44.1 Chronic obstructive pulmonary disease with (acute) exacerbation; E87.1 Hypo-osmolality and hyponatremia; F17.210 Nicotine dependence, cigarettes, uncomplicated; M47.816 Spondylosis without myelopathy or radiculopathy, lumbar region; M48.07 Spinal stenosis, lumbosacral region; E11.9 Type 2 diabetes mellitus without complications; I10 Essential (primary) hypertension; E78.5 Hyperlipidemia, unspecified; F32.A Depression, unspecified; F41.9 Anxiety disorder, unspecified; Z98.1 Arthrodesis status; Z53.8 Procedure and treatment not carried out for other reasons
CPT/HCPCS: 0241U; 36415; 71045; 80048; 80053; 81001; 83036; 84295; 84484; 85025; 94640; 94760; 94762; 99406; J0330; J1100; J1644; J1940; J2250; J2405; J2704; J2919; J2930; J3010; J7613

== ENCOUNTER 2023-09-26 11:27 | Day surgery (SDC) | payer MEDICARE, MEDICAID, SELFPAY ==
[2023-07-13 18:34] VITALS: BMI 26.1
[2023-09-19 15:06] VITALS: BMI 24.5
[2023-09-26] VITALS (18 sets, daily range): BP systolic 115–147; BP diastolic 57–80; PULSE 68–87; RESP 11–91; TEMP 36.2–36.9; O2SAT 11–96; BMI 25.7
--- NOTE | 2023-09-26 12:35 | PM.PREOP ---
Pre-operative Note Interval Note History & Physical reviewed/Exam performed by Physician: Yes Changes to H&P: No
[2023-09-26] MEDS: ALBUTEROL 2.5 MG/3 ML NEB (ADULT) INH (12:45)
[2023-09-26] MEDS: LACTATED RINGERS 1,000 ML 42 ML IV ×2 (12:47→13:53)
[2023-09-26] MEDS: CEFAZOLIN 2 GM/100 ML PREMIX 100 ML IV ×2 (13:25→21:51)
[2023-09-26] MEDS: BUPIVACAINE 0.25% (PF) 60 ML, EPINEPHrine 0.15 MG INJ (13:54)
[2023-09-26] MEDS: BUPIVACAINE LIPOSOME 266 MG/20 ML VIAL INJ (16:07)
--- NOTE | 2023-09-26 16:13 | DI.RAD.S_ITS ---
PROCEDURE: XR LUMBAR SPINE 2-3V INDICATIONS: L5-S1 TLIF TECHNIQUE: 2 views of the lumbar spine were acquired. COMPARISON: [facility], CT, CT CHEST ABDOMEN PELVIS WITHOUT CONTRAST, 06/17/2023, 20:11. [facility], CR, XR LUMBAR SPINE 2-3V, 07/17/2021, 11:04. [facility], CR, XR LUMBAR SPINE 2-3V, 11/17/2017, 8:35. FINDINGS: New S1 pedicle screws. Prior lumbar spine fixation. Intervertebral body spacers. IMPRESSION: Intraoperative guidance provided. Dictated by: Segundo Bolanos M.D. on 09/26/2023 at 16:21 Approved by: Segundo Bolanos M.D. on 09/26/2023 at 16:25
--- NOTE | 2023-09-26 16:13 | PM.OP.1 ---
Operative Date/Time/Diagnoses Date of procedure: 09/26/23 Time of procedure: 13:00 Pre-op diagnosis: 1. L5-S1 anterolisthesis 2. History of L2-5 PSF with instrumentation 3. L5-S1 bilateral foramen stenosis Post-op diagnosis: same Procedure & Clinicians Procedure: 1. L5-S1 posterolateral and posterior interbody fusion 2. L5-S1 decompression laminectomies and facetcomies 3. L5-S1 posterior interbody cage placement 4. L4-5 revision laminectomy with exploration of fusion 5. L5-S1 posterior segmental instrumentation with pedicle screw placement 6. L4-5 posterolatearl fusion 7. [place] of bone marrow from iliac crest through a separate incision 8. Utilization of microsurgical technique and operating microscope Same procedure as scheduled: Yes Indications: Patient has been having chronic back pain and worsening lumbar radiculopathy. Patient had previous L2-5 posterior spinal fusion with instrumentation was doing well until recently. Patient was found to have L5-S1 anterolisthesis with bilateral severe foraminal stenosis correlating with her symptoms. Patient failed multiple conservative management with worsening pain weakness and numbness in her lower extremity. Patient has been having difficulty performing activity of daily living. After discussing risks benefits of treatment options, patient elected proceed with surgery. Surgeon: Almas Muller Cardiothoracic Anesthesia Technician: Marissa Santoro Click Yes if Unassisted: No Anesthesia Type: General Operative Notes Closure Type: primary Specimen(s): none sent Prosthetic devices, grafts, tissues, transplants, or devices: Globus revolve screws, Globus add-on system Globus Sable cage Applied: catheter Estimated Blood Loss (mL): 100 Blood products transfused: none Procedure in detail: Patient was seen in the preoperative area. Risks and benefits of the surgery was discussed with the patient. Informed consent was obtained from the patient and placed in the chart. Surgical site was marked. Patient was taken to the operative room. General anesthesia was administered. Prophylactic antibiotic was given to the patient less than 30 min before the incision was made. Patient was placed into a prone position on the Govind table. Patient's back was then prepped and draped in the sterile fashion. Time-out was performed at this time. Using patient's previous scar incision was made over the L4-5 interval on the left side. Fascia was incised in line with skin incision. Patient's previously placed hardware over the L4-5 level was identified by dissecting down to the level the hardware using a Bovie and a Camp. The L4-5 Tulip and rods was exposed and freed up of any scar tissue and calcified fusion mass in order to attach extension of posterior hardware. The Globus and MARS retractors was then placed into the wound and docked onto the L5 lamina using C-arm guidance. Using microsurgical technique and operating microscope a laminectomy facetectomy was performed by removing the L5 lamina and the L5-S1 facet. The laminectomy and facetectomy was performed in order to decompress patient's cauda equina as well as the nerve roots exiting at the L5-S1 level. The disc space at L5-S1 level was identified next. And a total diskectomy was performed at L5-S1 level. The endplates were decorticated using a rasp and shaver. The total diskectomy and decortication was performed at L5-S1 level in order to to accomplish a L5-S1 fusion. The local bone from the laminectomy and facetectomy was saved for local bone grafting. After the total diskectomy and decortication was completed, Globus Viacel bone graft material was combined with local bone that was harvested earlier. At this time, a separate skin is incision was made over the iliac crest. A Jamshidi needle was inserted into the iliac crest through a separate skin incision. 5 cc of bone marrow aspiration was obtained through the separate skin incision using a Jamshidi needle from the iliac crest. The bone marrow aspiration was combined with local bone and the Viacel bone grafting material. The bone grafting material was placed into the L5-S1 interbody space along with a expandable cage. The cage was expanded to its maximum height using the torque limiting screwdriver. The cage was backfilled using bone grafting material along with the integrated back filling bone grafting system. At this time a mirror image incision was made on the right side. The fascia was incised in line with the skin incision. Patient's previously placed hardware on the right side was then exposed in the same fashion as it was on the left side. The hardware was also found to have good purchase. The fusion mass on the right side was exposed by performing a right-sided hemilaminectomy at L4-5 level. The hemilaminectomy was performed using the Kerrison rongeur to undercut the lamina as well removing additional epidural scar tissue for purpose of decompressing the epidural space. The fusion mass was explored and was found have visible motion indicating pseudoarthrosis at L4-5 level. Globus MARS retractor was inserted and docked onto the L4-5, L5-S1 posterolateral gutter. Using the power drill, posterior-lateral decortication was performed at L4-5, L5-S1 level until bleeding cortical bone was identified. The remaining bone grafting material was placed into the L4-5, L5-S1 posterior lateral gutter he order to accomplish posterolateral fusion at the L4-5, L5-S1 level. Using the double C-arm technique, pedicle screws were placed into the S1 pedicles on the right side. This was done by placing the Jamshidi needle into the pedicles, then placing the guidewires over the Jamshidi needle, and finally placing the cannulated screws over the guidewires on the right side. A S1 pedicle screw was placed into the left side using the same technique over time she and guidewire. The globus expansion system was used to attach the S1 pedicle screw to the juan between L5-S1 pedicle on both sides. After all locking bolt was tightened down using torque limiting drivers, locking juan was then placed into the tulips and locked into place used torque limiting screwdriver. After the pedicle screws were placed, 2 titanium rods was locked into the heads of the pedicle screws using locking caps and torque limiting screwdriver. All hardware was found to have good purchase. After all the hardware was placed, and confirmed with AP and lateral C-arm imaging, the wound was then irrigated with sterile normal saline and packed with Ray-Magalis gauze for 3 min to accomplish hemostasis. After the gauze was removed the deep fascia was closed with #1 Vicryl suture. The subcutaneous layer was closed with 2-0 Vicryl. The skin was closed with skin lenora. Patient tolerated the procedure well. There were no complications. Neuro monitoring was used throughout the entire case. The Operation could not have been safely performed without compromising the technical result or length of the procedure, without the assistance of a skilled surgical forceps fabricator. The surgical forceps fabricator was medically necessary for proper positioning, retraction and manipulation of instruments, proper exposure, surgical preparation, and manipulation of tissue. Complications: none Post-operative Condition: stable Disposition: PACU Plan for aftercare: Admit to inpatient hospital
[2023-09-26] MEDS: ALBUTEROL/IPRATROPIUM 3 ML AMPUL INH (16:41)
[2023-09-26] MEDS: HYDROMORPHONE 1 MG INJ IV ×4 (16:44→17:12)
[2023-09-26] MEDS: LORazepam 2 MG/ML INJ 0.25 MG IV (16:50)
[2023-09-26] MEDS: ACETAMINOPHEN IV 1,000 MG/100 ML VIAL 400 MG IV (16:57)
[2023-09-26] MEDS: hydrOXYzine 50 MG/ML INJ 25 MG IM (17:09)
[2023-09-26] MEDS: OXYCODONE IR 5 MG TABLET PO ×2 (17:12→17:38)
--- NOTE | 2023-09-26 17:54 | SUR.PHASEI ---
Pt transfered to room 212 in bed by Nadine Alarcon RN on 4L NC. Pt with 2 belongings bag and 1 personal bag. Dressing CDI. O2 sat 94% on 4L.
[2023-09-26] MEDS: LACTATED RINGERS 1,000 ML 125 ML IV (18:39)
[2023-09-26] MEDS: NICOTINE 7 MG PATCH TOP (21:36)
[2023-09-26] MEDS: DOCUSATE 100 MG CAPSULE PO (21:38)
[2023-09-26] MEDS: OXYBUTYNIN 5 MG TABLET PO (21:39)
[2023-09-26] MEDS: MONTELUKAST 10 MG TABLET PO (21:39)
[2023-09-26] MEDS: diazePAM 2 MG TABLET PO (21:39)
[2023-09-26] MEDS: TRAZODONE 50 MG TABLET 100 MG PO (21:39)
[2023-09-26] MEDS: PRAZOSIN 1 MG CAPSULE PO (21:39)
[2023-09-26] MEDS: DONEPEZIL 5 MG TABLET 10 MG PO (21:39)
[2023-09-26] MEDS: METOPROLOL IR 25 MG TABLET 75 MG PO (21:41)
[2023-09-26] MEDS: MAGNESIUM OXIDE 400 MG TABLET PO (21:41)
[2023-09-26] MEDS: ATORVASTATIN 20 MG TABLET 40 MG PO (21:41)
[2023-09-26] MEDS: OXYCODONE IR 10 MG TABLET PO (21:59)
[2023-09-26] MEDS: IPRATROPIUM 0.5 MG/2.5 ML NEB INH (22:26)
[2023-09-26] MEDS: SENNOSIDES 8.6 MG TABLET 17.2 MG PO (22:30)
[2023-09-27] VITALS (7 sets, daily range): BP systolic 121–151; BP diastolic 61–73; PULSE 63–80; RESP 15–20; TEMP 36–36.8; O2SAT 93–97
[2023-09-27] MEDS: HYDROMORPHONE 0.5 MG INJ IV ×3 (00:22→19:40)
[2023-09-27] MEDS: OXYCODONE IR 10 MG TABLET PO ×5 (02:37→15:35)
[2023-09-27] MEDS: LACTATED RINGERS 1,000 ML 125 ML IV (02:55)
--- NOTE | 2023-09-27 03:09 | PC.NURSE ---
pt is awake c/o pain 10\10, requesting po and IV pain medication. Pt awake and seating on the side of the bed, behavior indicates pain relief.
[2023-09-27] MEDS: hydrOXYzine HCL 25 MG TABLET 12.5 MG PO (04:16)
[2023-09-27] MEDS: CEFAZOLIN 2 GM/100 ML PREMIX 100 ML IV (04:32)
[2023-09-27 05:18] LABS: Hematocrit 32.3 % (36-46); Hemoglobin 10.9 g/dL (12.0-16.0)
[2023-09-27] MEDS: PANTOPRAZOLE DR 20 MG TABLET PO (06:12)
--- NOTE | 2023-09-27 07:44 | PM.PNPO.1 ---
Subjective Subjective Date Patient Seen: 09/27/23 Time Patient Seen: 07:44 Interval history: Patient's pain has been moderate to severe. Denies fever chills. No nausea or vomiting. Patient has not yet been out of bed after surgery. Exam Vital Signs (past 8 hours): - 09/27/23 00:30 09/27/23 05:49 Temperature 97.8 F 97.5 F L Pulse Rate 80 71 Respiratory Rate 18 18 Blood Pressure 137/73 151/70 H Pulse Oximetry 95 96 Oxygen Flow Rate 3 3 Oxygen Delivery Method Room Air Oxygen Flow Rate 3 Narrative Exam Narrative: 68-year-old female resting comfortably in bed in no apparent distress. Motor functions intact bilateral lower extremities. Sensation grossly intact to light touch bilateral lower extremity. Const General: cooperative and comfortable Nutritional Appearance: average body habitus Orientation: alert Resp Effort & Inspection: normal respiratory effort and able to speak in complete sentences Objective Labs 09/27/23 04:50 Labs: Laboratory Results - last 24 hr 09/27/23 04:50 Hgb 10.9 L Hct 32.3 L PFSH Medical History Marijuana smoker Easy bruisability Arthritis Emphysema lung TBI (traumatic brain injury) (~2004) Hepatitis C Chronic low back pain Hypoxia Anxiety Pneumonia (~07/2017) Dental abscess Hyperlipidemia HTN (hypertension) Substance abuse ETOH abuse Hyponatremia Depression Frequent UTI Urinary retention COPD (chronic obstructive pulmonary disease) Asthma Diabetes Surgical History History of lumbar spinal fusion (07/17/21) History of lumbar spinal fusion (11/17/17) Hx of fusion of cervical spine (02/14/19) History of mandibular surgery History of surgery Hx of tonsillectomy History of cataract extraction with lens replacement H/O cosmetic surgery (~2013) Hx of removal of cyst Hx of appendectomy Status post surgical manipulation of ankle joint Social History household members: significant other Smoking Status: Current some day smoker alcohol intake: current Assessment & Plan Post-op Postoperative Procedures: Procedures Operation Date: 09/26/23 13:15 Actual Procedure Side Surgeon p L5-S1 TLIF, extension of fusion to L2-5, L4-5 repeat laminectomy, PSF L4-5 Almas Muller MD Postoperative day: 1 Postoperative status: doing well and marginal pain control Postoperative status narrative: Patient progressing as expected Postoperative plan narrative: Mobilize with physical therapy, limit bending, twisting, lifting Multimodal pain management Disposition and possibly home today or tomorrow Quality VTE Deep Vein Thrombosis/Pulmonary Embolism Present on Admission: No
[2023-09-27] MEDS: BUDESONIDE 0.5 MG/2 ML NEB INH ×2 (08:15→20:36)
[2023-09-27] MEDS: ACETAMINOPHEN 325 MG TABLET 650 MG PO ×2 (09:11→15:35)
[2023-09-27] MEDS: BUSPIRONE 5 MG TABLET 30 MG PO (09:12)
[2023-09-27] MEDS: LOSARTAN 50 MG TABLET PO (09:12)
[2023-09-27] MEDS: METOPROLOL IR 25 MG TABLET 75 MG PO ×2 (09:12→20:36)
[2023-09-27] MEDS: OXYBUTYNIN 5 MG TABLET PO ×2 (09:12→20:34)
[2023-09-27] MEDS: TORSEMIDE 10 MG TABLET PO (09:12)
[2023-09-27] MEDS: lisinopriL 5 MG TABLET PO (09:12)
[2023-09-27] MEDS: AMLODIPINE 5 MG TABLET 10 MG PO (09:13)
[2023-09-27] MEDS: diazePAM 2 MG TABLET PO ×2 (09:13→20:36)
[2023-09-27] MEDS: DOCUSATE 100 MG CAPSULE PO ×2 (09:14→20:35)
[2023-09-27] MEDS: CYCLOBENZAPRINE 10 MG TABLET PO (09:14)
--- NOTE | 2023-09-27 09:45 | PT.IIE ---
Current Diagnoses Other spondylosis with radiculopathy, lumbar region (09/26/23) Spinal stenosis, lumbosacral region (09/26/23) Arthrodesis status (09/26/23) Surgery Performed Operation Date: 09/26/23 13:15 Actual Procedures p L5-S1 TLIF, extension of fusion to L2-5, L4-5 repeat laminectomy, PSF L4-5 - Almas Muller MD Surgical History (Last Reviewed 07/15/23 @ 12:48 by Zheng Medellin MD) H/O cosmetic surgery (~2013) History of cataract extraction with lens replacement History of lumbar spinal fusion (11/17/17) History of lumbar spinal fusion (07/17/21) History of mandibular surgery History of surgery Hx of appendectomy Hx of fusion of cervical spine (02/14/19) Hx of removal of cyst Hx of tonsillectomy Status post surgical manipulation of ankle joint Medical History (Last Reviewed 07/15/23 @ 12:48 by Zheng Medellin MD) Anxiety Arthritis Asthma Chronic low back pain COPD (chronic obstructive pulmonary disease) Dental abscess Depression Diabetes Easy bruisability Emphysema lung ETOH abuse Frequent UTI Hepatitis C HTN (hypertension) Hyperlipidemia Hyponatremia Hypoxia Marijuana smoker Pneumonia (~07/2017) Substance abuse TBI (traumatic brain injury) (~2004) Urinary retention Physical Therapy Inpatient Evaluation/Re-Eval M1 PT/OT-IP Prior Functional Status Start: 09/27/23 11:18 Freq: NEEDED Status: Active Protocol: Document 09/27/23 09:45 AB (Rec: 09/27/23 11:31 AB [id number]) Medical Review Prior Functional Status Medical History Reviewed Yes Communication able to make needs known; easily distracted and has memory issues Mobility and Gait pt stated that she was modified independent with all mobilities and ambulation without AD but tends to furniture cruise; stated that FWW will not fit inside their trailer house Social History Household Members significant other Living Arrangements RV Number of Floors (Floors) One Floor Number of Stairs To Enter/Railing? ramp to enter Home Environment Standard Height Toilet,Walk in Shower,Ramp Home Equipment Hand Held Shower Additional Social History Comment pt's significant other works and will not be able to assist pt at home; pt has a caregiver Nola; pt stated that caregiver hours varies but has 98 hours /month alloted time pt has home O2 at 3L/min M2 PT-IP Current Condition Start: 09/27/23 11:18 Freq: NEEDED Status: Active Protocol: Document 09/27/23 09:45 AB (Rec: 09/27/23 11:31 AB [id number]) Physical Therapy Current Condition Current Condition Evaluation Date 09/27/23 Treatment Diagnosis s/p L5S1 TLIF; difficulty in walking Onset Date 09/26/23 M3 PT-IP Subjective Start: 09/27/23 11:18 Freq: NEEDED Status: Active Protocol: Document 09/27/23 09:45 AB (Rec: 09/27/23 11:31 AB [id number]) Subjective Physical Therapy Visit Type Type Initial Evaluation Visit Start Time 09:45 Visit Stop Time 10:35 Number of CHILDREN TEACHER Visits 0 Physical Therapy Visit Comments Patient Comments agreed to do PT Therapy Pain Assessment Pain When Pain Assessed At Rest Pain Present Pain Present Pain Reported Location back Scale Used pain scale not stated Pain Management Techniques Distraction,Modification of Treatment,Re-positioning, Timing of Activity with Medications M4 PT-IP Mobility and Gait Start: 09/27/23 11:18 Freq: NEEDED Status: Active Protocol: Document 09/27/23 09:45 AB (Rec: 09/27/23 11:31 AB [id number]) PT-Bed Mobility Assessment Rolling Type of Rolling Log Rolling Level of Assist Maximal Assistance Supine to Sit Supine to Sit Maximum Assistance PT-Transfer Assessment Sit to and From Stand Sit to and from Stand Moderate Assistance,1 Person Assistance,Use of Upper Extremities Equipment Transfer Assistive Device Gait Belt,Front Wheeled Walker Orthotic/Prosthetic Devices or Brace: No Transfers Transfer Destination Chair Transfer Technique ambulated Transfer Ability Level of Assist Moderate Assistance,1 Person Assistance,Use of Upper Extremities Comments Mobility Comments pt supine in bed and agreed to do PT. obtained PLOF and home set up from pt. pt stated that his trailer/RV is small and a FWW will not fit into the house. post-op folder provided and reviewed contents with pt. educated pt regarding back precautions and log roll bed mobility. BP in supine: 140/ 82 O2 sat with 3L/min O2: 91- 92% pt completed log roll supine to sit max A and max cues. able to sit on EOB SBA. completed sit to stand mod A and cues and ambulated in room using fWW ~ 15 ft mod A and cues. presents with unsteady antalgic gait. pt with decrease safety awareness and tends to direct her own care. pt sat on the chair informed pt regarding caregiver training and spoke with pt's caregiver. training will be conducted later today ~ 1pm. Left pt with OT. Gait Assessment Gait Gait Assistance Required: Moderate Assistance Distance (Feet) 15 Able to Maintain Weight Bearing Status Yes During Gait Assistive Devices Assistive Device Gait Belt,Front Wheeled Walker Orthotic/Prosthetic Devices or Brace: No Gait Deviations General Gait Pattern Decreased Stride Length, Decreased Feet Clearance Factors Limiting Gait Function Factors Limiting Gait Function Decreased Activity Tolerance, Decreased Strength,Difficulty Following Directions,Limited Range of Motion,Pain,Poor Balance,Poor Safety Awareness PT-Balance Assessment Sitting Balance and Reactions Static Sitting Balance Ability Good Dynamic Sitting Balance Ability Fair Standing Balance and Reactions Static Standing Balance Ability Fair Dynamic Standing Balance Ability Poor Device Used FWW M5 PT-IP Objective Assessments Start: 09/27/23 11:18 Freq: NEEDED Status: Active Protocol: Document 09/27/23 09:45 AB (Rec: 09/27/23 11:31 AB [id number]) Orientation Orientation/Cognition Level of Alertness Alert Orientation Name,Place,Situation Language Function Ability Hard of Hearing Safety Awareness Decreased Safety Awareness Memory Description Short Term Impaired,Intermediate Impaired Gross Range of Motion Lower Extremity ROM Assessment Within Functional Limits Strength Lower Extremity Strength Hip 4-/5 Knee 4-/5 Muscle Tone Muscle Tone WNL Yes M6 PT-IP Treatment Start: 09/27/23 11:18 Freq: NEEDED Status: Active Protocol: Document 09/27/23 09:45 AB (Rec: 09/27/23 11:31 AB [id number]) Physical Therapy Treatment Education Education Provided Precautions,Weight Bearing Status,Post-Op Packet,Safety M7 PT-IP Assessment and Plan Start: 09/27/23 11:18 Freq: NEEDED Status: Active Protocol: Document 09/27/23 09:45 AB (Rec: 09/27/23 11:31 AB [id number]) PT Summary Assessment and Plan Potential Rehabilitation Potential Fair Status of Condition at Evaluation Evolving Summary Impairments Pain,ROM,Strength,Balance, Coordination,Sensation,Tone, Cognition,Bed Mobility, Transfers,Gait,Activity Tolerance Assessment Summary pt is a 68y/o F s/p L5S1 TLIF POD 1. pt requring max A for log roll bed mobility and max cues needed. pt requiring mod A for transfers and ambulation using FWW. presents with unsteady gait and recommending use of FWW at this time. d/c plan depending on progress but currently, requiring 24/7 assist and may require SNF rehab. caregiver training set up this afternoon. will continue to assess. Goals Bed Mobility Goal Independent Transfer Goal Independent,Front Wheeled Walker Gait Goal Independent,Front Wheel Walker Gait Distance 150 Other Goals improve transfers and ambulation using LRAD/without AD ~ 150 ft SBA Days to Meet Goals 10 Frequency of Treatment Frequency Of Treatment Twice a Day Treatment Plan Physical Therapy Treatment Plan Bed Mobility Training,Transfer Training,Gait Training, Therapeutic Exercise,Balance Retraining,Post Op Education, Discharge Planning,Hot or Cold Pack,Neuromuscular Re-ed, Coordination Retraining,Manual Therapy Precautions Lumbar Precautions Log Roll,No Twisting,Limit Bending,Lifting Restriction of 10 lbs,Gait Belt above Incisional Area Recommendations To Nursing Amount of Assist Needed 1 Person Assist Discharge Recommendations PT Discharge Recommendations Home with 24/7 Assist Available,Home Health,SNF Rehab Equipment Needed for Home Before FWW Discharge Transportation Needs at Discharge Private Vehicle,Wheelchair/ Cabulance
[2023-09-27] MEDS: NICOTINE 7 MG PATCH TOP (09:49)
[2023-09-27] MEDS: DULOXETINE 30 MG CAPSULE 60 MG PO (09:49)
--- NOTE | 2023-09-27 10:57 | OT.IP.EVAL ---
Current Diagnoses Other spondylosis with radiculopathy, lumbar region (09/26/23) Spinal stenosis, lumbosacral region (09/26/23) Arthrodesis status (09/26/23) Surgery Performed Operation Date: 09/26/23 13:15 Actual Procedures p L5-S1 TLIF, extension of fusion to L2-5, L4-5 repeat laminectomy, PSF L4-5 - Almas Muller MD Past Medical History (Last Reviewed 07/15/23 @ 12:48 by Zheng Medellin MD) Anxiety Arthritis Asthma Chronic low back pain COPD (chronic obstructive pulmonary disease) Dental abscess Depression Diabetes Easy bruisability Emphysema lung ETOH abuse Frequent UTI Hepatitis C HTN (hypertension) Hyperlipidemia Hyponatremia Hypoxia Marijuana smoker Pneumonia (~07/2017) Substance abuse TBI (traumatic brain injury) (~2004) Urinary retention Surgical History (Last Reviewed 07/15/23 @ 12:48 by Zheng Medellin MD) H/O cosmetic surgery (~2013) History of cataract extraction with lens replacement History of lumbar spinal fusion (11/17/17) History of lumbar spinal fusion (07/17/21) History of mandibular surgery History of surgery Hx of appendectomy Hx of fusion of cervical spine (02/14/19) Hx of removal of cyst Hx of tonsillectomy Status post surgical manipulation of ankle joint Occupational Therapy Inpatient Evaluation/Re-Eval M2 OT-IP Current Condition Start: 09/27/23 11:02 Freq: Status: Active Protocol: Document 09/27/23 11:02 [facility] (Rec: 09/27/23 11:19 [facility] [id number]) Occupational Therapy Current Condition Current Condition Evaluation Date 09/27/23 Treatment Diagnosis S/P L5-S1 TLIF, ext. to fixation to L2-L5, L4-5 repeat laminectomy PSF L4-5 Diagnosis Onset Date 09/26/23 Post Operative Precautions Lumbar Precautions Log Roll,No Twisting,Limit Bending,Lifting Restriction of 10 lbs,Gait Belt above Incisional Area M3 OT- IP Subjective and Pain Start: 09/27/23 11:02 Freq: Status: Active Protocol: Document 09/27/23 11:02 [facility] (Rec: 09/27/23 11:19 [facility] [id number]) OT- Subjective Occupational Therapy Visit Type Type Initial Evaluation Visit Start Time 10:10 Visit Stop Time 10:57 Occupational Therapy Visit Comments Patient Comments Pt in the process of getting up with PT when OT came into the room. Pt's caregiver present at the end of OT eval. Patient/Caregiver Goals Pt wanting to go home but open to going to skilled rehab. OT Pain Assessment Pain When Pain Assessed At Rest Pain Present Pain Present Pain Reported Location back Intensity 8 Scale Used Numeric (0 - 10) M4 OT- IP ADL's Start: 09/27/23 11:02 Freq: Status: Active Protocol: Document 09/27/23 11:02 [facility] (Rec: 09/27/23 11:19 [facility] [id number]) OT [id number] General Evaluation Self-Feeding Ability Independent OT ADL-Grooming Comments OT Grooming Comments Not performed as pt states to do later. OT ADL-Oral Care Comments Oral Care Comments Pt states to do later. OT ADL-Dressing General Eval Lower Body Dressing Ability Maximum Assistance Areas Needing Assistance Socks,Shoes Comments OT Dressing Comments Educated of back precautions for dressing needs and would benefit from getting assist or LB dressing equipment. OT ADL-Toileting Comments OT Toileting Comments Pt insists there is no room for a BSC in the RV and states to wear briefs. Suggested best to stand and wipe to best follow her precautions. OT ADL-Bathing Comments OT Bathing Comments Not performed. M5 OT- IP IADL's Start: 09/27/23 11:02 Freq: Status: Active Protocol: Document 09/27/23 11:02 [facility] (Rec: 09/27/23 11:19 [facility] [id number]) OT-Instrumental Activities of Daily Living Deficits IADL Deficits Identified Deficits Home Safety Awareness Awareness of Need for Assistance at Home Decreased Awareness Ability to Problem Solve Emergency Unable to Problem Solve Situations Medication Management Medication Management Caregiver Administers Money Management Money Management Caregiver Provides Assistance Meal Preparation Meal Preparation Caregiver Provides Assist General Dentist/Owner General Dentist/Owner Caregiver Provides Assist M6 OT- IP Functional Cognition Start: 09/27/23 11:02 Freq: Status: Active Protocol: Document 09/27/23 11:02 [facility] (Rec: 09/27/23 11:19 [facility] [id number]) Cognitive Factors Limiting Selfcare Function Cognitive Ability Level of Alertness Alert Patient Orientation Name,Place,Situation Attention Span Ability Capable of Focused Attention, Capable of Sustained Attention Ability to Follow Commands Able to Follow One Step Commands with Increased Time, Able to Follow One Step Commands with Repetition Memory Description Short Term Impaired Safety Awareness Decreased Ability to Apply Precautions,Underestimates Need for Assistance Cognitive Comments Cognitive Assessment Comments Pt able to recall her back precautions but needing constant vc to incorporate her back precautions for ADl and mobility needs. Pt also needing vc for safety awareness. Pt's caregiver educated to give her safety cues for back precautions. OT- Vision and Hearing OT- Hearing Assessment OT- Hearing Assessment WFL OT- Vision Assessment Visual Acuity Glasses All The Time Visual Attentiveness WFL Occular Pursuits WFL M7 OT- IP Mobility and Balance Start: 09/27/23 11:02 Freq: Status: Active Protocol: Document 09/27/23 11:02 [facility] (Rec: 09/27/23 11:19 [facility] [id number]) OT- Bed Mobility Assessment Supine to Sit Supine to Sit Assist Maximum Assistance,1 Person Assistance OT-Transfer Assessment Sit to and From Stand Sit to and from Stand Moderate Assistance,1 Person Assistance Transfers Transfer Ability Minimal Assistance Technique Transfer Destination Bed,Chair Transfer Technique Stand Step Pivot Devices Transfer Assistive Devices Gait Belt,Front Wheeled Walker Comments Mobility Comments MAX A for log rolling and to get to the edge of the bed. MODA x1 to stand from lower surfaces and TYSHAWN with up on her feet with the FWW. Spoke on making sure her surfaces at high and safe. OT- Balance Assessment Sitting Balance and Reactions Static Sitting Balance Ability Good Dynamic Sitting Balance Ability Good Standing Balance and Reactions Static Standing Balance Ability Fair Dynamic Standing Balance Ability Fair M9 OT- IP Assessment and Plan Start: 09/27/23 11:02 Freq: Status: Active Protocol: Document 09/27/23 11:02 [facility] (Rec: 09/27/23 11:19 [facility] [id number]) OT Summary Assessment and Plan Potential Rehabilitation Potential Good Analytic Complexity at Evaluation Low Summary OT Impairments Pain,Balance,Functional Cognition,Functional Mobility, Grooming,Dressing,Toileting, Bathing,Toilet Transfers, Shower Transfers Progress Towards Goals Progressing Toward Goals,Slow Progress due to Cognition Assessment Summary Pt low complexity and main barriers are pain , decreased balance and needing extensive assist for bed mobility and coming up to stand. Pt also has memory issues from history of TBI and needing constant reminders for her back precautions and safety awareness. Pt would benefit from skilled rehab versus 20/12 assist at home and home health. Goals Self-Feeding Goal Independent Grooming Goal Independent Dressing Goal Minimal Assistance Toileting Goal Standby Assistance Bathing Goal Minimal Assistance Toilet Transfer Goal Independent Shower Transfer Goal Standby Assistance Patient/Caregiver Education Goal Demonstrate Post-Op Precautions,Caregiver Independent Assisting Patient Days to Meet Goals 15 Frequency of Treatment Frequency Of Treatment Once a Day Treatment Plan OT Treatment Plan ADL Training,Functional Cognition Training,Functional Mobility,Patient/Family Education,Discharge Planning Other Treatment Recommendations and Next Standing ADL's. Practice LB Treatment Focus dressing equipment Discharge Recommendations OT Discharge Recommendations Home with 24/7 Assist Available,Home Health,SNF Rehab,Home vs SNF Home Equipment Needs LB dressing equipment, possibly BSC if it fits in the RV Transportation Needs at Discharge Wheelchair/Cabulance
--- NOTE | 2023-09-27 11:25 | PT.IPTN ---
Current Diagnoses Other spondylosis with radiculopathy, lumbar region (09/26/23) Spinal stenosis, lumbosacral region (09/26/23) Arthrodesis status (09/26/23) Surgery Performed Operation Date: 09/26/23 13:15 Actual Procedures p L5-S1 TLIF, extension of fusion to L2-5, L4-5 repeat laminectomy, PSF L4-5 - Almas Muller MD Physical Therapy Treatment Note M2 PT-IP Current Condition Start: 09/27/23 11:18 Freq: NEEDED Status: Active Protocol: Document 09/27/23 09:45 AB (Rec: 09/27/23 11:31 AB [id number]) Physical Therapy Current Condition Current Condition Evaluation Date 09/27/23 Treatment Diagnosis s/p L5S1 TLIF; difficulty in walking Onset Date 09/26/23 M3 PT-IP Subjective Start: 09/27/23 11:18 Freq: NEEDED Status: Active Protocol: Document 09/27/23 12:40 TS (Rec: 09/27/23 12:56 TS [id number]) Subjective Physical Therapy Visit Type Type Treatment Note Visit Start Time 11:25 Visit Stop Time 11:58 Notes Caregiver in room Number of TECHNICAL LABORATORY ASST Visits 1 Physical Therapy Visit Comments Patient Comments Pt found resting in chair, is agreeable to PT. Therapy Pain Assessment Pain When Pain Assessed At Rest Pain Present Pain Present Pain Reported M4 PT-IP Mobility and Gait Start: 09/27/23 11:18 Freq: NEEDED Status: Active Protocol: Document 09/27/23 12:40 TS (Rec: 09/27/23 12:56 TS [id number]) PT-Bed Mobility Assessment Supine to Sit Supine to Sit Contact Guard Assistance Sit to Supine Sit to Supine Contact Guard Assistance,1 Person Assistance Scooting Scooting to Edge of Bed Contact Guard Assistance PT-Transfer Assessment Sit to and From Stand Sit to and from Stand Contact Guard Assistance,1 Person Assistance Equipment Transfer Assistive Device Gait Belt,Front Wheeled Walker Orthotic/Prosthetic Devices or Brace: No Comments Mobility Comments When asked to recall spinal precautions pt read them from board. Caregiver donned gait belt prior to mobility. STS from chair CGA from caregiver with use of FWW. She ambulated ~200'SBA with FWW, had no buckling or LOB. She performed bed mobility CGA with max cues for sequencing of logroll and spinal precautions. She ambulated in room ~50'CGA with use of SPC and anderson/ handrails for balance support. Pt was left back in chair, all needs met. Gait Assessment Gait Gait Assistance Required: Standby Assistance Distance (Feet) 200 Able to Maintain Weight Bearing Status Yes During Gait Assistive Devices Assistive Device Gait Belt,Front Wheeled Walker Orthotic/Prosthetic Devices or Brace: No Gait Deviations General Gait Pattern Decreased Stride Length, Decreased Feet Clearance Factors Limiting Gait Function Factors Limiting Gait Function Decreased Activity Tolerance, Decreased Strength,Difficulty Following Directions,Limited Range of Motion,Pain,Poor Balance,Poor Safety Awareness Comments Gait Comments See mobility comments PT-Balance Assessment Sitting Balance and Reactions Static Sitting Balance Ability Good Dynamic Sitting Balance Ability Good Standing Balance and Reactions Static Standing Balance Ability Fair Dynamic Standing Balance Ability Fair Device Used FWW M5 PT-IP Objective Assessments Start: 09/27/23 11:18 Freq: NEEDED Status: Active Protocol: Document 09/27/23 09:45 AB (Rec: 09/27/23 11:31 AB [id number]) Orientation Orientation/Cognition Level of Alertness Alert Orientation Name,Place,Situation Language Function Ability Hard of Hearing Safety Awareness Decreased Safety Awareness Memory Description Short Term Impaired,Orthotic Fitter Impaired Gross Range of Motion Lower Extremity ROM Assessment Within Functional Limits Strength Lower Extremity Strength Hip 4-/5 Knee 4-/5 Muscle Tone Muscle Tone WNL Yes M6 PT-IP Treatment Start: 09/27/23 11:18 Freq: NEEDED Status: Active Protocol: Document 09/27/23 12:40 TS (Rec: 09/27/23 12:56 TS [id number]) Physical Therapy Treatment Education Education Provided Precautions,Weight Bearing Status,Post-Op Packet,Safety M7 PT-IP Assessment and Plan Start: 09/27/23 11:18 Freq: NEEDED Status: Active Protocol: Document 09/27/23 12:40 TS (Rec: 09/27/23 12:56 TS [id number]) PT Summary Assessment and Plan Potential Rehabilitation Potential Fair Summary Impairments Pain,ROM,Strength,Balance, Coordination,Sensation,Tone, Cognition,Bed Mobility, Transfers,Gait,Activity Tolerance Progress Towards Goals Progressing Toward Goals Assessment Summary Santa is making progress with her mobility. She is CGA for STS with use of FWW of low surface of chair. She progressed her gait to ~200' SBA with FWW. She performed bed mobility CGA with cues for all bed mobility sequencing. Her RV will not accomodate a FWW and pt ambulated in room ~ 50' with SPC and use of anderson/ bedrails for balance CGA. She does lack good safety awareness with her mobility, she requires cues for not twisting during mobility. PT continues to recommend Home 24 /7 vs SNF at this time. Pt has a paid caregiver but she cannot be there 24/. Pt would benefit from SNF to progress strength, functional mobility and safety awareness. Goals Bed Mobility Goal Independent Transfer Goal Independent,Front Wheeled Walker Gait Goal Independent,Front Wheel Walker Gait Distance 150 Other Goals improve transfers and ambulation using LRAD/without AD ~ 150 ft SBA Days to Meet Goals 10 Frequency of Treatment Frequency Of Treatment Twice a Day Treatment Plan Physical Therapy Treatment Plan Bed Mobility Training,Transfer Training,Gait Training, Therapeutic Exercise,Balance Retraining,Post Op Education, Discharge Planning,Hot or Cold Pack,Neuromuscular Re-ed, Coordination Retraining,Manual Therapy Other Recommendations and Next Treatment Assess spinal precaution Focus carryover and bed mobility/STS . Precautions Lumbar Precautions Log Roll,No Twisting,Limit Bending,Lifting Restriction of 10 lbs,Gait Belt above Incisional Area Recommendations To Nursing Amount of Assist Needed 1 Person Assist Discharge Recommendations PT Discharge Recommendations Home with 24/7 Assist Available,Home Health,SNF Rehab Equipment Needed for Home Before FWW Discharge Transportation Needs at Discharge Private Vehicle,Wheelchair/ Cabulance
[2023-09-27] MEDS: NICOTINE 14 PATCH 14 MG TOP (14:51)
--- NOTE | 2023-09-27 16:22 | CM.DANOTE ---
DCP Assessment Note Pt is a 68yo F here POD 1 following planned/elective TLIF with Dr. Muller on 09.26.23. PCP Ivania Fall Payer [place] Medicare HMO/Medicaid. SEISMIC PROSPECTING OBSERVER reviewed EMR. Pt's surgery was pre-authed with pt's insurance as [facility]. Per UR after review, no current data to suggest pt would meet OBS/INPT criteria at this time. Per chart review, pt hx of [facility], unable to continue to work with her due to pt smoking a cigarette in home while using O2/having the stove on. Hx of Yisel Rodriguezta for rehab. PT/OT rec SNF placement at this time. SEISMIC PROSPECTING OBSERVER met with pt and BRIDGER SHERRY Luo ([phone]) in the room. Pt gets BRIDGER CG 24.5 HRS/week with Courtney being primary CG. Pt lives in [place] with partner Ciro ([phone]). Pt reports partner unable to assist with post op CG needs at home. SEISMIC PROSPECTING OBSERVER informed pt of how her surgery was pre-authed/other barriers to SNF Placement. Pt became very upset by this news. Pt reports she does not have a walker or any equipt in the home to assist in her post op. CG Nola reports working on obtaining a walker for pt to use. Nola reports she could transport pt home tomorrow between 10:30am-early afternoon. Pt and Nola hopeful that maybe pt could have her BRIDGER hours increased for the following week. Nola going on vacation end of next week- no current plan for replacement BRIDGER CG while Nabeel is gone. Pt reports unable to pay for SNF PP. Pt became angry and agitated with this SEISMIC PROSPECTING OBSERVER and asked her to leave the room and not return. SEISMIC PROSPECTING OBSERVER spoke with BRIDGER Schofield ([phone]). Sejal reports she is unable to increase someone's CG hours for a short term need, especially on this late of notice. Sejal reports unfortunately the most she can offer is to send the home RN out an additional time to check on pt. RN comes out to the home once per week to assist with medication management. SEISMIC PROSPECTING OBSERVER spoke with ortho coordinator Evette via phone. Evette reports pt was calling their office about rehab. SEISMIC PROSPECTING OBSERVER updated her on current barriers to rehab. Evette reported that Dr. Muller would likely be open to ordering HH if able to get an agency take takes her insurance to work with her. SEISMIC PROSPECTING OBSERVER updated pt on above BRIDGER/HH updates. Pt remains agitated with situation- asked this SEISMIC PROSPECTING OBSERVER to leave the room. Remains hopeful for HH. DCP continues to unfold. HH referrals needed for [facility]- both require review with pt's insurance. Anticipate home with [facility]- available to assist in transport between 10am-12pm Tuesday. CM team will continue to follow closely. VESTA Valencia Discharge Planning/Care Management CM Discharge Assessment Start: 09/27/23 16:18 Freq: Status: Active Protocol: Document 09/27/23 16:18 SL (Rec: 09/27/23 16:22 SL [id number]) Discharge Planning Assessment Assigned Straight Knife Machine Cutter VESTA Riggs DPOA/Assigned Designee Name Don, partner Contact Information [phone] Advance Directives? Yes Advance Directives on File No History Provided By Patient,Medical Record Prior Living Arrangements RV Household Members significant other Needs Assistance With Meal Prep,Managing Medications ,Home Chores / Shopping Comment 24 HRS [facility] CG prior to admission Contact Phone [phone] Comment 24HRS/week. Norman Schofield ([phone]) is CM with [facility]. Comment Pt preference is SNF Placement - at this time, pt's insurance will not auth a SNF stay. Consider HH, pt unable to work with [facility]/they refuse to see her. Consider [facility]/ [facility] referral. Comment Not enough assist at home currently; patient requests SNF before return home w/BRIDGER cg and partner Don Discharge Plan Home Additional Comment Referral to [facility] or [facility] needed. both would require review with pt's insurance. Whiteboard Updated in Patient Room with Yes name and ext. # of Straight Knife Machine Cutter Review Status In Process Please Provide Date Initial DC 09/27/23 Assessment Was Performed Next Review Type Continued Stay Review Pre-Anesthesia Assessment Start: 09/19/23 15:06 Freq: Status: Active Protocol: Document 09/19/23 15:06 CAB (Rec: 09/19/23 15:18 CAB [id number]) Pre-Anesthesia Assessment PAC Comment Spoke with patient's medication nurse to review medications. She reported no changes to patient's medical history other than the admit for pneumonia 07/13/23 from the last PAC completed, chart review only. Surgery has been cancelled and rescheduled several times. Patient Information Reviewed Via Chart Review Primary Care Provider Ivania Fall Comment Pre-op visit 08/31/23 scanned and in surgery folder-cleared by PCP Seen Specialist in Last 12 Months Yes Specialist Seen Orthopedist,Other Comment Mental Health Primary Language Lithuanian Preferred Language Lithuanian Food And Beverage Controller Required No Height 177.8 cm Weight 77.564 kg Body Mass Index (BMI) 24.5 Hearing Ability Normal Visual Assist Magnifying Glass Dentition Type Teeth, Natural Present,Teeth, Broken,Teeth, Missing Hx Anesthesia Reactions No Hx Family Anesthesia Reaction No Hx Malignant Hyperthermia No Hx Blood Transfusions Yes Hx Blood Transfusion Reaction No Anesthesia Review Requested No Electronic Heat Seal Operator No alcohol intake former Smoking Status Current some day smoker Tobacco type cigarettes how long ago did patient quit smoking Attempting to quit, wearing nicotine patch. 40 pk-year history Substance Use Type former substance user, marijuana Pain Present Pain Reported Musculoskeletal Symptoms Abnormal Gait,Back Pain, Difficulty Walking History of Falling (Recent or History of Yes ) Patient is completely paralyzed or No completely immobile Mental Status Oriented to own ability Is patient on oxygen? Yes: 2-3L02 continuous Does patient have JUNIOR/SOB No Hx Sleep Apnea No CPAP/BIPAP use not prescribed Currently Taking a Beta Josette No Can You Climb a Flight of Stairs Without Yes SOB Hx Chest Pain No Hx SOB Yes: r/t cold, asthma, copd Hx Syncope or Dizziness No Anti-Coagulant Therapy No Has a Health Services Director No Cardiac Testing No Hx Pacemaker/ICD No Pacemaker Rep Required? No Diet Type At Home Regular Dysphagia No Urinary Catheter Present No Hx Urinary Self Catheterization No Diabetes Yes HgbA1C 5.8 Comment Approx 4 months ago per PCP visit Patient No Lactating No Hx Drug Resistant Organism No Presence of External or Internal Medical Yes: titanium jaw, cervical/ Devices lumbar hardware Received a COVID vaccine? Yes: plus booster Marital Status Single Lives With significant other Current Living Arrangements RV Comment Lives in a travel trailer Number of Floors (Floors) One Floor Support System Significant Other Comment S.O. works during the day Patient Discharge Plan Description Return Home Feels Safe in Current Environment Yes Been Physically Hurt or Threatened By a No Person in Current Environment Do you have thoughts of harming yourself None or others? Are you currently considering suicide? No Do you have a plan to hurt yourself or No Plan others? Do You Have Any Spiritual Beliefs That No May Affect Your HC Choices? Do You Have Any Cultural Practices That No May Affect Your HC Choices? Comment Holiness Who Can We Speak to About Patient's Care Family, friends Identifying Code for Release of Patient Declines to issue Information Health Care Proxy/Next of Kin Jayme Duncan (S.O) Health Care Proxy Phone Number Jayme: [phone] Emergency Contact Name Jayme Duncan (S.Petr) Emergency Contact Phone Number Jayme: [phone] Advance Directives? Yes: I have to have it finalized Advance Directives on File No Power of Regional Sales Leader No
--- NOTE | 2023-09-27 20:21 | PC.NURSE ---
Post op Ortho: Isi is still in, pt thought it was to soon to remove. Did work with PT twice today and given oral pain med as she requested. Pt must be cued to follow her Lami precautions. Patient -> Can you just leave me alone and let me do it my way. Discussed importance of lami precautions. Pt is impulsive and will get up without calling. Chair alarm is on and she has set it off several times. Pt is also angry at some of the staff saying she worked with them on her last hospitalizations. She fired one of the VACUUM BOTTLE ASSEMBLER's and would not work with her, calling her a monster. Patient states -> Will you guys get off of me about this, I want to do things my way. Pt at the end of the shift requesting something for anxiety. She already receives diazepam twice a day. Dr. Almaraz was called back in OR and he is to return a call. Pt does seem anxious. At change of shift pt made a comment about how she had medication with her and she would just take them. Oncoming nurse is aware and will have medication removed. Cont to monitor pt for safety.
[2023-09-27] MEDS: ATORVASTATIN 20 MG TABLET 40 MG PO (20:35)
[2023-09-27] MEDS: SENNOSIDES 8.6 MG TABLET 17.2 MG PO (20:35)
[2023-09-27] MEDS: MAGNESIUM OXIDE 400 MG TABLET PO (20:35)
[2023-09-27] MEDS: TRAZODONE 50 MG TABLET 100 MG PO (20:35)
[2023-09-27] MEDS: DONEPEZIL 5 MG TABLET 10 MG PO (20:36)
[2023-09-27] MEDS: PRAZOSIN 1 MG CAPSULE PO (20:36)
[2023-09-27] MEDS: MONTELUKAST 10 MG TABLET PO (20:36)
[2023-09-27] MEDS: SODIUM CHLORIDE 0.9% FLUSH 10 ML IV (22:48)
--- NOTE | 2023-09-28 02:47 | PC.NURSE ---
09/26 @ 1950 Pt. declined to have her bag inspected to check if she have some home medications. States I will not take any medicine unless you guys given it to me. Placed her bag in [employer] shelf by the window.
[2023-09-28] MEDS: OXYCODONE IR 10 MG TABLET PO ×2 (05:17→08:19)
[2023-09-28] MEDS: PANTOPRAZOLE DR 20 MG TABLET PO (05:20)
[2023-09-28 06:00] VITALS: BP 139/66; PULSE 69; RESP 17; TEMP 36.4; O2SAT 96
--- NOTE | 2023-09-28 06:46 | PM.DS.1 ---
History of Present Illness History of Present Illness Date Patient Seen: 09/28/23 Time Patient Seen: 06:47 Chief complaint: Translaminar Interbody Fusion/Laminotomy Narrative: Operative Date/Time/Diagnoses Date of procedure: 09/26/23 Time of procedure: 13:00 Pre-op diagnosis: 1. L5-S1 anterolisthesis 2. History of L2-5 PSF with instrumentation 3. L5-S1 bilateral foramen stenosis Post-op diagnosis: same Procedure & Clinicians Procedure: 1. L5-S1 posterolateral and posterior interbody fusion 2. L5-S1 decompression laminectomies and facetcomies 3. L5-S1 posterior interbody cage placement 4. L4-5 revision laminectomy with exploration of fusion 5. L5-S1 posterior segmental instrumentation with pedicle screw placement 6. L4-5 posterolatearl fusion 7. Bryan of bone marrow from iliac crest through a separate incision 8. Utilization of microsurgical technique and operating microscope Same procedure as scheduled: Yes Indications: Patient has been having chronic back pain and worsening lumbar radiculopathy. Patient had previous L2-5 posterior spinal fusion with instrumentation was doing well until recently. Patient was found to have L5-S1 anterolisthesis with bilateral severe foraminal stenosis correlating with her symptoms. Patient failed multiple conservative management with worsening pain weakness and numbness in her lower extremity. Patient has been having difficulty performing activity of daily living. After discussing risks benefits of treatment options, patient elected proceed with surgery. Surgeon: Almas Muller Deburrer: Marissa Santoro Click Yes if Unassisted: No Anesthesia Type: General Operative Notes Closure Type: primary Specimen(s): none sent Prosthetic devices, grafts, tissues, transplants, or devices: Globus revolve screws, Globus add-on system Globus Sable cage Applied: catheter Estimated Blood Loss (mL): 100 Blood products transfused: none Discharge Providers Provider Discharge Date: 09/28/23 Primary care physician: LISBET Barragan Consults: 09/26/23 18:04 Consult to Occupational Therapy Evaluate & Treat Comment: Physician Instructions: Evaluate and treat Consult to Physical Therapy Evaluate & Treat Comment: Physician Instructions: Evaluate and Treat 09/27/23 14:53 Consult to Discharge Planning Routine Comment: Please discuss HH care options w/ pt Discharge provider: Marissa Santoro PA-C Summary Hospital Course Discharge Diagnosis: L5-S1 anterolisthesis, History of L2-5 PSF with instrumentation, L5-S1 bilateral foramen stenosis; s/p L5-S1 TLIF Hospital Course: Ms Ames's hospital course was unremarkable. On the morning of POD# 2, she was planning to d/c home w/ her caregiver, Nola, around 1030. Prior to surgery, she had assured us she had a caregiver for help after surgery. After surgery, she said that 'the situation has changed...she always has sick kids' and requested additional help. At the time of my visit this morning, it appears that CM was working on getting HH for pt and had also spoken to caregiver agency about potentially getting more help from them, though it doesn't sound as though that was likely. Pt tells me 'everyone is doing everything they can' and is accepting of situation. Her pain is adequately controlled w/ PO medication; she has received three doses of IV dilaudid for breakthrough pain yesterday. C/o back pain and arm pain 'from working w/ PT yesterday;' denies leg pain. Has not voided independently yet. Eating without difficulty. Exam Vital Signs (past 8 hours): - 09/28/23 06:00 Temperature 97.6 F Pulse Rate 69 Respiratory Rate 17 Blood Pressure 139/66 Pulse Oximetry 96 Oxygen Flow Rate 0 Oxygen Delivery Method Nasal Cannula Oxygen Flow Rate 0 Narrative Exam Narrative: 5/5 strength in hip flexors, quadriceps, hamstrings, DF, PF, EHL bilaterally. Sensation to light touch intact in BLE. Calves soft, compressible, nontender; SCDs in place. Low back dressing placed intraoperatively is CDI. Objective Labs 09/27/23 04:50 PFSH Medical History Marijuana smoker Easy bruisability Arthritis Emphysema lung TBI (traumatic brain injury) (~2004) Hepatitis C Chronic low back pain Hypoxia Anxiety Pneumonia (~07/2017) Dental abscess Hyperlipidemia HTN (hypertension) Substance abuse ETOH abuse Hyponatremia Depression Frequent UTI Urinary retention COPD (chronic obstructive pulmonary disease) Asthma Diabetes Surgical History History of lumbar spinal fusion (07/17/21) History of lumbar spinal fusion (11/17/17) Hx of fusion of cervical spine (02/14/19) History of mandibular surgery History of surgery Hx of tonsillectomy History of cataract extraction with lens replacement H/O cosmetic surgery (~2013) Hx of removal of cyst Hx of appendectomy Status post surgical manipulation of ankle joint Social History household members: significant other Smoking Status: Current some day smoker alcohol intake: current Discharge Assessment & Plan Assessment and Plan Assessment: L5-S1 anterolisthesis, History of L2-5 PSF with instrumentation, L5-S1 bilateral foramen stenosis; s/p L5-S1 TLIF Plan of Treatment: D/c marroquin. Can d/c home if pt is able to void independently. Multimodal pain control, HH if available, f/u in office in 2 weeks as scheduled. Discharge Plan Discharge Plan Patient Disposition: Home Discharge orders & Medications Discharge Orders: Discharge (Order); Ordered 09/28/23 Ordered By: Marissa Santoro Prescriptions: New oxycodone 5 mg tablet 5 mg PO Q4H PRN (Reason: pain (scale score 4-6)) Qty: 60 0RF Rx Instructions: May take up to 2 tabs (10mg) q 4 hr cyclobenzaprine 10 mg tablet 10 mg PO TID PRN (Reason: muscle spasm) Qty: 90 0RF docusate sodium 100 mg Capsule 100 mg PO BID PRN (Reason: constipation) Qty: 60 1RF acetaminophen 325 mg Tablet 650 mg PO Q6H PRN (Reason: Fever/Mild Pain (1-3)) Qty: 240 0RF Continued trazodone 50 mg Tablet 100 mg PO BEDTIME montelukast 10 mg Tablet 10 mg PO BEDTIME buspirone 15 mg Tablet 30 mg PO DAILY Combivent Respimat 20-100 mcg/actuation Mist 1 puff INHALATION Q6H PRN (Reason: asthma) atorvastatin 40 mg Tablet 40 mg PO BEDTIME albuterol sulfate 2.5 mg /3 mL (0.083 %) Solution For Nebulization 2.5 mg INHALATION QID PRN (Reason: Shortness Of Breath) metoprolol tartrate 50 mg Tablet 75 mg PO BID hydrocortisone 10 mg Tablet 10 mg PO DAILY losartan 50 mg Tablet 50 mg PO DAILY prazosin 1 mg Capsule 1 mg PO BEDTIME torsemide 10 mg Tablet 10 mg PO DAILY fluticasone propion-salmeterol [Advair Diskus] 500-50 mcg/dose Blister With Device 1 inh INHALATION BID omeprazole 20 mg Tablet,Delayed Release (Dr/Ec) 20 mg PO DAILY Incruse Ellipta 62.5 mcg/actuation Blister With Device 1 inh INHALATION DAILY melatonin 10 mg Tablet 10 mg PO BEDTIME PRN (Reason: Insomnia) magnesium 500 mg Tablet 500 mg PO BEDTIME clotrimazole 1 % Cream 1 applic TOPICAL BID nicotine 7 mg/24 hr Patch 24 Hour 1 patch topical DAILY Patient Comments: patient reported removing patch albuterol sulfate 90 mcg/actuation Hfa Aerosol Inhaler 2 puff INHALATION Q4-6H PRN (Reason: Asthma) Qty: 8.5 0RF lisinopril 5 mg Tablet 5 mg PO DAILY diazepam [Valium] 2 mg tablet 2 mg PO BID duloxetine 30 mg capsule,delayed release(DR/EC) 60 mg PO DAILY amlodipine 10 mg tablet 10 mg PO DAILY Patient Comments: take 1 tablet by mouth once daily donepezil 5 mg tablet 10 mg PO BEDTIME Patient Comments: take 1 tablet by mouth nightly ketoconazole 2 % cream 1 applic TOPICAL DAILY PRN (Reason: Rash) Patient Comments: Apply topically daily apply topically to affected area twice a day for 2 weeks to GROIN RASH Rx Instructions: uses after each shower. oxybutynin chloride 5 mg tablet 5 mg PO BID Patient Comments: take 1 tablet by mouth twice a day hydroxyzine HCl 10 mg tablet 10 mg PO BEDTIME PRN (Reason: Anxiety) Patient Comments: Take 1 tablet (10 mg total) by mouth nightly as needed for Anxiety Discontinued cyclobenzaprine 10 mg Tablet 10 mg PO DAILY Patient Comments: Takes at 5:30pm oxycodone 10 mg tablet 10 mg PO Q4H PRN (Reason: pain) Qty: 20 0RF Follow up/Referrals: Ivania Fall FNP-C [Primary Care Provider] - Almas Muller MD [Physician] - 10/11/23 10:40 am (Follow up w/ Marissa Santoro PA-C, at [facility] office in [place].) Diet/Activity/Treatments Diet: Diet as Tolerated Activity: No deep bending or twisting at the waist. No lifting more than 10 pounds. Cold/Heat Therapy: Heating pad to low back as needed for pain. Skin/Wound/Dressing Care Report to your healthcare provider any signs of infection, such as:: chills, fever, night sweats, unusual drainage and unusual redness Dressing: May shower. Keep dressing as dry as possible. If dressing becomes wet or dirty, may remove and replace with clean, dry gauze. No bathing or otherwise soaking incisions. Do not apply any creams, lotions, or ointments to incisions. Visit Report/Discharge Packet Instructions: DI for Transforaminal Lumbar Interbody Fusion, DI for Prescription Opioid Use Stand Alone Forms: Patient Portal/API, Surgery Discharge Discharge Data Primary Care Provider: Ivania Fall Attending Provider: Almas Muller VTE Deep Vein Thrombosis/Pulmonary Embolism Present on Admission: No
--- NOTE | 2023-09-28 07:04 | PC.NURSE ---
Pt. slept most of the night, awakened and medicated her with 10 mg. of Oxycodone. States I sleep better tongiht, that the other night.
[2023-09-28] MEDS: NICOTINE 7 MG PATCH 14 MG TOP (08:19)
[2023-09-28] MEDS: METOPROLOL IR 25 MG TABLET 75 MG PO (08:19)
[2023-09-28 08:20] VITALS: BP 133/64
[2023-09-28] MEDS: lisinopriL 5 MG TABLET PO (08:20)
[2023-09-28] MEDS: ACETAMINOPHEN 325 MG TABLET 650 MG PO (08:20)
[2023-09-28] MEDS: BUSPIRONE 5 MG TABLET 30 MG PO (08:20)
[2023-09-28] MEDS: AMLODIPINE 5 MG TABLET 10 MG PO (08:20)
[2023-09-28 08:21] VITALS: BP 133/64
[2023-09-28] MEDS: DOCUSATE 100 MG CAPSULE PO (08:21)
[2023-09-28] MEDS: OXYBUTYNIN 5 MG TABLET PO (08:21)
[2023-09-28] MEDS: DULOXETINE 30 MG CAPSULE 60 MG PO (08:21)
[2023-09-28] MEDS: diazePAM 2 MG TABLET PO (08:21)
[2023-09-28] MEDS: TORSEMIDE 10 MG TABLET PO (08:21)
[2023-09-28] MEDS: CYCLOBENZAPRINE 10 MG TABLET PO (08:21)
[2023-09-28] MEDS: SODIUM CHLORIDE 0.9% FLUSH 10 ML IV (08:21)
[2023-09-28] MEDS: LOSARTAN 50 MG TABLET PO (08:21)
[2023-09-28] MEDS: polyethylene glycoL 3350 17 GM POWD.PACK PO (08:22)
[2023-09-28] MEDS: BUDESONIDE 0.5 MG/2 ML NEB INH (08:32)
[2023-09-28] MEDS: ALBUTEROL 2.5 MG/3 ML NEB (ADULT) INH (08:34)
[2023-09-28 08:35] VITALS: O2SAT 90
--- NOTE | 2023-09-28 08:45 | PT.IPTN ---
Current Diagnoses Other spondylosis with radiculopathy, lumbar region (09/26/23) Spinal stenosis, lumbosacral region (09/26/23) Arthrodesis status (09/26/23) Surgery Performed Operation Date: 09/26/23 13:15 Actual Procedures p L5-S1 TLIF, extension of fusion to L2-5, L4-5 repeat laminectomy, PSF L4-5 - Almas Muller MD Physical Therapy Treatment Note M2 PT-IP Current Condition Start: 09/27/23 11:18 Freq: NEEDED Status: Active Protocol: Document 09/27/23 09:45 AB (Rec: 09/27/23 11:31 AB [id number]) Physical Therapy Current Condition Current Condition Evaluation Date 09/27/23 Treatment Diagnosis s/p L5S1 TLIF; difficulty in walking Onset Date 09/26/23 M3 PT-IP Subjective Start: 09/27/23 11:18 Freq: NEEDED Status: Active Protocol: Document 09/28/23 10:08 TS (Rec: 09/28/23 10:18 TS [id number]) Subjective Physical Therapy Visit Type Type Treatment Note Visit Start Time 08:45 Visit Stop Time 09:08 Number of LINOLEUM INSTALLER Visits 2 Physical Therapy Visit Comments Patient Comments Pt found resting in bed, would like to get up to bathroom. Therapy Pain Assessment Pain When Pain Assessed At Rest Pain Present Pain Present Pain Reported M4 PT-IP Mobility and Gait Start: 09/27/23 11:18 Freq: NEEDED Status: Active Protocol: Document 09/28/23 10:08 TS (Rec: 09/28/23 10:18 TS [id number]) PT-Bed Mobility Assessment Rolling Type of Rolling Log Rolling Level of Assist Minimal Assistance Supine to Sit Supine to Sit Moderate Assistance Scooting Scooting to Edge of Bed Standby Assistance PT-Transfer Assessment Sit to and From Stand Sit to and from Stand Contact Guard Assistance,1 Person Assistance Equipment Transfer Assistive Device Gait Belt,Front Wheeled Walker Orthotic/Prosthetic Devices or Brace: No Comments Mobility Comments Pt recalled 3/3 spinal precautions prior to mobility. Logroll to L side Dali with max cues for sequencing, pt demonstrates poor recall. Supine to sit ModA for uprighting trunk and max cues for no twisting, again has poor recall. STS from bed CGA with FWW, pt is slow to stand. She ambulated to toilet SBA with FWW, required cues for descending onto to toilet. Pt was left with nursing staff. Gait Assessment Gait Gait Assistance Required: Standby Assistance Distance (Feet) 15 Able to Maintain Weight Bearing Status Yes During Gait Assistive Devices Assistive Device Gait Belt,Front Wheeled Walker Orthotic/Prosthetic Devices or Brace: No Gait Deviations General Gait Pattern Decreased Stride Length, Decreased Feet Clearance Factors Limiting Gait Function Factors Limiting Gait Function Decreased Activity Tolerance, Decreased Strength,Difficulty Following Directions,Limited Range of Motion,Pain,Poor Balance,Poor Safety Awareness Comments Gait Comments See mobility comments PT-Balance Assessment Sitting Balance and Reactions Static Sitting Balance Ability Good Dynamic Sitting Balance Ability Good Standing Balance and Reactions Static Standing Balance Ability Fair Dynamic Standing Balance Ability Fair Device Used FWW M5 PT-IP Objective Assessments Start: 09/27/23 11:18 Freq: NEEDED Status: Active Protocol: Document 09/27/23 09:45 AB (Rec: 09/27/23 11:31 AB [id number]) Orientation Orientation/Cognition Level of Alertness Alert Orientation Name,Place,Situation Language Function Ability Hard of Hearing Safety Awareness Decreased Safety Awareness Memory Description Short Term Impaired,Resident Programs Assistant Impaired Gross Range of Motion Lower Extremity ROM Assessment Within Functional Limits Strength Lower Extremity Strength Hip 4-/5 Knee 4-/5 Muscle Tone Muscle Tone WNL Yes M6 PT-IP Treatment Start: 09/27/23 11:18 Freq: NEEDED Status: Active Protocol: Document 09/28/23 10:08 TS (Rec: 09/28/23 10:18 TS [id number]) Physical Therapy Treatment Education Education Provided Precautions,Weight Bearing Status,Post-Op Packet,Safety M7 PT-IP Assessment and Plan Start: 09/27/23 11:18 Freq: NEEDED Status: Active Protocol: Document 09/28/23 10:08 TS (Rec: 09/28/23 10:18 TS [id number]) PT Summary Assessment and Plan Potential Rehabilitation Potential Fair Summary Impairments Pain,ROM,Strength,Balance, Coordination,Sensation,Tone, Cognition,Bed Mobility, Transfers,Gait,Activity Tolerance Progress Towards Goals Slow Progress - Other Assessment Summary Santa is requiring increased assist for bed mobility this session. She can recall her spinal precautions but has difficulty putting into practice. She requires Max cues for logroll and supine to sit, pt tends to twist. She lacks good safety awareness with her mobility and demonstrates poor recall of mobility techniques. PT continues to recommend Home 24 /7 vs SNF. Goals Bed Mobility Goal Independent Transfer Goal Independent,Front Wheeled Walker Gait Goal Independent,Front Wheel Walker Gait Distance 150 Other Goals improve transfers and ambulation using LRAD/without AD ~ 150 ft SBA Days to Meet Goals 10 Frequency of Treatment Frequency Of Treatment Twice a Day Treatment Plan Physical Therapy Treatment Plan Bed Mobility Training,Transfer Training,Gait Training, Therapeutic Exercise,Balance Retraining,Post Op Education, Discharge Planning,Hot or Cold Pack,Neuromuscular Re-ed, Coordination Retraining,Manual Therapy Precautions Lumbar Precautions Log Roll,No Twisting,Limit Bending,Lifting Restriction of 10 lbs,Gait Belt above Incisional Area Recommendations To Nursing Amount of Assist Needed 1 Person Assist Discharge Recommendations PT Discharge Recommendations Home with 24/7 Assist Available,Home Health,SNF Rehab Equipment Needed for Home Before FWW Discharge Transportation Needs at Discharge Private Vehicle,Wheelchair/ Cabulance
--- NOTE | 2023-09-28 14:12 | CM.DPNOTE ---
Addendum entered by VESTA Moreno 09/28/23 14:15: ADD: F2F and HH order completed, signed, sent to [facility] by Suzie Madison CMA. Original Note: DC Note Patient discharged home; patient agreeable and has arranged her [employer] caregiver to pick her up at 1030. JEAN MARIE Larsen, kindly agreed to send referral to [facility] and [facility], [facility] has refused to resume patient's home health services. [place] from [facility] that patient has been accepted onto their service for start of care early next week. Patient updated and pleased that she will have home health upon discharge. Plan: Discharge home w/[facility]ID[facility] caregiver, [facility] services RN/PT/OT/STOGY MAKER, cleared by [facility] for this plan JW
== END 2023-09-28 11:02 | disposition home or self-care (01) ==
LOC: OR 11:31 → AC 11:31
PROVIDERS: PCP Nurse Practitioner; Referring Provider Orthopaedic Surgery Orthopaedic Surgery of the Spine; Visit Provider Orthopaedic Surgery Orthopaedic Surgery of the Spine
PROC: (CPT 22633; principal; 2023-09-26 13:15)
DX: M47.26 Other spondylosis with radiculopathy, lumbar region (principal); M48.07 Spinal stenosis, lumbosacral region; Z98.1 Arthrodesis status
CPT/HCPCS: 22633; 63005; 22842; 22614; 63052; 22853; 20939; 36415; 72100; 76000; 85014; 85018; 94640; 94762; 97116; 97162; 97165; 97530; 97535; A9270; C1713; C9290; J0136; J0171; J0330; J0690; J1100; J1170; J2060; J2250; J2405; J2704; J3010; J3410; J7613